=== PATIENT | female | born 1970 | race Two or more races ===

== ENCOUNTER 2021-08-17 15:43 | Emergency (ER) | payer MEDICAID, OTHER ==
[~2021-08-17] VITALS: Ht 170.2 cm; Wt 138.3 kg
[2021-08-17 16:57] LABS: Basophils # (auto) 0.1 10 ^3/uL (0-0.2); Basophils % (auto) 0.9 % (0.0-2.0); Eosinophils # (auto) 0.2 10 ^3/uL (0-0.8); Hemoglobin 10.5 g/dL (13.5-17.5); Lymphocytes # (auto) 2.7 10 ^3/uL (0.4-5.4); Lymphocytes % (auto) 31.5 % (10.0-50.0); Mean Corpuscular Hemoglobin 23.1 pg (28.0-32.0); Mean Corpuscular Hgb Conc. 30.9 g/dL (32.0-36.0); Mean Corpuscular Volume 74.9 fL (80.0-100.0); Monocytes # (auto) 0.4 10 ^3/uL (0-1.3); Monocytes % (auto) 4.8 % (0.0-12.0); Neutrophils # (auto) 5.2 10 ^3/uL (1.6-8.6); Neutrophils % (auto) 60.8 % (37.0-80.0); Nucleated Red Blood Cells % 0.1 %; Red Blood Cells 4.54 10^6/uL (4.5-5.90); Red Cell Distribution Width 16.7 % (11.8-14.3); White Blood Cell 8.6 10^3/uL (4.4-10.8)
[2021-08-17 17:12] LABS: Albumin 3.1 g/dL (3.4-5.0); Calcium 8.2 mg/dL (8.5-10.1); Potassium 3.7 mmol/L (3.5-5.1)
[2021-08-17 17:18] LABS: BUN/Creatinine Ratio 14.9; Bilirubin, Total 0.2 mg/dL (0.2-1.0); Total Protein 7.4 g/dL (6.4-8.2)
[2021-08-17 20:57] VITALS: BP 124/63
== END 2021-08-17 21:36 | disposition home or self-care (01) ==
LOC: ER 15:43 → EDSEX 15:43 → ER 21:36
DX: R33.9 Retention of urine, unspecified (principal); R22.9 Localized swelling, mass and lump, unspecified; I10 Essential (primary) hypertension; E11.9 Type 2 diabetes mellitus without complications; J44.9 Chronic obstructive pulmonary disease, unspecified; F17.210 Nicotine dependence, cigarettes, uncomplicated; Z90.89 Acquired absence of other organs; Z88.5 Allergy status to narcotic agent; Z88.8 Allergy status to other drugs, medicaments and biological substances; Z91.013 Allergy to seafood
CPT/HCPCS: 36415; 51702; 71046; 80053; 84484; 85025; 93005

== ENCOUNTER 2021-10-04 11:59 | Inpatient (IN) | payer MEDICAID ==
[~2021-10-04] VITALS: Ht 170.2 cm; Wt 162.0 kg
[2021-10-04] MEDS ORDERED: IPRATROPIUM BROM 0.5 MG/2.5ML INH SOL HHN ONE ×2 (12:30→17:00)
[2021-10-04] MEDS ORDERED: ALBUTEROL SULF 2.5 MG/0.5ML(0.5%) NEB SOLN HHN ONE ×2 (12:30→17:00)
[2021-10-04] MEDS ORDERED: methylPREDNISolone SOD SUCC 125 MG/2 ML VL IV ONE (12:30)
[2021-10-04 14:28] LABS: Potassium 3.4 mmol/L (3.5-5.1)
[2021-10-04 14:32] LABS: Albumin 3.4 g/dL (3.4-5.0); BUN/Creatinine Ratio 9.5; Calcium 8.7 mg/dL (8.5-10.1)
[2021-10-04 14:39] LABS: Basophils # (auto) 0.1 10 ^3/uL (0-0.2); Basophils % (auto) 1.3 % (0.0-2.0); Eosinophils # (auto) 0.2 10 ^3/uL (0-0.8); Eosinophils % (auto) 2.4 % (0.0-7.0); Hematocrit 31.3 % (36.0-46.0); Hemoglobin 9.5 g/dL (12.2-16.2); Lymphocytes # (auto) 3.4 10 ^3/uL (0.4-5.4); Lymphocytes % (auto) 40.3 % (10.0-50.0); Mean Corpuscular Hgb Conc. 30.4 g/dL (32.0-36.0); Mean Corpuscular Volume 69.1 fL (80.0-100.0); Monocytes # (auto) 0.4 10 ^3/uL (0-1.3); Monocytes % (auto) 4.2 % (0.0-12.0); Neutrophils # (auto) 4.4 10 ^3/uL (1.6-8.6); Neutrophils % (auto) 51.8 % (37.0-80.0); Nucleated Red Blood Cells % 0.1 %; Red Blood Cells 4.52 10^6/uL (4.0-5.20); Red Cell Distribution Width 17.8 % (11.8-14.3); White Blood Cell 8.5 10^3/uL (4.4-10.8)
[2021-10-04 14:44] LABS: Bilirubin, Total 0.3 mg/dL (0.2-1.0); Total Protein 7.6 g/dL (6.4-8.2)
[2021-10-04] MEDS ORDERED: MORPHINE SULFATE INJECTION 2 MG/ML SYRG IV PRN (18:45)
[2021-10-04] MEDS ORDERED: ONDANSETRON HCL 4 MG/2 ML VIAL IV PRN (18:45)
[2021-10-04] MEDS ORDERED: HYDROcodone-ACET 5/325MG TAB PO PRN (18:45)
[2021-10-04] MEDS ORDERED: POTASSIUM EFFERVESENT TAB 25 MEQ GT ONE (19:00)
[2021-10-04] MEDS: SODIUM CHLORIDE 0.9% 1,000 ML IV SCH (20:09)
[2021-10-04] MEDS: methylPREDNISolone SOD SUCC 40 MG/ML VL IV SCH (22:22)
[2021-10-04] MEDS: NITROGLYCERIN 0.4 MG SL TAB SL PRN ×2 (22:32→22:37)
[2021-10-04] MEDS ORDERED: diphenhdrAMINE HCL 50 MG/1 ML VL IV ONE (22:45)
[2021-10-04] MEDS ORDERED: DOCU100C10 PO (22:59)
[2021-10-04] MEDS ORDERED: LEVE100020 PO (22:59)
[2021-10-04] MEDS ORDERED: ATOR20TA50 PO (22:59)
[2021-10-04] MEDS ORDERED: AMLO-489 PO (22:59)
[2021-10-04] MEDS ORDERED: APIX5TAB PO (22:59)
[2021-10-04] MEDS ORDERED: ALBU108A5 PO (22:59)
[2021-10-04] MEDS ORDERED: METF-372 PO (22:59)
[2021-10-04 23:50] LABS: Nucleated Red Blood Cells % 0.1 %; White Blood Cell 7.1 10^3/uL (4.4-10.8)
[2021-10-04 23:52] LABS: Basophils # (auto) 0 10 ^3/uL (0-0.2); Basophils % (auto) 0.2 % (0.0-2.0); Eosinophils # (auto) 0 10 ^3/uL (0-0.8); Eosinophils % (auto) 0.1 % (0.0-7.0); Hematocrit 29.3 % (36.0-46.0); Hemoglobin 8.8 g/dL (12.2-16.2); Lymphocytes # (auto) 0.6 10 ^3/uL (0.4-5.4); Lymphocytes % (auto) 8.5 % (10.0-50.0); Mean Corpuscular Hemoglobin 20.8 pg (28.0-32.0); Mean Corpuscular Volume 69.3 fL (80.0-100.0); Monocytes # (auto) 0.1 10 ^3/uL (0-1.3); Neutrophils # (auto) 6.4 10 ^3/uL (1.6-8.6); Neutrophils % (auto) 90.2 % (37.0-80.0); Red Blood Cells 4.23 10^6/uL (4.0-5.20)
[2021-10-04 23:56] LABS: INR 1.02 (0.9-1.15)
[2021-10-05 00:40] VITALS: BP 123/52
[2021-10-05] MEDS ORDERED: IOHEXOL 350 MG/ML 100ML IJ ONE (01:09)
[2021-10-05 05:00] VITALS: BP 95/49
[2021-10-05 05:23] LABS: Basophils # (auto) 0 10 ^3/uL (0-0.2); Basophils % (auto) 0.2 % (0.0-2.0); Eosinophils # (auto) 0 10 ^3/uL (0-0.8); Hemoglobin 8.9 g/dL (12.2-16.2); Monocytes # (auto) 0.1 10 ^3/uL (0-1.3); Nucleated Red Blood Cells % 0.2 %
[2021-10-05 05:24] LABS: Hematocrit 29.4 % (36.0-46.0); Lymphocytes # (auto) 0.9 10 ^3/uL (0.4-5.4); Lymphocytes % (auto) 11.1 % (10.0-50.0); Mean Corpuscular Hgb Conc. 30.2 g/dL (32.0-36.0); Mean Corpuscular Volume 69.7 fL (80.0-100.0); Monocytes % (auto) 1.5 % (0.0-12.0); Neutrophils # (auto) 6.9 10 ^3/uL (1.6-8.6); Neutrophils % (auto) 87.2 % (37.0-80.0); Red Blood Cells 4.22 10^6/uL (4.0-5.20); Red Cell Distribution Width 17.4 % (11.8-14.3); White Blood Cell 7.9 10^3/uL (4.4-10.8)
[2021-10-05 05:46] LABS: Calcium 8.6 mg/dL (8.5-10.1); Potassium 4.3 mmol/L (3.5-5.1)
[2021-10-05] MEDS: methylPREDNISolone SOD SUCC 40 MG/ML VL IV SCH ×3 (05:47→21:58)
[2021-10-05] MEDS: SODIUM CHLORIDE 0.9% 1,000 ML IV SCH ×3 (05:47→21:59)
[2021-10-05 05:52] LABS: BUN/Creatinine Ratio 14.7; Bilirubin, Total 0.4 mg/dL (0.2-1.0); Total Protein 7.3 g/dL (6.4-8.2)
[2021-10-05 08:00] VITALS: BP 119/72
[2021-10-05] MEDS ORDERED: LORazepam 2MG/ML-1ML VIAL IV PRN (09:30)
[2021-10-05 10:00] LABS: Cholesterol 189 mg/dL (< 200); HDL Cholesterol 48 mg/dL (40-59); LDL Cholesterol 123 mg/dL (< 100); Triglycerides 77 mg/dL (< 150)
[2021-10-05] MEDS ORDERED: FAMOTIDINE 20 MG TAB PO SCH (10:00)
[2021-10-05] MEDS ORDERED: ENOXAPARIN SOD 40 MG/0.4 ML SYRINGE SC SCH (10:00)
[2021-10-05] MEDS: MORPHINE SULFATE INJECTION 2 MG/ML SYRG IV PRN ×2 (10:03→20:59)
[2021-10-05 12:00] VITALS: BP 138/82
[2021-10-05 16:00] VITALS: BP 111/75
[2021-10-05] MEDS: SUCRALFATE 1 GM/10 ML ORAL SUSP PO SCH ×2 (17:04→21:58)
[2021-10-05] MEDS: IPRATROPIUM BROM 0.5 MG/2.5ML INH SOL NEB PRN ×2 (18:10→22:37)
[2021-10-05] MEDS: ALBUTEROL SULF 2.5 MG/0.5ML(0.5%) NEB SOLN NEB PRN ×2 (18:10→22:37)
[2021-10-05] MEDS: ACETAMINOPHEN 325 MG TAB PO PRN (21:58)
[2021-10-05] MEDS: APIXABAN 5 MG TAB PO SCH (21:59)
[2021-10-05] MEDS: PANTOPRAZOLE 40 MG TAB PO SCH (21:59)
[2021-10-05 22:00] VITALS: BP 116/71
[2021-10-06] VITALS (9 sets, daily range): BP systolic 113–143; BP diastolic 60–88
[2021-10-06] MEDS: MORPHINE SULFATE INJECTION 2 MG/ML SYRG IV PRN ×3 (02:34→20:06)
[2021-10-06] MEDS: SODIUM CHLORIDE 0.9% 1,000 ML IV SCH ×3 (05:21→21:57)
[2021-10-06] MEDS: methylPREDNISolone SOD SUCC 40 MG/ML VL IV SCH ×3 (05:22→21:57)
[2021-10-06 06:09] LABS: Basophils # (auto) 0 10 ^3/uL (0-0.2); Eosinophils # (auto) 0 10 ^3/uL (0-0.8); Lymphocytes % (auto) 7.8 % (10.0-50.0); Monocytes # (auto) 0.4 10 ^3/uL (0-1.3)
[2021-10-06] MEDS: SUCRALFATE 1 GM/10 ML ORAL SUSP PO SCH ×4 (06:14→21:58)
[2021-10-06 06:15] LABS: Basophils % (auto) 0.2 % (0.0-2.0); Hematocrit 28.1 % (36.0-46.0); Hemoglobin 8.3 g/dL (12.2-16.2); Mean Corpuscular Hgb Conc. 29.5 g/dL (32.0-36.0); Mean Corpuscular Volume 70.9 fL (80.0-100.0); Monocytes % (auto) 3.4 % (0.0-12.0); Neutrophils # (auto) 10.9 10 ^3/uL (1.6-8.6); Neutrophils % (auto) 88.6 % (37.0-80.0); Red Blood Cells 3.96 10^6/uL (4.0-5.20); Red Cell Distribution Width 17.9 % (11.8-14.3); White Blood Cell 12.3 10^3/uL (4.4-10.8)
[2021-10-06 06:52] LABS: Potassium 4.6 mmol/L (3.5-5.1)
[2021-10-06 07:00] LABS: Calcium 8.3 mg/dL (8.5-10.1); Magnesium 2.5 mg/dL (1.6-2.6)
[2021-10-06] MEDS: APIXABAN 5 MG TAB PO SCH ×2 (10:26→21:58)
[2021-10-06] MEDS: PANTOPRAZOLE 40 MG TAB PO SCH ×2 (10:27→21:58)
[2021-10-06] MEDS ORDERED: guaiFENesin-DM 100/10mg/5ml SYR PO PRN (13:30)
[2021-10-06] MEDS: levETIRAcetam 500 MG TAB PO SCH (21:58)
[2021-10-06] MEDS: ATORVASTATIN 20 MG TAB PO SCH (21:58)
[2021-10-07] MEDS: MORPHINE SULFATE INJECTION 2 MG/ML SYRG IV PRN ×3 (03:58→20:39)
[2021-10-07 05:00] VITALS: BP 110/70
[2021-10-07] MEDS: SODIUM CHLORIDE 0.9% 1,000 ML IV SCH ×3 (05:02→21:25)
[2021-10-07] MEDS: methylPREDNISolone SOD SUCC 40 MG/ML VL IV SCH ×3 (06:14→21:25)
[2021-10-07] MEDS: SUCRALFATE 1 GM/10 ML ORAL SUSP PO SCH ×4 (06:14→21:25)
[2021-10-07 09:00] VITALS: BP 138/49
[2021-10-07] MEDS: APIXABAN 5 MG TAB PO SCH ×2 (10:00→21:25)
[2021-10-07] MEDS: LACTULOSE 20Gm/30ML SOLN PO PRN (10:00)
[2021-10-07] MEDS: levETIRAcetam 500 MG TAB PO SCH ×2 (10:00→21:26)
[2021-10-07] MEDS: PANTOPRAZOLE 40 MG TAB PO SCH ×2 (10:00→21:26)
[2021-10-07] MEDS: ACETAMINOPHEN 325 MG TAB PO PRN (10:11)
[2021-10-07 13:27] VITALS: BP 149/95
[2021-10-07 17:00] VITALS: BP 144/86
[2021-10-07 19:48] VITALS: BP 144/86
[2021-10-07] MEDS: ATORVASTATIN 20 MG TAB PO SCH (21:26)
[2021-10-07 22:00] VITALS: BP 145/86
[2021-10-08] MEDS: MORPHINE SULFATE INJECTION 2 MG/ML SYRG IV PRN ×2 (02:50→06:49)
[2021-10-08 05:00] VITALS: BP 136/87
[2021-10-08] MEDS: SODIUM CHLORIDE 0.9% 1,000 ML IV SCH (05:09)
[2021-10-08] MEDS: methylPREDNISolone SOD SUCC 40 MG/ML VL IV SCH (06:06)
[2021-10-08] MEDS: SUCRALFATE 1 GM/10 ML ORAL SUSP PO SCH (06:06)
[2021-10-08 09:00] VITALS: BP 142/92
[2021-10-08] MEDS: APIXABAN 5 MG TAB PO SCH (09:48)
[2021-10-08] MEDS: PANTOPRAZOLE 40 MG TAB PO SCH (09:48)
[2021-10-08] MEDS: levETIRAcetam 500 MG TAB PO SCH (09:48)
[2021-10-08] MEDS: LACTULOSE 20Gm/30ML SOLN PO PRN (10:14)
== END 2021-10-08 12:30 | disposition home or self-care (01) | DRG 140 ==
LOC: ER 11:59 → TELE 18:45 → TELE-WESTW 20:21 → WEST WING 10-06 14:54
PROVIDERS: ADMIT Internal Medicine; ATTEND Internal Medicine
PROC: 5A09357 Assistance with Respiratory Ventilation, Less than 24 Consecutive Hours, Continuous Positive Airway Pressure (ICD-10-PCS; principal; 2021-10-05)
PROC: 5A09357 Assistance with Respiratory Ventilation, Less than 24 Consecutive Hours, Continuous Positive Airway Pressure (ICD-10-PCS; 2021-10-06)
PROC: 5A09357 Assistance with Respiratory Ventilation, Less than 24 Consecutive Hours, Continuous Positive Airway Pressure (ICD-10-PCS; 2021-10-07)
DX: J44.1 Chronic obstructive pulmonary disease with (acute) exacerbation (principal); J96.21 Acute and chronic respiratory failure with hypoxia; E11.51 Type 2 diabetes mellitus with diabetic peripheral angiopathy without gangrene; I69.351 Hemiplegia and hemiparesis following cerebral infarction affecting right dominant side; Z68.43 Body mass index [BMI] 50.0-59.9, adult; D64.9 Anemia, unspecified; D72.829 Elevated white blood cell count, unspecified; I50.9 Heart failure, unspecified; E66.01 Morbid (severe) obesity due to excess calories; I11.0 Hypertensive heart disease with heart failure; G40.909 Epilepsy, unspecified, not intractable, without status epilepticus; J98.11 Atelectasis; E78.5 Hyperlipidemia, unspecified; R19.5 Other fecal abnormalities; Z20.822 Contact with and (suspected) exposure to COVID-19; G47.30 Sleep apnea, unspecified; K59.00 Constipation, unspecified; Z87.891 Personal history of nicotine dependence; Z79.01 Long term (current) use of anticoagulants; Z79.899 Other long term (current) drug therapy; Z80.0 Family history of malignant neoplasm of digestive organs; Z82.3 Family history of stroke; Z82.49 Family history of ischemic heart disease and other diseases of the circulatory system; Z83.3 Family history of diabetes mellitus; Z86.711 Personal history of pulmonary embolism; Z86.718 Personal history of other venous thrombosis and embolism; Z91.14 Patient's other noncompliance with medication regimen; Z88.8 Allergy status to other drugs, medicaments and biological substances; Z91.041 Radiographic dye allergy status; Z88.5 Allergy status to narcotic agent; Z91.013 Allergy to seafood; Z90.49 Acquired absence of other specified parts of digestive tract; Z71.3 Dietary counseling and surveillance
CPT/HCPCS: 36415; 70450; 71046; 71275; 80048; 80053; 80061; 82962; 83605; 83735; 83880; 84484; 85025; 85610; 85730; 87040; 93005; 94640; 94644; 94660; 96361; 96365; 96375; G0378; J7060

== ENCOUNTER 2022-01-30 09:48 | Emergency (ER) | payer MEDICAID ==
[~2022-01-30] VITALS: Ht 170.2 cm; Wt 132.5 kg
[~2022-01-30 09:48] MED LIST: ALBU108A5 PO; AMLO-489 PO; APIX5TAB PO; ATOR20TA50 PO; DOCU100C10 PO; LEVE100020 PO; METF-372 PO
[2022-01-30 10:42] LABS: Basophils # (auto) 0.1 10 ^3/uL (0-0.2); Eosinophils # (auto) 0.2 10 ^3/uL (0-0.8); Mean Corpuscular Hemoglobin 19.2 pg (28.0-32.0); Monocytes # (auto) 0.5 10 ^3/uL (0-1.3); Nucleated Red Blood Cells % 0.1 %
[2022-01-30 10:44] LABS: Basophils % (auto) 1.3 % (0.0-2.0); Eosinophils % (auto) 2.6 % (0.0-7.0); Hematocrit 35.8 % (41.0-53.0); Hemoglobin 10.3 g/dL (13.5-17.5); Lymphocytes # (auto) 2.2 10 ^3/uL (0.4-5.4); Lymphocytes % (auto) 28.9 % (10.0-50.0); Mean Corpuscular Hgb Conc. 28.8 g/dL (32.0-36.0); Mean Corpuscular Volume 66.7 fL (80.0-100.0); Neutrophils # (auto) 4.7 10 ^3/uL (1.6-8.6); Neutrophils % (auto) 61.2 % (37.0-80.0); Red Blood Cells 5.37 10^6/uL (4.5-5.90); White Blood Cell 7.7 10^3/uL (4.4-10.8)
[2022-01-30 11:00] LABS: Albumin 3.3 g/dL (3.4-5.0); Calcium 8.4 mg/dL (8.5-10.1); Potassium 4.5 mmol/L (3.5-5.1)
[2022-01-30 11:03] LABS: Bilirubin, Total 0.2 mg/dL (0.2-1.0); Total Protein 7.9 g/dL (6.4-8.2)
[2022-01-30] MEDS ORDERED: ONDANSETRON HCL 4 MG/2 ML VIAL IV ONE (13:00)
[2022-01-30] MEDS ORDERED: SODIUM CHLORIDE 0.9% 1,000 ML IVB ONE (13:00)
[2022-01-30] MEDS ORDERED: KETOROLAC TROMETH 30 MG/ML 1ML VIAL IV ONE (13:00)
[2022-01-30 13:15] LABS: Urine Bacteria NONE SEEN /hpf (None Seen); Urine Blood 1+ /uL (Negative); Urine Mucus FEW (None Seen); Urine Specific Gravity 1.024 (1.001-1.035); Urine WBC 4 /hpf (0 - 3)
[2022-01-30] MEDS ORDERED: NITR-87 PO (15:06)
[2022-01-30 15:20] VITALS: BP 126/75
== END 2022-01-30 16:52 | disposition home or self-care (01) ==
LOC: ER 09:48
DX: N39.0 Urinary tract infection, site not specified (principal); R11.2 Nausea with vomiting, unspecified; R19.7 Diarrhea, unspecified; I10 Essential (primary) hypertension; E11.9 Type 2 diabetes mellitus without complications; E78.5 Hyperlipidemia, unspecified; J44.9 Chronic obstructive pulmonary disease, unspecified; Z90.49 Acquired absence of other specified parts of digestive tract; Z90.89 Acquired absence of other organs; Z87.891 Personal history of nicotine dependence; Z79.899 Other long term (current) drug therapy; Z88.8 Allergy status to other drugs, medicaments and biological substances; Z88.5 Allergy status to narcotic agent; Z91.013 Allergy to seafood
CPT/HCPCS: 36415; 74176; 80053; 81001; 83690; 85025; 93005; 96361; 96374; 96375; 99285; J1885; J2405; J7030

== ENCOUNTER 2022-03-22 16:43 | Emergency (ER) | payer MEDICAID ==
[~2022-03-22] VITALS: Ht 170.2 cm; Wt 139.0 kg
[~2022-03-22 16:43] MED LIST changes: +NITR-87 PO
[2022-03-22 18:01] LABS: Basophils # (auto) 0.1 10 ^3/uL (0-0.2); Hematocrit 36.6 % (41.0-53.0); Hemoglobin 10.9 g/dL (13.5-17.5); Monocytes # (auto) 0.5 10 ^3/uL (0-1.3); Nucleated Red Blood Cells % 0.1 %
[2022-03-22 18:02] LABS: Basophils % (auto) 1.3 % (0.0-2.0); Eosinophils # (auto) 0.6 10 ^3/uL (0-0.8); Eosinophils % (auto) 6.7 % (0.0-7.0); Lymphocytes # (auto) 2.7 10 ^3/uL (0.4-5.4); Lymphocytes % (auto) 32.4 % (10.0-50.0); Mean Corpuscular Hemoglobin 20.6 pg (28.0-32.0); Mean Corpuscular Hgb Conc. 29.9 g/dL (32.0-36.0); Mean Corpuscular Volume 68.9 fL (80.0-100.0); Monocytes % (auto) 5.9 % (0.0-12.0); Neutrophils # (auto) 4.5 10 ^3/uL (1.6-8.6); Neutrophils % (auto) 53.7 % (37.0-80.0); Red Blood Cells 5.31 10^6/uL (4.5-5.90); Red Cell Distribution Width 19.6 % (11.8-14.3); White Blood Cell 8.4 10^3/uL (4.4-10.8)
[2022-03-22 18:15] LABS: Albumin 3.4 g/dL (3.4-5.0); BUN/Creatinine Ratio 14.9; Calcium 8.4 mg/dL (8.5-10.1); Potassium 4.2 mmol/L (3.5-5.1)
[2022-03-22 18:18] LABS: Bilirubin, Total 0.2 mg/dL (0.2-1.0); Total Protein 7.6 g/dL (6.4-8.2)
[2022-03-22] MEDS ORDERED: IPRATROPIUM BROM 0.5 MG/2.5ML INH SOL NEB ONE (22:45)
[2022-03-22] MEDS ORDERED: methylPREDNISolone SOD SUCC 125 MG/2 ML VL IM ONE (22:45)
[2022-03-22 23:16] LABS: Urine Bacteria NONE SEEN /hpf (None Seen); Urine Blood Negative /uL (Negative); Urine Mucus FEW (None Seen); Urine Specific Gravity 1.028 (1.001-1.035); Urine WBC 3 /hpf (0 - 3)
[2022-03-23] MEDS ORDERED: PRED20TA2 PO (07:25)
[2022-03-23] MEDS ORDERED: AZIT250T9 PO (07:25)
[2022-03-23] MEDS ORDERED: AZITHROMYCIN 250 MG TAB PO ONE (07:30)
[2022-03-23 07:59] VITALS: BP 103/71
== END 2022-03-23 07:25 | disposition home or self-care (01) ==
LOC: ER 16:43
DX: J44.1 Chronic obstructive pulmonary disease with (acute) exacerbation (principal); E11.9 Type 2 diabetes mellitus without complications; E78.5 Hyperlipidemia, unspecified; I10 Essential (primary) hypertension; Z86.73 Personal history of transient ischemic attack (TIA), and cerebral infarction without residual deficits; Z90.49 Acquired absence of other specified parts of digestive tract; Z87.891 Personal history of nicotine dependence
CPT/HCPCS: 36415; 70450; 71045; 80053; 81001; 83880; 84484; 85025; 93005; 94640; 96372; 99285; J2930; J7644

== ENCOUNTER 2022-03-30 09:25 | Emergency (ER) | payer MEDICAID ==
[~2022-03-30] VITALS: Ht 170.2 cm; Wt 130.2 kg
[~2022-03-30 09:25] MED LIST changes: +AZIT250T9 PO; +PRED20TA2 PO
[2022-03-30] MEDS ORDERED: SODIUM CHLORIDE 0.9% 1,000 ML IV ONE (10:15)
[2022-03-30 10:28] LABS: Basophils # (auto) 0.1 10 ^3/uL (0-0.2); Basophils % (auto) 0.7 % (0.0-2.0); Eosinophils # (auto) 0.4 10 ^3/uL (0-0.8); Red Cell Distribution Width 19.6 % (11.8-14.3)
[2022-03-30 10:30] LABS: Eosinophils % (auto) 3.1 % (0.0-7.0); Hemoglobin 10.7 g/dL (13.5-17.5); Lymphocytes # (auto) 2.6 10 ^3/uL (0.4-5.4); Lymphocytes % (auto) 21.8 % (10.0-50.0); Mean Corpuscular Hgb Conc. 28.8 g/dL (32.0-36.0); Mean Corpuscular Volume 69.7 fL (80.0-100.0); Monocytes # (auto) 0.5 10 ^3/uL (0-1.3); Monocytes % (auto) 4.1 % (0.0-12.0); Neutrophils # (auto) 8.4 10 ^3/uL (1.6-8.6); Neutrophils % (auto) 70.3 % (37.0-80.0); Red Blood Cells 5.31 10^6/uL (4.5-5.90)
[2022-03-30] MEDS ORDERED: methylPREDNISolone SOD SUCC 125 MG/2 ML VL IV ONE (11:00)
[2022-03-30] MEDS ORDERED: ALBUTEROL SULF 2.5 MG/0.5ML(0.5%) NEB SOLN NEB ONE (11:00)
[2022-03-30] MEDS ORDERED: levoFLOXacin 750MG 150 ML IV ONE (11:00)
[2022-03-30] MEDS ORDERED: IPRATROPIUM BROM 0.5 MG/2.5ML INH SOL NEB ONE (11:00)
[2022-03-30 11:46] LABS: Potassium 4.5 mmol/L (3.5-5.1)
[2022-03-30 11:48] LABS: Albumin 3.2 g/dL (3.4-5.0); BUN/Creatinine Ratio 14.7; Bilirubin, Total 0.5 mg/dL (0.2-1.0); Calcium 8.6 mg/dL (8.5-10.1); Total Protein 7.6 g/dL (6.4-8.2)
[2022-03-30 14:36] LABS: Urine Bacteria FEW /hpf (None Seen); Urine Blood Negative /uL (Negative); Urine Mucus FEW (None Seen); Urine Specific Gravity 1.026 (1.001-1.035); Urine WBC 6 /hpf (0 - 3)
[2022-03-30] MEDS ORDERED: DEXT1SYP9 PO (15:46)
[2022-03-30] MEDS ORDERED: DOXY100C PO (15:46)
[2022-03-30] MEDS ORDERED: ALBUAER3 IN (15:46)
[2022-03-30] MEDS ORDERED: PRED20TA2 PO (15:46)
[2022-03-30 15:52] VITALS: BP 110/62
== END 2022-03-30 15:58 | disposition home or self-care (01) ==
LOC: ER 09:25
DX: J44.1 Chronic obstructive pulmonary disease with (acute) exacerbation (principal); E11.65 Type 2 diabetes mellitus with hyperglycemia; E44.1 Mild protein-calorie malnutrition; R80.9 Proteinuria, unspecified; Z68.42 Body mass index [BMI] 45.0-49.9, adult; Z20.822 Contact with and (suspected) exposure to COVID-19
CPT/HCPCS: 36415; 71046; 80053; 81001; 83735; 84484; 85025; 87426; 93005; 94640; 96365; 96366; 96375; 99285; J1956; J2930; J7030; J7644

== ENCOUNTER 2022-07-17 10:47 | Inpatient (IN) | payer MEDICAID ==
[~2022-07-17] VITALS: Ht 170.2 cm; Wt 139.0 kg
[~2022-07-17 10:47] MED LIST changes: +ALBUAER3 IN; +DEXT1SYP9 PO; +DOXY100C PO
[2022-07-17 11:18] LABS: Hematocrit 40.4 % (41.0-53.0); Hemoglobin 12.1 g/dL (13.5-17.5); Mean Corpuscular Hemoglobin 20.6 pg (28.0-32.0); Mean Corpuscular Hgb Conc. 29.9 g/dL (32.0-36.0); Mean Corpuscular Volume 68.8 fL (80.0-100.0); Red Blood Cells 5.87 10^6/uL (4.5-5.90); Red Cell Distribution Width 17.9 % (11.8-14.3); White Blood Cell 11.1 10^3/uL (4.4-10.8)
[2022-07-17 11:21] LABS: Basophils % (manual) 0 (0.0-2.0); Blast Cells 0; Metamyelocytes % 0; Myelocytes % 0; Promyelocytes % 0
[2022-07-17] MEDS ORDERED: ASPirin 81 mg TAB PO ONE (11:30)
[2022-07-17 12:25] LABS: Albumin 3.6 g/dL (3.4-5.0); Calcium 8.5 mg/dL (8.5-10.1); Potassium 3.9 mmol/L (3.5-5.1)
[2022-07-17 12:29] LABS: BUN/Creatinine Ratio 12.8; Bilirubin, Total 0.4 mg/dL (0.2-1.0); Total Protein 7.6 g/dL (6.4-8.2)
[2022-07-17 12:36] LABS: Band Neutrophils % (manual) 3; Eosinophils % (manual) 1 (0-7); Lymphocytes % (manual) 36 (10.0-50.0); Monocytes % (manual) 8 (0-12); Reactive Lymphocytes 3
[2022-07-17 12:44] LABS: INR 0.92 (0.9-1.15)
[2022-07-17] MEDS ORDERED: MORPHINE SULFATE INJ 2 MG/ml SYRG IV ONE (13:00)
[2022-07-17] MEDS ORDERED: ONDANSETRON HCL 4 MG/2 ML VIAL IV ONE (13:00)
[2022-07-17] MEDS ORDERED: NITROGLYCERIN 0.4 MG SL TAB SL PRN (15:15)
[2022-07-17] MEDS ORDERED: HYDROcodone-ACET 5/325MG TAB PO PRN (15:15)
[2022-07-17] MEDS ORDERED: ACETAMINOPHEN 500 MG TAB PO PRN (15:15)
[2022-07-17] MEDS ORDERED: ALBUTEROL SULF 2.5 MG/0.5ML(0.5%) NEB SOLN NEB PRN (15:15)
[2022-07-17] MEDS ORDERED: ONDANSETRON HCL 4 MG/2 ML VIAL IV PRN (15:15)
[2022-07-17] MEDS ORDERED: IPRATROPIUM BROM 0.5 MG/2.5ML INH SOL NEB PRN (15:15)
[2022-07-17 16:11] VITALS: BP 146/85
[2022-07-17] MEDS: METOPROLOL TARTRATE 25 MG TAB PO SCH (23:18)
[2022-07-17] MEDS: ATORVASTATIN 20 MG TAB PO SCH (23:18)
[2022-07-18] MEDS: MORPHINE SULFATE INJ 2 MG/ml SYRG IV PRN ×3 (00:39→23:28)
[2022-07-18 05:44] LABS: Eosinophils # (auto) 0.2 10 ^3/uL (0-0.8); Hemoglobin 11.5 g/dL (13.5-17.5); Lymphocytes # (auto) 2.3 10 ^3/uL (0.4-5.4); Monocytes # (auto) 0.5 10 ^3/uL (0-1.3); Red Cell Distribution Width 18.1 % (11.8-14.3)
[2022-07-18 05:50] LABS: Basophils # (auto) 0 10 ^3/uL (0-0.2); Basophils % (auto) 0.7 % (0.0-2.0); Eosinophils % (auto) 2.2 % (0.0-7.0); Hematocrit 38.8 % (41.0-53.0); Lymphocytes % (auto) 32.2 % (10.0-50.0); Mean Corpuscular Hemoglobin 20.8 pg (28.0-32.0); Mean Corpuscular Hgb Conc. 29.7 g/dL (32.0-36.0); Mean Corpuscular Volume 69.8 fL (80.0-100.0); Monocytes % (auto) 7.3 % (0.0-12.0); Neutrophils # (auto) 4.1 10 ^3/uL (1.6-8.6); Neutrophils % (auto) 57.6 % (37.0-80.0); Red Blood Cells 5.55 10^6/uL (4.5-5.90); White Blood Cell 7.2 10^3/uL (4.4-10.8)
[2022-07-18 06:03] LABS: INR 0.93 (0.9-1.15); Partial Thromboplastin Time 27.6 sec (24.6-33.4)
[2022-07-18 06:05] LABS: BUN/Creatinine Ratio 18.4; Calcium 8.7 mg/dL (8.5-10.1)
[2022-07-18] MEDS: ASPirin-EC 81 mg tab PO SCH (10:07)
[2022-07-18] MEDS: METOPROLOL TARTRATE 25 MG TAB PO SCH ×2 (10:08→23:05)
[2022-07-18] MEDS ORDERED: diphenhdrAMINE HCL 50 MG/1 ML VL IV ONE (13:00)
[2022-07-18] MEDS ORDERED: methylPREDNISolone SOD SUCC 40 MG/ML VL IV ONE (13:00)
[2022-07-18] MEDS ORDERED: ENOXAPARIN SOD 100 MG/1 ML SYRINGE SC ONE (13:30)
[2022-07-18] MEDS ORDERED: FAMOTIDINE (10MG/ML) 2ML VL IV ONE (13:30)
[2022-07-18] MEDS ORDERED: ALBUTEROL MEDNEB 2.5 mg/3ml NEB NEB PRN (13:45)
[2022-07-18] MEDS ORDERED: DEXTROSE (50%) 50ML SYRG IV PRN (14:45)
[2022-07-18] MEDS ORDERED: predniSONE 20 MG TAB PO ONE ×2 (15:00→21:00)
[2022-07-18] MEDS: InsuLIN REG 1unit/0.01ml Soln (100units/ml) SC SCH ×2 (16:43→23:33)
[2022-07-18] MEDS: ACCU-CHEK COMFORT CURVE STRIP VI SCH ×2 (16:44→23:39)
[2022-07-18] MEDS ORDERED: ENOXAPARIN SOD 150 MG/1 ML SYRINGE SC SCH (22:00)
[2022-07-18] MEDS: ATORVASTATIN 20 MG TAB PO SCH (23:04)
[2022-07-19] MEDS ORDERED: predniSONE 20 MG TAB PO ONE (03:00)
[2022-07-19] MEDS ORDERED: diphenhdrAMINE HCL 25 MG CAP PO ONE (03:00)
[2022-07-19] MEDS ORDERED: IOHEXOL 350 MG/ML 100ML IJ ONE (04:31)
[2022-07-19] MEDS: ACCU-CHEK COMFORT CURVE STRIP VI SCH ×3 (06:07→17:52)
[2022-07-19] MEDS: InsuLIN REG 1unit/0.01ml Soln (100units/ml) SC SCH ×3 (06:12→17:51)
[2022-07-19 06:13] LABS: Basophils # (auto) 0 10 ^3/uL (0-0.2); Basophils % (auto) 0.2 % (0.0-2.0); Eosinophils # (auto) 0 10 ^3/uL (0-0.8); Eosinophils % (auto) 0.1 % (0.0-7.0); Hemoglobin 11.4 g/dL (13.5-17.5); Monocytes # (auto) 0.2 10 ^3/uL (0-1.3); Neutrophils # (auto) 6.8 10 ^3/uL (1.6-8.6); Nucleated Red Blood Cells % 0.3 %
[2022-07-19 06:16] LABS: Hematocrit 41.2 % (41.0-53.0); Lymphocytes # (auto) 1.1 10 ^3/uL (0.4-5.4); Lymphocytes % (auto) 13.8 % (10.0-50.0); Mean Corpuscular Hemoglobin 20.3 pg (28.0-32.0); Mean Corpuscular Hgb Conc. 27.6 g/dL (32.0-36.0); Mean Corpuscular Volume 73.7 fL (80.0-100.0); Monocytes % (auto) 2.2 % (0.0-12.0); Neutrophils % (auto) 83.7 % (37.0-80.0); Red Blood Cells 5.59 10^6/uL (4.5-5.90); Red Cell Distribution Width 17.7 % (11.8-14.3); White Blood Cell 8.1 10^3/uL (4.4-10.8)
[2022-07-19 06:38] LABS: Calcium 8.3 mg/dL (8.5-10.1); Magnesium 2.2 mg/dL (1.6-2.6); Potassium 4.6 mmol/L (3.5-5.1)
[2022-07-19 06:41] LABS: BUN/Creatinine Ratio 18.6
[2022-07-19] MEDS ORDERED: FUROSEMIDE 20 MG/2 ML VIAL IV ONE (10:30)
[2022-07-19] MEDS ORDERED: methylPREDNISolone SOD SUCC 40 MG/ML VL IV ONE (10:30)
[2022-07-19] MEDS ORDERED: POTASSIUM CHL 10 Meq TABLET PO ONE (10:30)
[2022-07-19] MEDS: ASPirin-EC 81 mg tab PO SCH (10:38)
[2022-07-19] MEDS: METOPROLOL TARTRATE 25 MG TAB PO SCH ×2 (10:39→21:50)
[2022-07-19] MEDS: ENOXAPARIN SOD 40 MG/0.4 ML SYRINGE SC SCH (10:39)
[2022-07-19] MEDS: MORPHINE SULFATE INJ 2 MG/ml SYRG IV PRN ×2 (11:15→21:51)
[2022-07-19] MEDS: DOXYCYCLINE 100MG/250ML 250 ML IV SCH ×2 (11:18→21:50)
[2022-07-19 12:01] VITALS: BP 145/78
[2022-07-19 13:02] LABS: Alcohol, Urine < 3.0 mg/dL (0-10); Amphetamine Screen, Urine NEGATIVE (NEGATIVE); Barbiturate Scree,Urine NEGATIVE (NEGATIVE); Benzodiazephine Screen, Urine NEGATIVE (NEGATIVE); Cannabinoid Screen, Urine NEGATIVE (NEGATIVE); Cocaine Screen, Urine NEGATIVE (NEGATIVE); Opiate Scree,Urine NEGATIVE (NEGATIVE); Phencyclidine Screen, Urine NEGATIVE (NEGATIVE)
[2022-07-19] MEDS: methylPREDNISolone SOD SUCC 40 MG/ML VL IV SCH (21:49)
[2022-07-19] MEDS: ATORVASTATIN 20 MG TAB PO SCH (21:49)
[2022-07-19 22:00] VITALS: BP 119/66
[2022-07-20] MEDS: ACCU-CHEK COMFORT CURVE STRIP VI SCH ×4 (00:11→18:44)
[2022-07-20] MEDS: InsuLIN REG 1unit/0.01ml Soln (100units/ml) SC SCH ×4 (00:12→18:00)
[2022-07-20 05:00] VITALS: BP 114/71
[2022-07-20 06:46] LABS: BUN/Creatinine Ratio 26.6; Calcium 8.9 mg/dL (8.5-10.1)
[2022-07-20] MEDS: FUROSEMIDE 20 MG/2 ML VIAL IV SCH (08:23)
[2022-07-20] MEDS: methylPREDNISolone SOD SUCC 40 MG/ML VL IV SCH (08:23)
[2022-07-20] MEDS: ASPirin-EC 81 mg tab PO SCH (08:24)
[2022-07-20] MEDS: METOPROLOL TARTRATE 25 MG TAB PO SCH ×2 (08:24→22:25)
[2022-07-20] MEDS: ENOXAPARIN SOD 40 MG/0.4 ML SYRINGE SC SCH (08:24)
[2022-07-20] MEDS: POTASSIUM CHL 10 Meq TABLET PO SCH (08:25)
[2022-07-20 08:55] VITALS: BP 121/56
[2022-07-20 09:00] VITALS: BP 121/56
[2022-07-20] MEDS: DOXYCYCLINE 100MG/250ML 250 ML IV SCH ×2 (10:28→22:23)
[2022-07-20] MEDS ORDERED: ARTIFICIAL TEARS 15ml EACHEYE PRN (10:45)
[2022-07-20] MEDS: diphenhdrAMINE HCL 25 MG CAP PO PRN ×2 (11:06→22:26)
[2022-07-20 11:56] LABS: Urine Bacteria FEW /hpf (None Seen); Urine Blood Negative /uL (Negative); Urine Hyaline Cast FEW /lpf (0 - 2); Urine WBC <1 /hpf (0 - 3)
[2022-07-20 13:00] VITALS: BP 95/51
[2022-07-20 17:00] VITALS: BP 118/70
[2022-07-20 21:27] VITALS: BP 117/76
[2022-07-20] MEDS: ATORVASTATIN 20 MG TAB PO SCH (22:24)
[2022-07-21] MEDS: ACCU-CHEK COMFORT CURVE STRIP VI SCH ×3 (00:36→12:00)
[2022-07-21] MEDS: MORPHINE SULFATE INJ 2 MG/ml SYRG IV PRN (00:37)
[2022-07-21 02:00] VITALS: BP 117/56
[2022-07-21 05:00] VITALS: BP 104/70
[2022-07-21] MEDS: InsuLIN REG 1unit/0.01ml Soln (100units/ml) SC SCH ×3 (06:00→12:00)
[2022-07-21 09:00] VITALS: BP 111/63
[2022-07-21] MEDS: ASPirin-EC 81 mg tab PO SCH (09:24)
[2022-07-21] MEDS: ENOXAPARIN SOD 40 MG/0.4 ML SYRINGE SC SCH (09:24)
[2022-07-21] MEDS: DOXYCYCLINE 100MG/250ML 250 ML IV SCH (09:26)
[2022-07-21] MEDS: FUROSEMIDE 20 MG/2 ML VIAL IV SCH (09:26)
[2022-07-21] MEDS: METOPROLOL TARTRATE 25 MG TAB PO SCH (09:28)
[2022-07-21] MEDS: POTASSIUM CHL 10 Meq TABLET PO SCH (10:00)
[2022-07-21] MEDS ORDERED: predniSONE 20 MG TAB PO SCH (10:00)
[2022-07-21] MEDS ORDERED: PRED20TA2 PO (10:30)
[2022-07-21] MEDS ORDERED: DOXY-338 PO (10:30)
[2022-07-21] MEDS ORDERED: POTA10TA32 PO (10:35)
[2022-07-21] MEDS ORDERED: FURO1TAB33 PO (10:35)
[2022-07-21 13:00] VITALS: BP 117/58
== END 2022-07-21 15:30 | disposition home or self-care (01) | DRG 194 ==
LOC: ER 10:47 → TELE 15:10 → TELE-E-ADS 07-19 10:58 → TELE-CENTR 07-19 20:35 → CENTRAL 07-20 11:52
PROVIDERS: ADMIT Nurse Practitioner Acute Care; ATTEND Internal Medicine
PROC: 5A09357 Assistance with Respiratory Ventilation, Less than 24 Consecutive Hours, Continuous Positive Airway Pressure (ICD-10-PCS; principal; 2022-07-18)
PROC: 5A09357 Assistance with Respiratory Ventilation, Less than 24 Consecutive Hours, Continuous Positive Airway Pressure (ICD-10-PCS; 2022-07-21)
DX: I11.0 Hypertensive heart disease with heart failure (principal); J18.9 Pneumonia, unspecified organism; J96.10 Chronic respiratory failure, unspecified whether with hypoxia or hypercapnia; I24.9 Acute ischemic heart disease, unspecified; I69.351 Hemiplegia and hemiparesis following cerebral infarction affecting right dominant side; J44.1 Chronic obstructive pulmonary disease with (acute) exacerbation; Z79.01 Long term (current) use of anticoagulants; I50.31 Acute diastolic (congestive) heart failure; Z20.822 Contact with and (suspected) exposure to COVID-19; D64.9 Anemia, unspecified; E11.9 Type 2 diabetes mellitus without complications; G47.33 Obstructive sleep apnea (adult) (pediatric); J44.9 Chronic obstructive pulmonary disease, unspecified; E78.5 Hyperlipidemia, unspecified; E66.01 Morbid (severe) obesity due to excess calories; Z86.711 Personal history of pulmonary embolism; Z68.42 Body mass index [BMI] 45.0-49.9, adult; Z79.899 Other long term (current) drug therapy; Z82.49 Family history of ischemic heart disease and other diseases of the circulatory system; Z83.3 Family history of diabetes mellitus; Z87.891 Personal history of nicotine dependence; Z88.8 Allergy status to other drugs, medicaments and biological substances; Z91.013 Allergy to seafood; Z88.5 Allergy status to narcotic agent
CPT/HCPCS: 36415; 70450; 71045; 71275; 80048; 80053; 80061; 80307; 81001; 82962; 83036; 83735; 83880; 84443; 84484; 85007; 85025; 85027; 85379; 85610; 85730; 86141; 87426; 93005; 93306; 94660; 96374; 96375; G0378; J1815; J2405; J3490

== ENCOUNTER 2022-09-09 09:01 | Emergency (ER) | payer MEDICAID ==
[~2022-09-09] VITALS: Ht 170.2 cm; Wt 139.9 kg
[~2022-09-09 09:01] MED LIST changes: +DOXY-338 PO; +FURO1TAB33 PO; +POTA10TA32 PO
[2022-09-09 09:50] VITALS: BP 147/84
[2022-09-09] MEDS ORDERED: LEVO500T31 PO (09:56)
[2022-09-09] MEDS ORDERED: BENZ100C19 PO (09:56)
[2022-09-09] MEDS ORDERED: ACET-1080 PO (09:56)
== END 2022-09-09 10:02 | disposition home or self-care (01) ==
LOC: ER 09:01
DX: J44.9 Chronic obstructive pulmonary disease, unspecified (principal); J20.9 Acute bronchitis, unspecified; R07.89 Other chest pain; I10 Essential (primary) hypertension; E11.9 Type 2 diabetes mellitus without complications; E78.5 Hyperlipidemia, unspecified; Z86.73 Personal history of transient ischemic attack (TIA), and cerebral infarction without residual deficits; Z90.49 Acquired absence of other specified parts of digestive tract; Z90.89 Acquired absence of other organs; Z87.891 Personal history of nicotine dependence
CPT/HCPCS: 71046

== ENCOUNTER 2022-09-27 09:32 | Inpatient (IN) | payer MEDICAID ==
[~2022-09-27] VITALS: Ht 170.2 cm; Wt 140.8 kg
[~2022-09-27 09:32] MED LIST changes: +ACET-1080 PO; +BENZ100C19 PO; +LEVO500T31 PO
[2022-09-27] MEDS ORDERED: ALBUTEROL SULF 2.5 MG/0.5ML(0.5%) NEB SOLN NEB ONE (10:30)
[2022-09-27] MEDS ORDERED: IPRATROPIUM BROM 0.5 MG/2.5ML INH SOL NEB ONE (10:30)
[2022-09-27] MEDS ORDERED: PIPERACILLIN-TAZOB 3.375GM 100 ML IV ONE (10:30)
[2022-09-27] MEDS ORDERED: guaiFENesin-DM 100/10mg/5ml SYR PO ONE (10:30)
[2022-09-27] MEDS ORDERED: ACETAMINOPHEN 500 MG TAB PO ONE (10:30)
[2022-09-27 10:59] LABS: Basophils # (auto) 0 10 ^3/uL (0-0.2); Hemoglobin 11.5 g/dL (13.5-17.5); Mean Corpuscular Volume 72.4 fL (80.0-100.0); Monocytes # (auto) 0.5 10 ^3/uL (0-1.3); Nucleated Red Blood Cells % 0.1 %
[2022-09-27 11:01] LABS: Basophils % (auto) 0.3 % (0.0-2.0); Eosinophils # (auto) 0.3 10 ^3/uL (0-0.8); Eosinophils % (auto) 3.7 % (0.0-7.0); Hematocrit 37.7 % (41.0-53.0); Lymphocytes # (auto) 2.3 10 ^3/uL (0.4-5.4); Lymphocytes % (auto) 32.6 % (10.0-50.0); Mean Corpuscular Hgb Conc. 30.4 g/dL (32.0-36.0); Monocytes % (auto) 7.8 % (0.0-12.0); Neutrophils # (auto) 3.9 10 ^3/uL (1.6-8.6); Neutrophils % (auto) 55.6 % (37.0-80.0); Red Blood Cells 5.21 10^6/uL (4.5-5.90); Red Cell Distribution Width 18.6 % (11.8-14.3)
[2022-09-27 11:19] LABS: INR 0.92 (0.9-1.15)
[2022-09-27 11:22] LABS: Albumin 3.1 g/dL (3.4-5.0); Calcium 8.8 mg/dL (8.5-10.1); Potassium 4.2 mmol/L (3.5-5.1)
[2022-09-27 11:27] LABS: BUN/Creatinine Ratio 10.9 (10.0-20.0); Bilirubin, Total 0.2 mg/dL (0.2-1.0); Phosphorus 2.5 mg/dL (2.5-4.90); Total Protein 7.1 g/dL (6.4-8.2)
[2022-09-27] MEDS ORDERED: methylPREDNISolone SOD SUCC 125 MG/2 ML VL IM ONE (12:00)
[2022-09-27] MEDS ORDERED: guaiFENesin-DM 100/10mg/5ml SYR PO PRN (14:15)
[2022-09-27] MEDS ORDERED: ALBUTEROL SULF 2.5 MG/0.5ML(0.5%) NEB SOLN NEB PRN (14:15)
[2022-09-27] MEDS ORDERED: ACETAMINOPHEN 325 MG TAB PO PRN (14:30)
[2022-09-27] MEDS ORDERED: NITROGLYCERIN 0.4 MG SL TAB SL PRN (14:30)
[2022-09-27] MEDS ORDERED: FUROSEMIDE 20 MG/2 ML VIAL IV ONE (14:30)
[2022-09-27] MEDS ORDERED: MORPHINE SULFATE INJ 2 MG/ml SYRG IV PRN (14:30)
[2022-09-27] MEDS ORDERED: DEXTROSE (50%) 50ML SYRG IV PRN (14:30)
[2022-09-27 14:45] LABS: Cholesterol 186 mg/dL (< 200)
[2022-09-27 14:48] LABS: HDL Cholesterol 37 mg/dL (40-59); LDL Cholesterol 133 mg/dL (< 100); Triglycerides 221 mg/dL (< 150)
[2022-09-27] MEDS: ACCU-CHEK COMFORT CURVE STRIP VI SCH ×2 (17:29→22:07)
[2022-09-27] MEDS: InsuLIN REG 1unit/0.01ml Soln (100units/ml) SC SCH ×2 (17:34→22:17)
[2022-09-27 17:51] VITALS: BP 131/68
[2022-09-27] MEDS: IPRATROPIUM BROM 0.5 MG/2.5ML INH SOL NEB SCH ×2 (18:18→22:20)
[2022-09-27] MEDS: ALBUTEROL SULF 2.5 MG/0.5ML(0.5%) NEB SOLN NEB SCH ×2 (18:18→22:20)
[2022-09-27] MEDS: APIXABAN 5 MG TAB PO SCH (21:57)
[2022-09-27] MEDS: metFORMIN HYDROCHLORIDE 500 MG TAB PO SCH (21:58)
[2022-09-27] MEDS: levETIRAcetam 500 MG TAB PO SCH (21:59)
[2022-09-27 23:00] VITALS: BP 139/83
[2022-09-27 23:04] VITALS: BP 139/83
[2022-09-27] MEDS: methylPREDNISolone SOD SUCC 125 MG/2 ML VL IV SCH (23:05)
[2022-09-28] VITALS (8 sets, daily range): BP systolic 103–139; BP diastolic 54–83
[2022-09-28] MEDS ORDERED: PNEUMOCOCCAL VACC POLYS 25 MCG/0.5 ML VIAL IM ONE (00:30)
[2022-09-28] MEDS ORDERED: TEMAZEPAM 15 MG CAP PO ONE (00:45)
[2022-09-28] MEDS: IPRATROPIUM BROM 0.5 MG/2.5ML INH SOL NEB SCH ×5 (02:32→22:32)
[2022-09-28] MEDS: ALBUTEROL SULF 2.5 MG/0.5ML(0.5%) NEB SOLN NEB SCH ×5 (02:32→22:32)
[2022-09-28 06:03] LABS: Basophils # (auto) 0 10 ^3/uL (0-0.2); Basophils % (auto) 0.1 % (0.0-2.0); Eosinophils # (auto) 0 10 ^3/uL (0-0.8); Hemoglobin 11.2 g/dL (13.5-17.5); Mean Corpuscular Volume 72.9 fL (80.0-100.0); Monocytes # (auto) 0.1 10 ^3/uL (0-1.3)
[2022-09-28 06:05] LABS: Hematocrit 36.3 % (41.0-53.0); Lymphocytes % (auto) 10.8 % (10.0-50.0); Mean Corpuscular Hemoglobin 22.5 pg (28.0-32.0); Mean Corpuscular Hgb Conc. 30.8 g/dL (32.0-36.0); Monocytes % (auto) 1.2 % (0.0-12.0); Neutrophils # (auto) 8.3 10 ^3/uL (1.6-8.6); Neutrophils % (auto) 87.9 % (37.0-80.0); Red Blood Cells 4.97 10^6/uL (4.5-5.90); Red Cell Distribution Width 18.2 % (11.8-14.3); White Blood Cell 9.5 10^3/uL (4.4-10.8)
[2022-09-28 06:14] LABS: Calcium 8.5 mg/dL (8.5-10.1); Potassium 4.3 mmol/L (3.5-5.1)
[2022-09-28 06:18] LABS: BUN/Creatinine Ratio 16.7 (10.0-20.0); Bilirubin, Total 0.2 mg/dL (0.2-1.0); Total Protein 7.6 g/dL (6.4-8.2)
[2022-09-28] MEDS: ACCU-CHEK COMFORT CURVE STRIP VI SCH ×4 (06:33→22:11)
[2022-09-28] MEDS: InsuLIN REG 1unit/0.01ml Soln (100units/ml) SC SCH ×4 (06:40→22:25)
[2022-09-28] MEDS: methylPREDNISolone SOD SUCC 125 MG/2 ML VL IV SCH (09:19)
[2022-09-28] MEDS: FUROSEMIDE 20 MG/2 ML VIAL IV SCH (09:20)
[2022-09-28] MEDS: APIXABAN 5 MG TAB PO SCH ×2 (09:20→22:20)
[2022-09-28] MEDS: POTASSIUM CHL 10 Meq TABLET PO SCH (09:20)
[2022-09-28] MEDS: metFORMIN HYDROCHLORIDE 500 MG TAB PO SCH (09:20)
[2022-09-28] MEDS: levETIRAcetam 500 MG TAB PO SCH ×3 (09:25→22:20)
[2022-09-28] MEDS ORDERED: ATORVASTATIN 20 MG TAB PO SCH (10:00)
[2022-09-28] MEDS ORDERED: amLODIPine BESYLATE 5 MG TAB PO SCH (10:00)
[2022-09-28] MEDS ORDERED: ENOXAPARIN SOD 40 MG/0.4 ML SYRINGE SC SCH (10:00)
[2022-09-28] MEDS ORDERED: HYDROcodone-ACET 5/325MG TAB PO PRN (11:15)
[2022-09-28] MEDS ORDERED: cefTRIAXone 1GM/50ML D5W 50 ML IV ONE (12:45)
[2022-09-28] MEDS ORDERED: IOHEXOL 350 MG/ML 100ML IJ ONE (13:40)
[2022-09-28] MEDS ORDERED: diphenhdrAMINE HCL 50 MG/1 ML VL IV ONE (13:45)
[2022-09-28] MEDS ORDERED: methylPREDNISolone SOD SUCC 125 MG/2 ML VL IV SCH (16:00)
[2022-09-28] MEDS: methylPREDNISolone SOD SUCC 40 MG/ML VL IV SCH ×2 (16:56→22:21)
[2022-09-28] MEDS: BUDESONIDE (INHALATION) 0.5 MG/2 ML NEB NEB SCH (18:12)
[2022-09-28] MEDS: INSULIN LANTUS (GLARGINE) 1 /0.01ml (100units/ml) SC SCH (22:24)
[2022-09-29] VITALS (7 sets, daily range): BP systolic 107–136; BP diastolic 52–89
[2022-09-29] MEDS: ALBUTEROL SULF 2.5 MG/0.5ML(0.5%) NEB SOLN NEB SCH ×6 (03:29→22:07)
[2022-09-29] MEDS: IPRATROPIUM BROM 0.5 MG/2.5ML INH SOL NEB SCH ×6 (03:29→22:07)
[2022-09-29] MEDS: methylPREDNISolone SOD SUCC 40 MG/ML VL IV SCH ×4 (04:58→22:02)
[2022-09-29] MEDS: ACCU-CHEK COMFORT CURVE STRIP VI SCH ×4 (06:13→22:00)
[2022-09-29] MEDS: InsuLIN REG 1unit/0.01ml Soln (100units/ml) SC SCH ×4 (06:14→22:00)
[2022-09-29] MEDS: APIXABAN 5 MG TAB PO SCH ×2 (09:09→21:55)
[2022-09-29] MEDS: POTASSIUM CHL 10 Meq TABLET PO SCH (09:09)
[2022-09-29] MEDS: cefTRIAXone 1GM/50ML D5W 50 ML IV SCH (09:09)
[2022-09-29] MEDS: amLODIPine BESYLATE 5 MG TAB PO SCH (09:10)
[2022-09-29] MEDS: ATORVASTATIN 20 MG TAB PO SCH (09:10)
[2022-09-29] MEDS: FUROSEMIDE 20 MG/2 ML VIAL IV SCH (09:11)
[2022-09-29] MEDS: PROMETHAZINE-DM 5 ML ORAL SYRUP PO PRN ×2 (09:14→22:07)
[2022-09-29] MEDS: levETIRAcetam 500 MG TAB PO SCH ×2 (10:00→22:00)
[2022-09-29] MEDS: BUDESONIDE (INHALATION) 0.5 MG/2 ML NEB NEB SCH ×2 (10:08→22:07)
[2022-09-29] MEDS ORDERED: AZITHROMYCIN 250 MG TAB PO ONE (11:00)
[2022-09-29 14:24] LABS: Hepatitis C Antibody Negative (Negative)
[2022-09-29] MEDS ORDERED: ALBUTEROL SULF 2.5 MG/0.5ML(0.5%) NEB SOLN ONE (21:55)
[2022-09-29] MEDS ORDERED: IPRATROPIUM BROM 0.5 MG/2.5ML INH SOL ONE (21:55)
[2022-09-29] MEDS: INSULIN LANTUS (GLARGINE) 1 /0.01ml (100units/ml) SC SCH (22:00)
[2022-09-30] MEDS: ALBUTEROL SULF 2.5 MG/0.5ML(0.5%) NEB SOLN NEB SCH ×4 (02:44→14:23)
[2022-09-30] MEDS: IPRATROPIUM BROM 0.5 MG/2.5ML INH SOL NEB SCH ×4 (02:44→14:23)
[2022-09-30 05:00] VITALS: BP 106/60
[2022-09-30] MEDS: methylPREDNISolone SOD SUCC 40 MG/ML VL IV SCH ×3 (05:28→17:00)
[2022-09-30] MEDS: InsuLIN REG 1unit/0.01ml Soln (100units/ml) SC SCH ×3 (06:22→17:00)
[2022-09-30] MEDS: ACCU-CHEK COMFORT CURVE STRIP VI SCH ×3 (06:22→17:00)
[2022-09-30] MEDS: BUDESONIDE (INHALATION) 0.5 MG/2 ML NEB NEB SCH (06:59)
[2022-09-30 09:00] VITALS: BP 112/65
[2022-09-30] MEDS: levETIRAcetam 500 MG TAB PO SCH (09:20)
[2022-09-30] MEDS: ATORVASTATIN 20 MG TAB PO SCH (09:21)
[2022-09-30] MEDS: APIXABAN 5 MG TAB PO SCH (09:21)
[2022-09-30] MEDS: amLODIPine BESYLATE 5 MG TAB PO SCH (09:22)
[2022-09-30] MEDS: POTASSIUM CHL 10 Meq TABLET PO SCH (09:22)
[2022-09-30] MEDS: FUROSEMIDE 20 MG/2 ML VIAL IV SCH (09:23)
[2022-09-30] MEDS: cefTRIAXone 1GM/50ML D5W 50 ML IV SCH (09:23)
[2022-09-30] MEDS ORDERED: AZITHROMYCIN 250 MG TAB PO SCH (10:00)
[2022-09-30] MEDS ORDERED: FURO1TAB33 PO (10:22)
[2022-09-30] MEDS ORDERED: BENZ100C19 PO (10:22)
[2022-09-30] MEDS ORDERED: PRED20TA2 PO (10:22)
[2022-09-30] MEDS ORDERED: IPRA0.00 IN (10:22)
[2022-09-30 13:00] VITALS: BP 109/53
[2022-09-30] MEDS: PROMETHAZINE-DM 5 ML ORAL SYRUP PO PRN (14:35)
[2022-09-30 16:22] VITALS: BP 109/53
[2022-09-30 16:46] VITALS: BP 117/58
== END 2022-09-30 17:30 | disposition home or self-care (01) | DRG 140 ==
LOC: ER 09:32 → TELE 14:19 → TELE-EAST 22:30
PROVIDERS: ADMIT Nurse Practitioner Family; ATTEND Hospitalist
PROC: 5A09357 Assistance with Respiratory Ventilation, Less than 24 Consecutive Hours, Continuous Positive Airway Pressure (ICD-10-PCS; principal; 2022-09-28)
PROC: 5A09357 Assistance with Respiratory Ventilation, Less than 24 Consecutive Hours, Continuous Positive Airway Pressure (ICD-10-PCS; 2022-09-30)
DX: J44.1 Chronic obstructive pulmonary disease with (acute) exacerbation (principal); J96.21 Acute and chronic respiratory failure with hypoxia; E46 Unspecified protein-calorie malnutrition; I50.9 Heart failure, unspecified; I11.0 Hypertensive heart disease with heart failure; G47.30 Sleep apnea, unspecified; E78.5 Hyperlipidemia, unspecified; Z20.822 Contact with and (suspected) exposure to COVID-19; E11.9 Type 2 diabetes mellitus without complications; E66.01 Morbid (severe) obesity due to excess calories; Z68.42 Body mass index [BMI] 45.0-49.9, adult; Z88.8 Allergy status to other drugs, medicaments and biological substances; Z91.041 Radiographic dye allergy status; Z88.5 Allergy status to narcotic agent; Z91.013 Allergy to seafood; Z80.0 Family history of malignant neoplasm of digestive organs; Z82.3 Family history of stroke; Z82.49 Family history of ischemic heart disease and other diseases of the circulatory system; Z82.5 Family history of asthma and other chronic lower respiratory diseases; Z83.3 Family history of diabetes mellitus; Z86.711 Personal history of pulmonary embolism; Z86.73 Personal history of transient ischemic attack (TIA), and cerebral infarction without residual deficits; Z87.891 Personal history of nicotine dependence; Z90.49 Acquired absence of other specified parts of digestive tract
CPT/HCPCS: 36415; 71045; 71275; 80053; 80061; 82962; 83036; 83605; 83735; 84100; 84443; 84484; 85025; 85379; 85610; 86803; 87040; 87340; 87426; 87804; 93005; 94640; 94660; 96365; 96372; 96375; G0378; J0696; J1815; J2543

== ENCOUNTER 2022-11-21 09:52 | Emergency (ER) | payer MEDICAID ==
[~2022-11-21] VITALS: Ht 170.2 cm; Wt 140.0 kg
[~2022-11-21 09:52] MED LIST changes: -AMLO-489 PO; +AMLO1TAB22 PO; -AZIT250T9 PO; +DOCU-265 PO; -DOCU100C10 PO; -DOXY-338 PO; -DOXY100C PO; +IPRA0.00 IN; -LEVO500T31 PO; -NITR-87 PO; +POTA-228 PO; -POTA10TA32 PO
[2022-11-21] MEDS ORDERED: traMADol HCL 50 MG TAB PO ONE (11:00)
[2022-11-21 11:01] LABS: Urine Bacteria FEW /hpf (None Seen); Urine Blood Negative /uL (Negative); Urine Specific Gravity 1.021 (1.001-1.035); Urine WBC 1 /hpf (0 - 3)
[2022-11-21 11:04] LABS: Basophils # (auto) 0.1 10 ^3/uL (0-0.2); Eosinophils # (auto) 0.3 10 ^3/uL (0-0.8); Lymphocytes # (auto) 2.4 10 ^3/uL (0.4-5.4); Nucleated Red Blood Cells % 0.1 %
[2022-11-21 11:06] LABS: Basophils % (auto) 1.1 % (0.0-2.0); Eosinophils % (auto) 3.5 % (0.0-7.0); Hematocrit 39.2 % (41.0-53.0); Lymphocytes % (auto) 33.3 % (10.0-50.0); Mean Corpuscular Hemoglobin 22.4 pg (28.0-32.0); Mean Corpuscular Hgb Conc. 30.5 g/dL (32.0-36.0); Mean Corpuscular Volume 73.3 fL (80.0-100.0); Monocytes # (auto) 0.5 10 ^3/uL (0-1.3); Monocytes % (auto) 7.1 % (0.0-12.0); Neutrophils # (auto) 3.9 10 ^3/uL (1.6-8.6); Red Blood Cells 5.34 10^6/uL (4.5-5.90); White Blood Cell 7.2 10^3/uL (4.4-10.8)
[2022-11-21 11:34] LABS: Potassium 4.3 mmol/L (3.5-5.1)
[2022-11-21 11:41] LABS: Albumin 3.5 g/dL (3.4-5.0); Bilirubin, Total 0.3 mg/dL (0.2-1.0); Calcium 8.1 mg/dL (8.5-10.1); Total Protein 7.2 g/dL (6.4-8.2)
[2022-11-21] MEDS ORDERED: TRAM50TA2 PO (13:08)
[2022-11-21 13:16] VITALS: BP 162/95
== END 2022-11-21 13:19 | disposition home or self-care (01) ==
LOC: ER 09:52
DX: M79.604 Pain in right leg (principal); R06.02 Shortness of breath; R51.9 Headache, unspecified; I10 Essential (primary) hypertension; E11.9 Type 2 diabetes mellitus without complications; J44.9 Chronic obstructive pulmonary disease, unspecified; Z91.013 Allergy to seafood; Z88.5 Allergy status to narcotic agent; Z88.8 Allergy status to other drugs, medicaments and biological substances; Z90.49 Acquired absence of other specified parts of digestive tract; Z90.89 Acquired absence of other organs; Z86.73 Personal history of transient ischemic attack (TIA), and cerebral infarction without residual deficits; Z88.4 Allergy status to anesthetic agent; Z79.899 Other long term (current) drug therapy; Z87.891 Personal history of nicotine dependence
CPT/HCPCS: 36415; 80053; 81001; 82962; 83880; 84484; 85025; 93005; 93971

== ENCOUNTER 2023-02-01 10:30 | Inpatient (IN) | payer MEDICAID ==
[~2023-02-01] VITALS: Ht 170.2 cm; Wt 134.4 kg
[~2023-02-01 10:30] MED LIST changes: +TRAM50TA2 PO
[2023-02-01 11:00] VITALS: PULSE 64; RESP 10; O2SAT 92
[2023-02-01] MEDS ORDERED: SODIUM CHLORIDE 0.9% 1,000 ML IV ONE (11:00)
[2023-02-01 11:01] LABS: Basophils # (auto) 0 10 ^3/uL (0-0.2); Basophils % (auto) 0.4 % (0.0-2.0); Eosinophils # (auto) 0.2 10 ^3/uL (0-0.8); Hemoglobin 12.7 g/dL (13.5-17.5); Lymphocytes # (auto) 2.6 10 ^3/uL (0.4-5.4); Monocytes # (auto) 0.4 10 ^3/uL (0-1.3); Monocytes % (auto) 6.4 % (0.0-12.0); Neutrophils # (auto) 3.7 10 ^3/uL (1.6-8.6); Nucleated Red Blood Cells % 0.1 %
[2023-02-01 11:04] LABS: Eosinophils % (auto) 2.7 % (0.0-7.0); Hematocrit 41.6 % (41.0-53.0); Lymphocytes % (auto) 37.4 % (10.0-50.0); Mean Corpuscular Hemoglobin 22.8 pg (28.0-32.0); Mean Corpuscular Hgb Conc. 30.6 g/dL (32.0-36.0); Mean Corpuscular Volume 74.6 fL (80.0-100.0); Neutrophils % (auto) 53.1 % (37.0-80.0); Red Blood Cells 5.57 10^6/uL (4.5-5.90); Red Cell Distribution Width 17.6 % (11.8-14.3)
[2023-02-01 11:21] LABS: Albumin 3.4 g/dL (3.4-5.0); Calcium 8.5 mg/dL (8.5-10.1); Potassium 3.6 mmol/L (3.5-5.1)
[2023-02-01 11:25] LABS: BUN/Creatinine Ratio 10.4 (10.0-20.0); Bilirubin, Total 0.4 mg/dL (0.2-1.0); Total Protein 8.1 g/dL (6.4-8.2)
[2023-02-01 11:38] LABS: INR 0.95 (0.9-1.15); Partial Thromboplastin Time 25.7 SEC (24.5-34.5)
[2023-02-01 11:42] LABS: COVID19 ANTIGEN SOFIA FIA NEGATIVE (NEGATIVE)
[2023-02-01] MEDS ORDERED: ALBUTEROL SULF 2.5 MG/0.5ML(0.5%) NEB SOLN NEB ONE (12:15)
[2023-02-01] MEDS ORDERED: methylPREDNISolone SOD SUCC 40 MG/ML VL IV ONE (12:15)
[2023-02-01] MEDS ORDERED: IPRATROPIUM BROM 0.5 MG/2.5ML INH SOL NEB ONE (12:15)
[2023-02-01] MEDS ORDERED: ALBUTEROL SULF 2.5 MG/0.5ML(0.5%) NEB SOLN NEB PRN (16:45)
[2023-02-01] MEDS ORDERED: MORPHINE SULFATE INJ 2 MG/ml SYRG IV PRN (16:45)
[2023-02-01] MEDS ORDERED: NITROGLYCERIN 0.4 MG SL TAB SL PRN (16:45)
[2023-02-01] MEDS ORDERED: DEXTROSE (50%) 50ML SYRG IV PRN (16:45)
[2023-02-01] MEDS ORDERED: IPRATROPIUM BROM 0.5 MG/2.5ML INH SOL NEB PRN (16:45)
[2023-02-01] MEDS ORDERED: amLODIPine BESYLATE 5 MG TAB PO SCH (17:00)
[2023-02-01 17:13] LABS: Urine Bacteria MOD /hpf (None Seen); Urine Blood 1+ /uL (Negative); Urine Clarity HAZY (Clear); Urine Color Yellow (Yellow); Urine Hyaline Cast FEW /lpf (0 - 2); Urine Mucus FEW (None Seen); Urine Protein, UAD 3+ (Negative); Urine Specific Gravity 1.028 (1.001-1.035); Urine Urobilinogen Normal (Negative); Urine WBC 1 /hpf (0 - 3)
[2023-02-01] MEDS: cefTRIAXone 1GM/50ML D5W 50 ML IV SCH (17:26)
[2023-02-01] MEDS: PANTOPRAZOLE 40 MG TAB PO SCH (18:35)
[2023-02-01] MEDS: AZITHROMYCIN 500MG/ 250ML 250 ML IV SCH (18:35)
[2023-02-01 18:45] VITALS: O2SAT 96
[2023-02-01] MEDS: ACCU-CHEK COMFORT CURVE STRIP VI SCH (18:50)
[2023-02-01] MEDS: InsuLIN REG 1unit/0.01ml Soln (100units/ml) SC SCH (18:50)
[2023-02-01 19:25] VITALS: PULSE 76; RESP 17; O2SAT 94
[2023-02-01 21:48] VITALS: BP 145/92; PULSE 77; RESP 22; TEMP 98.8; O2SAT 96
[2023-02-01] MEDS ORDERED: ATORVASTATIN 20 MG TAB PO SCH ×2 (22:00)
[2023-02-01] MEDS: APIXABAN 5 MG TAB PO SCH (22:35)
[2023-02-01] MEDS: methylPREDNISolone SOD SUCC 125 MG/2 ML VL IV SCH (22:36)
[2023-02-02] VITALS (11 sets, daily range): BP systolic 118–145; BP diastolic 69–95; PULSE 74–88; RESP 18–20; TEMP 36.7; O2SAT 94–98
[2023-02-02] MEDS: ACCU-CHEK COMFORT CURVE STRIP VI SCH ×4 (00:05→17:16)
[2023-02-02] MEDS: InsuLIN REG 1unit/0.01ml Soln (100units/ml) SC SCH ×4 (00:15→17:22)
[2023-02-02 01:12] LABS: Rapid Influenza A Negative (Negative); Rapid Influenza B Negative (Negative)
[2023-02-02] MEDS: methylPREDNISolone SOD SUCC 125 MG/2 ML VL IV SCH ×3 (05:40→22:01)
[2023-02-02 06:44] LABS: Basophils # (auto) 0 10 ^3/uL (0-0.2); Basophils % (auto) 0.1 % (0.0-2.0); Eosinophils # (auto) 0 10 ^3/uL (0-0.8); Hemoglobin 12.3 g/dL (13.5-17.5); Lymphocytes # (auto) 1.1 10 ^3/uL (0.4-5.4); Mean Corpuscular Hemoglobin 22.8 pg (28.0-32.0); Monocytes # (auto) 0.1 10 ^3/uL (0-1.3); Neutrophils # (auto) 6.9 10 ^3/uL (1.6-8.6); Red Blood Cells 5.39 10^6/uL (4.5-5.90); White Blood Cell 8.1 10^3/uL (4.4-10.8)
[2023-02-02 06:46] LABS: Hematocrit 40.2 % (41.0-53.0); Lymphocytes % (auto) 13.9 % (10.0-50.0); Mean Corpuscular Hgb Conc. 30.6 g/dL (32.0-36.0); Mean Corpuscular Volume 74.6 fL (80.0-100.0); Monocytes % (auto) 1.1 % (0.0-12.0); Neutrophils % (auto) 84.9 % (37.0-80.0); Nucleated Red Blood Cells % 0.1 %; Red Cell Distribution Width 17.8 % (11.8-14.3)
[2023-02-02 06:56] LABS: Calcium 8.2 mg/dL (8.5-10.1); Potassium 4.1 mmol/L (3.5-5.1)
[2023-02-02] MEDS: IPRATROPIUM BROM 0.5 MG/2.5ML INH SOL NEB PRN (07:47)
[2023-02-02] MEDS: ALBUTEROL SULF 2.5 MG/0.5ML(0.5%) NEB SOLN NEB PRN (07:47)
[2023-02-02 08:59] LABS: % Iron Saturation 6.3 % (20-55)
[2023-02-02] MEDS: cefTRIAXone 1GM/50ML D5W 50 ML IV SCH (09:19)
[2023-02-02] MEDS: PANTOPRAZOLE 40 MG TAB PO SCH (10:14)
[2023-02-02] MEDS: APIXABAN 5 MG TAB PO SCH ×2 (10:15→22:00)
[2023-02-02] MEDS: LISINOPRIL 5 MG TAB PO SCH (10:15)
[2023-02-02] MEDS: AZITHROMYCIN 500MG/ 250ML 250 ML IV SCH (10:15)
[2023-02-02] MEDS: ACETAMINOPHEN 325 MG TAB PO PRN ×2 (17:06→21:59)
[2023-02-02] MEDS: ATORVASTATIN 20 MG TAB PO SCH (22:00)
[2023-02-03] VITALS (11 sets, daily range): BP systolic 102–132; BP diastolic 55–76; PULSE 60–86; RESP 16–22; TEMP 97.6–98.5; O2SAT 95–100
[2023-02-03] MEDS: InsuLIN REG 1unit/0.01ml Soln (100units/ml) SC SCH ×5 (00:30→23:23)
[2023-02-03] MEDS: ACCU-CHEK COMFORT CURVE STRIP VI SCH ×5 (00:33→23:23)
[2023-02-03] MEDS: methylPREDNISolone SOD SUCC 125 MG/2 ML VL IV SCH ×3 (06:10→21:43)
[2023-02-03 07:07] LABS: Potassium 4.1 mmol/L (3.5-5.1)
[2023-02-03 07:15] LABS: BUN/Creatinine Ratio 18.2 (10.0-20.0)
[2023-02-03] MEDS: cefTRIAXone 1GM/50ML D5W 50 ML IV SCH ×2 (10:00→12:52)
[2023-02-03] MEDS ORDERED: DOCUSATE SOD 100 MG CAP PO PRN (10:00)
[2023-02-03] MEDS ORDERED: ARTIFICIAL TEARS 15ml EACHEYE PRN (10:00)
[2023-02-03] MEDS: AZITHROMYCIN 250 MG TAB PO SCH (10:01)
[2023-02-03] MEDS: PANTOPRAZOLE 40 MG TAB PO SCH (10:01)
[2023-02-03] MEDS: APIXABAN 5 MG TAB PO SCH ×2 (10:01→21:44)
[2023-02-03] MEDS: LISINOPRIL 5 MG TAB PO SCH (10:01)
[2023-02-03] MEDS: INSULIN LANTUS (GLARGINE) 1 /0.01ml (100units/ml) SC SCH (12:37)
[2023-02-03] MEDS: KETOROLAC TROMETH 30 MG/ML 1ML VIAL IV PRN ×2 (14:29→21:43)
[2023-02-03] MEDS: ACETAMINOPHEN 325 MG TAB PO PRN (18:21)
[2023-02-03] MEDS: ALBUTEROL SULF 2.5 MG/0.5ML(0.5%) NEB SOLN NEB PRN (19:14)
[2023-02-03] MEDS: IPRATROPIUM BROM 0.5 MG/2.5ML INH SOL NEB PRN (19:14)
[2023-02-03] MEDS: CIPROFLOXACIN 0.3%OPTH(EYE) SOL 5ML EACHEYE SCH (21:45)
[2023-02-03] MEDS: ATORVASTATIN 20 MG TAB PO SCH (21:45)
[2023-02-04] VITALS (13 sets, daily range): BP systolic 97–134; BP diastolic 48–79; PULSE 50–86; RESP 18–22; TEMP 97.5–98.4; O2SAT 93–98
[2023-02-04] MEDS: methylPREDNISolone SOD SUCC 125 MG/2 ML VL IV SCH ×3 (06:27→21:18)
[2023-02-04] MEDS: ACCU-CHEK COMFORT CURVE STRIP VI SCH ×3 (06:29→17:30)
[2023-02-04] MEDS: INSULIN LANTUS (GLARGINE) 1 /0.01ml (100units/ml) SC SCH ×2 (06:32→11:40)
[2023-02-04] MEDS: InsuLIN REG 1unit/0.01ml Soln (100units/ml) SC SCH ×4 (06:32→23:56)
[2023-02-04] MEDS: CIPROFLOXACIN 0.3%OPTH(EYE) SOL 5ML EACHEYE SCH ×2 (09:21→21:18)
[2023-02-04] MEDS: cefTRIAXone 1GM/50ML D5W 50 ML IV SCH (09:21)
[2023-02-04] MEDS: PANTOPRAZOLE 40 MG TAB PO SCH (09:21)
[2023-02-04] MEDS: AZITHROMYCIN 250 MG TAB PO SCH (09:21)
[2023-02-04] MEDS: LISINOPRIL 5 MG TAB PO SCH (09:21)
[2023-02-04] MEDS: APIXABAN 5 MG TAB PO SCH ×2 (09:21→21:17)
[2023-02-04 10:19] LABS: Basophils # (auto) 0 10 ^3/uL (0-0.2); Basophils % (auto) 0.1 % (0.0-2.0); Eosinophils # (auto) 0 10 ^3/uL (0-0.8); Lymphocytes # (auto) 0.8 10 ^3/uL (0.4-5.4); Monocytes # (auto) 0.3 10 ^3/uL (0-1.3)
[2023-02-04 10:22] LABS: Hematocrit 39.4 % (41.0-53.0); Hemoglobin 11.6 g/dL (13.5-17.5); Lymphocytes % (auto) 6.5 % (10.0-50.0); Mean Corpuscular Hemoglobin 22.4 pg (28.0-32.0); Mean Corpuscular Hgb Conc. 29.6 g/dL (32.0-36.0); Mean Corpuscular Volume 75.7 fL (80.0-100.0); Monocytes % (auto) 2.6 % (0.0-12.0); Neutrophils # (auto) 11.3 10 ^3/uL (1.6-8.6); Neutrophils % (auto) 90.8 % (37.0-80.0); Red Cell Distribution Width 18.2 % (11.8-14.3); White Blood Cell 12.5 10^3/uL (4.4-10.8)
[2023-02-04 10:54] LABS: Bilirubin, Total 0.3 mg/dL (0.2-1.0); Calcium 8.2 mg/dL (8.5-10.1); Total Protein 7.2 g/dL (6.4-8.2)
[2023-02-04] MEDS: ALBUTEROL SULF 2.5 MG/0.5ML(0.5%) NEB SOLN NEB PRN (15:05)
[2023-02-04] MEDS: IPRATROPIUM BROM 0.5 MG/2.5ML INH SOL NEB PRN (15:05)
[2023-02-04] MEDS ORDERED: ALBUTEROL SULF 2.5 MG/0.5ML(0.5%) NEB SOLN NEB PRN (16:15)
[2023-02-04] MEDS: ALBUTEROL SULF 2.5 MG/0.5ML(0.5%) NEB SOLN NEB SCH (18:42)
[2023-02-04] MEDS: IPRATROPIUM BROM 0.5 MG/2.5ML INH SOL NEB SCH (18:43)
[2023-02-04] MEDS: ATORVASTATIN 20 MG TAB PO SCH (21:17)
[2023-02-05] VITALS (15 sets, daily range): BP systolic 97–143; BP diastolic 48–84; PULSE 60–82; RESP 18–22; TEMP 97.9–98.4; O2SAT 94–100
[2023-02-05] MEDS: ACCU-CHEK COMFORT CURVE STRIP VI SCH ×4 (00:06→17:45)
[2023-02-05] MEDS: guaiFENesin-DM 100/10mg/5ml SYR PO PRN ×3 (02:22→23:01)
[2023-02-05 05:29] LABS: Basophils # (auto) 0 10 ^3/uL (0-0.2); Basophils % (auto) 0.1 % (0.0-2.0); Eosinophils # (auto) 0 10 ^3/uL (0-0.8); Mean Corpuscular Hgb Conc. 30.8 g/dL (32.0-36.0); Monocytes # (auto) 0.4 10 ^3/uL (0-1.3); Nucleated Red Blood Cells % 0.1 %; White Blood Cell 9.4 10^3/uL (4.4-10.8)
[2023-02-05 05:31] LABS: Hemoglobin 11.4 g/dL (13.5-17.5); Lymphocytes # (auto) 0.9 10 ^3/uL (0.4-5.4); Lymphocytes % (auto) 9.3 % (10.0-50.0); Mean Corpuscular Hemoglobin 22.7 pg (28.0-32.0); Mean Corpuscular Volume 73.8 fL (80.0-100.0); Monocytes % (auto) 4.5 % (0.0-12.0); Neutrophils # (auto) 8.1 10 ^3/uL (1.6-8.6); Neutrophils % (auto) 86.1 % (37.0-80.0); Red Blood Cells 5.02 10^6/uL (4.5-5.90); Red Cell Distribution Width 17.8 % (11.8-14.3)
[2023-02-05] MEDS: INSULIN LANTUS (GLARGINE) 1 /0.01ml (100units/ml) SC SCH (05:50)
[2023-02-05] MEDS: InsuLIN REG 1unit/0.01ml Soln (100units/ml) SC SCH ×3 (05:51→17:45)
[2023-02-05 05:52] LABS: Potassium 4.2 mmol/L (3.5-5.1)
[2023-02-05 05:54] LABS: Albumin 2.9 g/dL (3.4-5.0); BUN/Creatinine Ratio 21.9 (10.0-20.0); Calcium 8.2 mg/dL (8.5-10.1)
[2023-02-05 05:57] LABS: Bilirubin, Total 0.2 mg/dL (0.2-1.0); Total Protein 6.7 g/dL (6.4-8.2)
[2023-02-05] MEDS: IPRATROPIUM BROM 0.5 MG/2.5ML INH SOL NEB SCH ×3 (07:10→19:08)
[2023-02-05] MEDS: ALBUTEROL SULF 2.5 MG/0.5ML(0.5%) NEB SOLN NEB SCH ×3 (07:11→19:08)
[2023-02-05] MEDS ORDERED: FERROUS SULFATE 325mg EC TAB PO ONE ×2 (09:15→09:30)
[2023-02-05] MEDS: methylPREDNISolone SOD SUCC 125 MG/2 ML VL IV SCH ×2 (10:30→23:01)
[2023-02-05] MEDS: CIPROFLOXACIN 0.3%OPTH(EYE) SOL 5ML EACHEYE SCH ×2 (10:30→23:00)
[2023-02-05] MEDS: cefTRIAXone 1GM/50ML D5W 50 ML IV SCH (10:30)
[2023-02-05] MEDS: PANTOPRAZOLE 40 MG TAB PO SCH (10:31)
[2023-02-05] MEDS: AZITHROMYCIN 250 MG TAB PO SCH (10:32)
[2023-02-05] MEDS: APIXABAN 5 MG TAB PO SCH ×2 (10:34→22:00)
[2023-02-05] MEDS: LISINOPRIL 5 MG TAB PO SCH (10:35)
[2023-02-05] MEDS: FERROUS SULFATE 325mg EC TAB PO SCH (17:44)
[2023-02-05] MEDS ORDERED: FERROUS SULFATE 325mg EC TAB PO SCH (18:00)
[2023-02-05] MEDS: ATORVASTATIN 20 MG TAB PO SCH (22:57)
[2023-02-05] MEDS: KETOROLAC TROMETH 30 MG/ML 1ML VIAL IV PRN (23:00)
[2023-02-06] VITALS (8 sets, daily range): BP systolic 135–148; BP diastolic 68–84; PULSE 54–89; RESP 16–19; TEMP 36.9; O2SAT 92–100
[2023-02-06] MEDS: InsuLIN REG 1unit/0.01ml Soln (100units/ml) SC SCH ×3 (00:36→12:03)
[2023-02-06] MEDS: ACCU-CHEK COMFORT CURVE STRIP VI SCH ×3 (01:46→12:02)
[2023-02-06] MEDS: ALBUTEROL SULF 2.5 MG/0.5ML(0.5%) NEB SOLN NEB SCH ×2 (06:48→12:54)
[2023-02-06] MEDS: IPRATROPIUM BROM 0.5 MG/2.5ML INH SOL NEB SCH ×2 (06:48→12:54)
[2023-02-06] MEDS ORDERED: INSULIN LANTUS (GLARGINE) 1 /0.01ml (100units/ml) SC SCH ×2 (07:00)
[2023-02-06] MEDS: FERROUS SULFATE 325mg EC TAB PO SCH (08:30)
[2023-02-06] MEDS: CIPROFLOXACIN 0.3%OPTH(EYE) SOL 5ML EACHEYE SCH (08:31)
[2023-02-06] MEDS: PANTOPRAZOLE 40 MG TAB PO SCH (08:31)
[2023-02-06] MEDS: AZITHROMYCIN 250 MG TAB PO SCH (08:31)
[2023-02-06] MEDS: LISINOPRIL 5 MG TAB PO SCH (08:31)
[2023-02-06] MEDS: cefTRIAXone 1GM/50ML D5W 50 ML IV SCH (08:31)
[2023-02-06] MEDS: methylPREDNISolone SOD SUCC 125 MG/2 ML VL IV SCH (08:31)
[2023-02-06] MEDS: APIXABAN 5 MG TAB PO SCH (08:32)
[2023-02-06] MEDS: KETOROLAC TROMETH 30 MG/ML 1ML VIAL IV PRN (09:05)
[2023-02-06] MEDS: guaiFENesin-DM 100/10mg/5ml SYR PO PRN (09:05)
[2023-02-06] MEDS ORDERED: AZIT-81 PO (11:09)
[2023-02-06] MEDS ORDERED: METH4PAK PO (11:10)
[2023-02-06] MEDS ORDERED: FLAXCAP PO (11:11)
[2023-02-06] MEDS ORDERED: ATO40T PO (11:12)
[2023-02-06] MEDS ORDERED: LISI-275 PO (11:13)
== END 2023-02-06 17:00 | disposition home or self-care (01) | DRG 137 ==
LOC: ER 10:30 → TELE 16:58 → TELE-WESTW 22:11 → WEST WING 02-03 21:21
PROVIDERS: ADMIT Internal Medicine; ATTEND Student in an Organized Health Care Education/Training Program
PROC: 5A09357 Assistance with Respiratory Ventilation, Less than 24 Consecutive Hours, Continuous Positive Airway Pressure (ICD-10-PCS; principal; 2023-02-03)
PROC: 5A09357 Assistance with Respiratory Ventilation, Less than 24 Consecutive Hours, Continuous Positive Airway Pressure (ICD-10-PCS; 2023-02-04)
DX: J15.6 Pneumonia due to other Gram-negative bacteria (principal); J44.0 Chronic obstructive pulmonary disease with (acute) lower respiratory infection; E11.9 Type 2 diabetes mellitus without complications; E66.01 Morbid (severe) obesity due to excess calories; D50.9 Iron deficiency anemia, unspecified; E78.5 Hyperlipidemia, unspecified; G47.33 Obstructive sleep apnea (adult) (pediatric); Z20.822 Contact with and (suspected) exposure to COVID-19; J44.1 Chronic obstructive pulmonary disease with (acute) exacerbation; I10 Essential (primary) hypertension; G40.909 Epilepsy, unspecified, not intractable, without status epilepticus; Z68.42 Body mass index [BMI] 45.0-49.9, adult; R33.9 Retention of urine, unspecified; H10.9 Unspecified conjunctivitis; Z86.711 Personal history of pulmonary embolism; Z86.73 Personal history of transient ischemic attack (TIA), and cerebral infarction without residual deficits; Z90.49 Acquired absence of other specified parts of digestive tract; Z83.3 Family history of diabetes mellitus; Z82.49 Family history of ischemic heart disease and other diseases of the circulatory system; Z87.891 Personal history of nicotine dependence; Z91.041 Radiographic dye allergy status; Z88.5 Allergy status to narcotic agent; Z91.013 Allergy to seafood
CPT/HCPCS: 36415; 71046; 80048; 80053; 80061; 81001; 82728; 82962; 83036; 83540; 83550; 83735; 83880; 84443; 84484; 85025; 85379; 85610; 85730; 87081; 87426; 87804; 93005; 93306; 94640; 94660; 96365; 96372; 96375; G0378; J0696; J1815; J1885

== ENCOUNTER 2023-02-19 09:35 | Emergency (ER) | payer MEDICAID ==
[~2023-02-19] VITALS: Ht 170.2 cm; Wt 132.5 kg
[~2023-02-19 09:35] MED LIST changes: -AMLO1TAB22 PO; +ATO40T PO; -ATOR20TA50 PO; +AZIT-81 PO; +FLAXCAP PO; +LISI-275 PO; +METH4PAK PO; -PRED20TA2 PO
[2023-02-19] MEDS ORDERED: SODIUM CHLORIDE 0.9% 1,000 ML IVB ONE (10:00)
[2023-02-19] MEDS ORDERED: ONDANSETRON HCL 4 MG/2 ML VIAL IV ONE (10:00)
[2023-02-19] MEDS ORDERED: MORPHINE SULFATE 4 MG/ML SYR/VIAL IV ONE (10:00)
[2023-02-19 10:22] LABS: Eosinophils # (auto) 0.3 10 ^3/uL (0-0.8); Eosinophils % (auto) 3.2 % (0.0-7.0); Hemoglobin 12.7 g/dL (13.5-17.5); Mean Corpuscular Volume 76.1 fL (80.0-100.0); Monocytes # (auto) 0.4 10 ^3/uL (0-1.3); White Blood Cell 8.5 10^3/uL (4.4-10.8)
[2023-02-19 10:23] LABS: Basophils # (auto) 0.2 10 ^3/uL (0-0.2); Basophils % (auto) 2.5 % (0.0-2.0); Hematocrit 41.8 % (41.0-53.0); Lymphocytes # (auto) 2.2 10 ^3/uL (0.4-5.4); Lymphocytes % (auto) 25.8 % (10.0-50.0); Mean Corpuscular Hemoglobin 23.1 pg (28.0-32.0); Mean Corpuscular Hgb Conc. 30.3 g/dL (32.0-36.0); Monocytes % (auto) 5.2 % (0.0-12.0); Neutrophils # (auto) 5.4 10 ^3/uL (1.6-8.6); Neutrophils % (auto) 63.3 % (37.0-80.0); Nucleated Red Blood Cells % 0.1 %; Red Cell Distribution Width 18.7 % (11.8-14.3)
[2023-02-19 10:56] LABS: Alanine Aminotransferase 20 U/L (7-40); Albumin 4.2 g/dL (3.2-4.8); Alkaline Phosphatase 85 U/L (46-116); Anion Gap 9.5 (5-15); Aspartate Aminotransferase 15 U/L (13-40); BUN/Creatinine Ratio 10.8 (10.0-20.0); Bilirubin, Total 0.7 mg/dL (0.2-1.0); Blood Urea Nitrogen 8 mg/dL (9-23); Carbon Dioxide 22.5 mmol/L (20-30); Chloride 106 mmol/L (98-107); Glucose 155 mg/dL (74-106); Potassium 3.8 mmol/L (3.5-5.1); Sodium 138 mmol/L (136-145); Total Protein 7.3 g/dL (5.7-8.2)
[2023-02-19 15:30] LABS: Urine Bacteria NONE SEEN /hpf (None Seen); Urine Blood Negative /uL (Negative); Urine Clarity HAZY (Clear); Urine Color Yellow (Yellow); Urine Mucus FEW (None Seen); Urine Protein, UAD 2+ (Negative); Urine Specific Gravity 1.028 (1.001-1.035); Urine Urobilinogen Normal (Negative); Urine WBC <1 /hpf (0 - 3); Urine pH 5.5 (5.0-8.0)
[2023-02-19 16:12] VITALS: BP 134/80; PULSE 75; RESP 18; TEMP 98.2; O2SAT 94
== END 2023-02-19 16:14 | disposition home or self-care (01) ==
LOC: ER 09:35
DX: R10.32 Left lower quadrant pain (principal); R11.0 Nausea; R19.7 Diarrhea, unspecified; J44.9 Chronic obstructive pulmonary disease, unspecified; E11.9 Type 2 diabetes mellitus without complications; E78.5 Hyperlipidemia, unspecified; I10 Essential (primary) hypertension; Z86.73 Personal history of transient ischemic attack (TIA), and cerebral infarction without residual deficits; Z90.49 Acquired absence of other specified parts of digestive tract; Z90.89 Acquired absence of other organs; Z87.891 Personal history of nicotine dependence; Z79.84 Long term (current) use of oral hypoglycemic drugs; Z79.899 Other long term (current) drug therapy; Z91.013 Allergy to seafood; Z88.5 Allergy status to narcotic agent; Z88.8 Allergy status to other drugs, medicaments and biological substances
CPT/HCPCS: 36415; 74176; 80053; 81001; 83605; 85025; 87040; 96361; 96374; 96375; 99285; J2270; J2405; J7030

== ENCOUNTER 2023-04-16 02:50 | Inpatient (IN) | payer MEDICAID ==
[~2023-04-16] VITALS: Ht 170.2 cm; Wt 136.8 kg
[2023-04-16] VITALS (13 sets, daily range): BP systolic 91–120; BP diastolic 49–78; PULSE 20–98; RESP 16–28; TEMP 97.9–98.9; O2SAT 94–100
[2023-04-16 03:18] LABS: Basophils # (auto) 0 10 ^3/uL (0-0.2); Basophils % (auto) 0.5 % (0.0-2.0); Eosinophils # (auto) 0.3 10 ^3/uL (0-0.8); Hemoglobin 12.7 g/dL (13.5-17.5); Lymphocytes # (auto) 2.4 10 ^3/uL (0.4-5.4); Mean Corpuscular Volume 78.9 fL (80.0-100.0); Monocytes # (auto) 0.6 10 ^3/uL (0-1.3)
[2023-04-16 03:19] LABS: Eosinophils % (auto) 2.9 % (0.0-7.0); Hematocrit 40.5 % (41.0-53.0); Lymphocytes % (auto) 27.8 % (10.0-50.0); Mean Corpuscular Hemoglobin 24.6 pg (28.0-32.0); Mean Corpuscular Hgb Conc. 31.2 g/dL (32.0-36.0); Monocytes % (auto) 6.9 % (0.0-12.0); Neutrophils # (auto) 5.4 10 ^3/uL (1.6-8.6); Neutrophils % (auto) 61.9 % (37.0-80.0); Red Blood Cells 5.14 10^6/uL (4.5-5.90); Red Cell Distribution Width 18.4 % (11.8-14.3); White Blood Cell 8.7 10^3/uL (4.4-10.8)
[2023-04-16 03:30] LABS: Alanine Aminotransferase 19 U/L (7-40); Albumin 4.2 g/dL (3.2-4.8); Alkaline Phosphatase 112 U/L (46-116); Anion Gap 6 (5-15); Aspartate Aminotransferase 17 U/L (13-40); Bilirubin, Total 0.2 mg/dL (0.2-1.0); Blood Urea Nitrogen 10 mg/dL (9-23); Calcium 8.9 mg/dL (8.7-10.4); Carbon Dioxide 26 mmol/L (20-30); Chloride 106 mmol/L (98-107); Glucose 180 mg/dL (74-106); Sodium 138 mmol/L (136-145); Total Protein 7.1 g/dL (5.7-8.2)
[2023-04-16 03:31] LABS: INR 0.94 (0.9-1.15); Partial Thromboplastin Time 27.5 SEC (24.5-34.5); Prothrombin Time 9.9 sec (9.3-11.8)
[2023-04-16] MEDS ORDERED: ENOXAPARIN SOD 120 MG/0.8 ML SYRINGE SC ONE (07:00)
[2023-04-16 08:17] LABS: Urine Bacteria NONE SEEN /hpf (None Seen); Urine Blood Negative /uL (Negative); Urine Clarity Clear (Clear); Urine Color Yellow (Yellow); Urine Mucus FEW (None Seen); Urine Protein, UAD 2+ (Negative); Urine Specific Gravity 1.024 (1.001-1.035); Urine Urobilinogen Normal (Negative); Urine WBC <1 /hpf (0 - 3)
[2023-04-16] MEDS ORDERED: DEXTROSE (50%) 50ML SYRG IV PRN (09:00)
[2023-04-16] MEDS ORDERED: NITROGLYCERIN 0.4 MG SL TAB SL PRN (09:00)
[2023-04-16] MEDS ORDERED: HYDROcodone-ACET 5/325MG TAB PO PRN (09:00)
[2023-04-16] MEDS ORDERED: KETOROLAC TROMETH 30 MG/ML 1ML VIAL IV ONE (09:15)
[2023-04-16] MEDS ORDERED: ALBUTEROL SULF 2.5 MG/0.5ML(0.5%) NEB SOLN NEB PRN (09:15)
[2023-04-16] MEDS ORDERED: ASPirin 325 MG TAB PO ONE (09:15)
[2023-04-16] MEDS: ENOXAPARIN SOD 100 MG/1 ML SYRINGE SC SCH ×2 (09:25→22:28)
[2023-04-16] MEDS: [UNRECOGNIZED DRUG - OTHER] PO SCH ×2 (09:30→22:00)
[2023-04-16] MEDS: LISINOPRIL 5 MG TAB PO SCH (09:36)
[2023-04-16] MEDS: SODIUM CHLORIDE 0.9% 1,000 ML IV SCH (09:37)
[2023-04-16] MEDS: ASPirin 81 mg TAB PO SCH (09:56)
[2023-04-16] MEDS ORDERED: ALBUTEROL MEDNEB 2.5 mg/3ml NEB ONE ×4 (10:21→21:55)
[2023-04-16] MEDS: IPRATROPIUM BROM 0.5 MG/2.5ML INH SOL NEB SCH ×4 (10:41→21:57)
[2023-04-16] MEDS: ALBUTEROL SULF 2.5 MG/0.5ML(0.5%) NEB SOLN NEB SCH ×4 (10:42→21:57)
[2023-04-16] MEDS: ACCU-CHEK COMFORT CURVE STRIP VI SCH ×3 (11:32→22:29)
[2023-04-16] MEDS: InsuLIN REG 1unit/0.01ml Soln (100units/ml) SC SCH ×3 (11:32→22:32)
[2023-04-16] MEDS: MORPHINE SULFATE INJ 2 MG/ml SYRG IV PRN ×2 (17:36→23:08)
[2023-04-16] MEDS ORDERED: PATIENTS OWN MEDICATION (Atorvastatin Calcium (Lipitor) 1 TAB) PO SCH (18:00)
[2023-04-16] MEDS ORDERED: ATOR40TA52 PO (18:39)
[2023-04-16] MEDS: ATORVASTATIN 20 MG TAB PO SCH (22:26)
[2023-04-17] VITALS (12 sets, daily range): BP systolic 92–131; BP diastolic 55–74; PULSE 66–77; RESP 14–22; TEMP 97.8–98.8; O2SAT 92–100
[2023-04-17] MEDS: SODIUM CHLORIDE 0.9% 1,000 ML IV SCH (01:40)
[2023-04-17] MEDS: IPRATROPIUM BROM 0.5 MG/2.5ML INH SOL NEB SCH ×4 (02:00→18:40)
[2023-04-17] MEDS: ALBUTEROL SULF 2.5 MG/0.5ML(0.5%) NEB SOLN NEB SCH ×3 (02:00→09:50)
[2023-04-17] MEDS ORDERED: ALBUTEROL MEDNEB 2.5 mg/3ml NEB ONE ×3 (02:17→09:37)
[2023-04-17] MEDS: ACCU-CHEK COMFORT CURVE STRIP VI SCH ×4 (06:06→21:07)
[2023-04-17] MEDS: InsuLIN REG 1unit/0.01ml Soln (100units/ml) SC SCH ×4 (06:07→21:06)
[2023-04-17] MEDS: MORPHINE SULFATE INJ 2 MG/ml SYRG IV PRN ×3 (06:08→17:02)
[2023-04-17 06:24] LABS: Eosinophils # (auto) 0.2 10 ^3/uL (0-0.8); Eosinophils % (auto) 3.8 % (0.0-7.0); Hemoglobin 12.4 g/dL (13.5-17.5); Lymphocytes # (auto) 2.3 10 ^3/uL (0.4-5.4); Mean Corpuscular Hemoglobin 24.8 pg (28.0-32.0); Monocytes # (auto) 0.4 10 ^3/uL (0-1.3); Neutrophils # (auto) 3.4 10 ^3/uL (1.6-8.6); White Blood Cell 6.4 10^3/uL (4.4-10.8)
[2023-04-17 06:27] LABS: Basophils # (auto) 0.1 10 ^3/uL (0-0.2); Basophils % (auto) 1.1 % (0.0-2.0); Hematocrit 39.5 % (41.0-53.0); Lymphocytes % (auto) 35.2 % (10.0-50.0); Mean Corpuscular Hgb Conc. 31.4 g/dL (32.0-36.0); Mean Corpuscular Volume 78.9 fL (80.0-100.0); Monocytes % (auto) 6.5 % (0.0-12.0); Neutrophils % (auto) 53.4 % (37.0-80.0); Nucleated Red Blood Cells % 0.1 %; Red Blood Cells 5.01 10^6/uL (4.5-5.90); Red Cell Distribution Width 18.5 % (11.8-14.3)
[2023-04-17 06:32] LABS: Alanine Aminotransferase 19 U/L (7-40); Alkaline Phosphatase 81 U/L (46-116); Anion Gap 6 (5-15); BUN/Creatinine Ratio 17.9 (10.0-20.0); Blood Urea Nitrogen 14 mg/dL (9-23); Calcium 8.9 mg/dL (8.7-10.4); Carbon Dioxide 26 mmol/L (20-30); Chloride 107 mmol/L (98-107); Glucose 100 mg/dL (74-106); Potassium 4.3 mmol/L (3.5-5.1); Sodium 139 mmol/L (136-145)
[2023-04-17 06:33] LABS: Aspartate Aminotransferase 18 U/L (13-40); Bilirubin, Total 0.5 mg/dL (0.2-1.0); Total Protein 6.9 g/dL (5.7-8.2)
[2023-04-17] MEDS: ASPirin 81 mg TAB PO SCH (09:20)
[2023-04-17] MEDS: LISINOPRIL 5 MG TAB PO SCH (09:20)
[2023-04-17] MEDS: [UNRECOGNIZED DRUG - OTHER] PO SCH ×2 (09:21→21:03)
[2023-04-17] MEDS ORDERED: ASPirin 325 MG TAB PO ONE (10:45)
[2023-04-17 11:16] LABS: Alanine Aminotransferase 21 U/L (7-40); Albumin 4.2 g/dL (3.2-4.8); Alkaline Phosphatase 83 U/L (46-116); Anion Gap 5 (5-15); Aspartate Aminotransferase 21 U/L (13-40); BUN/Creatinine Ratio 16.4 (10.0-20.0); Bilirubin, Total 0.6 mg/dL (0.2-1.0); Blood Urea Nitrogen 12 mg/dL (9-23); Calcium 8.9 mg/dL (8.7-10.4); Carbon Dioxide 28 mmol/L (20-30); Chloride 106 mmol/L (98-107); Glucose 113 mg/dL (74-106); Magnesium 1.8 mg/dL (1.6-2.6); Potassium 4.2 mmol/L (3.5-5.1); Sodium 139 mmol/L (136-145)
[2023-04-17 11:17] LABS: Total Protein 7.2 g/dL (5.7-8.2)
[2023-04-17] MEDS ORDERED: PANTOPRAZOLE 40 MG/10 ML VIAL INJ IV ONE (11:45)
[2023-04-17] MEDS: MAGNESIUM SULFATE 1GM/100ML 100 ML IV SCH ×2 (17:03→19:33)
[2023-04-17] MEDS: ALBUTEROL MEDNEB 2.5 mg/3ml NEB NEB SCH (18:39)
[2023-04-17] MEDS ORDERED: MAGNESIUM SULFATE 1GM/100ML 100 ML IV ONE (19:30)
[2023-04-17] MEDS: ATORVASTATIN 20 MG TAB PO SCH (21:03)
[2023-04-17] MEDS ORDERED: levETIRAcetam 500 MG TAB PO SCH (22:00)
[2023-04-18] VITALS (17 sets, daily range): BP systolic 112–130; BP diastolic 66–83; PULSE 66–86; RESP 17–22; TEMP 98.1–98.7; O2SAT 92–100
[2023-04-18] MEDS: MORPHINE SULFATE INJ 2 MG/ml SYRG IV PRN ×3 (05:30→17:19)
[2023-04-18] MEDS: ACCU-CHEK COMFORT CURVE STRIP VI SCH ×4 (05:45→21:33)
[2023-04-18] MEDS: InsuLIN REG 1unit/0.01ml Soln (100units/ml) SC SCH ×4 (05:45→21:38)
[2023-04-18] MEDS: ALBUTEROL MEDNEB 2.5 mg/3ml NEB NEB SCH ×3 (06:50→19:30)
[2023-04-18] MEDS: IPRATROPIUM BROM 0.5 MG/2.5ML INH SOL NEB SCH ×3 (06:50→19:29)
[2023-04-18] MEDS ORDERED: ADENOSINE 115 MG in GIVE UN-DILUTED 0 ML IV STA (07:53)
[2023-04-18] MEDS: LISINOPRIL 5 MG TAB PO SCH (09:16)
[2023-04-18] MEDS: ASPirin 81 mg TAB PO SCH (09:17)
[2023-04-18] MEDS: PANTOPRAZOLE 40 MG/10 ML VIAL INJ IV SCH (09:17)
[2023-04-18] MEDS: POTASSIUM CHL 10 Meq TABLET PO SCH (09:17)
[2023-04-18] MEDS: FUROSEMIDE 20 MG TAB PO SCH (09:17)
[2023-04-18] MEDS: [UNRECOGNIZED DRUG - OTHER] PO SCH ×2 (10:00→21:33)
[2023-04-18] MEDS ORDERED: ALBUTEROL MEDNEB 2.5 mg/3ml NEB NEB PRN (15:00)
[2023-04-18] MEDS: ATORVASTATIN 20 MG TAB PO SCH (21:31)
[2023-04-18] MEDS: ACETAMINOPHEN 325 MG TAB PO PRN (23:41)
[2023-04-19] VITALS (8 sets, daily range): BP systolic 104–126; BP diastolic 52–80; PULSE 75–91; RESP 18–20; TEMP 37; O2SAT 96–100
[2023-04-19] MEDS: MORPHINE SULFATE INJ 2 MG/ml SYRG IV PRN ×2 (03:40→10:20)
[2023-04-19] MEDS: InsuLIN REG 1unit/0.01ml Soln (100units/ml) SC SCH ×2 (06:50→11:30)
[2023-04-19] MEDS: ACCU-CHEK COMFORT CURVE STRIP VI SCH ×2 (06:50→12:00)
[2023-04-19] MEDS: ALBUTEROL MEDNEB 2.5 mg/3ml NEB NEB SCH ×2 (07:32→12:50)
[2023-04-19] MEDS: IPRATROPIUM BROM 0.5 MG/2.5ML INH SOL NEB SCH ×2 (07:32→12:50)
[2023-04-19] MEDS: [UNRECOGNIZED DRUG - OTHER] PO SCH (10:00)
[2023-04-19] MEDS: FUROSEMIDE 20 MG TAB PO SCH (10:15)
[2023-04-19] MEDS: POTASSIUM CHL 10 Meq TABLET PO SCH (10:15)
[2023-04-19] MEDS: ASPirin 81 mg TAB PO SCH (10:15)
[2023-04-19] MEDS: PANTOPRAZOLE 40 MG/10 ML VIAL INJ IV SCH (10:15)
[2023-04-19] MEDS: LISINOPRIL 5 MG TAB PO SCH (10:15)
[2023-04-19] MEDS ORDERED: TRAM50TA2 PO (11:00)
[2023-04-19] MEDS: ACETAMINOPHEN 325 MG TAB PO PRN (14:38)
== END 2023-04-19 15:35 | disposition home or self-care (01) | DRG 203 ==
LOC: EDBD 02:50 → EDSEX 02:50 → ER 02:50 → TELE 08:52 → TELE-EAST 16:38
PROVIDERS: ADMIT Nurse Practitioner Family; ATTEND Internal Medicine
PROC: 5A09357 Assistance with Respiratory Ventilation, Less than 24 Consecutive Hours, Continuous Positive Airway Pressure (ICD-10-PCS; principal; 2023-04-18)
DX: R07.89 Other chest pain (principal); J96.10 Chronic respiratory failure, unspecified whether with hypoxia or hypercapnia; I69.351 Hemiplegia and hemiparesis following cerebral infarction affecting right dominant side; Z99.81 Dependence on supplemental oxygen; J44.9 Chronic obstructive pulmonary disease, unspecified; E66.01 Morbid (severe) obesity due to excess calories; I10 Essential (primary) hypertension; E78.5 Hyperlipidemia, unspecified; G47.30 Sleep apnea, unspecified; E11.9 Type 2 diabetes mellitus without complications; G40.909 Epilepsy, unspecified, not intractable, without status epilepticus; Z87.891 Personal history of nicotine dependence; Z82.5 Family history of asthma and other chronic lower respiratory diseases; Z86.711 Personal history of pulmonary embolism; Z91.013 Allergy to seafood; Z68.42 Body mass index [BMI] 45.0-49.9, adult; Z83.3 Family history of diabetes mellitus; Z82.49 Family history of ischemic heart disease and other diseases of the circulatory system; Z82.3 Family history of stroke; Z80.0 Family history of malignant neoplasm of digestive organs; Z88.5 Allergy status to narcotic agent; Z88.8 Allergy status to other drugs, medicaments and biological substances
CPT/HCPCS: 36415; 71045; 78452; 80053; 81001; 82962; 83735; 83880; 84484; 84702; 85025; 85379; 85610; 85730; 93005; 93017; 93306; 93971; 94640; 94660; C9113; G0378; J0153; J1815; J1885

== ENCOUNTER 2023-05-19 21:57 | Inpatient (IN) | payer MEDICAID ==
[~2023-05-19] VITALS: Ht 170.2 cm; Wt 135.2 kg
[~2023-05-19 21:57] MED LIST changes: +ATOR40TA52 PO; -AZIT-81 PO
[2023-05-19] MEDS ORDERED: ALBUTEROL MEDNEB 2.5 mg/3ml NEB NEB ONE (22:15)
[2023-05-19] MEDS ORDERED: LISINOPRIL 10 MG TAB PO ONE (22:15)
[2023-05-19] MEDS ORDERED: IPRATROPIUM BROM 0.5 MG/2.5ML INH SOL NEB ONE (22:15)
[2023-05-19 22:54] LABS: Alanine Aminotransferase 29 U/L (7-40); Albumin 4.3 g/dL (3.2-4.8); Alkaline Phosphatase 108 U/L (46-116); Anion Gap 7 (5-15); Aspartate Aminotransferase 19 U/L (13-40); Blood Urea Nitrogen 12 mg/dL (9-23); Calcium 9.2 mg/dL (8.5-10.1); Carbon Dioxide 26 mmol/L (20-30); Chloride 107 mmol/L (98-107); Glucose 132 mg/dL (74-106); Potassium 4.2 mmol/L (3.5-5.1); Sodium 140 mmol/L (136-145)
[2023-05-19 22:55] LABS: Bilirubin, Total 0.3 mg/dL (0.2-1.0); Total Protein 7.2 g/dL (5.7-8.2)
[2023-05-19 23:00] LABS: Basophils # (auto) 0.1 10 ^3/uL (0-0.2); Basophils % (auto) 0.8 % (0.0-2.0); Eosinophils # (auto) 0.3 10 ^3/uL (0-0.8); Eosinophils % (auto) 3.4 % (0.0-7.0); Hematocrit 41.1 % (41.0-53.0); Lymphocytes # (auto) 2.7 10 ^3/uL (0.4-5.4); Lymphocytes % (auto) 33.1 % (10.0-50.0); Mean Corpuscular Hemoglobin 25.7 pg (28.0-32.0); Mean Corpuscular Hgb Conc. 31.5 g/dL (32.0-36.0); Mean Corpuscular Volume 81.6 fL (80.0-100.0); Monocytes # (auto) 0.6 10 ^3/uL (0-1.3); Monocytes % (auto) 6.7 % (0.0-12.0); Neutrophils # (auto) 4.6 10 ^3/uL (1.6-8.6); Nucleated Red Blood Cells % 0.2 %; Red Blood Cells 5.04 10^6/uL (4.5-5.90); White Blood Cell 8.2 10^3/uL (4.4-10.8)
[2023-05-19 23:07] LABS: INR 0.94 (0.9-1.15); Partial Thromboplastin Time 27.1 SEC (24.5-34.5); Prothrombin Time 9.9 sec (9.3-11.8)
[2023-05-19 23:20] VITALS: PULSE 97; RESP 14; O2SAT 90
[2023-05-20] VITALS (12 sets, daily range): BP systolic 97–131; BP diastolic 55–68; PULSE 72–120; RESP 18–22; TEMP 97.5–98.4; O2SAT 93–97
[2023-05-20] MEDS ORDERED: AZITHROMYCIN 500MG/ 250ML 250 ML IV ONE
[2023-05-20] MEDS ORDERED: MORPHINE SULFATE 4 MG/ML SYR/VIAL IV ONE
[2023-05-20] MEDS ORDERED: ASPirin 81 mg TAB PO ONE
[2023-05-20] MEDS ORDERED: methylPREDNISolone SOD SUCC 125 MG/2 ML VL IV ONE
[2023-05-20] MEDS ORDERED: NITROGLYCERIN 0.2MG/HR TOPICAL PATCH TD ONE
[2023-05-20] MEDS ORDERED: SODIUM CHLORIDE 0.9% 1,000 ML IV ONE
[2023-05-20] MEDS ORDERED: IPRATROPIUM BROM 0.5 MG/2.5ML INH SOL HHN ONE
[2023-05-20] MEDS ORDERED: cefTRIAXone 1GM/50ML D5W 50 ML IV ONE
[2023-05-20] MEDS ORDERED: ONDANSETRON HCL 4 MG/2 ML VIAL IV ONE
[2023-05-20 00:36] LABS: Base Excess -2.6 mmol/L (-2.0-2.0)
[2023-05-20 01:01] LABS: INR 0.96 (0.9-1.15); Partial Thromboplastin Time 26.6 SEC (24.5-34.5); Prothrombin Time 10.1 sec (9.3-11.8)
[2023-05-20 08:17] LABS: Urine Bacteria NONE SEEN /hpf (None Seen); Urine Blood Negative /uL (Negative); Urine Clarity Clear (Clear); Urine Color Yellow (Yellow); Urine Hyaline Cast FEW /lpf (0 - 2); Urine Mucus FEW (None Seen); Urine Protein, UAD 1+ (Negative); Urine Urobilinogen Normal (Negative); Urine WBC 1 /hpf (0 - 3); Urine pH 5.5 (5.0-8.0)
[2023-05-20] MEDS ORDERED: ALBUTEROL MEDNEB 2.5 mg/3ml NEB NEB PRN (09:00)
[2023-05-20] MEDS ORDERED: DEXTROSE (50%) 50ML SYRG IV PRN (09:00)
[2023-05-20] MEDS ORDERED: PROMETHAZINE W/CODEINE 5 ML ORAL SYRUP PO ONE (09:00)
[2023-05-20] MEDS ORDERED: ACETAMINOPHEN 325 MG TAB PO PRN (09:00)
[2023-05-20] MEDS ORDERED: PROMETHAZINE W/CODEINE 5 ML ORAL SYRUP PO PRN (09:00)
[2023-05-20] MEDS: SODIUM CHLORIDE 0.9% 1,000 ML IV SCH (09:00)
[2023-05-20] MEDS ORDERED: PROMETHAZINE HCL 6.25 MG/5 ML ORAL SYRUP PO ONE (09:15)
[2023-05-20 09:40] LABS: Triglycerides 125 mg/dL (< 150)
[2023-05-20 09:41] LABS: LDL Cholesterol 118 mg/dL (< 100)
[2023-05-20 09:42] LABS: Cholesterol 165 mg/dL (< 200); HDL Cholesterol 42 mg/dL (40-59)
[2023-05-20] MEDS: levETIRAcetam 500 MG TAB PO SCH ×2 (10:00→22:00)
[2023-05-20] MEDS ORDERED: ENOXAPARIN SOD 40 MG/0.4 ML SYRINGE SC SCH (10:00)
[2023-05-20] MEDS: [UNRECOGNIZED DRUG - OTHER] PO SCH ×2 (10:00→22:00)
[2023-05-20] MEDS ORDERED: PATIENTS OWN MEDICATION (Levetiracetam 1 TAB) PO SCH (10:00)
[2023-05-20] MEDS: InsuLIN REG 1unit/0.01ml Soln (100units/ml) SC SCH ×3 (11:30→21:41)
[2023-05-20] MEDS: ACCU-CHEK COMFORT CURVE STRIP VI SCH ×3 (11:58→22:00)
[2023-05-20] MEDS: DOCUSATE SOD 100 MG CAP PO SCH ×2 (12:18→21:49)
[2023-05-20] MEDS: APIXABAN 5 MG TAB PO SCH ×2 (12:18→21:49)
[2023-05-20] MEDS: methylPREDNISolone SOD SUCC 40 MG/ML VL IV SCH ×2 (12:19→22:00)
[2023-05-20] MEDS: LISINOPRIL 5 MG TAB PO SCH (12:19)
[2023-05-20] MEDS ORDERED: PATIENTS OWN MEDICATION (Atorvastatin Calcium (Lipitor) 1 TAB) PO SCH (18:00)
[2023-05-20] MEDS: ALBUTEROL MEDNEB 2.5 mg/3ml NEB NEB SCH ×2 (18:37→22:05)
[2023-05-20] MEDS: IPRATROPIUM BROM 0.5 MG/2.5ML INH SOL NEB SCH ×2 (18:37→22:05)
[2023-05-20] MEDS: ATORVASTATIN 20 MG TAB PO SCH (21:49)
[2023-05-21] VITALS (17 sets, daily range): BP systolic 99–129; BP diastolic 56–71; PULSE 52–85; RESP 16–21; TEMP 97.3–98.9; O2SAT 92–100
[2023-05-21] MEDS: SODIUM CHLORIDE 0.9% 1,000 ML IV SCH (01:40)
[2023-05-21] MEDS: ALBUTEROL MEDNEB 2.5 mg/3ml NEB NEB SCH ×6 (02:21→22:00)
[2023-05-21] MEDS: IPRATROPIUM BROM 0.5 MG/2.5ML INH SOL NEB SCH ×6 (02:22→22:00)
[2023-05-21] MEDS: FUROSEMIDE 20 MG TAB PO SCH (06:22)
[2023-05-21] MEDS: ACCU-CHEK COMFORT CURVE STRIP VI SCH ×4 (06:37→21:50)
[2023-05-21] MEDS: InsuLIN REG 1unit/0.01ml Soln (100units/ml) SC SCH ×4 (06:37→21:56)
[2023-05-21 07:05] LABS: Eosinophils # (auto) 0 10 ^3/uL (0-0.8); Eosinophils % (auto) 0.1 % (0.0-7.0); Mean Corpuscular Hemoglobin 25.9 pg (28.0-32.0); Mean Corpuscular Hgb Conc. 31.4 g/dL (32.0-36.0)
[2023-05-21 07:07] LABS: Basophils # (auto) 0.1 10 ^3/uL (0-0.2); Basophils % (auto) 0.4 % (0.0-2.0); Hematocrit 38.2 % (41.0-53.0); Lymphocytes # (auto) 2.5 10 ^3/uL (0.4-5.4); Lymphocytes % (auto) 19.2 % (10.0-50.0); Mean Corpuscular Volume 82.7 fL (80.0-100.0); Monocytes # (auto) 0.9 10 ^3/uL (0-1.3); Monocytes % (auto) 7.3 % (0.0-12.0); Neutrophils # (auto) 9.4 10 ^3/uL (1.6-8.6); Red Blood Cells 4.63 10^6/uL (4.5-5.90); Red Cell Distribution Width 17.7 % (11.8-14.3); White Blood Cell 12.8 10^3/uL (4.4-10.8)
[2023-05-21 07:59] LABS: Alanine Aminotransferase 20 U/L (7-40); Alkaline Phosphatase 77 U/L (46-116); Anion Gap 9 (5-15); BUN/Creatinine Ratio 18.9 (10.0-20.0); Blood Urea Nitrogen 14 mg/dL (9-23); Calcium 9.3 mg/dL (8.5-10.1); Carbon Dioxide 25 mmol/L (20-30); Chloride 106 mmol/L (98-107); Glucose 101 mg/dL (74-106); Potassium 4.2 mmol/L (3.5-5.1); Sodium 140 mmol/L (136-145)
[2023-05-21 08:00] LABS: Albumin 4.2 g/dL (3.2-4.8)
[2023-05-21 08:01] LABS: Aspartate Aminotransferase 14 U/L (13-40); Bilirubin, Total 0.3 mg/dL (0.2-1.0)
[2023-05-21] MEDS ORDERED: cefTRIAXone 1GM/50ML D5W 50 ML IV SCH (09:00)
[2023-05-21] MEDS ORDERED: AZITHROMYCIN 500MG/ 250ML 250 ML IV SCH (10:00)
[2023-05-21] MEDS: levETIRAcetam 500 MG TAB PO SCH ×2 (10:00→21:57)
[2023-05-21] MEDS: [UNRECOGNIZED DRUG - OTHER] PO SCH ×2 (10:00→21:57)
[2023-05-21] MEDS: APIXABAN 5 MG TAB PO SCH ×2 (10:06→21:50)
[2023-05-21] MEDS: DOCUSATE SOD 100 MG CAP PO SCH ×2 (10:06→21:50)
[2023-05-21] MEDS: methylPREDNISolone SOD SUCC 40 MG/ML VL IV SCH ×2 (10:06→21:49)
[2023-05-21] MEDS: LISINOPRIL 5 MG TAB PO SCH (10:15)
[2023-05-21] MEDS ORDERED: guaiFENesin-DM 100/10mg/5ml SYR PO PRN (10:15)
[2023-05-21] MEDS ORDERED: diphenhdrAMINE HCL 25 MG CAP PO PRN ×2 (14:00)
[2023-05-21] MEDS: ATORVASTATIN 20 MG TAB PO SCH (21:50)
[2023-05-22] VITALS (10 sets, daily range): BP systolic 115–125; BP diastolic 63–73; PULSE 63–78; RESP 14–21; TEMP 97.9–98.1; O2SAT 95–100
[2023-05-22] MEDS: ALBUTEROL MEDNEB 2.5 mg/3ml NEB NEB SCH ×3 (02:00→10:23)
[2023-05-22] MEDS: IPRATROPIUM BROM 0.5 MG/2.5ML INH SOL NEB SCH ×3 (02:00→10:23)
[2023-05-22] MEDS: FUROSEMIDE 20 MG TAB PO SCH (06:03)
[2023-05-22] MEDS: ACCU-CHEK COMFORT CURVE STRIP VI SCH (06:03)
[2023-05-22] MEDS: InsuLIN REG 1unit/0.01ml Soln (100units/ml) SC SCH (06:13)
[2023-05-22] MEDS ORDERED: METH4PAK PO (09:56)
[2023-05-22] MEDS ORDERED: LEVO500T91 PO (09:56)
[2023-05-22] MEDS: methylPREDNISolone SOD SUCC 40 MG/ML VL IV SCH (09:58)
[2023-05-22] MEDS: APIXABAN 5 MG TAB PO SCH (09:58)
[2023-05-22] MEDS: DOCUSATE SOD 100 MG CAP PO SCH (09:58)
[2023-05-22] MEDS: [UNRECOGNIZED DRUG - OTHER] PO SCH (10:00)
[2023-05-22] MEDS: levETIRAcetam 500 MG TAB PO SCH (10:00)
[2023-05-22] MEDS: LISINOPRIL 5 MG TAB PO SCH (10:01)
== END 2023-05-22 11:00 | disposition home or self-care (01) | DRG 140 ==
LOC: WEST WING 21:57 → ER 21:57 → WEST WING 05-20 08:51
PROVIDERS: ADMIT Nurse Practitioner Family; ATTEND Internal Medicine Geriatric Medicine
DX: J44.1 Chronic obstructive pulmonary disease with (acute) exacerbation (principal); J96.21 Acute and chronic respiratory failure with hypoxia; I50.9 Heart failure, unspecified; I11.0 Hypertensive heart disease with heart failure; E11.9 Type 2 diabetes mellitus without complications; E66.01 Morbid (severe) obesity due to excess calories; M19.90 Unspecified osteoarthritis, unspecified site; E78.5 Hyperlipidemia, unspecified; Z86.711 Personal history of pulmonary embolism; Z87.891 Personal history of nicotine dependence; Z68.42 Body mass index [BMI] 45.0-49.9, adult; Z79.01 Long term (current) use of anticoagulants; Z79.84 Long term (current) use of oral hypoglycemic drugs; Z79.899 Other long term (current) drug therapy; Z80.0 Family history of malignant neoplasm of digestive organs; Z82.3 Family history of stroke; Z82.49 Family history of ischemic heart disease and other diseases of the circulatory system; Z82.5 Family history of asthma and other chronic lower respiratory diseases; Z83.3 Family history of diabetes mellitus; Z86.73 Personal history of transient ischemic attack (TIA), and cerebral infarction without residual deficits; Z91.013 Allergy to seafood; Z99.81 Dependence on supplemental oxygen; Z88.5 Allergy status to narcotic agent; Z88.8 Allergy status to other drugs, medicaments and biological substances
CPT/HCPCS: 36415; 80053; 80061; 81001; 82962; 83036; 83605; 83880; 84443; 84484; 85025; 85379; 85610; 85730; 87040; 93005; 94640; 99291; G0378; J0696; J1815; J2405

== ENCOUNTER 2023-06-13 13:28 | Emergency (ER) | payer MEDICAID ==
[~2023-06-13] VITALS: Ht 170.2 cm; Wt 129.5 kg
[~2023-06-13 13:28] MED LIST changes: +LEVO500T91 PO
[2023-06-13 15:20] LABS: Basophils # (auto) 0.1 10 ^3/uL (0-0.2); Eosinophils # (auto) 0.4 10 ^3/uL (0-0.8); Lymphocytes # (auto) 3.4 10 ^3/uL (0.4-5.4); Monocytes # (auto) 0.6 10 ^3/uL (0-1.3); Neutrophils # (auto) 5.9 10 ^3/uL (1.6-8.6); Nucleated Red Blood Cells % 0.1 %
[2023-06-13 15:22] LABS: Basophils % (auto) 0.6 % (0.0-2.0); Eosinophils % (auto) 3.7 % (0.0-7.0); Hematocrit 43.4 % (41.0-53.0); Hemoglobin 13.8 g/dL (13.5-17.5); Lymphocytes % (auto) 32.4 % (10.0-50.0); Mean Corpuscular Hemoglobin 26.5 pg (28.0-32.0); Mean Corpuscular Hgb Conc. 31.9 g/dL (32.0-36.0); Monocytes % (auto) 6.1 % (0.0-12.0); Neutrophils % (auto) 57.2 % (37.0-80.0); Red Blood Cells 5.23 10^6/uL (4.5-5.90); Red Cell Distribution Width 16.5 % (11.8-14.3); White Blood Cell 10.4 10^3/uL (4.4-10.8)
[2023-06-13 15:35] LABS: INR 0.93 (0.9-1.15); Partial Thromboplastin Time 28.8 SEC (24.5-34.5); Prothrombin Time 9.8 sec (9.3-11.8)
[2023-06-13 15:36] LABS: Alanine Aminotransferase 27 U/L (7-40); Albumin 4.5 g/dL (3.2-4.8); Alkaline Phosphatase 101 U/L (46-116); Anion Gap 8 (5-15); Aspartate Aminotransferase 23 U/L (13-40); BUN/Creatinine Ratio 20.3 (10.0-20.0); Blood Urea Nitrogen 13 mg/dL (9-23); Calcium 9.2 mg/dL (8.7-10.4); Carbon Dioxide 23 mmol/L (20-30); Chloride 106 mmol/L (98-107); Glucose 100 mg/dL (74-106); Magnesium 1.8 mg/dL (1.6-2.6); Potassium 4.4 mmol/L (3.5-5.1); Sodium 137 mmol/L (136-145)
[2023-06-13 15:37] LABS: Bilirubin, Total 0.3 mg/dL (0.2-1.0); Total Protein 7.4 g/dL (5.7-8.2)
[2023-06-13] MEDS ORDERED: HYDROcodone-ACET 10/325MG TAB PO ONE (16:30)
[2023-06-13] MEDS ORDERED: ACET500T58 PO (16:34)
[2023-06-13 16:37] VITALS: BP 126/82; PULSE 86; RESP 16; TEMP 98.4; O2SAT 98
== END 2023-06-13 17:27 | disposition home or self-care (01) ==
LOC: ER 13:28
DX: B34.9 Viral infection, unspecified (principal); R51.9 Headache, unspecified; I10 Essential (primary) hypertension; E11.9 Type 2 diabetes mellitus without complications; E78.5 Hyperlipidemia, unspecified; J44.9 Chronic obstructive pulmonary disease, unspecified; E66.01 Morbid (severe) obesity due to excess calories; Z68.41 Body mass index [BMI] 40.0-44.9, adult; Z86.73 Personal history of transient ischemic attack (TIA), and cerebral infarction without residual deficits; Z98.890 Other specified postprocedural states; Z87.891 Personal history of nicotine dependence; Z86.2 Personal history of diseases of the blood and blood-forming organs and certain disorders involving the immune mechanism
CPT/HCPCS: 36415; 70450; 71045; 80053; 82962; 83735; 83880; 84484; 85025; 85610; 85730; 93005

== ENCOUNTER 2023-06-19 12:03 | Emergency (ER) | payer MEDICAID ==
[~2023-06-19] VITALS: Ht 170.2 cm; Wt 131.4 kg
[~2023-06-19 12:03] MED LIST changes: +ACET500T58 PO
[2023-06-19 13:57] VITALS: BP 123/86; PULSE 94; RESP 18; TEMP 98.2; O2SAT 95
[2023-06-19] MEDS ORDERED: CEPH500C PO (14:10)
[2023-06-19] MEDS ORDERED: NAPR-957 PO (14:10)
[2023-06-19] MEDS ORDERED: KETOROLAC TROMETH 60MG/2ML VIAL IM ONE (14:15)
[2023-06-23] MEDS ORDERED: TRAM50TA2 PO (07:53)
[2023-06-23] MEDS ORDERED: BACDST PO (07:53)
== END 2023-06-19 14:35 | disposition home or self-care (01) ==
LOC: ER 12:03
DX: R22.31 Localized swelling, mass and lump, right upper limb (principal); J44.9 Chronic obstructive pulmonary disease, unspecified; E11.9 Type 2 diabetes mellitus without complications; E78.5 Hyperlipidemia, unspecified; Z88.1 Allergy status to other antibiotic agents; Z88.5 Allergy status to narcotic agent; Z91.013 Allergy to seafood; Z87.891 Personal history of nicotine dependence; Z86.73 Personal history of transient ischemic attack (TIA), and cerebral infarction without residual deficits
CPT/HCPCS: 96372; 99283; J1885; J7030

== ENCOUNTER 2023-07-03 12:23 | Emergency (ER) | payer MEDICAID ==
[~2023-07-03] VITALS: Ht 170.2 cm; Wt 131.6 kg
[~2023-07-03 12:23] MED LIST changes: +BACDST PO; +CEPH500C PO; +NAPR-957 PO
[2023-07-03] MEDS ORDERED: MORPHINE SULFATE 4 MG/ML SYR/VIAL IM ONE (16:00)
[2023-07-03 17:35] VITALS: BP 124/88; PULSE 78; RESP 18; TEMP 98.4; O2SAT 97
[2023-07-03] MEDS ORDERED: CIPR-173 PO (17:42)
== END 2023-07-03 17:43 | disposition still patient (30) ==
LOC: ER 12:23
DX: L02.411 Cutaneous abscess of right axilla (principal); I10 Essential (primary) hypertension; E11.9 Type 2 diabetes mellitus without complications; E78.5 Hyperlipidemia, unspecified; J44.9 Chronic obstructive pulmonary disease, unspecified; Z86.73 Personal history of transient ischemic attack (TIA), and cerebral infarction without residual deficits; Z98.890 Other specified postprocedural states; Z87.891 Personal history of nicotine dependence; Z88.8 Allergy status to other drugs, medicaments and biological substances; Z91.041 Radiographic dye allergy status; Z79.899 Other long term (current) drug therapy
CPT/HCPCS: 10060; 82962; 96372; 99283; J2270

== ENCOUNTER 2023-07-05 11:02 | Emergency (ER) | payer MEDICAID ==
[~2023-07-05] VITALS: Ht 170.2 cm; Wt 137.0 kg
[~2023-07-05 11:02] MED LIST changes: +CIPR-173 PO
[2023-07-05 13:06] VITALS: BP 149/69; PULSE 90; RESP 16; TEMP 98.1; O2SAT 94
[2023-07-05] MEDS ORDERED: DOXY-286 PO (14:02)
== END 2023-07-05 14:12 | disposition home or self-care (01) ==
LOC: ER 11:02
DX: L02.411 Cutaneous abscess of right axilla (principal); J44.9 Chronic obstructive pulmonary disease, unspecified; E11.9 Type 2 diabetes mellitus without complications; E78.5 Hyperlipidemia, unspecified; I10 Essential (primary) hypertension; Z86.73 Personal history of transient ischemic attack (TIA), and cerebral infarction without residual deficits; Z90.49 Acquired absence of other specified parts of digestive tract; Z90.89 Acquired absence of other organs; Z87.891 Personal history of nicotine dependence; Z79.899 Other long term (current) drug therapy; Z79.2 Long term (current) use of antibiotics; Z88.1 Allergy status to other antibiotic agents; Z88.5 Allergy status to narcotic agent; Z88.8 Allergy status to other drugs, medicaments and biological substances
CPT/HCPCS: 87077; 87186; 87205

== ENCOUNTER 2023-07-29 11:09 | Inpatient (IN) | payer MEDICAID ==
[~2023-07-29] VITALS: Ht 170.2 cm; Wt 137.2 kg
[2023-07-29] VITALS (8 sets, daily range): BP systolic 133–172; BP diastolic 91–92; PULSE 78–89; RESP 17–20; TEMP 98.2–98.3; O2SAT 92–99
[~2023-07-29 11:09] MED LIST changes: +DOXY-286 PO
[2023-07-29 12:42] LABS: Basophils # (auto) 0.1 10 ^3/uL (0-0.2); Basophils % (auto) 0.7 % (0.0-2.0); Eosinophils # (auto) 0.2 10 ^3/uL (0-0.8); Lymphocytes # (auto) 2.5 10 ^3/uL (0.4-5.4); Monocytes # (auto) 0.6 10 ^3/uL (0-1.3); Nucleated Red Blood Cells % 0.1 %
[2023-07-29 12:43] LABS: Eosinophils % (auto) 2.6 % (0.0-7.0); Hematocrit 41.8 % (41.0-53.0); Hemoglobin 13.2 g/dL (13.5-17.5); Lymphocytes % (auto) 28.8 % (10.0-50.0); Mean Corpuscular Hemoglobin 26.2 pg (28.0-32.0); Mean Corpuscular Hgb Conc. 31.6 g/dL (32.0-36.0); Mean Corpuscular Volume 82.8 fL (80.0-100.0); Monocytes % (auto) 6.5 % (0.0-12.0); Neutrophils # (auto) 5.3 10 ^3/uL (1.6-8.6); Neutrophils % (auto) 61.4 % (37.0-80.0); Red Blood Cells 5.05 10^6/uL (4.5-5.90); Red Cell Distribution Width 15.2 % (11.8-14.3); White Blood Cell 8.6 10^3/uL (4.4-10.8)
[2023-07-29] MEDS: SODIUM CHLORIDE 0.9% 1,000 ML IV ONE (12:49)
[2023-07-29 12:51] LABS: Alanine Aminotransferase 25 U/L (7-40); Albumin 3.9 g/dL (3.2-4.8); Alkaline Phosphatase 133 U/L (46-116); Anion Gap 7 (5-15); Aspartate Aminotransferase 19 U/L (13-40); BUN/Creatinine Ratio 14.9 (10.0-20.0); Bilirubin, Total 0.2 mg/dL (0.2-1.0); Blood Urea Nitrogen 13 mg/dL (9-23); Calcium 8.5 mg/dL (8.7-10.4); Carbon Dioxide 27 mmol/L (20-30); Chloride 107 mmol/L (98-107); Glucose 159 mg/dL (74-106); Magnesium 1.6 mg/dL (1.6-2.6); Potassium 4.4 mmol/L (3.5-5.1); Sodium 141 mmol/L (136-145); Total Protein 6.7 g/dL (5.7-8.2)
[2023-07-29 12:56] LABS: INR 0.91 (0.9-1.15); Partial Thromboplastin Time 27.7 SEC (24.5-34.5); Prothrombin Time 9.6 sec (9.3-11.8)
[2023-07-29] MEDS: ONDANSETRON HCL 4 MG/2 ML VIAL IV ONE (15:25)
[2023-07-29] MEDS: MORPHINE SULFATE 4 MG/ML SYR/VIAL IV ONE (15:26)
[2023-07-29] MEDS ORDERED: ALBUTEROL SULF 2.5 MG/0.5ML(0.5%) NEB SOLN NEB PRN (16:15)
[2023-07-29] MEDS: SODIUM CHLORIDE 0.9% 1,000 ML IV SCH (16:34)
[2023-07-29] MEDS: metFORMIN HYDROCHLORIDE 500 MG TAB PO SCH (18:25)
[2023-07-29] MEDS: IPRATROPIUM BROM 0.5 MG/2.5ML INH SOL NEB SCH (18:39)
[2023-07-29] MEDS: ALBUTEROL SULF 2.5 MG/0.5ML(0.5%) NEB SOLN NEB SCH (18:39)
[2023-07-29 20:30] LABS: COVID19 ANTIGEN SOFIA FIA NEGATIVE (NEGATIVE); Rapid Influenza A Negative (Negative); Rapid Influenza B Negative (Negative)
[2023-07-29] MEDS: traMADol HCL 50 MG TAB PO PRN (21:07)
[2023-07-29] MEDS: DOCUSATE SOD 100 MG CAP PO SCH (21:08)
[2023-07-29] MEDS: levETIRAcetam 500 MG TAB PO SCH (21:09)
[2023-07-29] MEDS: ATORVASTATIN 20 MG TAB PO SCH (21:09)
[2023-07-29] MEDS: APIXABAN 5 MG TAB PO SCH (21:10)
[2023-07-29] MEDS: [UNRECOGNIZED DRUG - OTHER] PO SCH (21:12)
[2023-07-29] MEDS: HYDROcodone-ACET 5/325MG TAB PO PRN (22:59)
[2023-07-30] VITALS (22 sets, daily range): BP systolic 88–133; BP diastolic 43–79; PULSE 66–102; RESP 16–32; TEMP 97.6–98.3; O2SAT 92–98
[2023-07-30] MEDS: FUROSEMIDE 20 MG TAB PO SCH (05:45)
[2023-07-30 06:42] LABS: Urine Bacteria FEW /hpf (None Seen); Urine Blood Negative /uL (Negative); Urine Clarity Clear (Clear); Urine Color Yellow (Yellow); Urine Hyaline Cast FEW /lpf (0 - 2); Urine Mucus FEW (None Seen); Urine Protein, UAD 1+ (Negative); Urine Specific Gravity 1.016 (1.001-1.035); Urine Urobilinogen Normal (Negative); Urine WBC 2 /hpf (0 - 3); Urine pH 5.5 (5.0-8.0)
[2023-07-30 07:05] LABS: Neutrophils # (auto) 4.1 10 ^3/uL (1.6-8.6)
[2023-07-30 07:08] LABS: Basophils # (auto) 0.1 10 ^3/uL (0-0.2); Basophils % (auto) 1.2 % (0.0-2.0); Eosinophils # (auto) 0.3 10 ^3/uL (0-0.8); Eosinophils % (auto) 3.9 % (0.0-7.0); Hematocrit 38.4 % (41.0-53.0); Hemoglobin 12.1 g/dL (13.5-17.5); Mean Corpuscular Hemoglobin 26.2 pg (28.0-32.0); Mean Corpuscular Hgb Conc. 31.6 g/dL (32.0-36.0); Monocytes # (auto) 0.6 10 ^3/uL (0-1.3); Neutrophils % (auto) 57.9 % (37.0-80.0); Nucleated Red Blood Cells % 0.1 %; Red Blood Cells 4.63 10^6/uL (4.5-5.90); Red Cell Distribution Width 15.7 % (11.8-14.3)
[2023-07-30 07:26] LABS: Alanine Aminotransferase 19 U/L (7-40); Albumin 3.8 g/dL (3.2-4.8); Alkaline Phosphatase 83 U/L (46-116); Anion Gap 6 (5-15); Aspartate Aminotransferase 16 U/L (13-40); BUN/Creatinine Ratio 11.6 (10.0-20.0); Bilirubin, Total 0.5 mg/dL (0.2-1.0); Blood Urea Nitrogen 8 mg/dL (9-23); Calcium 8.8 mg/dL (8.5-10.1); Carbon Dioxide 25 mmol/L (20-30); Chloride 107 mmol/L (98-107); Glucose 111 mg/dL (74-106); Potassium 4.2 mmol/L (3.5-5.1); Sodium 138 mmol/L (136-145); Total Protein 6.4 g/dL (5.7-8.2)
[2023-07-30] MEDS: LISINOPRIL 5 MG TAB PO SCH (09:49)
[2023-07-30] MEDS: ACETAMINOPHEN 325 MG TAB PO PRN (09:55)
[2023-07-30] MEDS ORDERED: ENOXAPARIN SOD 40 MG/0.4 ML SYRINGE SC SCH (10:00)
[2023-07-30] MEDS ORDERED: AZITHROMYCIN 500MG/ 250ML 250 ML IV ONE (10:30)
[2023-07-30] MEDS: DOXYCYCLINE 100MG/250ML 250 ML IV SCH (11:18)
[2023-07-30] MEDS: methylPREDNISolone SOD SUCC 40 MG/ML VL IV ONE (11:19)
[2023-07-30] MEDS ORDERED: IBUPROFEN 400 MG TAB PO PRN (13:15)
[2023-07-30] MEDS ORDERED: ACETAMINOPHEN 325 MG TAB PO PRN (14:00)
[2023-07-30] MEDS: methylPREDNISolone SOD SUCC 40 MG/ML VL IV SCH (22:36)
[2023-07-30] MEDS: guaiFENesin-DM 100/10mg/5ml SYR PO PRN (22:41)
[2023-07-31] VITALS (14 sets, daily range): BP systolic 104–138; BP diastolic 59–79; PULSE 69–96; RESP 16–20; TEMP 98–98.6; O2SAT 92–100
[2023-07-31 07:41] LABS: Basophils # (auto) 0 10 ^3/uL (0-0.2); Basophils % (auto) 0.2 % (0.0-2.0); Eosinophils # (auto) 0 10 ^3/uL (0-0.8); Hemoglobin 12.4 g/dL (13.5-17.5); Monocytes # (auto) 0.2 10 ^3/uL (0-1.3)
[2023-07-31 07:43] LABS: Hematocrit 39.3 % (41.0-53.0); Lymphocytes % (auto) 10.7 % (10.0-50.0); Mean Corpuscular Hemoglobin 26.1 pg (28.0-32.0); Mean Corpuscular Hgb Conc. 31.5 g/dL (32.0-36.0); Mean Corpuscular Volume 82.9 fL (80.0-100.0); Monocytes % (auto) 2.4 % (0.0-12.0); Neutrophils # (auto) 8.2 10 ^3/uL (1.6-8.6); Neutrophils % (auto) 86.7 % (37.0-80.0); Red Blood Cells 4.74 10^6/uL (4.5-5.90); Red Cell Distribution Width 15.2 % (11.8-14.3); White Blood Cell 9.5 10^3/uL (4.4-10.8)
[2023-07-31 08:09] LABS: Alanine Aminotransferase 22 U/L (7-40); Alkaline Phosphatase 82 U/L (46-116); Anion Gap 8 (5-15); BUN/Creatinine Ratio 16.4 (10.0-20.0); Blood Urea Nitrogen 11 mg/dL (9-23); Calcium 9.4 mg/dL (8.5-10.1); Carbon Dioxide 23 mmol/L (20-30); Chloride 106 mmol/L (98-107); Glucose 176 mg/dL (74-106); Potassium 4.6 mmol/L (3.5-5.1); Sodium 137 mmol/L (136-145)
[2023-07-31 08:11] LABS: Albumin 4.2 g/dL (3.2-4.8); Aspartate Aminotransferase 16 U/L (13-40); Bilirubin, Total 0.4 mg/dL (0.2-1.0); Total Protein 6.9 g/dL (5.7-8.2)
[2023-07-31 09:02] LABS: Magnesium 1.7 mg/dL (1.6-2.6)
[2023-07-31] MEDS ORDERED: AZITHROMYCIN 500MG/ 250ML 250 ML IV SCH (10:00)
[2023-07-31] MEDS ORDERED: PRED20TA2 PO (11:40)
[2023-07-31] MEDS ORDERED: DOXY1CAP57 PO (11:40)
[2023-07-31] MEDS ORDERED: DEXT1SYP9 PO (11:40)
== END 2023-07-31 17:16 | disposition home or self-care (01) | DRG 133 ==
LOC: ER 11:09 → OVERFLOW 16:16 → CENTRAL 17:47
PROVIDERS: ADMIT Internal Medicine Geriatric Medicine; ATTEND Internal Medicine Geriatric Medicine
DX: J96.21 Acute and chronic respiratory failure with hypoxia (principal); Z99.81 Dependence on supplemental oxygen; G45.9 Transient cerebral ischemic attack, unspecified; J44.1 Chronic obstructive pulmonary disease with (acute) exacerbation; J45.901 Unspecified asthma with (acute) exacerbation; E11.65 Type 2 diabetes mellitus with hyperglycemia; I10 Essential (primary) hypertension; E78.00 Pure hypercholesterolemia, unspecified; F64.0 Transsexualism; G40.909 Epilepsy, unspecified, not intractable, without status epilepticus; Z20.822 Contact with and (suspected) exposure to COVID-19; E66.01 Morbid (severe) obesity due to excess calories; Z68.42 Body mass index [BMI] 45.0-49.9, adult; Z71.3 Dietary counseling and surveillance; Z88.8 Allergy status to other drugs, medicaments and biological substances; Z91.041 Radiographic dye allergy status; Z88.5 Allergy status to narcotic agent; Z91.013 Allergy to seafood; Z91.148 Patient's other noncompliance with medication regimen for other reason; Z88.1 Allergy status to other antibiotic agents; Z86.711 Personal history of pulmonary embolism; Z87.891 Personal history of nicotine dependence; Z86.73 Personal history of transient ischemic attack (TIA), and cerebral infarction without residual deficits; Z82.49 Family history of ischemic heart disease and other diseases of the circulatory system
CPT/HCPCS: 36415; 70450; 71045; 80053; 81001; 83735; 83880; 84443; 84484; 85025; 85379; 85610; 85730; 87426; 87804; 93005; 94640; 96361; 96374; 96375; G0378; J2405; J3490

== ENCOUNTER 2023-09-04 11:45 | Emergency (ER) | payer MEDICAID ==
[~2023-09-04] VITALS: Ht 170.2 cm; Wt 130.0 kg
[~2023-09-04 11:45] MED LIST changes: -ACET-1080 PO; -ACET500T58 PO; -ALBU108A5 PO; -ALBUAER3 IN; -ATOR40TA52 PO; -BACDST PO; -BENZ100C19 PO; -CEPH500C PO; -CIPR-173 PO; -DOCU-265 PO; -DOXY-286 PO; +DOXY1CAP57 PO; -FLAXCAP PO; -LEVO500T91 PO; -METH4PAK PO; -NAPR-957 PO; +PRED20TA2 PO; -TRAM50TA2 PO
[2023-09-04 11:57] VITALS: TEMP 98.2
[2023-09-04 12:04] VITALS: BP 140/111
[2023-09-04 12:11] VITALS: PULSE 89
[2023-09-04] MEDS: IPRATROPIUM BROM 0.5 MG/2.5ML INH SOL NEB ONE (14:57)
[2023-09-04] MEDS: ALBUTEROL SULF 2.5 MG/0.5ML(0.5%) NEB SOLN NEB ONE (14:57)
[2023-09-04 14:59] VITALS: RESP 18; O2SAT 97
[2023-09-04 15:17] LABS: Basophils # (auto) 0.1 10 ^3/uL (0-0.2); Monocytes # (auto) 0.7 10 ^3/uL (0-1.3)
[2023-09-04 15:22] LABS: Basophils % (auto) 0.9 % (0.0-2.0); Eosinophils # (auto) 0.2 10 ^3/uL (0-0.8); Eosinophils % (auto) 1.9 % (0.0-7.0); Hematocrit 42.9 % (41.0-53.0); Lymphocytes % (auto) 29.2 % (10.0-50.0); Mean Corpuscular Hemoglobin 26.9 pg (28.0-32.0); Mean Corpuscular Hgb Conc. 32.5 g/dL (32.0-36.0); Mean Corpuscular Volume 82.9 fL (80.0-100.0); Monocytes % (auto) 6.7 % (0.0-12.0); Neutrophils # (auto) 6.4 10 ^3/uL (1.6-8.6); Neutrophils % (auto) 61.3 % (37.0-80.0); Nucleated Red Blood Cells % 0.2 %; Red Blood Cells 5.18 10^6/uL (4.5-5.90); Red Cell Distribution Width 15.3 % (11.8-14.3); White Blood Cell 10.4 10^3/uL (4.4-10.8)
[2023-09-04 15:28] LABS: Chloride 105 mmol/L (98-107); Sodium 138 mmol/L (136-145)
[2023-09-04 15:29] LABS: Anion Gap 7 (5-15); Calcium 9.3 mg/dL (8.5-10.1); Carbon Dioxide 26 mmol/L (20-30)
[2023-09-04 15:34] LABS: BUN/Creatinine Ratio 7.6 (10.0-20.0); Blood Urea Nitrogen 5 mg/dL (9-23); Glucose 104 mg/dL (74-106)
[2023-09-04] MEDS ORDERED: BENZ100C97 PO (16:11)
== END 2023-09-04 16:11 | disposition home or self-care (01) ==
LOC: ER 11:45
DX: J20.9 Acute bronchitis, unspecified (principal); J44.0 Chronic obstructive pulmonary disease with (acute) lower respiratory infection; I10 Essential (primary) hypertension; E11.9 Type 2 diabetes mellitus without complications; E78.5 Hyperlipidemia, unspecified; Z86.73 Personal history of transient ischemic attack (TIA), and cerebral infarction without residual deficits; Z98.890 Other specified postprocedural states; Z87.891 Personal history of nicotine dependence
CPT/HCPCS: 36415; 71046; 80048; 83880; 85025; 93005; 94640; 99285; J7644

== ENCOUNTER 2023-11-01 15:53 | Inpatient (IN) | payer MEDICAID ==
[~2023-11-01] VITALS: Ht 170.2 cm; Wt 98.5 kg
[~2023-11-01 15:53] MED LIST changes: -ATO40T PO; +ATOR-507 PO; +BENZ100C97 PO
[2023-11-01 16:16] VITALS: RESP 24; O2SAT 92
[2023-11-01] MEDS: IPRATROPIUM BROM 0.5 MG/2.5ML INH SOL NEB ONE ×2 (16:43→17:13)
[2023-11-01] MEDS: ALBUTEROL SULF 2.5 MG/0.5ML(0.5%) NEB SOLN NEB ONE ×2 (16:43→17:13)
[2023-11-01 17:04] LABS: Basophils # (auto) 0.1 10 ^3/uL (0-0.2); Basophils % (auto) 0.7 % (0.0-2.0); Eosinophils % (auto) 2.6 % (0.0-7.0); Hemoglobin 14.1 g/dL (13.5-17.5); Monocytes # (auto) 0.5 10 ^3/uL (0-1.3); Nucleated Red Blood Cells % 0.1 %; Red Cell Distribution Width 16.3 % (11.8-14.3)
[2023-11-01 17:05] LABS: Eosinophils # (auto) 0.3 10 ^3/uL (0-0.8); Hematocrit 44.7 % (41.0-53.0); Lymphocytes # (auto) 3.3 10 ^3/uL (0.4-5.4); Lymphocytes % (auto) 33.7 % (10.0-50.0); Mean Corpuscular Hemoglobin 26.7 pg (28.0-32.0); Mean Corpuscular Hgb Conc. 31.5 g/dL (32.0-36.0); Mean Corpuscular Volume 84.9 fL (80.0-100.0); Neutrophils # (auto) 5.7 10 ^3/uL (1.6-8.6); Red Blood Cells 5.27 10^6/uL (4.5-5.90); White Blood Cell 9.8 10^3/uL (4.4-10.8)
[2023-11-01 17:24] LABS: Alanine Aminotransferase 31 U/L (7-40); Albumin 4.3 g/dL (3.2-4.8); Alkaline Phosphatase 107 U/L (46-116); Anion Gap 7 (5-15); Aspartate Aminotransferase 26 U/L (13-40); BUN/Creatinine Ratio 16.4 (10.0-20.0); Bilirubin, Total 0.4 mg/dL (0.2-1.0); Blood Urea Nitrogen 12 mg/dL (9-23); Calcium 9.7 mg/dL (8.5-10.1); Carbon Dioxide 26 mmol/L (20-30); Chloride 107 mmol/L (98-107); Glucose 140 mg/dL (74-106); Potassium 4.1 mmol/L (3.5-5.1); Sodium 140 mmol/L (136-145); Total Protein 7.2 g/dL (5.7-8.2)
[2023-11-01 19:09] LABS: INR 0.96 (0.9-1.15); Partial Thromboplastin Time 26.5 SEC (24.5-34.5); Prothrombin Time 10.2 sec (9.3-11.8)
[2023-11-01] MEDS: DexAMETHasone SOD PHOS 10MG/1ML VIAL INJ IM ONE (20:39)
[2023-11-01 21:00] VITALS: BP 129/101; PULSE 89; RESP 24; TEMP 97.9; O2SAT 95
[2023-11-01] MEDS ORDERED: TEMAZEPAM 15 MG CAP PO PRN (21:15)
[2023-11-01] MEDS ORDERED: NITROGLYCERIN 0.4 MG SL TAB SL PRN (21:15)
[2023-11-01] MEDS: APIXABAN 5 MG TAB PO SCH (22:52)
[2023-11-01] MEDS: ATORVASTATIN 20 MG TAB PO SCH (22:53)
[2023-11-01] MEDS: TOPIRAMATE 25 MG TAB PO SCH (22:53)
[2023-11-01] MEDS: methylPREDNISolone SOD SUCC 40 MG/ML VL IV SCH (23:07)
[2023-11-01] MEDS: ALBUTEROL SULF 2.5 MG/0.5ML(0.5%) NEB SOLN NEB PRN (23:22)
[2023-11-01 23:23] VITALS: PULSE 81; RESP 22; O2SAT 95
[2023-11-01] MEDS: IPRATROPIUM BROM 0.5 MG/2.5ML INH SOL NEB PRN (23:23)
[2023-11-01 23:31] VITALS: PULSE 83; RESP 22; O2SAT 99
[2023-11-01] MEDS: MORPHINE SULFATE 4 MG/ML SYR/VIAL IV PRN (23:38)
[2023-11-02] VITALS (10 sets, daily range): BP systolic 100–113; BP diastolic 61–78; PULSE 79–96; RESP 16–20; TEMP 98–98.4; O2SAT 90–95
[2023-11-02] MEDS: guaiFENesin-DM 100/10mg/5ml SYR PO PRN (04:37)
[2023-11-02] MEDS: ONDANSETRON HCL 4 MG/2 ML VIAL IV PRN (04:37)
[2023-11-02 05:20] LABS: Chloride 105 mmol/L (98-107); Potassium 4.1 mmol/L (3.5-5.1); Sodium 138 mmol/L (136-145)
[2023-11-02 05:21] LABS: Anion Gap 8 (5-15); Calcium 9.3 mg/dL (8.7-10.4); Carbon Dioxide 25 mmol/L (20-30)
[2023-11-02 05:22] LABS: Basophils # (auto) 0 10 ^3/uL (0-0.2); Basophils % (auto) 0.2 % (0.0-2.0); Eosinophils # (auto) 0 10 ^3/uL (0-0.8); Hemoglobin 13.4 g/dL (13.5-17.5); Monocytes % (auto) 0.7 % (0.0-12.0); Red Cell Distribution Width 16.3 % (11.8-14.3)
[2023-11-02 05:25] LABS: Eosinophils % (auto) 0.1 % (0.0-7.0); Hematocrit 41.7 % (41.0-53.0); Lymphocytes # (auto) 0.8 10 ^3/uL (0.4-5.4); Lymphocytes % (auto) 10.6 % (10.0-50.0); Mean Corpuscular Hemoglobin 27.1 pg (28.0-32.0); Mean Corpuscular Hgb Conc. 32.1 g/dL (32.0-36.0); Mean Corpuscular Volume 84.3 fL (80.0-100.0); Monocytes # (auto) 0 10 ^3/uL (0-1.3); Neutrophils # (auto) 6.4 10 ^3/uL (1.6-8.6); Neutrophils % (auto) 88.4 % (37.0-80.0); Red Blood Cells 4.95 10^6/uL (4.5-5.90); White Blood Cell 7.2 10^3/uL (4.4-10.8)
[2023-11-02 05:26] LABS: BUN/Creatinine Ratio 18.6 (10.0-20.0); Blood Urea Nitrogen 13 mg/dL (9-23); Glucose 200 mg/dL (74-106)
[2023-11-02] MEDS: FUROSEMIDE 20 MG TAB PO SCH (10:42)
[2023-11-02] MEDS: LISINOPRIL 5 MG TAB PO SCH (10:43)
[2023-11-02] MEDS: IBUPROFEN 600 MG TAB PO PRN (22:57)
[2023-11-03] VITALS (16 sets, daily range): BP systolic 96–115; BP diastolic 47–63; PULSE 66–88; RESP 20–21; TEMP 97.1–98.8; O2SAT 92–100
[2023-11-03] MEDS: MORPHINE SULFATE 4 MG/ML SYR/VIAL IV ONE (06:27)
[2023-11-03] MEDS ORDERED: HYDROcodone-ACET 10/325MG TAB PO PRN (13:30)
[2023-11-03] MEDS: diphenhdrAMINE HCL 50 MG/1 ML VL IV PRN (13:43)
[2023-11-03] MEDS: ACETAMINOPHEN 325 MG TAB PO PRN (17:25)
[2023-11-03] MEDS: levETIRAcetam 500 MG TAB PO SCH (22:00)
[2023-11-04 01:00] VITALS: BP 109/68; PULSE 81; RESP 20; TEMP 98.4; O2SAT 96
[2023-11-04 05:00] VITALS: BP 101/67; PULSE 71; RESP 20; TEMP 98.7; O2SAT 96
[2023-11-04 07:53] VITALS: O2SAT 99
[2023-11-04 08:00] VITALS: PULSE 76
[2023-11-04 08:30] VITALS: BP 115/55; PULSE 76; RESP 20; TEMP 97.9; O2SAT 96
[2023-11-04 10:00] VITALS: O2SAT 96
== END 2023-11-04 11:30 | disposition home or self-care (01) | DRG 140 ==
LOC: ER 15:53 → TELE 21:15 → TELE-WESTW 11-02 18:30
PROVIDERS: ADMIT Nurse Practitioner; ATTEND Internal Medicine
PROC: 5A09357 Assistance with Respiratory Ventilation, Less than 24 Consecutive Hours, Continuous Positive Airway Pressure (ICD-10-PCS; principal; 2023-11-03)
DX: J44.1 Chronic obstructive pulmonary disease with (acute) exacerbation (principal); J96.21 Acute and chronic respiratory failure with hypoxia; E66.01 Morbid (severe) obesity due to excess calories; E11.9 Type 2 diabetes mellitus without complications; E78.5 Hyperlipidemia, unspecified; I10 Essential (primary) hypertension; G47.33 Obstructive sleep apnea (adult) (pediatric); J98.11 Atelectasis; Z82.49 Family history of ischemic heart disease and other diseases of the circulatory system; Z83.3 Family history of diabetes mellitus; Z86.73 Personal history of transient ischemic attack (TIA), and cerebral infarction without residual deficits; Z87.891 Personal history of nicotine dependence; Z88.1 Allergy status to other antibiotic agents; Z91.013 Allergy to seafood; Z86.711 Personal history of pulmonary embolism; Z79.84 Long term (current) use of oral hypoglycemic drugs; Z79.01 Long term (current) use of anticoagulants; Z90.49 Acquired absence of other specified parts of digestive tract; Z88.5 Allergy status to narcotic agent; Z91.041 Radiographic dye allergy status; Z79.899 Other long term (current) drug therapy; Z82.3 Family history of stroke; Z82.5 Family history of asthma and other chronic lower respiratory diseases; Z80.0 Family history of malignant neoplasm of digestive organs; Z68.34 Body mass index [BMI] 34.0-34.9, adult; Z79.85 Long-term (current) use of injectable non-insulin antidiabetic drugs
CPT/HCPCS: 36415; 71046; 80048; 80053; 82962; 83735; 83880; 84484; 85025; 85379; 85610; 85730; 93005; 94640; 94660; G0378; J1100; J2405

== ENCOUNTER 2023-11-29 17:28 | Inpatient (IN) | payer MEDICAID ==
[~2023-11-29] VITALS: Ht 170.2 cm; Wt 136.8 kg
[2023-11-29 18:32] LABS: Chloride 108 mmol/L (98-107); Potassium 4.4 mmol/L (3.5-5.1); Sodium 140 mmol/L (136-145)
[2023-11-29 18:33] LABS: Anion Gap 5 (5-15); Calcium 9.8 mg/dL (8.5-10.1); Carbon Dioxide 27 mmol/L (20-30)
[2023-11-29 18:38] LABS: BUN/Creatinine Ratio 15.1 (10.0-20.0); Blood Urea Nitrogen 14 mg/dL (9-23); Glucose 157 mg/dL (74-106)
[2023-11-29 18:41] LABS: Basophils # (auto) 0.1 10 ^3/uL (0-0.2); Basophils % (auto) 0.6 % (0.0-2.0); Eosinophils # (auto) 0.3 10 ^3/uL (0-0.8); Eosinophils % (auto) 3.3 % (0.0-7.0); Hematocrit 43.8 % (41.0-53.0); Hemoglobin 14.2 g/dL (13.5-17.5); Lymphocytes % (auto) 33.2 % (10.0-50.0); Mean Corpuscular Hemoglobin 27.5 pg (28.0-32.0); Mean Corpuscular Hgb Conc. 32.5 g/dL (32.0-36.0); Mean Corpuscular Volume 84.4 fL (80.0-100.0); Monocytes # (auto) 0.6 10 ^3/uL (0-1.3); Monocytes % (auto) 6.9 % (0.0-12.0); Nucleated Red Blood Cells % 0.1 %; Red Blood Cells 5.18 10^6/uL (4.5-5.90); Red Cell Distribution Width 15.9 % (11.8-14.3); White Blood Cell 8.9 10^3/uL (4.4-10.8)
[2023-11-29 23:00] VITALS: PULSE 90; RESP 20; O2SAT 92
[2023-11-30] VITALS (10 sets, daily range): BP systolic 105–136; BP diastolic 42–92; PULSE 77–85; RESP 18–20; TEMP 97.3–98.4; O2SAT 91–97
[2023-11-30] MEDS ORDERED: ONDANSETRON HCL 4 MG/2 ML VIAL IV PRN
[2023-11-30] MEDS: traMADol HCL 50 MG TAB PO PRN (00:34)
[2023-11-30] MEDS ORDERED: ALBU0.084 NEB (02:54)
[2023-11-30] MEDS ORDERED: ALBUAER3 IN (02:54)
[2023-11-30] MEDS ORDERED: ATOR40TA52 PO (02:54)
[2023-11-30] MEDS ORDERED: SEMA2INJ3 SC (02:56)
[2023-11-30 06:22] LABS: Basophils # (auto) 0 10 ^3/uL (0-0.2); Basophils % (auto) 0.3 % (0.0-2.0); Eosinophils # (auto) 0.3 10 ^3/uL (0-0.8); Eosinophils % (auto) 3.4 % (0.0-7.0); Hematocrit 42.5 % (41.0-53.0); Hemoglobin 13.8 g/dL (13.5-17.5); Lymphocytes # (auto) 2.5 10 ^3/uL (0.4-5.4); Lymphocytes % (auto) 29.2 % (10.0-50.0); Mean Corpuscular Hemoglobin 27.8 pg (28.0-32.0); Mean Corpuscular Hgb Conc. 32.4 g/dL (32.0-36.0); Mean Corpuscular Volume 85.7 fL (80.0-100.0); Monocytes # (auto) 0.7 10 ^3/uL (0-1.3); Monocytes % (auto) 8.1 % (0.0-12.0); Neutrophils # (auto) 5.1 10 ^3/uL (1.6-8.6); Red Blood Cells 4.95 10^6/uL (4.5-5.90); Red Cell Distribution Width 15.9 % (11.8-14.3); White Blood Cell 8.6 10^3/uL (4.4-10.8)
[2023-11-30 06:43] LABS: Alanine Aminotransferase 25 U/L (7-40); Alkaline Phosphatase 96 U/L (46-116); Anion Gap 11 (5-15); Aspartate Aminotransferase 19 U/L (13-40); BUN/Creatinine Ratio 19.1 (10.0-20.0); Bilirubin, Total 0.4 mg/dL (0.2-1.0); Blood Urea Nitrogen 13 mg/dL (9-23); Calcium 9.5 mg/dL (8.7-10.4); Carbon Dioxide 24 mmol/L (20-30); Chloride 106 mmol/L (98-107); Glucose 106 mg/dL (74-106); Lipase 52 U/L (12-53); Potassium 3.7 mmol/L (3.5-5.1); Sodium 141 mmol/L (136-145)
[2023-11-30] MEDS: GABAPENTIN 300 MG CAP PO SCH (09:59)
[2023-11-30] MEDS: FUROSEMIDE 20 MG TAB PO SCH (10:00)
[2023-11-30] MEDS: levETIRAcetam 500 MG TAB PO SCH (10:00)
[2023-11-30] MEDS: LISINOPRIL 5 MG TAB PO SCH (10:01)
[2023-11-30] MEDS: TOPIRAMATE 25 MG TAB PO SCH (10:01)
[2023-11-30] MEDS: APIXABAN 5 MG TAB PO SCH (10:01)
[2023-11-30] MEDS ORDERED: IPRATROPIUM BROM 0.5 MG/2.5ML INH SOL NEB PRN (11:45)
[2023-11-30] MEDS ORDERED: ALBUTEROL SULF 2.5 MG/0.5ML(0.5%) NEB SOLN NEB PRN (11:45)
[2023-11-30] MEDS: SODIUM CHLORIDE 0.9% 1,000 ML IV SCH (14:11)
[2023-11-30] MEDS: HYDROcodone-ACET 5/325MG TAB PO PRN (14:11)
[2023-11-30] MEDS ORDERED: DEXTROSE (50%) 50ML SYRG IV PRN (18:45)
[2023-11-30] MEDS: ACETAMINOPHEN 325 MG TAB PO PRN (20:50)
[2023-11-30] MEDS: InsuLIN REG 1unit/0.01ml Soln (100units/ml) SC SCH (22:00)
[2023-11-30] MEDS: ACCU-CHEK COMFORT CURVE STRIP VI SCH (22:00)
[2023-11-30] MEDS: ATORVASTATIN 20 MG TAB PO SCH (22:06)
[2023-12-01] VITALS (10 sets, daily range): BP systolic 101–132; BP diastolic 60–80; PULSE 66–85; RESP 14–20; TEMP 97.5–98.9; O2SAT 94–97
[2023-12-01 06:35] LABS: Anion Gap 4 (5-15); Carbon Dioxide 28 mmol/L (20-30); Chloride 105 mmol/L (98-107); Potassium 3.8 mmol/L (3.5-5.1); Sodium 137 mmol/L (136-145)
[2023-12-01 06:37] LABS: Calcium 9.1 mg/dL (8.5-10.1)
[2023-12-01 06:41] LABS: Glucose 98 mg/dL (74-106)
[2023-12-01 06:42] LABS: BUN/Creatinine Ratio 13.9 (10.0-20.0); Blood Urea Nitrogen 10 mg/dL (9-23); Magnesium 1.7 mg/dL (1.6-2.6)
[2023-12-01] MEDS: InsuLIN REG 1unit/0.01ml Soln (100units/ml) SC SCH (07:00)
[2023-12-01] MEDS ORDERED: GABA-1250 PO (12:27)
[2023-12-01] MEDS: ENOXAPARIN SOD 40 MG/0.4 ML SYRINGE SC SCH (21:10)
[2023-12-02] VITALS (8 sets, daily range): BP systolic 108–127; BP diastolic 58–78; PULSE 75–106; RESP 18–19; TEMP 97–98.3; O2SAT 93–98
[2023-12-02 09:57] LABS: Basophils # (auto) 0 10 ^3/uL (0-0.2); Basophils % (auto) 0.6 % (0.0-2.0); Eosinophils # (auto) 0.2 10 ^3/uL (0-0.8); Eosinophils % (auto) 3.7 % (0.0-7.0); Hematocrit 39.8 % (41.0-53.0); Hemoglobin 13.2 g/dL (13.5-17.5); Lymphocytes # (auto) 1.3 10 ^3/uL (0.4-5.4); Lymphocytes % (auto) 24.2 % (10.0-50.0); Mean Corpuscular Hgb Conc. 33.1 g/dL (32.0-36.0); Mean Corpuscular Volume 84.6 fL (80.0-100.0); Monocytes # (auto) 0.4 10 ^3/uL (0-1.3); Monocytes % (auto) 7.9 % (0.0-12.0); Neutrophils # (auto) 3.4 10 ^3/uL (1.6-8.6); Neutrophils % (auto) 63.6 % (37.0-80.0); Nucleated Red Blood Cells % 0.1 %; Red Blood Cells 4.71 10^6/uL (4.5-5.90); Red Cell Distribution Width 15.7 % (11.8-14.3); White Blood Cell 5.3 10^3/uL (4.4-10.8)
[2023-12-02 10:28] LABS: Alanine Aminotransferase 25 U/L (7-40); Albumin 3.9 g/dL (3.2-4.8); Alkaline Phosphatase 81 U/L (46-116); Anion Gap 5 (5-15); Aspartate Aminotransferase 19 U/L (13-40); BUN/Creatinine Ratio 13.2 (10.0-20.0); Blood Urea Nitrogen 9 mg/dL (9-23); Calcium 9.2 mg/dL (8.7-10.4); Carbon Dioxide 28 mmol/L (20-30); Chloride 106 mmol/L (98-107); Glucose 151 mg/dL (74-106); Magnesium 1.9 mg/dL (1.6-2.6); Sodium 139 mmol/L (136-145)
[2023-12-02 10:29] LABS: Bilirubin, Total 0.5 mg/dL (0.2-1.0); Total Protein 6.8 g/dL (5.7-8.2)
== END 2023-12-02 16:00 | disposition home or self-care (01) | DRG 244 ==
LOC: ER 17:28 → OVERFLOW 23:54 → EAST 11-30 02:27
PROVIDERS: ADMIT Internal Medicine; ATTEND Internal Medicine
PROC: 5A09357 Assistance with Respiratory Ventilation, Less than 24 Consecutive Hours, Continuous Positive Airway Pressure (ICD-10-PCS; principal; 2023-12-01)
PROC: 5A09357 Assistance with Respiratory Ventilation, Less than 24 Consecutive Hours, Continuous Positive Airway Pressure (ICD-10-PCS; 2023-12-02)
DX: K57.30 Diverticulosis of large intestine without perforation or abscess without bleeding (principal); I11.0 Hypertensive heart disease with heart failure; I50.9 Heart failure, unspecified; E11.9 Type 2 diabetes mellitus without complications; E66.01 Morbid (severe) obesity due to excess calories; G89.4 Chronic pain syndrome; G47.33 Obstructive sleep apnea (adult) (pediatric); G40.909 Epilepsy, unspecified, not intractable, without status epilepticus; J44.89 Other specified chronic obstructive pulmonary disease; Z88.1 Allergy status to other antibiotic agents; Z91.013 Allergy to seafood; Z86.73 Personal history of transient ischemic attack (TIA), and cerebral infarction without residual deficits; Z87.891 Personal history of nicotine dependence; Z82.49 Family history of ischemic heart disease and other diseases of the circulatory system; Z83.3 Family history of diabetes mellitus; Z68.42 Body mass index [BMI] 45.0-49.9, adult; Z86.711 Personal history of pulmonary embolism; Z79.4 Long term (current) use of insulin
CPT/HCPCS: 36415; 71045; 74176; 76775; 80048; 80053; 82962; 83036; 83690; 83735; 83880; 84484; 84702; 85025; 87081; 87493; 93005; 94660; G0378; J1815

== ENCOUNTER 2024-01-24 13:08 | Emergency (ER) | payer MEDICAID ==
[~2024-01-24] VITALS: Ht 30.5 cm; Wt 0.5 kg
[~2024-01-24 13:08] MED LIST changes: +ALBU0.084 NEB; +ALBUAER3 IN; -APIX5TAB PO; -ATOR-507 PO; +ATOR40TA52 PO; -BENZ100C97 PO; -DEXT1SYP9 PO; -DOXY1CAP57 PO; -FURO1TAB33 PO; +GABA-1250 PO; -IPRA0.00 IN; -LEVE100020 PO; -METF-372 PO; -POTA-228 PO; -PRED20TA2 PO; +SEMA2INJ3 SC
[2024-01-24 13:26] LABS: Basophils # (auto) 0.1 10 ^3/uL (0-0.2); Basophils % (auto) 0.8 % (0.0-2.0); Eosinophils # (auto) 0.3 10 ^3/uL (0-0.8); Eosinophils % (auto) 3.5 % (0.0-7.0); Hematocrit 42.8 % (41.0-53.0); Hemoglobin 13.7 g/dL (13.5-17.5); Lymphocytes # (auto) 2.5 10 ^3/uL (0.4-5.4); Mean Corpuscular Hemoglobin 27.8 pg (28.0-32.0); Mean Corpuscular Hgb Conc. 32.1 g/dL (32.0-36.0); Mean Corpuscular Volume 86.6 fL (80.0-100.0); Monocytes # (auto) 0.6 10 ^3/uL (0-1.3); Monocytes % (auto) 8.2 % (0.0-12.0); Neutrophils # (auto) 4.1 10 ^3/uL (1.6-8.6); Neutrophils % (auto) 54.5 % (37.0-80.0); Nucleated Red Blood Cells % 0.1 %; Red Blood Cells 4.94 10^6/uL (4.5-5.90); Red Cell Distribution Width 16.2 % (11.8-14.3); White Blood Cell 7.5 10^3/uL (4.4-10.8)
[2024-01-24] MEDS ORDERED: MAGNESIUM SULFATE 1GM/100ML 100 ML IV SCH (13:30)
[2024-01-24 13:45] LABS: INR 0.92 (0.9-1.15); Prothrombin Time 9.8 sec (9.3-11.8)
[2024-01-24 13:46] LABS: Alanine Aminotransferase 31 U/L (7-40); Albumin 4.2 g/dL (3.2-4.8); Alkaline Phosphatase 111 U/L (46-116); Anion Gap 8 (5-15); Aspartate Aminotransferase 22 U/L (13-40); BUN/Creatinine Ratio 10.1 (10.0-20.0); Blood Urea Nitrogen 8 mg/dL (9-23); Calcium 9.4 mg/dL (8.7-10.4); Carbon Dioxide 24 mmol/L (20-30); Chloride 108 mmol/L (98-107); Glucose 196 mg/dL (74-106); Potassium 4.2 mmol/L (3.5-5.1); Sodium 140 mmol/L (136-145)
[2024-01-24 13:47] LABS: Bilirubin, Total 0.4 mg/dL (0.2-1.0); Total Protein 6.8 g/dL (5.7-8.2)
[2024-01-24 15:23] VITALS: TEMP 98.4
[2024-01-24] MEDS: TERBUTALINE SULFATE 1 MG/ML 1ML VIAL SC ONE (16:36)
[2024-01-24] MEDS: predniSONE 20 MG TAB PO ONE (16:37)
[2024-01-24] MEDS: ASPirin 325 MG TAB PO ONE (16:38)
[2024-01-24 16:44] VITALS: O2SAT 98
[2024-01-24] MEDS: HYDROCORTISONE SOD SUCC 100 MG/2ML INJ VIAL IV ONE (16:49)
[2024-01-24] MEDS: diphenhdrAMINE HCL 50 MG/1 ML VL IV ONE (16:50)
[2024-01-24] MEDS: MORPHINE SULFATE 4 MG/ML SYR/VIAL IV ONE (16:50)
[2024-01-24] MEDS: MAGNESIUM SULFATE 1GM/100ML 100 ML IV SCH (17:46)
[2024-01-24] MEDS: IOHEXOL 350 MG/ML 100ML IJ ONE (18:11)
[2024-01-24 18:12] VITALS: BP 104/70; PULSE 90; RESP 17
== END 2024-01-24 18:27 | disposition home or self-care (01) ==
LOC: ER 13:08
DX: J44.1 Chronic obstructive pulmonary disease with (acute) exacerbation (principal); R07.89 Other chest pain; I11.0 Hypertensive heart disease with heart failure; I50.9 Heart failure, unspecified; J44.9 Chronic obstructive pulmonary disease, unspecified; E11.9 Type 2 diabetes mellitus without complications; E78.5 Hyperlipidemia, unspecified; Z87.891 Personal history of nicotine dependence; Z86.73 Personal history of transient ischemic attack (TIA), and cerebral infarction without residual deficits; Z88.1 Allergy status to other antibiotic agents; Z91.013 Allergy to seafood; Z88.6 Allergy status to analgesic agent; Z91.041 Radiographic dye allergy status
CPT/HCPCS: 36415; 71045; 71275; 80053; 84484; 85025; 85610; 85730; 93005; 96365; 96372; 96375; 99285; J1200; J1720; J2270; J3105; J3475; J7512; Q9967

== ENCOUNTER 2024-02-11 05:53 | Inpatient (IN) | payer MEDICAID ==
[~2024-02-11] VITALS: Ht 170.2 cm; Wt 133.6 kg
[2024-02-11] VITALS (9 sets, daily range): BP systolic 109–147; BP diastolic 63–77; PULSE 67–85; RESP 16–20; TEMP 97.7–98; O2SAT 95–98
[2024-02-11 07:28] LABS: Basophils # (auto) 0.1 10 ^3/uL (0-0.2); Eosinophils # (auto) 0.2 10 ^3/uL (0-0.8); Eosinophils % (auto) 3.6 % (0.0-7.0); Hematocrit 44.8 % (41.0-53.0); Hemoglobin 14.7 g/dL (13.5-17.5); Lymphocytes # (auto) 2.2 10 ^3/uL (0.4-5.4); Lymphocytes % (auto) 31.6 % (10.0-50.0); Mean Corpuscular Hemoglobin 28.4 pg (28.0-32.0); Mean Corpuscular Hgb Conc. 32.7 g/dL (32.0-36.0); Mean Corpuscular Volume 86.9 fL (80.0-100.0); Monocytes # (auto) 0.4 10 ^3/uL (0-1.3); Monocytes % (auto) 5.5 % (0.0-12.0); Neutrophils % (auto) 58.3 % (37.0-80.0); Nucleated Red Blood Cells % 0.1 %; Platelet Count (auto) 203 10^3/uL (140-450); Red Blood Cells 5.16 10^6/uL (4.5-5.90); Red Cell Distribution Width 15.8 % (11.8-14.3); White Blood Cell 6.8 10^3/uL (4.4-10.8)
[2024-02-11 07:43] LABS: INR 0.96 (0.9-1.15); Partial Thromboplastin Time 26.8 SEC (24.5-34.5); Prothrombin Time 10.2 sec (9.3-11.8)
[2024-02-11] MEDS: ASPirin 325 MG TAB PO ONE (07:45)
[2024-02-11 07:46] LABS: Alanine Aminotransferase 32 U/L (7-40); Albumin 4.3 g/dL (3.2-4.8); Alkaline Phosphatase 98 U/L (46-116); Anion Gap 6 (5-15); Aspartate Aminotransferase 21 U/L (13-40); BUN/Creatinine Ratio 14.3 (10.0-20.0); Blood Urea Nitrogen 10 mg/dL (9-23); Calcium 9.6 mg/dL (8.7-10.4); Carbon Dioxide 27 mmol/L (20-30); Chloride 106 mmol/L (98-107); Glucose 120 mg/dL (74-106); Magnesium 1.8 mg/dL (1.6-2.6); Potassium 4.4 mmol/L (3.5-5.1); Sodium 139 mmol/L (136-145)
[2024-02-11] MEDS: ONDANSETRON HCL 4 MG/2 ML VIAL IV ONE (07:46)
[2024-02-11 07:47] LABS: Bilirubin, Total 0.7 mg/dL (0.2-1.0); Total Protein 7.2 g/dL (5.7-8.2)
[2024-02-11] MEDS: MORPHINE SULFATE 4 MG/ML SYR/VIAL IV ONE (07:47)
[2024-02-11] MEDS: NITROGLYCERIN 0.4 MG SL TAB SL ONE (07:47)
[2024-02-11] MEDS ORDERED: DOCUSATE SOD 100 MG CAP PO PRN (12:30)
[2024-02-11] MEDS ORDERED: NITROGLYCERIN 0.4 MG SL TAB SL PRN (12:30)
[2024-02-11] MEDS: SODIUM CHLOR 0.9% PF (SALINE LOCK) 10ML VIAL/SYR IV SCH (14:11)
[2024-02-11] MEDS: ONDANSETRON HCL 4 MG/2 ML VIAL IV PRN (15:04)
[2024-02-11] MEDS: HYDROmorphone HCL 2 MG/ML VL/or syr IV PRN (15:05)
[2024-02-11] MEDS: GABAPENTIN 300 MG CAP PO SCH (20:57)
[2024-02-11] MEDS: ATORVASTATIN 20 MG TAB PO SCH (20:57)
[2024-02-11] MEDS: HYDROcodone-ACET 5/325MG TAB PO PRN (20:58)
[2024-02-12] VITALS (13 sets, daily range): BP systolic 102–130; BP diastolic 54–74; PULSE 59–88; RESP 16–20; TEMP 97.8–98.1; O2SAT 94–98
[2024-02-12 06:21] LABS: Basophils # (auto) 0.1 10 ^3/uL (0-0.2); Basophils % (auto) 1.1 % (0.0-2.0); Eosinophils # (auto) 0.3 10 ^3/uL (0-0.8); Eosinophils % (auto) 4.1 % (0.0-7.0); Hematocrit 43.4 % (41.0-53.0); Hemoglobin 14.2 g/dL (13.5-17.5); Lymphocytes # (auto) 2.5 10 ^3/uL (0.4-5.4); Mean Corpuscular Hemoglobin 28.8 pg (28.0-32.0); Mean Corpuscular Hgb Conc. 32.8 g/dL (32.0-36.0); Mean Corpuscular Volume 87.6 fL (80.0-100.0); Monocytes # (auto) 0.5 10 ^3/uL (0-1.3); Monocytes % (auto) 7.3 % (0.0-12.0); Neutrophils # (auto) 3.3 10 ^3/uL (1.6-8.6); Neutrophils % (auto) 49.5 % (37.0-80.0); Nucleated Red Blood Cells % 0.1 %; Platelet Count (auto) 180 10^3/uL (140-450); Red Blood Cells 4.95 10^6/uL (4.5-5.90); Red Cell Distribution Width 15.6 % (11.8-14.3); White Blood Cell 6.6 10^3/uL (4.4-10.8)
[2024-02-12] MEDS: ALBUTEROL SULF 2.5 MG/0.5ML(0.5%) NEB SOLN NEB PRN (06:31)
[2024-02-12 06:40] LABS: Alanine Aminotransferase 27 U/L (7-40); Alkaline Phosphatase 85 U/L (46-116); Anion Gap 5 (5-15); BUN/Creatinine Ratio 11.5 (10.0-20.0); Blood Urea Nitrogen 9 mg/dL (9-23); Calcium 9.3 mg/dL (8.7-10.4); Carbon Dioxide 28 mmol/L (20-30); Chloride 105 mmol/L (98-107); Potassium 4.5 mmol/L (3.5-5.1); Sodium 138 mmol/L (136-145)
[2024-02-12 06:42] LABS: Aspartate Aminotransferase 23 U/L (13-40); Bilirubin, Total 0.7 mg/dL (0.2-1.0); Glucose 103 mg/dL (74-106)
[2024-02-12 06:43] LABS: Total Protein 7.1 g/dL (5.7-8.2)
[2024-02-12] MEDS: ENOXAPARIN SOD 40 MG/0.4 ML SYRINGE SC SCH ×2 (09:41→16:00)
[2024-02-12] MEDS: LISINOPRIL 5 MG TAB PO SCH (09:41)
[2024-02-12] MEDS: MORPHINE SULFATE INJ 2 MG/ml SYRG IV PRN (13:53)
[2024-02-12] MEDS ORDERED: ENOXAPARIN SOD 150 MG/1 ML SYRINGE SC ONE (14:30)
[2024-02-12] MEDS: KETOROLAC TROMETH 30 MG/ML 1ML VIAL IV ONE (15:05)
[2024-02-12] MEDS: PANTOPRAZOLE 40 MG/10 ML VIAL INJ IV ONE (15:05)
[2024-02-13] VITALS (18 sets, daily range): BP systolic 100–130; BP diastolic 45–81; PULSE 58–84; RESP 16–20; TEMP 97.7–98.8; O2SAT 95–100
[2024-02-13 00:49] LABS: Urine Bacteria FEW /hpf (None Seen); Urine Blood Negative /uL (Negative); Urine Clarity Turbid (Clear); Urine Color Yellow (Yellow); Urine Hyaline Cast MANY /lpf (0 - 2); Urine Mucus FEW (None Seen); Urine Protein, UAD 2+ (Negative); Urine Specific Gravity 1.027 (1.001-1.035); Urine Urobilinogen Normal (Negative); Urine WBC 8 /hpf (0 - 3); Urine pH 5.5 (5.0-9.0)
[2024-02-13 05:22] LABS: Amphetamine Screen, Urine Neg (NEGATIVE); Barbiturate Scree,Urine Neg (NEGATIVE); Benzodiazephine Screen, Urine Neg (NEGATIVE); Cocaine Screen, Urine Neg (NEGATIVE)
[2024-02-13 05:23] LABS: Cannabinoid Screen, Urine Neg (NEGATIVE); Opiate Scree,Urine Pos (NEGATIVE); Phencyclidine Screen, Urine Neg (NEGATIVE)
[2024-02-13 05:36] LABS: COVID19 ANTIGEN SOFIA FIA NEGATIVE (NEGATIVE)
[2024-02-13] MEDS: ACETAMINOPHEN 325 MG TAB PO PRN (05:54)
[2024-02-13 06:24] LABS: Basophils # (auto) 0.1 10 ^3/uL (0-0.2); Basophils % (auto) 0.8 % (0.0-2.0); Eosinophils # (auto) 0.2 10 ^3/uL (0-0.8); Eosinophils % (auto) 2.7 % (0.0-7.0); Hematocrit 39.9 % (41.0-53.0); Lymphocytes # (auto) 1.8 10 ^3/uL (0.4-5.4); Mean Corpuscular Hemoglobin 28.7 pg (28.0-32.0); Mean Corpuscular Hgb Conc. 32.6 g/dL (32.0-36.0); Mean Corpuscular Volume 87.9 fL (80.0-100.0); Monocytes # (auto) 0.5 10 ^3/uL (0-1.3); Monocytes % (auto) 7.1 % (0.0-12.0); Neutrophils # (auto) 4.3 10 ^3/uL (1.6-8.6); Neutrophils % (auto) 63.4 % (37.0-80.0); Platelet Count (auto) 173 10^3/uL (140-450); Red Blood Cells 4.53 10^6/uL (4.5-5.90); Red Cell Distribution Width 15.6 % (11.8-14.3); White Blood Cell 6.8 10^3/uL (4.4-10.8)
[2024-02-13 06:40] LABS: Alanine Aminotransferase 30 U/L (7-40); Albumin 3.7 g/dL (3.2-4.8); Alkaline Phosphatase 76 U/L (46-116); Anion Gap 4 (5-15); Aspartate Aminotransferase 34 U/L (13-40); BUN/Creatinine Ratio 15.6 (10.0-20.0); Blood Urea Nitrogen 17 mg/dL (9-23); Carbon Dioxide 29 mmol/L (20-30); Chloride 105 mmol/L (98-107); Glucose 119 mg/dL (74-106); Potassium 5.1 mmol/L (3.5-5.1); Sodium 138 mmol/L (136-145)
[2024-02-13 06:41] LABS: Bilirubin, Total 0.7 mg/dL (0.2-1.0); Total Protein 6.3 g/dL (5.7-8.2)
[2024-02-13] MEDS: PANTOPRAZOLE 40 MG/10 ML VIAL INJ IV SCH (11:10)
[2024-02-13] MEDS ORDERED: PANT40TA2 PO (16:36)
[2024-02-13] MEDS ORDERED: KETO10TA PO (16:36)
== END 2024-02-13 21:20 | disposition home or self-care (01) | DRG 203 ==
LOC: ER 05:53 → TELE 12:22 → TELE-E-ADS 15:52
PROVIDERS: ADMIT Internal Medicine; ATTEND Internal Medicine
DX: R07.89 Other chest pain (principal); J96.10 Chronic respiratory failure, unspecified whether with hypoxia or hypercapnia; I50.32 Chronic diastolic (congestive) heart failure; I11.0 Hypertensive heart disease with heart failure; E11.9 Type 2 diabetes mellitus without complications; E78.5 Hyperlipidemia, unspecified; J44.9 Chronic obstructive pulmonary disease, unspecified; E66.01 Morbid (severe) obesity due to excess calories; G47.33 Obstructive sleep apnea (adult) (pediatric); Z68.43 Body mass index [BMI] 50.0-59.9, adult; Z20.822 Contact with and (suspected) exposure to COVID-19; Z86.73 Personal history of transient ischemic attack (TIA), and cerebral infarction without residual deficits; Z86.711 Personal history of pulmonary embolism; Z83.3 Family history of diabetes mellitus; Z88.1 Allergy status to other antibiotic agents; Z91.041 Radiographic dye allergy status; Z88.5 Allergy status to narcotic agent; Z91.013 Allergy to seafood; Z90.49 Acquired absence of other specified parts of digestive tract; Z82.49 Family history of ischemic heart disease and other diseases of the circulatory system; Z87.891 Personal history of nicotine dependence; Z82.5 Family history of asthma and other chronic lower respiratory diseases; Z82.3 Family history of stroke; Z80.0 Family history of malignant neoplasm of digestive organs; Z84.1 Family history of disorders of kidney and ureter; Z86.718 Personal history of other venous thrombosis and embolism
CPT/HCPCS: 36415; 71045; 78582; 80053; 80307; 81001; 83735; 83880; 84484; 85025; 85379; 85610; 85730; 87426; 93005; 93306; 93970; 94640; 96374; 99291; G0378; J1885; J2405; J2470

== ENCOUNTER 2024-02-28 11:26 | Inpatient (IN) | payer MEDICAID ==
[~2024-02-28] VITALS: Ht 170.2 cm; Wt 134.4 kg
[~2024-02-28 11:26] MED LIST changes: +KETO10TA PO; +PANT40TA2 PO
[2024-02-28] MEDS: ALBUTEROL SULF 2.5 MG/0.5ML(0.5%) NEB SOLN ONE (12:09)
[2024-02-28] MEDS: IPRATROPIUM BROM 0.5 MG/2.5ML INH SOL ONE (12:09)
[2024-02-28] MEDS ORDERED: AZITHROMYCIN 500MG/ 250ML 250 ML IV ONE (12:30)
[2024-02-28 12:31] VITALS: PULSE 97; RESP 18; O2SAT 96
[2024-02-28] MEDS: methylPREDNISolone SOD SUCC 125 MG/2 ML VL IV ONE ×2 (12:39→18:00)
[2024-02-28] MEDS: cefTRIAXone 1GM/50ML D5W 50 ML IV ONE (12:50)
[2024-02-28 12:59] LABS: Basophils # (auto) 0.1 10 ^3/uL (0-0.2); Basophils % (auto) 0.6 % (0.0-2.0); Eosinophils # (auto) 0.2 10 ^3/uL (0-0.8); Eosinophils % (auto) 2.4 % (0.0-7.0); Hematocrit 44.1 % (41.0-53.0); Hemoglobin 14.5 g/dL (13.5-17.5); Lymphocytes # (auto) 4.2 10 ^3/uL (0.4-5.4); Mean Corpuscular Hemoglobin 28.5 pg (28.0-32.0); Mean Corpuscular Hgb Conc. 32.8 g/dL (32.0-36.0); Mean Corpuscular Volume 86.7 fL (80.0-100.0); Monocytes # (auto) 0.7 10 ^3/uL (0-1.3); Monocytes % (auto) 6.8 % (0.0-12.0); Neutrophils # (auto) 5.1 10 ^3/uL (1.6-8.6); Neutrophils % (auto) 49.2 % (37.0-80.0); Nucleated Red Blood Cells % 0.1 %; Platelet Count (auto) 241 10^3/uL (140-450); Red Blood Cells 5.08 10^6/uL (4.5-5.90); Red Cell Distribution Width 15.8 % (11.8-14.3); White Blood Cell 10.3 10^3/uL (4.4-10.8)
[2024-02-28 13:14] LABS: Alanine Aminotransferase 32 U/L (7-40); Alkaline Phosphatase 127 U/L (46-116); Anion Gap 8 (5-15); Aspartate Aminotransferase 19 U/L (13-40); BUN/Creatinine Ratio 11.8 (10.0-20.0); Blood Urea Nitrogen 9 mg/dL (9-23); Calcium 9.6 mg/dL (8.7-10.4); Carbon Dioxide 24 mmol/L (20-30); Chloride 106 mmol/L (98-107); Glucose 152 mg/dL (74-106); Magnesium 1.7 mg/dL (1.6-2.6); Potassium 3.5 mmol/L (3.5-5.1); Sodium 138 mmol/L (136-145)
[2024-02-28 13:15] LABS: Albumin 4.5 g/dL (3.2-4.8); Bilirubin, Total 0.4 mg/dL (0.2-1.0); Total Protein 7.7 g/dL (5.7-8.2)
[2024-02-28] MEDS: SODIUM CHLORIDE 0.9% 1,000 ML IV ONE (13:35)
[2024-02-28] MEDS: IPRATROPIUM BROM 0.5 MG/2.5ML INH SOL NEB ONE ×4 (13:47→18:42)
[2024-02-28] MEDS: ALBUTEROL SULF 2.5 MG/0.5ML(0.5%) NEB SOLN NEB ONE ×4 (13:48→18:42)
[2024-02-28] MEDS: MAGNESIUM SULFATE 1GM/100ML 100 ML IV SCH (17:35)
[2024-02-28] MEDS ORDERED: NITROGLYCERIN 0.4 MG SL TAB SL PRN (18:45)
[2024-02-28 19:15] VITALS: BP 139/82; PULSE 108; RESP 17; TEMP 98; O2SAT 97
[2024-02-28 19:47] VITALS: PULSE 104; RESP 16; O2SAT 95
[2024-02-28] MEDS: ENOXAPARIN SOD 40 MG/0.4 ML SYRINGE SC SCH (20:49)
[2024-02-28] MEDS: diphenhdrAMINE HCL 50 MG/1 ML VL IV ONE (20:50)
[2024-02-28 21:09] LABS: Urine Bacteria None Seen /hpf (None Seen)
[2024-02-28 21:32] LABS: Urine Blood Negative /uL (Negative); Urine Clarity Clear (Clear); Urine Color Light-Yellow (Yellow); Urine Mucus FEW (None Seen); Urine Protein, UAD 1+ (Negative); Urine Specific Gravity 1.029 (1.001-1.035); Urine Urobilinogen Normal (Negative); Urine WBC 1 /hpf (0 - 3); Urine pH 5.5 (5.0-9.0)
[2024-02-28] MEDS: IOHEXOL 350 MG/ML 100ML IJ ONE (21:36)
[2024-02-28 21:45] VITALS: PULSE 103; RESP 22; O2SAT 96
[2024-02-28] MEDS: ALBUTEROL SULF 2.5 MG/0.5ML(0.5%) NEB SOLN NEB SCH (21:45)
[2024-02-28] MEDS: IPRATROPIUM BROM 0.5 MG/2.5ML INH SOL NEB SCH (21:45)
[2024-02-28] MEDS: BUDESONIDE (INHALATION) 0.5 MG/2 ML NEB NEB SCH (21:45)
[2024-02-28 21:55] VITALS: PULSE 109; RESP 23; O2SAT 98
[2024-02-28] MEDS ORDERED: ENOXAPARIN SOD 100 MG/1 ML SYRINGE SC SCH (22:00)
[2024-02-28] MEDS: GABAPENTIN 300 MG CAP PO SCH (22:39)
[2024-02-28] MEDS: ATORVASTATIN 20 MG TAB PO SCH (22:39)
[2024-02-28 22:52] VITALS: BP 123/70; PULSE 96; RESP 23; TEMP 98; O2SAT 95
[2024-02-28] MEDS: methylPREDNISolone SOD SUCC 40 MG/ML VL IV SCH (23:42)
[2024-02-28] MEDS: MORPHINE SULFATE INJ 2 MG/ml SYRG IV PRN (23:43)
[2024-02-29] VITALS (21 sets, daily range): BP systolic 92–120; BP diastolic 45–80; PULSE 76–105; RESP 16–26; TEMP 97.7–98.9; O2SAT 93–99
[2024-02-29] MEDS ORDERED: cefTRIAXone 1GM/50ML D5W 50 ML IV SCH (09:00)
[2024-02-29] MEDS: DOXYCYCLINE 100MG/250ML 250 ML IV SCH (09:25)
[2024-02-29] MEDS: methylPREDNISolone SOD SUCC 40 MG/ML VL IV SCH ×2 (09:38→12:09)
[2024-02-29] MEDS: LISINOPRIL 5 MG TAB PO SCH (09:40)
[2024-02-29] MEDS: PANTOPRAZOLE 40 MG TAB PO SCH (09:40)
[2024-02-29] MEDS ORDERED: AZITHROMYCIN 500MG/ 250ML 250 ML IV SCH (10:00)
[2024-02-29] MEDS ORDERED: DEXTROSE (50%) 50ML SYRG IV PRN (10:30)
[2024-02-29] MEDS: ACCU-CHEK COMFORT CURVE STRIP VI SCH (11:30)
[2024-02-29] MEDS: methylPREDNISolone SOD SUCC 40 MG/ML VL IM ONE (11:30)
[2024-02-29] MEDS: InsuLIN REG 1unit/0.01ml Soln (100units/ml) SC SCH (12:03)
[2024-02-29] MEDS: FUROSEMIDE 20 MG/2 ML VIAL IV ONE (12:11)
[2024-02-29 12:33] LABS: Basophils # (auto) 0 10 ^3/uL (0-0.2); Basophils % (auto) 0.2 % (0.0-2.0); Eosinophils # (auto) 0 10 ^3/uL (0-0.8); Hematocrit 41.4 % (41.0-53.0); Hemoglobin 13.6 g/dL (13.5-17.5); Lymphocytes # (auto) 0.9 10 ^3/uL (0.4-5.4); Lymphocytes % (auto) 5.6 % (10.0-50.0); Mean Corpuscular Hemoglobin 28.4 pg (28.0-32.0); Mean Corpuscular Hgb Conc. 32.8 g/dL (32.0-36.0); Mean Corpuscular Volume 86.6 fL (80.0-100.0); Monocytes # (auto) 0.4 10 ^3/uL (0-1.3); Monocytes % (auto) 2.8 % (0.0-12.0); Neutrophils # (auto) 14.1 10 ^3/uL (1.6-8.6); Neutrophils % (auto) 91.4 % (37.0-80.0); Platelet Count (auto) 224 10^3/uL (140-450); Red Blood Cells 4.78 10^6/uL (4.5-5.90); Red Cell Distribution Width 15.7 % (11.8-14.3); White Blood Cell 15.4 10^3/uL (4.4-10.8)
[2024-02-29 12:39] LABS: Chloride 104 mmol/L (98-107); Potassium 4.1 mmol/L (3.5-5.1); Sodium 136 mmol/L (136-145)
[2024-02-29 12:40] LABS: Anion Gap 11 (5-15); Carbon Dioxide 21 mmol/L (20-30)
[2024-02-29 12:45] LABS: BUN/Creatinine Ratio 13.6 (10.0-20.0); Blood Urea Nitrogen 12 mg/dL (9-23)
[2024-02-29 13:02] LABS: Glucose 259 mg/dL (74-106)
[2024-02-29] MEDS: LORazepam 2MG/ML-1ML VIAL IV ONE (13:32)
[2024-02-29] MEDS: ACETAMINOPHEN 325 MG TAB PO PRN (16:32)
[2024-02-29] MEDS: KETOROLAC TROMETH 30 MG/ML 1ML VIAL IV ONE (18:43)
[2024-02-29] MEDS: IPRATROPIUM BROM 0.5 MG/2.5ML INH SOL NEB SCH (22:00)
[2024-02-29] MEDS: guaiFENesin-DM 100/10mg/5ml SYR PO SCH (22:01)
[2024-02-29 22:36] LABS: Base Excess -2.1 mmol/L (-2.0-3.0)
[2024-03-01] VITALS (10 sets, daily range): BP systolic 112–130; BP diastolic 61–76; PULSE 65–100; RESP 16–20; TEMP 97.5–98.5; O2SAT 93–98
[2024-03-01 06:06] LABS: Basophils # (auto) 0 10 ^3/uL (0-0.2); Basophils % (auto) 0.1 % (0.0-2.0); Eosinophils # (auto) 0 10 ^3/uL (0-0.8); Hematocrit 39.7 % (41.0-53.0); Lymphocytes # (auto) 0.9 10 ^3/uL (0.4-5.4); Mean Corpuscular Hemoglobin 28.7 pg (28.0-32.0); Mean Corpuscular Hgb Conc. 32.7 g/dL (32.0-36.0); Mean Corpuscular Volume 87.8 fL (80.0-100.0); Monocytes # (auto) 0.5 10 ^3/uL (0-1.3); Monocytes % (auto) 3.3 % (0.0-12.0); Neutrophils # (auto) 13.9 10 ^3/uL (1.6-8.6); Neutrophils % (auto) 90.6 % (37.0-80.0); Platelet Count (auto) 220 10^3/uL (140-450); Red Blood Cells 4.52 10^6/uL (4.5-5.90); Red Cell Distribution Width 16.2 % (11.8-14.3); White Blood Cell 15.4 10^3/uL (4.4-10.8)
[2024-03-01 06:08] LABS: Alanine Aminotransferase 19 U/L (7-40); Albumin 4.1 g/dL (3.2-4.8); Alkaline Phosphatase 94 U/L (46-116); Anion Gap 6 (5-15); Aspartate Aminotransferase 9 U/L (13-40); BUN/Creatinine Ratio 20.6 (10.0-20.0); Blood Urea Nitrogen 20 mg/dL (9-23); Calcium 9.6 mg/dL (8.7-10.4); Carbon Dioxide 24 mmol/L (20-30); Chloride 108 mmol/L (98-107); Glucose 240 mg/dL (74-106); Potassium 4.9 mmol/L (3.5-5.1); Sodium 138 mmol/L (136-145)
[2024-03-01 06:09] LABS: Bilirubin, Total 0.3 mg/dL (0.2-1.0); Total Protein 6.9 g/dL (5.7-8.2)
[2024-03-01 07:05] LABS: Base Excess -3.4 mmol/L (-2.0-3.0)
[2024-03-01] MEDS: FUROSEMIDE 20 MG/2 ML VIAL IV SCH (09:07)
[2024-03-01] MEDS ORDERED: BUDE0.253 IN (11:27)
[2024-03-01] MEDS ORDERED: PRED20TA2 PO (11:27)
[2024-03-01] MEDS ORDERED: ACET-1882 PO (11:27)
[2024-03-01] MEDS ORDERED: FURO40TA4 PO (11:27)
[2024-03-01] MEDS ORDERED: DEXT1SYP9 PO (11:27)
== END 2024-03-01 13:24 | disposition home or self-care (01) | DRG 133 ==
LOC: ER 11:26 → TELE 18:57 → TELE-WESTW 22:52
PROVIDERS: ADMIT Registered Nurse General Practice; ATTEND Internal Medicine Pulmonary Disease
DX: J96.21 Acute and chronic respiratory failure with hypoxia (principal); I50.9 Heart failure, unspecified; J45.901 Unspecified asthma with (acute) exacerbation; R56.9 Unspecified convulsions; I11.0 Hypertensive heart disease with heart failure; F41.9 Anxiety disorder, unspecified; E66.01 Morbid (severe) obesity due to excess calories; E11.65 Type 2 diabetes mellitus with hyperglycemia; F17.200 Nicotine dependence, unspecified, uncomplicated; E78.5 Hyperlipidemia, unspecified; Z68.42 Body mass index [BMI] 45.0-49.9, adult; Z86.73 Personal history of transient ischemic attack (TIA), and cerebral infarction without residual deficits; Z82.49 Family history of ischemic heart disease and other diseases of the circulatory system; Z83.3 Family history of diabetes mellitus; Z86.711 Personal history of pulmonary embolism; Z99.81 Dependence on supplemental oxygen; Z88.8 Allergy status to other drugs, medicaments and biological substances; Z88.1 Allergy status to other antibiotic agents; Z91.013 Allergy to seafood; Z79.899 Other long term (current) drug therapy; Z91.041 Radiographic dye allergy status; Z88.5 Allergy status to narcotic agent
CPT/HCPCS: 36415; 36600; 71045; 71046; 71275; 80048; 80053; 81001; 82805; 82962; 83735; 85025; 85379; 93970; 94640; 96361; 96365; 96375; 96376; G0378; J1815; J1885; J3490

== ENCOUNTER → 2024-03-20 | Outpatient (CLI) | payer MEDICAID ==
[~2024-03-20] MED LIST changes: +ACET-1882 PO; +BUDE0.253 IN; +DEXT1SYP9 PO; +FURO40TA4 PO; -KETO10TA PO; +PRED20TA2 PO
== END | disposition home or self-care (01) ==
LOC: Rad HDHVI 08:50
PROVIDERS: ATTEND Internal Medicine Cardiovascular Disease
DX: I10 Essential (primary) hypertension (principal)
CPT/HCPCS: 93880

== ENCOUNTER → 2024-03-27 | Outpatient (CLI) | payer MEDICAID | END | disposition home or self-care (01) | LOC: Rad HDHVI 10:52 | PROVIDERS: ATTEND Internal Medicine Cardiovascular Disease | DX: I07.1 Rheumatic tricuspid insufficiency (principal); I31.39 Other pericardial effusion (noninflammatory); I11.0 Hypertensive heart disease with heart failure; I50.33 Acute on chronic diastolic (congestive) heart failure; E66.9 Obesity, unspecified | CPT/HCPCS: 93306 ==

== ENCOUNTER → 2024-04-03 | Outpatient (CLI) | payer MEDICAID ==
[~2024-04-03] VITALS: Ht 170.2 cm; Wt 132.9 kg
[~2024-04-03] MED LIST changes: +ADENOSINE 112 MG in GIVE UN-DILUTED 0 ML IV ONE; +ADENOSINE 90 MG/30 ML INJ IV ONE
== END | disposition home or self-care (01) ==
LOC: Rad HDHVI 08:57
PROVIDERS: ATTEND Internal Medicine Cardiovascular Disease
DX: E78.00 Pure hypercholesterolemia, unspecified (principal); E11.21 Type 2 diabetes mellitus with diabetic nephropathy; I11.0 Hypertensive heart disease with heart failure; I50.33 Acute on chronic diastolic (congestive) heart failure; J44.9 Chronic obstructive pulmonary disease, unspecified; G47.33 Obstructive sleep apnea (adult) (pediatric); F41.9 Anxiety disorder, unspecified; Z87.891 Personal history of nicotine dependence
CPT/HCPCS: 78452; 93005; 96374; A9500; J0153; 96375

== ENCOUNTER 2024-04-20 22:21 | Inpatient (IN) | payer MEDICAID ==
[~2024-04-20] VITALS: Ht 170.2 cm; Wt 138.5 kg
[~2024-04-20 22:21] MED LIST changes: -ADENOSINE 112 MG in GIVE UN-DILUTED 0 ML IV ONE; -ADENOSINE 90 MG/30 ML INJ IV ONE
--- NOTE | 2024-04-20 22:44 | ED.PDOC ---
HPI Comments 54M with morbid obesity and chf presents with 90 minutes of sharp 8/10 left sided chest pain that began at rest. The pain radiates to his left sided and is associated with nausea. He reports the pain has not subsided and has never had pain like this before.He denies fevers, chills, vomiting, diarrhea, abdominal pain, dysuria, polyuria. Chief Complaint: Chest Pain Time Seen by MD: 22:29 Primary Care Provider: Matteo Allergies: Coded Allergies: Azithromycin (Verified Allergy, Severe, 05/22/23) RASHES AND SWELLING Iodine (Verified Allergy, Severe, 08/17/21) Shellfish Allergy (Verified Allergy, Severe, 08/17/21) Theophylline (Verified Allergy, Severe, 08/17/21) Codeine (Verified Allergy, Mild, 10/04/21) patient had [place] no reaction Pineapple (Verified Allergy, Mild, 02/29/24) Home Meds Active Scripts Budesonide (Inhalation) (Budesonide) 0.25 Mg/2 Ml Nicole, 0.25 MG IN BID for 30 Days, #10 ML Prov:JUAREZ POWER 03/01/24 Prednisone (Prednisone) 20 Mg Tab, 20 MG PO DAILY for 3 Days, #3 MG Prov:JUAREZ POWER [facility] 03/01/24 Furosemide (Furosemide) 40 Mg Tab, 1 TAB PO DAILY for 30 Days, #30 TAB 5 Refills Prov:JUAREZ POWER 03/01/24 Dextromethorphan-Guaifenesin (Robitussin-Dm) 10 Ml Sr, 10 ML PO BID for 30 Days, #10 SYP Prov:JUAREZ POWER 03/01/24 Acetaminophen (Acetaminophen) 325 Mg Tab, 650 MG PO Q6HP PRN for 10 Days, #80 TAB Prov:JUAREZ POWER [facility] 03/01/24 Pantoprazole Sodium Sesquihydr (Protonix) 40 Mg Tab, 40 MG PO DAILY for 30 Days, #30 TAB Prov:MIGUEL PADILLA MD 02/13/24 Lisinopril (Lisinopril) 5 Mg Tab, 5 MG PO DAILY, #30 TAB 5 Refills Prov:IFTIKHAR GUIDO MD 02/06/23 Reported Medications Gabapentin (Gabapentin) 300 Mg Cap, 1 TAB PO BID 12/01/23 Semaglutide (Ozempic) 2 Mg/3 Ml Inj, 2 MG SC QWEEKLY, INJ 11/30/23 Albuterol Sulfate (VENTOLIN MDI) 90 Mcg Ih, 90 MCG IN PRN for SHORTNESS OF BREATH, INH 11/30/23 Albuterol Sulfate (Albuterol Sulfate) 0.083 % Neb, 1 VIAL NEB Q4HPRN PRN for SHORTNESS OF BREATH, #50 VIAL 11/30/23 Atorvastatin Calcium (ATORVASTATIN CALCIUM) 40 Mg Tab, 80 MG PO DAILY 11/30/23 Information Source: Patient Mode of Arrival: Ambulatory Past Medical History PAST MEDICAL HISTORY: Angina, Asthma, CHF, COPD, CVA, DM, High Lipids, HTN, PE, Seizures, TIA Surgical History: Appendectomy, , Tonsillectomy Family History Family History: Family hx of DM, Family hx of heart myron, Family hx of HTN, Family hx of Kidney myron Family History (Other): Thyroid Social History Smoker: Quit Greater Than 1 Year Alcohol: Occasionally Drugs: Denies Drug Use Lives In: Home Physical Exam General Appearance: No Apparent Distress, Normal HEENT: Normal ENT Inspection, Pharynx Normal, TMs Normal Neck: Full Range of Motion, Non-Tender, Normal, Normal Inspection Respiratory: Chest Non-Tender, Lungs Clear, No Accessory Muscle Use, No Respiratory Distress, Normal Breath Sounds Cardiovascular: No Edema, No JVD, No Murmur, No Gallop, Normal Peripheral Pulses, Regular Rate/Rhythm Breast Exam: Deferred Gastrointestinal: No Organomegaly, Non Tender, No Pulsatile Mass, Normal Bowel Sounds, Soft Genitalia: Deferred Pelvic: Deferred Rectal: Deferred Extremities: No calf tenderness, Normal capillary refill, Normal inspection, Normal range of motion, Non-tender, No pedal edema Musculoskeletal : Apperance: Normal Neurologic: Alert, director operations II-XII nml as Tested, No Motor Deficits, Normal Affect, Normal Mood, No Sensory Deficits Cerebellar Function: Normal Reflexes: Normal Skin: Dry, Normal Color, Warm Lymphatic: No Adenopathy Was a procedure done? Was a procedure done?: No CP Differential Dx Differential Diagnosis: MD, PAC's, PVC's Differential Diagnosis: CHF, HTN Essential Differential Diagnosis: Myocardial Infarction X-Ray, Labs, Meds, VS Vital Signs Date Time Temp Pulse Resp B/P (MAP) Pulse Ox O2 Delivery O2 Flow Rate FiO2 04/21/24 01:25 80 16 128/85 (99) 99 04/21/24 01:23 128/85 04/20/24 23:50 96 04/20/24 23:45 145/102 04/20/24 23:40 80 18 96 Room Air* 0 21 04/20/24 23:40 98.0 80 18 143/102 (116) 96 98.0 04/20/24 22:32 98.2 84 17 157/103 (121) 96 04/20/24 22:27 83 Lab Test 04/20/24 23:30 04/20/24 22:30 Range/Units Troponin I High Sensitivity < 3 L < 3 L </=54 ng/L White Blood Count 10.4 4.4-10.8 10^3/uL Red Blood Count 5.25 4.5-5.90 10^6/uL Hemoglobin 14.7 13.5-17.5 g/dL Hematocrit 45.2 41.0-53.0 % Mean Corpuscular Volume 86.0 80.0-100.0 fL Mean Corpuscular Hemoglobin 27.9 L 28.0-32.0 pg Mean Corpuscular Hemoglobin Concent 32.5 32.0-36.0 g/dL Red Cell Distribution Width 15.5 H 11.8-14.3 % Platelet Count 218 140-450 10^3/uL Mean Platelet Volume 9.8 6.9-10.8 fL Neutrophils (%) (Auto) 58.3 37.0-80.0 % Lymphocytes (%) (Auto) 31.7 10.0-50.0 % Monocytes (%) (Auto) 6.8 0.0-12.0 % Eosinophils (%) (Auto) 2.4 0.0-7.0 % Basophils (%) (Auto) 0.8 0.0-2.0 % Neutrophils # (Auto) 6.0 1.6-8.6 10 ^3/uL Lymphocytes # (Auto) 3.3 0.4-5.4 10 ^3/uL Monocytes # (Auto) 0.7 0-1.3 10 ^3/uL Eosinophils # (Auto) 0.3 0-0.8 10 ^3/uL Basophils # (Auto) 0.1 0-0.2 10 ^3/uL Nucleated Red Blood Cells 0.0 % Sodium Level 139 136-145 mmol/L Potassium Level 3.7 3.5-5.1 mmol/L Chloride Level 106 98-107 mmol/L Carbon Dioxide Level 25 20-31 mmol/L Anion Gap 8 5-15 Blood Urea Nitrogen 10 9-23 mg/dL Creatinine 1.17 0.700-1.30 mg/dL Glomerular Filtration Rate Calc 75 >90 mL/min BUN/Creatinine Ratio 8.5 L 10.0-20.0 Serum Glucose 161 H 74-106 mg/dL Calcium Level 9.4 8.7-10.4 mg/dL Current Medications Medications (Trade) Dose Ordered Sig/[place] Route Start Time Stop Time Status Last Admin Famotidine (Pepcid Tablet) 20 mg ONCE ONCE PO 04/20/24 22:45 04/20/24 22:46 DC 04/20/24 23:45 Nitroglycerin (Ntrostat Sublingual) 0.4 mg ONCE ONCE SL 04/20/24 22:45 04/20/24 22:46 DC 04/20/24 23:45 Time of 1ST Reevaluation: 22:43 Reevaluation 1ST: Unchanged Patient Education/Counseling: Diagnosis, Treatment Family Education/Counseling: No Family Present Departure 1 Departure Time of Disposition: 01:57 (Patient presented with chest pain that was concerning for possible STEMI, ACS, PE, Pneumonia, Muscle Strain, COPD, Di ssection. Data: 1. I ordered and reviewed the result of at least 3 labs including a CBC, BMP, and Troponin. 2. I independently interpreted the following tests: EKG which shows normal sinus and Chest X-ray which shows benign chest _.Risk:This patient has a high risk of morbidity due to further diagnostic testing or treatment and may suffer from an acute cardiac or respiratory disord er. Workup reveals concern for CHF exacerbation versus ACS and patient should be admitted for further workup and possible expert consultation. ) Impression: Primary Impression: Chest pain, rule out acute myocardial infarction Disposition: ADMITTED INPATIENT Admit to: Med Surg Condition: Serious Critical Care Note Critical Care Time?: Yes Critical care comment: Active chest pain Authorized and Performed by: Johny Carmona MD Total critical care time: Approximately 36 minutes Due to a high probability of clinically significant, life threatening deterioration, the patient required my highest level of preparedness to intervene emergently and I personally spent this critical care time directly and personally managing the patient. This critical care time included obtaining a history; examining the patient; pulse oximetry; ordering and review of studies; arranging urgent treatment with development of a management plan; evaluation of patient's response to treatment; frequent reassessment; and, discussions with other providers. This critical care time was performed to assess and manage the high probability of imminent, life-threatening deterioration that could result in multi-organ failure. It was exclusive of separately billable procedures and treating other patients and teaching time. Please see my other sections and the rest of the note for further information on patient assessment and treatment. Stability Stability form required: No Heart Score Heart Score: Heart Score Response (Comments) Value History Moderate Suspicious 1 EKG Repolarization Disturb 1 Age 45-64 1 Risk Factors 1 or 2 risk factors 1 Troponin 1-2 x's Normal limit 1 Total 5 I personally scribed for JOHNY CARMONA MD ([email or web address]) on 04/20/24 at 23:07. Electronically submitted by Chioma Valle ([email or web address]). JOHNY CARMONA MD Apr 20, 2024 22:44
[2024-04-20 22:57] LABS: Basophils # (auto) 0.1 10 ^3/uL (0-0.2); Basophils % (auto) 0.8 % (0.0-2.0); Eosinophils # (auto) 0.3 10 ^3/uL (0-0.8); Eosinophils % (auto) 2.4 % (0.0-7.0); Hematocrit 45.2 % (41.0-53.0); Hemoglobin 14.7 g/dL (13.5-17.5); Lymphocytes # (auto) 3.3 10 ^3/uL (0.4-5.4); Lymphocytes % (auto) 31.7 % (10.0-50.0); Mean Corpuscular Hemoglobin 27.9 pg (28.0-32.0); Mean Corpuscular Hgb Conc. 32.5 g/dL (32.0-36.0); Monocytes # (auto) 0.7 10 ^3/uL (0-1.3); Monocytes % (auto) 6.8 % (0.0-12.0); Neutrophils % (auto) 58.3 % (37.0-80.0); Platelet Count (auto) 218 10^3/uL (140-450); Red Blood Cells 5.25 10^6/uL (4.5-5.90); Red Cell Distribution Width 15.5 % (11.8-14.3); White Blood Cell 10.4 10^3/uL (4.4-10.8)
[2024-04-20 23:02] LABS: Chloride 106 mmol/L (98-107); Potassium 3.7 mmol/L (3.5-5.1); Sodium 139 mmol/L (136-145)
[2024-04-20 23:03] LABS: Anion Gap 8 (5-15); Carbon Dioxide 25 mmol/L (20-31)
[2024-04-20 23:04] LABS: Calcium 9.4 mg/dL (8.7-10.4)
[2024-04-20 23:09] LABS: BUN/Creatinine Ratio 8.5 (10.0-20.0); Blood Urea Nitrogen 10 mg/dL (9-23); Glucose 161 mg/dL (74-106)
[2024-04-20 23:40] VITALS: PULSE 80; RESP 18; O2SAT 96
[2024-04-20] MEDS: FAMOTIDINE 20 MG TAB PO ONE (23:45)
[2024-04-20] MEDS: NITROGLYCERIN 0.4 MG SL TAB SL ONE (23:45)
[2024-04-21] VITALS (7 sets, daily range): BP systolic 102–116; BP diastolic 62–67; PULSE 70–78; RESP 12–20; TEMP 97.9–98.1; O2SAT 95–97
[2024-04-21] MEDS: MORPHINE SULFATE 4 MG/ML SYR/VIAL IV ONE (04:36)
--- NOTE | 2024-04-21 04:36 | DVH ---
Examination: CXRP Clinical Indication: chest pain Comparison: None. Technique: Frontal view of chest obtained. Findings: Subtle infiltrates are seen in the basal segments of the left lower lobe and is suggestive of pneumon ia in appropriate clinical setting. Both the costophrenic and cardiophrenic angles are normal. Trachea and mediastinum are in the midline. Mild cardiomegaly is noted. There is no evidence of pleural effusion or pneumothorax. Bony thoracic cage appears normal. Impression: 1. Mild cardiomegaly is noted. 2. Subtle infiltrates are seen in the basal segments of the left lower lobe and is suggestive of pne umonia in appropriate clinical setting. Electronically Signed 04/21/2024 04:28 Irvin Nava
[2024-04-21] MEDS ORDERED: ONDANSETRON HCL 4 MG/2 ML VIAL IV PRN (05:15)
[2024-04-21] MEDS ORDERED: NITROGLYCERIN 0.4 MG SL TAB SL PRN (05:15)
[2024-04-21] MEDS ORDERED: DOCUSATE SOD 100 MG CAP PO PRN (05:15)
[2024-04-21] MEDS ORDERED: ALBUTEROL SULF 2.5 MG/0.5ML(0.5%) NEB SOLN NEB PRN (05:15)
[2024-04-21] MEDS ORDERED: DEXTROSE (50%) 50ML SYRG IV PRN (05:15)
[2024-04-21] MEDS ORDERED: ACETAMINOPHEN 325 MG TAB PO PRN (05:15)
[2024-04-21] MEDS: SODIUM CHLOR 0.9% PF (SALINE LOCK) 10ML VIAL/SYR IV SCH (05:34)
[2024-04-21 05:46] LABS: Basophils # (auto) 0.1 10 ^3/uL (0-0.2); Basophils % (auto) 0.7 % (0.0-2.0); Eosinophils # (auto) 0.2 10 ^3/uL (0-0.8); Eosinophils % (auto) 2.8 % (0.0-7.0); Hematocrit 42.6 % (41.0-53.0); Hemoglobin 13.9 g/dL (13.5-17.5); Lymphocytes # (auto) 2.5 10 ^3/uL (0.4-5.4); Lymphocytes % (auto) 29.9 % (10.0-50.0); Mean Corpuscular Hgb Conc. 32.7 g/dL (32.0-36.0); Mean Corpuscular Volume 85.6 fL (80.0-100.0); Monocytes # (auto) 0.6 10 ^3/uL (0-1.3); Monocytes % (auto) 7.5 % (0.0-12.0); Neutrophils % (auto) 59.1 % (37.0-80.0); Platelet Count (auto) 214 10^3/uL (140-450); Red Blood Cells 4.98 10^6/uL (4.5-5.90); Red Cell Distribution Width 15.6 % (11.8-14.3); White Blood Cell 8.4 10^3/uL (4.4-10.8)
--- NOTE | 2024-04-21 05:47 | DVHHP2 ---
History of Present Illness Reason for Visit: Chest pain History of Present Illness The patient is a 54 year male with multiple past medical history including COPD, CVA, DM, PE, and hypertension who presented to [facility] ED with complaint chest pain. Patient reports symptoms progressively get worse with left-sided chest pain, rating 8/10 numeric scale, associated nausea, getting worse that prompted this visit. The patient was seen and evaluated in the ED, laboratory data shows WBC 10.4, platelets 218, sodium 139, potassium 3.7, BUN 10, creatinine 1.17, glucose 161, troponin 3, blood pressure 102/65, heart rate 78, temperature 98.0 F, O2 saturation 96% on oxygen. Chest x-ray revealing mild cardiomegaly, subtle infiltrates seen in the basal segments of the left lower lobe and is suggestive of pneumonia. Patient was started on IV antibiotic regimen levofloxacin, please see medication orders section in the computer. On my assessment, patient denied chest pain at this moment, no headache, no dizziness, no diaphoresis, currently on oxygen, no nausea, no vomiting, no fever, no chills. Patient was admitted for further evaluation and medical management. Past Medical History Angina, Asthma, CHF, COPD, CVA, DM, High Lipids, HTN, PE, Seizures, TIA Past Surgical History Appendectomy, , Tonsillectomy Family History Reviewed, noncontributory to the management of this case. Past Social History The patient lives at home, denies smoking, alcohol or illicit drugs abuse. Review of Systems Constitutional: No: Fever, Chills, Sweats, Weakness, Malaise, Other Eyes: No: Pain, Vision change, Conjunctivae inflammation, Eyelid inflammation, Other, Redness ENT: No: Ear pain, Ear discharge, Nose pain, Nose discharge, Nose congestion, Mouth pain, Mouth swelling, Throat pain, Throat swelling, Other Respiratory: Shortness of breath; No: Cough, Dry, SOB with excertion, Wheezing, Hemoptysis, Pleuritic Pain, Sputum, Wheezing, Other Cardiovascular: Chest Pain; No: Palpitations, Orthopnea, Paroxysmal Noc. Dyspnea, Edema, Lt Headedness, Other Gastrointestinal: Nausea; No: Vomiting, Abdominal Pain, Diarrhea, Constipation, Melena, Hematochezia, Other Genitourinary: No Dysuria, No Frequency, No Incontinence, No Hematuria, No Retention, No Other Musculoskeletal: No: other, neck pain, shoulder pain, arm pain, back pain, hand pain, leg pain, foot pain Skin: No: Rash, Lesions, Jaundice, Bruising, Other Neurological: No: Weakness, Numbness, Incoordination, Change in speech, Confusion, Seizures, Other Allergies: Coded Allergies: Azithromycin (Verified Allergy, Severe, 05/22/23) RASHES AND SWELLING Iodine (Verified Allergy, Severe, 08/17/21) Shellfish Allergy (Verified Allergy, Severe, 08/17/21) Theophylline (Verified Allergy, Severe, 08/17/21) Codeine (Verified Allergy, Mild, 10/04/21) patient had [place] no reaction Pineapple (Verified Allergy, Mild, 02/29/24) Exam Vital Signs Vital Signs Date Time Temp Pulse Resp B/P (MAP) Pulse Ox O2 Delivery O2 Flow Rate FiO2 04/21/24 05:04 78 17 102/65 04/21/24 04:26 96 04/21/24 01:03 Nasal Cannula* 2 28 04/20/24 23:40 98.0 98.0 General Appearance: Alert, Oriented X3, Cooperative, No acute distress HEENT: Atraumatic, PERRLA, EOMI, Mucous membr. moist/pink Respiratory: Normal air movement, Other (Diminished breath sounds) Cardiovascular: Regular rate, Normal S1, Normal S2, No murmurs Abdominal: Normal bowel sounds, Soft, No tenderness, No hepatospenomegaly, No masses Extremities: No clubbing, No cyanosis, No edema, Normal pulses, No tenderness/swelling Skin: No rashes, No breakdown, No significant lesion Neuro: Normal speech, Normal tone, Sensation intact, Cranial nerves 3-12 NL, Reflexes 2+, Other (Generalized weakness) Psych/Mental Status: Mental status NL, Mood NL Labs/Xrays Labs Test 04/20/24 23:30 04/20/24 22:30 Range/Units Troponin I High Sensitivity < 3 L </=54 ng/L White Blood Count 10.4 4.4-10.8 10^3/uL Red Blood Count 5.25 4.5-5.90 10^6/uL Hemoglobin 14.7 13.5-17.5 g/dL Hematocrit 45.2 41.0-53.0 % Mean Corpuscular Volume 86.0 80.0-100.0 fL Mean Corpuscular Hemoglobin 27.9 L 28.0-32.0 pg Mean Corpuscular Hemoglobin Concent 32.5 32.0-36.0 g/dL Red Cell Distribution Width 15.5 H 11.8-14.3 % Platelet Count 218 140-450 10^3/uL Mean Platelet Volume 9.8 6.9-10.8 fL Neutrophils (%) (Auto) 58.3 37.0-80.0 % Lymphocytes (%) (Auto) 31.7 10.0-50.0 % Monocytes (%) (Auto) 6.8 0.0-12.0 % Eosinophils (%) (Auto) 2.4 0.0-7.0 % Basophils (%) (Auto) 0.8 0.0-2.0 % Neutrophils # (Auto) 6.0 1.6-8.6 10 ^3/uL Lymphocytes # (Auto) 3.3 0.4-5.4 10 ^3/uL Monocytes # (Auto) 0.7 0-1.3 10 ^3/uL Eosinophils # (Auto) 0.3 0-0.8 10 ^3/uL Basophils # (Auto) 0.1 0-0.2 10 ^3/uL Nucleated Red Blood Cells 0.0 % Sodium Level 139 136-145 mmol/L Potassium Level 3.7 3.5-5.1 mmol/L Chloride Level 106 98-107 mmol/L Carbon Dioxide Level 25 20-31 mmol/L Anion Gap 8 5-15 Blood Urea Nitrogen 10 9-23 mg/dL Creatinine 1.17 0.700-1.30 mg/dL Glomerular Filtration Rate Calc 75 >90 mL/min BUN/Creatinine Ratio 8.5 L 10.0-20.0 Serum Glucose 161 H 74-106 mg/dL Calcium Level 9.4 8.7-10.4 mg/dL PATIENT: CHRISTIAN COWAN ACCT: [id number] UNIT: [id number] : 1970 LOC: ER ROOM / BED: / AGE / SEX: 54 / M ADM STATUS: REG ER SERVICE [id number] ORDERING PHYSICIAN: JOHNY SANTIAGO MD PROCEDURE(s): CXRP - CHEST PORTABLE REASON: chest pain ORDER NUMBER(s): [id number], ACCESSION NUMBER(s): [id number] Examination: CXRP Clinical Indication: chest pain Comparison: None. Technique: Frontal view of chest obtained. Findings: Subtle infiltrates are seen in the basal segments of the left lower lobe and is suggestive of pneumonia in appropriate clinical setting. Both the costophrenic and cardiophrenic angles are normal. Trachea and mediastinum are in the midline. Mild cardiomegaly is noted. There is no evidence of pleural effusion or pneumothorax. Bony thoracic cage appears normal. Impression: 1. Mild cardiomegaly is noted. 2. Subtle infiltrates are seen in the basal segments of the left lower lobe and is suggestive of pneumonia in appropriate clinical setting. Assessment/Plan Assessment/Plan Acute chest pain Generalized weakness Diabetes mellitus with hyperglycemia Pneumonia, unspecified organism Plan 1. Admit to telemetry unit 2. Breathing treatment 3. Pain control management 4. IV antibiotic management 5. Management of fluids and electrolytes 6. Consultation for hospitalist 7. Diagnostic test chest x-ray 8. DVT prophylaxis-on aspirin 9. Repeat labs CBC, CMP in a.m. 10. Home medication reviewed and reconciled 11. Continue with current medical management 12. Treatment plan discussed with patient and RN. Patient verbalized understanding. Plan discussed with: Patient, Other (RN) My Orders Orders - TRISTAN ALLAN DNP Procedure Category Date Status Time Complete Blood Count LAB 04/21/24 Verified 05:11 Comprehensive LAB 04/21/24 Verified Metabolic Panel 05:11 Aspirin Tablet PHA 04/21/24 Verified 10:00 Atorvastatin (Lipitor) PHA 04/21/24 Verified 22:00 Consistent DIET 04/21/24 Verified Carb(Ccho)Diabetes Breakfast Famotidine Injection PHA 04/21/24 Verified (Pepcid Injection) 10:00 Albuterol Medneb PHA 04/21/24 Verified (Ventolin Medneb) 05:15 Glucose Blood PHA 04/21/24 Verified (Accu-Chek Comfort 07:00 Mild Sliding Scale PHA 04/21/24 Verified 07:00 Dextrose 50% Syringe PHA 04/21/24 Verified 05:15 Admit ADMIT 04/21/24 Verified 05:11 Allergies RASHAAD 04/21/24 Verified 05:11 Code Status CODE 04/21/24 Verified 05:11 Sodium Chloride Lock PHA 04/21/24 Verified (Saline Lock Ns) 06:00 Oxygen Per Hour RT 04/21/24 Verified 05:11 Ondansetron Hcl PHA 04/21/24 Verified (Zofran) 05:15 Docusate Sodium PHA 04/21/24 Verified Capsule (Colace 05:15 Complete Blood Count LAB 04/22/24 Verified 04:00 Comprehensive LAB 04/22/24 Verified Metabolic Panel 04:00 Condition: Serious [facility] 04/21/24 Verified 05:11 Acetaminophen Tablet PHA 04/21/24 Verified (Tylenol Tablet) 05:15 Bedrest With Bathroom [facility] 04/21/24 Verified Privileg 05:11 Sequential [facility] 04/21/24 Verified Compression Device Nitroglycerin [facility] 04/21/24 Verified Sublingual (Ntrostat 05:15 Morphine Sulfate PHA 04/21/24 Verified Injection 05:15 Stat Ekg For Chest [facility] 04/21/24 Verified Pain 05:11 Notify Md Of Changes [facility] 04/21/24 Verified From Base 05:11 Staff Engineer For [facility] 04/21/24 Verified 24 Hours 05:11 Emergency Dysrhythmia [facility] 04/21/24 Verified Protocol 05:11 Rhythm Strips Once [facility] 04/21/24 Verified Every Shift 05:11 Oxygen By Nasal 04/21/24 Verified Cannula 05:11 Problem List: (1) Acute chest pain (2) Pneumonia, unspecified organism (3) Generalized weakness (4) Hyperglycemia due to diabetes mellitus Date of Service: Apr 21, 2024 Billing Provider: TRISTAN ALLAN DNP Common Visit Codes: [id number] INP/OBS CARE (HIGH) TRISTAN ALLAN DNP Apr 21, 2024 05:47
[2024-04-21 06:09] LABS: Alanine Aminotransferase 30 U/L (7-40); Alkaline Phosphatase 90 U/L (46-116); Anion Gap 7 (5-15); Aspartate Aminotransferase 22 U/L (13-40); BUN/Creatinine Ratio 14.1 (10.0-20.0); Bilirubin, Total 0.6 mg/dL (0.2-1.0); Blood Urea Nitrogen 11 mg/dL (9-23); Calcium 9.2 mg/dL (8.7-10.4); Carbon Dioxide 26 mmol/L (20-31); Chloride 106 mmol/L (98-107); Glucose 114 mg/dL (74-106); Sodium 139 mmol/L (136-145); Total Protein 7.1 g/dL (5.7-8.2)
--- NOTE | 2024-04-21 06:15 | ECG ---
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
[2024-04-21] MEDS: InsuLIN REG 1unit/0.01ml Soln (100units/ml) SC SCH (06:38)
[2024-04-21] MEDS: ACCU-CHEK COMFORT CURVE STRIP VI SCH (06:38)
[2024-04-21] MEDS: levoFLOXacin 500MG 100 ML IV ONE (07:00)
[2024-04-21] MEDS: ASPirin 81 mg TAB PO SCH (09:55)
[2024-04-21] MEDS: ACETAMINOPHEN 325 MG TAB PO ONE (09:56)
[2024-04-21] MEDS: KETOROLAC TROMETH 30 MG/ML 1ML VIAL IV ONE (09:56)
[2024-04-21] MEDS: FAMOTIDINE (10MG/ML) 2ML VL IV SCH (09:56)
[2024-04-21 10:28] LABS: INR 0.98 (0.9-1.15); Partial Thromboplastin Time 26.6 SEC (24.5-34.5); Prothrombin Time 10.4 sec (9.3-11.8)
--- NOTE | 2024-04-21 11:19 | DVH ---
Bilateral lower extremity venous duplex Clinical History: DVTY Comparison: US BILAT LOWER DVT on DOS: 02/28/24, US BILAT LOWER DVT on DOS: 02/12/24 Technique: Duplex Doppler evaluation of the deep venous systems of both lower extremities from the common femora l veins to the popliteal veins including color Doppler and spectral/pulsed waveform analysis was perf ormed. Findings: RIGHT SIDE: The common femoral vein demonstrates appropriate compressibility and waveform variability. There is compressibility/patency of the great saphenous vein at the proximal thigh. The femoral vein demonstrates appropriate compressibility and waveform variability. The deep femoral vein demonstrates appropriate compressibility and waveform variability. The popliteal vein demonstrates appropriate compressibility and waveform variability. There is color flow at the tibioperoneal trunk and in the posterior tibial vein. LEFT SIDE: The common femoral vein demonstrates appropriate compressibility and waveform variability. There is compressibility/patency of the great saphenous vein at the proximal thigh. The femoral vein demonstrates appropriate compressibility and waveform variability. The deep femoral vein demonstrates appropriate compressibility and waveform variability. The popliteal vein demonstrates appropriate compressibility and waveform variability. There is color flow at the tibioperoneal trunk and in the posterior tibial vein. Impression: 1. No right or left femoropopliteal venous thrombosis.
[2024-04-21] MEDS: diphenhdrAMINE HCL 50 MG/1 ML VL IV ONE (13:16)
[2024-04-21 13:38] LABS: COVID19 ANTIGEN SOFIA FIA NEGATIVE (NEGATIVE); Rapid Influenza A Negative (Negative); Rapid Influenza B Negative (Negative)
--- NOTE | 2024-04-21 14:29 | DVH ---
PROCEDURE: CT CT ANGIO CHEST CONTRAST 04/21/2024 01:25 PM INDICATION:R/O PE, chetspain, sob, ekg changes, Hx of 3 PE. COMPARISON: CT CT ANGIO CHEST CONTRAST on DOS: 02/28/24, CT CT ANGIO CHEST CONTRAST on DOS: 01/24/24, CT CT ANGIO CHEST CONTRAST on DOS: 09/28/22 TECHNIQUE: Coverage: Thorax IV contrast: Administered Phases: Arterial Multiplanar 3-D Maximum Intensity Projection images (MIP) reconstructions were created by the technol alfredo in the coronal and sagittal planes as part of the CT angiography protocol. Adverse events: None Medication laboratory values were reviewed to verify the patient meets criteria for contrast administ ration. All CT scans at this medical facility are performed using dose modulation techniques as appropriate t o a performed exam including the following: Automated exposure control was utilized; adjustment of th e MA and/or KV according to patient size; and use of iterative reconstruction technique. Radiation dose: CTDIvol 29 mGy, DLP 1102 mGy*cm. FINDINGS: Cardiovascular: No pulmonary emboli are seen in the 1st, 2nd and 3rd order branches of the pulmonary arteries. The segmental subsegmental branches are not well opacified and can not be evaluated. Aort a is normal in caliber with no evidence for aneurysm or dissection. The heart is normal in size. Lungs: No focal consolidation. No pleural effusion. No pneumothorax. The airways are patent. Thyroid: Unremarkable Esophagus: Unremarkable. Lymphatics: No hilar or mediastinal lymphadenopathy. Bones/soft tissues: No acute abnormality. Multilevel degenerative changes of the thoracic spine are n oted. Upper abdomen: No acute abnormality. Hepatic steatosis. Liver is mildly enlarged measuring 21 cm in c raniocaudal. Other: None. IMPRESSION: 1. No pulmonary emboli are identified in the 1st, 2nd and 3rd order branches of the pulmonary arterie s. The segmental and subsegmental branches are not well opacified and can not be evaluated. 2. No aortic aneurysm or dissection. No significant atherosclerotic disease. 3. Hepatomegaly, hepatic steatosis and suggestion of developing cirrhosis. Correlate clinically.
[2024-04-21] MEDS: IOHEXOL 350 MG/ML 100ML IJ ONE (14:36)
--- NOTE | 2024-04-21 16:13 | DVHPNRES ---
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 Chest pain started on 04/19 on rest, is on and off in nature, sharp and crampy, not related to exertion and exacerbates with deep breaths and lying flat. Associated factors include shortness of breath, orthopnea and PND, patient uses 3 pillows at night. Denies fever/chills/vomiting but reports nausea, night sweats and dizziness and palpitations. Patient has intra uterine device for menopausal bleeding Past medical history See HPI Past surgical history Ankle surgery, appendectomy, tonsillectomy, 2 sections Social history Lives with son and daughter Quit smoking 8 years back, 0.25 pack-year history Occasional drinker, denies illicit drug use PCP Dr. Bullard at [facility] Has a bar steward outpatient but does not remember the name. Saw him 4 months back. Patient seen and examined in ER. Reports feeling fine, no acute distress. Patient reported chest pain at 6:00 p.m.. EKG completed, shows normal sinus rhythm. No ST changes. Troponin level repeated. Cardiology consulted. Morphine 1 mg administered. Objective vital signs Vital Sign Date Time Temp Pulse Resp B/P (MAP) Pulse Ox O2 Delivery O2 Flow Rate FiO2 04/21/24 14:16 76 14 122/78 (93) 96 04/21/24 08:02 2.0 28 04/21/24 08:00 Nasal Cannula* 04/21/24 07:43 98.4 98.4 medications Current Medications Medications Dose Ordered Sig/[place] Route Start Time Stop Time Status Last Admin Dose Admin Aspirin 81 mg DAILY PO 04/21/24 10:00 04/21/24 09:55 81 MG Atorvastatin Calcium 40 mg HS PO 04/21/24 22:00 Famotidine 20 mg DAILY IV 04/21/24 10:00 04/21/24 09:56 20 MG Albuterol 2.5 mg Q4HPRN PRN NEB 04/21/24 05:15 Diagnostic Test (Pha) 1 strip ACHS 04/21/24 07:00 04/21/24 11:52 1 STRIP Insulin Human Regular ACHS SC 04/21/24 07:00 04/21/24 11:56 2 UNITS Dextrose 50 ml UD PRN IV 04/21/24 05:15 Sodium Chloride 10 ml Q8HR IV 04/21/24 06:00 04/21/24 14:11 10 ML Ondansetron HCl 4 mg Q4HP PRN IV 04/21/24 05:15 Docusate Sodium 100 mg BIDPRN PRN PO 04/21/24 05:15 Acetaminophen 650 mg Q6HP PRN PO 04/21/24 05:15 Nitroglycerin 0.4 mg Q5MINP PRN SL 04/21/24 05:15 Morphine Sulfate 2 mg Q30M PRN IV 04/21/24 05:15 Examination Young male patient lying in bed, in no acute distress General: Morbidly obese, afebrile, palor, mucosae are moist Cardiovascular: Regular S1 and S2. No murmurs, gallops or rubs. No JVD elevation. No pedal edema. No tenderness Respiratory: Normal B/L air entry on room air. Clear lung sounds on auscultation Abdomen: Soft, nontender, nondistended, normoactive bowel sounds, no rebound tenderness, no organomegaly, no masses Genitourinary: Deferred MSK/skin: Mobilizes 4 limbs. Skin is dry and warm Neurological: No motor, no sensitive deficits, normal speech. Pupils are isocoric and reactive. Psych/Mental Status: A/Ox4 laboratory and microbiology Laboratory Tests 04/21/24 05:33 Test 04/21/24 05:33 Range/Units Serum Glucose 114 H 74-106 mg/dL Labs and/or images reviewed: Labs reviewed by me, Image(s) reviewed by me Problem List/Assessment/Plan Problem List/Assessment/Plan Acute chest pain, rule out ACS - secondary to ? pneumonitis Congestive heart failure-diagnosed 5 months back CAD status post PTCA with no LUISITO at [facility]-duration unknown Troponin WNL BNP 3 EKG 6 PM 04/21 completed, shows normal sinus rhythm, no ST changes. Continue aspirin 81 mg daily Echocardiogram completed 03/27/2024 shows LVEF 55%. RVSP elevated at 40-50 mmHg, TRV 3.16 Continue home dose of furosemide 40 mg daily Cardiology consulted Probable asthma exacerbation Low likelihood of pneumonia Continue albuterol nebulized treatment Reviewed LFTs from December2023, shows FEV1/FVC ratio 84, no bronchodilator response Paroxysmal atrial fibrillation EKG completed, shows irregular rhythm consistent with paroxysmal atrial fibrillation. Rate is controlled. Rule out PE/DVT History of pulmonary embolism thrice CT pulmonary angio completed, shows No pulmonary emboli are identified in the 1st, 2nd and 3rd order branches of the pulmonary arteries. The segmental and subsegmental branches are not well opacified and can not be evaluated. Hepatomegaly and steatosis secondary to probable GARCIA Outpatient workup advised Diabetes mellitus type 2 for the past 2 years-hemoglobin A1c 6.1 Initiated mild ISS History of CVA 1 year back at [facility] with residual right-sided weakness Continue aspirin 81 mg daily and atorvastatin 40 mg daily Dyslipidemia Continue atorvastatin 40 mg daily Questionable obstructive sleep apnea Patient is outpatient sleep study Seizure disorder-last seizure 6 years ago Patient does not take any seizure medications at home Transgender male Patient identifies as he/his History of postmenopausal bleeding Currently on IUD Monitor Diverticulosis Monitor GERD Pantoprazole 40 mg daily DVT prophylaxis Lovenox 40 mg sc daily Plan discussed with patient in which all questions have been answered Goals of care discussed with patient for more than 22 minute, full code status Plan discussed with Dr. Vásquez. Cardiology consultation pending. Plan discussed with: Patient My Orders My Orders Orders - KUN WOOD Procedure Category Date Status Time Drug Screen LAB 04/21/24 Logged 08:56 Urinalysis LAB 04/21/24 Logged 08:56 Vitamin B12 LAB 04/21/24 In Process 08:56 Vitamin D, 25-Hydroxy LAB 04/21/24 In Process 08:56 Bilat Lower Dvt US 04/21/24 Resulted 09:[address] 04/21/24 Resulted Contrast 12:53 KUN WOOD Apr 21, 2024 16:13
[2024-04-21] MEDS ORDERED: BUDESONIDE (INHALATION) 0.5 MG/2 ML NEB NEB SCH ×2 (16:15→22:00)
[2024-04-21] MEDS: ENOXAPARIN SOD 40 MG/0.4 ML SYRINGE SC ONE (16:28)
[2024-04-21] MEDS: MAGNESIUM OXIDE 400 MG TAB PO ONE (16:29)
[2024-04-21] MEDS: FUROSEMIDE 40 MG TAB PO ONE (16:29)
[2024-04-21 16:57] LABS: Erythrocyte Sedimentation Rate 13 mm/hr (0-20)
[2024-04-21 18:00] LABS: Urine Bacteria FEW /hpf (None Seen); Urine Blood Negative /uL (Negative); Urine Clarity Turbid (Clear); Urine Color Yellow (Yellow); Urine Mucus FEW (None Seen); Urine Protein, UAD 1+ (Negative); Urine Urobilinogen Normal (Negative); Urine WBC 18 /hpf (0 - 3)
[2024-04-21 18:02] LABS: Urine Specific Gravity > 1.035 (1.001-1.035)
[2024-04-21 18:07] LABS: Amphetamine Screen, Urine Neg (NEGATIVE); Barbiturate Scree,Urine Neg (NEGATIVE); Benzodiazephine Screen, Urine Neg (NEGATIVE); Cocaine Screen, Urine Neg (NEGATIVE)
[2024-04-21 18:08] LABS: Cannabinoid Screen, Urine Neg (NEGATIVE); Opiate Scree,Urine Neg (NEGATIVE); Phencyclidine Screen, Urine Neg (NEGATIVE)
[2024-04-21] MEDS: BUDESONIDE (INHALATION) 0.5 MG/2 ML NEB NEB SCH (18:15)
[2024-04-21] MEDS: ALBUTEROL SULF 2.5 MG/0.5ML(0.5%) NEB SOLN NEB SCH (18:15)
[2024-04-21] MEDS: MORPHINE SULFATE INJ 2 MG/ml SYRG IV ONE (20:35)
[2024-04-21] MEDS: TEMAZEPAM 15 MG CAP PO ONE (22:18)
[2024-04-21] MEDS: ATORVASTATIN 20 MG TAB PO SCH (22:19)
[2024-04-22] VITALS (12 sets, daily range): BP systolic 91–130; BP diastolic 43–84; PULSE 54–98; RESP 16–20; TEMP 97.5–98.3; O2SAT 90–100
--- NOTE | 2024-04-22 02:51 | ECG ---
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
--- NOTE | 2024-04-22 02:51 | ECG ---
[facility] Test Date: 2024-04-20 Test Time: 23:50:25 Pat Name: CHRISTIAN COWAN Department: ED Room: 0294T Gender: M Senior Policy Advisor: TREVON : 1970 Requested By: JOHNY SANTIAGO Order Number: [id number] Reading MD: Measurements Intervals [place] Rate: 96 P: 61 GA: 146 QRS: 43 QRSD: 83 T: 40 QT: 350 QTc: 443 Interpretive Statements Sinus rhythm Ventricular premature complex Borderline T abnormalities, inferior leads Baseline wander in lead(s) II,III,aVR,aVL,aVF Please click the below link to view image of tracing.
[2024-04-22] MEDS: PANTOPRAZOLE 40 MG TAB PO SCH (06:06)
[2024-04-22] MEDS: BUDESONIDE (INHALATION) 0.5 MG/2 ML NEB NEB SCH (06:15)
[2024-04-22] MEDS: ALBUTEROL SULF 2.5 MG/0.5ML(0.5%) NEB SOLN NEB PRN (06:16)
--- NOTE | 2024-04-22 08:16 | DVHINCON2 ---
Date of service: Apr 22, 2024 History of Present Illness 54 yo M transgender, hx of ? cad , htn , obesity admitted for chest pain. pt had a cath done maybe years ago [place]. hes not a great historian. trops are -. pt having on and off chest pain Past Medical History reviewed Family History: Asthma G8 MOTHER G8 FATHER G8 BROTHER G8 SISTER Cardiovascular disease G8 MOTHER Cerebrovascular accident (CVA) G8 MOTHER G8 FATHER Diabetes mellitus G8 BROTHER FH: chronic renal disease G8 MOTHER FH: heart attack G8 MOTHER G8 FATHER FH: liver cancer G8 BROTHER Thyroid disease G8 SISTER Allergies: Coded Allergies: Azithromycin (Verified Allergy, Severe, 05/22/23) RASHES AND SWELLING Iodine (Verified Allergy, Severe, 08/17/21) Shellfish Allergy (Verified Allergy, Severe, 08/17/21) Theophylline (Verified Allergy, Severe, 08/17/21) Codeine (Verified Allergy, Mild, 10/04/21) patient had [place] no reaction Pineapple (Verified Allergy, Mild, 02/29/24) Home Meds Active Scripts Budesonide (Inhalation) (Budesonide) 0.25 Mg/2 Ml Nicole, 0.25 MG IN BID for 30 Days, #10 ML Prov:JUAREZ POWER RESIDENT 03/01/24 Furosemide (Furosemide) 40 Mg Tab, 1 TAB PO DAILY for 30 Days, #30 TAB 5 Refills Prov:JUAREZ POWER RESIDENT 03/01/24 Lisinopril (Lisinopril) 5 Mg Tab, 5 MG PO DAILY, #30 TAB 5 Refills Prov:IFTIKHAR GUIDO MD 02/06/23 Reported Medications Gabapentin (Gabapentin) 300 Mg Cap, 1 TAB PO BID 12/01/23 Semaglutide (Ozempic) 2 Mg/3 Ml Inj, 2 MG SC QWEEKLY, INJ 11/30/23 Albuterol Sulfate (VENTOLIN MDI) 90 Mcg Ih, 90 MCG IN PRN for SHORTNESS OF BREATH, INH 11/30/23 Albuterol Sulfate (Albuterol Sulfate) 0.083 % Neb, 1 VIAL NEB Q4HPRN PRN for SHORTNESS OF BREATH, #50 VIAL 11/30/23 Atorvastatin Calcium (ATORVASTATIN CALCIUM) 40 Mg Tab, 40 MG PO DAILY 11/30/23 Current Medications Current Medications Medications (Trade) Dose Ordered Sig/[place] Route PRN Reason Start Time Stop Time Status Last Admin Aspirin 81 mg DAILY PO 04/21/24 10:00 04/21/24 09:55 Atorvastatin Calcium (Lipitor) 40 mg HS PO 04/21/24 22:00 04/21/24 22:19 Famotidine (Pepcid Injection) 20 mg DAILY IV 04/21/24 10:00 04/21/24 16:09 DC 04/21/24 09:56 Levofloxacin/ Dextrose 100 ml @ 100 mls/hr DAILY IV 04/22/24 10:00 04/21/24 09:40 DC Enoxaparin Sodium (Lovenox) 40 mg DAILY SC 04/22/24 10:00 Pantoprazole Sodium (Protonix Tablet) 40 mg DAILY@0600 PO 04/22/24 06:00 04/22/24 06:06 Furosemide (Lasix Tablet) 40 mg DAILY PO 04/22/24 10:00 Budesonide (Pulmicort) 0.25 mg BID NEB 04/21/24 16:15 04/21/24 16:49 DC Budesonide (Pulmicort) 0.25 mg BID NEB 04/21/24 22:00 04/21/24 18:16 DC Albuterol (Ventolin Medneb) 2.5 mg Q4H NEB 04/21/24 18:15 04/21/24 22:20 DC 04/21/24 21:56 Budesonide (Pulmicort) 0.25 mg Q4H NEB 04/21/24 18:15 04/21/24 22:20 DC 04/21/24 21:56 Albuterol (Ventolin Medneb) 2.5 mg Q4H PRN NEB SHORTNESS OF BREATH 04/21/24 22:30 04/22/24 06:16 Budesonide (Pulmicort) 0.25 mg BID NEB 04/22/24 10:00 04/22/24 06:15 Review of Systems 10 pt ros otherwise negative Vital Signs Vital Signs Date Time Temp Pulse Resp B/P (MAP) Pulse Ox O2 Delivery O2 Flow Rate FiO2 04/22/24 06:22 71 16 98 04/22/24 06:16 Nasal Cannula 4.0 04/22/24 06:16 36 04/22/24 05:00 97.9 119/72 (88) 97.9 Physical Exam nad s1 s2 rrr ctab soft nt/nd no edema Labs/Diagnostic Data Labs Test 04/22/24 06:15 04/21/24 18:50 04/21/24 17:40 04/21/24 12:00 Range/Units POC Glucose 122 H 70-106 mg/dl Troponin I High Sensitivity 3 L </=54 ng/L Urine Color Yellow Yellow Urine Clarity Turbid H Clear Urine pH 6.0 5.0-9.0 Urine Specific [place] > 1.035 H 1.001-1.035 Urine Protein 1+ H Negative Urine Ketones Negative Negative Urine Blood Negative Negative /uL Urine Nitrite Negative Negative Urine Bilirubin Negative Negative Urine Urobilinogen Normal Negative mg/dL Urine Leukocyte Esterase Negative Negative /uL Urine RBC 13 0 - 3 /hpf Urine WBC 18 0 - 3 /hpf Urine Squamous Epithelial Cells Many <5 /hpf Urine Bacteria Few H None Seen /hpf Urine Mucus Few None Seen Urine Glucose Normal Normal mg/dL Urine Opiates Screen Neg NEGATIVE Urine Fentanyl Screen Neg NEGATIVE Urine Barbiturates Screen Neg NEGATIVE Urine Phencyclidine Screen Neg NEGATIVE Urine Amphetamines Screen Neg NEGATIVE Urine Benzodiazepines Screen Neg NEGATIVE Urine Cocaine Screen Neg NEGATIVE Urine Cannabinoids Screen Neg NEGATIVE Influenza Type A Antigen Negative Negative Influenza Type B Antigen Negative Negative SARS-CoV-2 Antigen (Rapid) Negative NEGATIVE Test 04/21/24 09:41 04/21/24 05:33 Range/Units Erythrocyte Sedimentation Rate 13 0-20 mm/hr Prothrombin Time 10.4 9.3-11.8 sec Prothrombin Time INR 0.98 0.9-1.15 Activated Partial Thromboplast Time 26.6 24.5-34.5 SEC Hemoglobin A1c 6.1 H <5.7 % A1C Magnesium Level 1.8 1.6-2.6 mg/dL C-Reactive Protein High Sensitivity 0.27 <1.0 mg/dL B-Type Natriuretic Peptide 3.63 0-100 pg/mL Thyroid Stimulating Hormone (TSH) 1.09 0.55-4.78 uIU/mL White Blood Count 8.4 4.4-10.8 10^3/uL Red Blood Count 4.98 4.5-5.90 10^6/uL Hemoglobin 13.9 13.5-17.5 g/dL Hematocrit 42.6 41.0-53.0 % Mean Corpuscular Volume 85.6 80.0-100.0 fL Mean Corpuscular Hemoglobin 28.0 28.0-32.0 pg Mean Corpuscular Hemoglobin Concent 32.7 32.0-36.0 g/dL Red Cell Distribution Width 15.6 H 11.8-14.3 % Platelet Count 214 140-450 10^3/uL Mean Platelet Volume 9.5 6.9-10.8 fL Neutrophils (%) (Auto) 59.1 37.0-80.0 % Lymphocytes (%) (Auto) 29.9 10.0-50.0 % Monocytes (%) (Auto) 7.5 0.0-12.0 % Eosinophils (%) (Auto) 2.8 0.0-7.0 % Basophils (%) (Auto) 0.7 0.0-2.0 % Neutrophils # (Auto) 5.0 1.6-8.6 10 ^3/uL Lymphocytes # (Auto) 2.5 0.4-5.4 10 ^3/uL Monocytes # (Auto) 0.6 0-1.3 10 ^3/uL Eosinophils # (Auto) 0.2 0-0.8 10 ^3/uL Basophils # (Auto) 0.1 0-0.2 10 ^3/uL Nucleated Red Blood Cells 0.0 % Sodium Level 139 136-145 mmol/L Potassium Level 4.0 3.5-5.1 mmol/L Chloride Level 106 98-107 mmol/L Carbon Dioxide Level 26 20-31 mmol/L Anion Gap 7 5-15 Blood Urea Nitrogen 11 9-23 mg/dL Creatinine 0.78 0.700-1.30 mg/dL Glomerular Filtration Rate Calc 107 >90 mL/min BUN/Creatinine Ratio 14.1 10.0-20.0 Serum Glucose 114 H 74-106 mg/dL Calcium Level 9.2 8.7-10.4 mg/dL Total Bilirubin 0.6 0.2-1.0 mg/dL Aspartate Amino Transferase (AST) 22 13-40 U/L Alanine Aminotransferase (ALT) 30 7-40 U/L Alkaline Phosphatase 90 46-116 U/L Total Protein 7.1 5.7-8.2 g/dL Albumin 4.0 3.2-4.8 g/dL Assessment r/o acs obesity HTN hL Plan/Recommendation check stress mpi for cad eval check echo if not done recently cont bp control asa/ statin Plan discussed with: Patient AMY PAT MD Apr 22, 2024 08:16
--- NOTE | 2024-04-22 08:42 | DVHPNRES ---
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 Chest pain started on 04/19 on rest, is on and off in nature, sharp and crampy, not related to exertion and exacerbates with deep breaths and lying flat. Associated factors include shortness of breath, orthopnea and PND, patient uses 3 pillows at night. Denies fever/chills/vomiting but reports nausea, night sweats and dizziness and palpitations. Patient has intra uterine device for menopausal bleeding Past medical history See HPI Past surgical history Ankle surgery, appendectomy, tonsillectomy, 2 sections Social history Lives with son and daughter Quit smoking 8 years back, 0.25 pack-year history Occasional drinker, denies illicit drug use PCP Dr. Bullard at [facility] Has a appellate court clerk outpatient but does not remember the name. Saw him 4 months back. 04/21 - Patient seen and examined in ER. Reports feeling fine, no acute distress. Patient reported chest pain at 6:00 p.m.. EKG completed, shows normal sinus rhythm. No ST changes. Troponin level repeated. Cardiology consulted. Morphine 1 mg administered. 04/22 - patient reports feeling fine. No active chest pain. We will scheduled for stress test which could not be completed today. Rescheduled to 04/23. Patient was saturating 97 on 2 L oxygen. Physical exam remarkable for bilateral pitting edema, bibasilar crackles heard on auscultation. IV 20 mg Lasix administered 1 time. Continue furosemide 40 mg p.o. daily Objective vital signs Vital Sign Date Time Temp Pulse Resp B/P (MAP) Pulse Ox O2 Delivery O2 Flow Rate FiO2 04/22/24 06:22 71 16 98 04/22/24 06:16 Nasal Cannula 4.0 04/22/24 06:16 36 04/22/24 05:00 97.9 119/72 (88) 97.9 Total Intake and Output 04/21/24 04/21/24 04/22/24 15:00 23:00 07:00 Intake Total 500 ml Balance 500 ml medications Current Medications Medications Dose Ordered Sig/[place] Route Start Time Stop Time Status Last Admin Dose Admin Aspirin 81 mg DAILY PO 04/21/24 10:00 04/21/24 09:55 81 MG Atorvastatin Calcium 40 mg HS PO 04/21/24 22:00 04/21/24 22:19 40 MG Diagnostic Test (Pha) 1 strip ACHS 04/21/24 07:00 04/22/24 06:13 1 STRIP Insulin Human Regular ACHS SC 04/21/24 07:00 04/21/24 11:56 2 UNITS Dextrose 50 ml UD PRN IV 04/21/24 05:15 Sodium Chloride 10 ml Q8HR IV 04/21/24 06:00 04/22/24 06:06 10 ML Ondansetron HCl 4 mg Q4HP PRN IV 04/21/24 05:15 Docusate Sodium 100 mg BIDPRN PRN PO 04/21/24 05:15 Acetaminophen 650 mg Q6HP PRN PO 04/21/24 05:15 Nitroglycerin 0.4 mg Q5MINP PRN SL 04/21/24 05:15 Morphine Sulfate 2 mg Q30M PRN IV 04/21/24 05:15 Enoxaparin Sodium 40 mg DAILY SC 04/22/24 10:00 Pantoprazole Sodium 40 mg DAILY@0600 PO 04/22/24 06:00 04/22/24 06:06 40 MG Furosemide 40 mg DAILY PO 04/22/24 10:00 Albuterol 2.5 mg Q4H PRN NEB 04/21/24 22:30 04/22/24 06:16 2.5 MG Budesonide 0.25 mg BID NEB 04/22/24 10:00 04/22/24 06:15 0.25 MG Examination Young male patient lying in bed, in no acute distress General: Morbidly obese, afebrile, palor, mucosae are moist Cardiovascular: Regular S1 and S2. No murmurs, gallops or rubs. No JVD elevation. Mild pitting edema noticed in the lower extremities.. No tenderness Respiratory: Normal B/L air entry on 2 L oxygen via NC.. Mild Bibasilar crackles on auscultation. Abdomen: Soft, nontender, nondistended, normoactive bowel sounds, no rebound tenderness, no organomegaly, no masses Genitourinary: Deferred MSK/skin: Mobilizes 4 limbs. Skin is dry and warm Neurological: No motor, no sensitive deficits, normal speech. Pupils are isocoric and reactive. Psych/Mental Status: A/Ox4 laboratory and microbiology Laboratory Tests 04/21/24 05:33 Test 04/21/24 05:33 Range/Units Serum Glucose 114 H 74-106 mg/dL Labs and/or images reviewed: Labs reviewed by me, Image(s) reviewed by me Problem List/Assessment/Plan Problem List/Assessment/Plan Acute chest pain, rule out ACS - secondary to ? pneumonitis Congestive heart failure-diagnosed 5 months back CAD status post PTCA with no LUISITO at [facility]-duration unknown Troponin WNL BNP 3 EKG 6 PM 04/21 completed, shows normal sinus rhythm, no ST changes. Continue aspirin 81 mg daily Morphine 0.5mg prn Echocardiogram completed 03/27/2024 shows LVEF 55%. RVSP elevated at 40-50 mmHg, TRV 3.16 Continue home dose of furosemide 40 mg daily Cardiology consulted - stress test 04/23. NPO starting midnight Continue furosemide 40mg daily Probable asthma exacerbation Low likelihood of pneumonia Continue albuterol nebulized treatment Reviewed LFTs from December2023, shows FEV1/FVC ratio 84, no bronchodilator response Paroxysmal atrial fibrillation EKG completed, shows irregular rhythm consistent with paroxysmal atrial fibrillation. Rate is controlled. Rule out PE/DVT History of pulmonary embolism thrice CT pulmonary angio completed, shows No pulmonary emboli are identified in the 1st, 2nd and 3rd order branches of the pulmonary arteries. The segmental and subsegmental branches are not well opacified and can not be evaluated. Hepatomegaly and steatosis secondary to probable GARCIA Probabale cirhotic liver morphology on CT Liver US and hepatitis panel pending Diabetes mellitus type 2 for the past 2 years-hemoglobin A1c 6.1 Initiated mild ISS History of CVA 1 year back at [facility] with residual right-sided weakness Continue aspirin 81 mg daily and atorvastatin 40 mg daily Dyslipidemia Continue atorvastatin 40 mg daily Questionable obstructive sleep apnea Patient is outpatient sleep study Seizure disorder-last seizure 6 years ago Patient does not take any seizure medications at home Transgender male - biological female Patient identifies as he/his History of postmenopausal bleeding Currently on IUD Monitor Diverticulosis Monitor GERD Pantoprazole 40 mg daily Vitamin-D deficiency Supplemented DVT prophylaxis Lovenox 40 mg sc daily Plan discussed with patient in which all questions have been answered Goals of care discussed with patient for 20 minutes, full code status Plan discussed with Dr. Morales. Cardiology consulted - stress test 04/23. NPO starting midnight Plan discussed with: Patient, Other (RN) My Orders My Orders Orders - KUN WOOD RESIDENT Procedure Category Date Status Time Vitamin B12 LAB 04/21/24 In Process 08:56 Vitamin D, 25-Hydroxy LAB 04/21/24 In Process 08:56 Bilat Lower Dvt US 04/21/24 Resulted 09:[address] 04/21/24 Resulted Contrast 12:53 Communication Order ORDERS 04/21/24 Transmitted 15:57 Enoxaparin Sodium PHA 04/22/24 In Process (Lovenox) 10:00 Pantoprazole Tablet PHA 04/22/24 In Process (Protonix Tablet) 06:00 Furosemide Tablet PHA 04/22/24 In Process (Lasix Tablet) 10:00 Communication Order ORDERS 04/21/24 Transmitted 17:41 * Cardiology Consult CONS 04/21/24 Transmitted 18:11 Addendum Addendum Addendum I was physically present for the diaz portions of the service provided to patient by THE RESIDENT. I have reviewed the documentation, discussed the case with resident and agree with the resident's documentation except as noted. Also the patient's clinical case was discussed with the patient's nurse. This medical document was created using an electronic medical record system with computerized dictation system. Although this document has been carefully reviewed, there might still be some phonetic and typographical errors. These areas are purely typographical due to imperfections of the software programs, and do not reflect any compromise in the patient's medical care. Late signature. Date of Service: Apr 22, 2024 Billing Provider: MANOJ MORALES MD Common Visit Codes: [id number] INP/OBS CARE(HIGH) Secondary Visit Codes: [id number] CARE PLAN 30 MINUTES (20 minutes) KUN WOOD Apr 22, 2024 08:42 MANOJ MORALES MD Apr 23, 2024 11:13
[2024-04-22] MEDS: REGADENOSON 0.4 MG/5 ML SYRG IV ONE ×2 (09:15→13:35)
[2024-04-22] MEDS: MAGNESIUM OXIDE 400 MG TAB PO ONE (09:22)
[2024-04-22] MEDS: FUROSEMIDE 40 MG TAB PO SCH (09:22)
[2024-04-22] MEDS: ENOXAPARIN SOD 40 MG/0.4 ML SYRINGE SC SCH (09:23)
[2024-04-22] MEDS ORDERED: levoFLOXacin 500MG 100 ML IV SCH (10:00)
[2024-04-22] MEDS: MORPHINE SULFATE INJ 2 MG/ml SYRG IV PRN ×3 (11:04→22:05)
--- NOTE | 2024-04-22 15:19 | ECG ---
[facility] Test Date: 2024-04-21 Test Time: 09:54:05 Pat Name: CHRISTIAN COWAN Department: ED Room: 0294T A Gender: M Rayon Winder: : 1970 Requested By: KUN WOOD Order Number: [id number] Reading MD: Measurements Intervals [place] Rate: 73 P: 62 GA: 144 QRS: 45 QRSD: 101 T: 85 QT: 379 QTc: 418 Interpretive Statements Sinus rhythm Atrial premature complexes Please click the below link to view image of tracing.
[2024-04-22] MEDS: FUROSEMIDE 20 MG/2 ML VIAL IV ONE (15:30)
--- NOTE | 2024-04-22 16:21 | DVH ---
INDICATION: cirrhosis TECHNIQUE: Multiple real-time sonographic images were obtained of the right upper quadrant. COMPARISON: None FINDINGS: The liver demonstrates increased echotexture without focal mass lesions. The liver measure s 16.1 cm. There is no intrahepatic or extrahepatic ductal dilatation. The common duct measures 0.6 cm. The gallbladder is without evidence of stone or sludge. The gallbladder wall measures 0.3 cm and is within normal limits. The right kidney measures 11.9 cm. The right kidney is normal in contour, size, and shape. The echo genicity is normal. There is no hydronephrosis. The pancreas is not well visualized due to overlying bowel gas. IMPRESSION: Hepatic steatosis.
[2024-04-22] MEDS ORDERED: ACETAMINOPHEN 500 MG TAB PO PRN (16:45)
[2024-04-22] MEDS ORDERED: HYDROcodone-ACET 5/325MG TAB PO PRN (16:45)
[2024-04-23] VITALS (8 sets, daily range): BP systolic 115–140; BP diastolic 71–88; PULSE 66–78; RESP 14–20; TEMP 98.1–98.4; O2SAT 93–99
[2024-04-23] MEDS ORDERED: LORazepam 2MG/ML-1ML VIAL IV PRN ×2 (05:30)
[2024-04-23] MEDS ORDERED: REGADENOSON 0.4 MG/5 ML SYRG IV ONE (10:00)
[2024-04-23] MEDS: REGADENOSON 0.4 MG/5 ML SYRG IV ONE (10:27)
[2024-04-23] MEDS: EMPAGLIFLOZIN 10 MG TAB PO SCH (12:25)
[2024-04-23] MEDS: ERGOCALCIFEROL 50,000 UNIT(1.25MG) CAP PO SCH (12:25)
--- NOTE | 2024-04-23 12:25 | DVHSR ---
APPROVED REPORT Exam: Nuclear Stress Test Indication: CAD Stress Tech: Tess Ferrell Ht: 5 ft 7 in Wt: 310 lbs BSA: 2.44 m2 HR: 71 bpm BP: 124/73 mmHg BMI: 48.54 Rhythm: NSR Medical History Medical History: COPD, CVA, DM, PE, HTN, HLD, Seizures, Asthma, Angina Allergies: Azithromycin, Iodine, Shellfish, Codine, Pineapple Stress Test Details Stress Test: Pharmacologic stress testing performed using 0.4 mg of regadenoson per 5 mL given IV ov er 10 seconds. Reason for pharmacologic stress test: Chest Pain. HR Resting HR: 71 bpmMax Heart Rate (APMHR): 168.596054 bpm Max HR Achieved: 101 bpmTarget HR (85% APMHR): 142.995897 bpm % of APMHR: 60.12 Recovery HR: 82 bpm BP Resting BP: 124/73 mmHg Recovery BP: 102/60 mmHg ECG Resting ECG: NSR Clinical Reason for Termination: Completed protocol Stress ECG Conclusion lvef 65% no sevee stress induced ischemia artifact noted in anterior wall region NM EXAM: Myocardial Perfusion REST/STRESS Nuclear Conclusion ECG Findings: negative for ischemia Nuclear Findings: negative for ischemia Left Ventricular Function: normal lvef 65% no sevee stress induced ischemia artifact noted in anterior wall region
--- NOTE | 2024-04-23 12:39 | DVHPN2 ---
Progress Note Date Seen: Apr 23, 2024 Medical Necessity Reason Pt with a Central, PICC or Fol: No Subjective Patient reports: Feels better Objective vital signs Vital Sign Date Time Temp Pulse Resp B/P (MAP) Pulse Ox O2 Delivery O2 Flow Rate FiO2 04/23/24 12:26 136/86 04/23/24 11:57 98.2 76 15 95 98.2 04/23/24 07:32 Nasal Cannula* 2 28 Total Intake and Output 04/22/24 04/22/24 04/23/24 15:00 23:00 07:00 Intake Total 600 ml 600 ml Balance 600 ml 600 ml medications Current Medications Medications Dose Ordered Sig/[place] Route Start Time Stop Time Status Last Admin Dose Admin Aspirin 81 mg DAILY PO 04/21/24 10:00 04/23/24 12:25 81 MG Atorvastatin Calcium 40 mg HS PO 04/21/24 22:00 04/22/24 21:11 40 MG Diagnostic Test (Pha) 1 strip ACHS 04/21/24 07:00 04/23/24 11:30 1 STRIP Insulin Human Regular ACHS SC 04/21/24 07:00 04/21/24 11:56 2 UNITS Dextrose 50 ml UD PRN IV 04/21/24 05:15 Sodium Chloride 10 ml Q8HR IV 04/21/24 06:00 04/23/24 12:26 10 ML Ondansetron HCl 4 mg Q4HP PRN IV 04/21/24 05:15 Docusate Sodium 100 mg BIDPRN PRN PO 04/21/24 05:15 Nitroglycerin 0.4 mg Q5MINP PRN SL 04/21/24 05:15 Morphine Sulfate 2 mg Q30M PRN IV 04/21/24 05:15 04/22/24 11:04 2 MG Enoxaparin Sodium 40 mg DAILY SC 04/22/24 10:00 04/23/24 12:26 40 MG Pantoprazole Sodium 40 mg DAILY@0600 PO 04/22/24 06:00 04/22/24 06:06 40 MG Furosemide 40 mg DAILY PO 04/22/24 10:00 04/23/24 12:26 40 MG Albuterol 2.5 mg Q4H PRN NEB 04/21/24 22:30 04/22/24 19:02 2.5 MG Budesonide 0.25 mg BID NEB 04/22/24 10:00 04/23/24 07:32 0.25 MG Morphine Sulfate 0.5 mg Q4HP PRN IV 04/22/24 15:00 04/22/24 18:17 0.5 MG Acetaminophen 500 mg Q4HPRN PRN PO 04/22/24 16:45 Morphine Sulfate 1 mg Q4HPRN PRN IV 04/22/24 16:45 04/23/24 03:32 1 MG Empaglifozin 10 mg DAILY PO 04/23/24 10:00 04/23/24 12:25 10 MG Lorazepam 1 mg Q5MINP PRN IV 04/23/24 05:30 Lorazepam 0.5 mg Q6HP PRN IV 04/23/24 05:30 Ergocalciferol 50,000 unit Q7D PO 04/23/24 06:45 04/23/24 12:25 50,000 UNIT Examination: GENERAL:Abnormal, HEENT:Abnormal, LUNGS:Abnormal, CVS:Abnormal, ABDOMEN:Abnormal laboratory and microbiology Laboratory Tests 04/21/24 05:33 Test 04/21/24 05:33 Range/Units Serum Glucose 114 H 74-106 mg/dL Problem List/Assessment/Plan Problem List/Assessment/Plan chest pain r/o ACS HTN HL strss mpi shows no major ischemia cont bp control asa/ statin cv cleared for dc home will sign off Plan discussed with: Patient Date of Service: Apr 23, 2024 Billing Provider: AMY PAT MD Common Visit Codes: NOT BILLABLE AMY PAT MD Apr 23, 2024 12:39
--- NOTE | 2024-04-23 13:03 | DVHDSRES ---
Discharge Summary Date of Admission Resident Creating Document: KUN WOOD RESIDENT Apr 21, 2024 at 05:11 Date of Discharge: Apr 23, 2024 Admitting Diagnosis Chest pain Labs/Diagnostic Data: Laboratory Results Test 04/23/24 06:08 04/22/24 15:33 04/21/24 18:50 04/21/24 17:40 POC Glucose 113 mg/dl (70-106) Troponin I High Sensitivity 3 ng/L (</=54) Urine Color Yellow (Yellow) Urine Clarity Turbid (Clear) Urine pH 6.0 (5.0-9.0) Urine Specific [place] > 1.035 (1.001-1.035) Urine Protein 1+ (Negative) Urine Ketones Negative (Negative) Urine Blood Negative /uL (Negative) Urine Nitrite Negative (Negative) Urine Bilirubin Negative (Negative) Urine Urobilinogen Normal mg/dL (Negative) Urine Leukocyte Esterase Negative /uL (Negative) Urine RBC 13 /hpf (0 - 3) Urine WBC 18 /hpf (0 - 3) Urine Squamous Epithelial Cells Many /hpf (<5) Urine Bacteria Few /hpf (None Seen) Urine Mucus Few (None Seen) Urine Glucose Normal mg/dL (Normal) Urine Opiates Screen Neg (NEGATIVE) Urine Fentanyl Screen Neg (NEGATIVE) Urine Barbiturates Screen Neg (NEGATIVE) Urine Phencyclidine Screen Neg (NEGATIVE) Urine Amphetamines Screen Neg (NEGATIVE) Urine Benzodiazepines Screen Neg (NEGATIVE) Urine Cocaine Screen Neg (NEGATIVE) Urine Cannabinoids Screen Neg (NEGATIVE) Test 04/21/24 12:00 04/21/24 09:41 04/21/24 05:33 Influenza Type A Antigen Negative (Negative) Influenza Type B Antigen Negative (Negative) SARS-CoV-2 Antigen (Rapid) Negative (NEGATIVE) Erythrocyte Sedimentation Rate 13 mm/hr (0-20) Prothrombin Time 10.4 sec (9.3-11.8) Prothrombin Time INR 0.98 (0.9-1.15) Activated Partial Thromboplast Time 26.6 SEC (24.5-34.5) Hemoglobin A1c 6.1 % A1C (<5.7) Magnesium Level 1.8 mg/dL (1.6-2.6) C-Reactive Protein High Sensitivity 0.27 mg/dL (<1.0) B-Type Natriuretic Peptide 3.63 pg/mL (0-100) Vitamin B12 Level 481 pg/mL (211-911) Vitamin D 25-Hydroxy 11.2 ng/mL (30.0-100) Thyroid Stimulating Hormone (TSH) 1.09 uIU/mL (0.55-4.78) White Blood Count 8.4 10^3/uL (4.4-10.8) Red Blood Count 4.98 10^6/uL (4.5-5.90) Hemoglobin 13.9 g/dL (13.5-17.5) Hematocrit 42.6 % (41.0-53.0) Mean Corpuscular Volume 85.6 fL (80.0-100.0) Mean Corpuscular Hemoglobin 28.0 pg (28.0-32.0) Mean Corpuscular Hemoglobin Concent 32.7 g/dL (32.0-36.0) Red Cell Distribution Width 15.6 % (11.8-14.3) Platelet Count 214 10^3/uL (140-450) Mean Platelet Volume 9.5 fL (6.9-10.8) Neutrophils (%) (Auto) 59.1 % (37.0-80.0) Lymphocytes (%) (Auto) 29.9 % (10.0-50.0) Monocytes (%) (Auto) 7.5 % (0.0-12.0) Eosinophils (%) (Auto) 2.8 % (0.0-7.0) Basophils (%) (Auto) 0.7 % (0.0-2.0) Neutrophils # (Auto) 5.0 10 ^3/uL (1.6-8.6) Lymphocytes # (Auto) 2.5 10 ^3/uL (0.4-5.4) Monocytes # (Auto) 0.6 10 ^3/uL (0-1.3) Eosinophils # (Auto) 0.2 10 ^3/uL (0-0.8) Basophils # (Auto) 0.1 10 ^3/uL (0-0.2) Nucleated Red Blood Cells 0.0 % Sodium Level 139 mmol/L (136-145) Potassium Level 4.0 mmol/L (3.5-5.1) Chloride Level 106 mmol/L (98-107) Carbon Dioxide Level 26 mmol/L (20-31) Anion Gap 7 (5-15) Blood Urea Nitrogen 11 mg/dL (9-23) Creatinine 0.78 mg/dL (0.700-1.30) Glomerular Filtration Rate Calc 107 mL/min (>90) BUN/Creatinine Ratio 14.1 (10.0-20.0) Serum Glucose 114 mg/dL (74-106) Calcium Level 9.2 mg/dL (8.7-10.4) Total Bilirubin 0.6 mg/dL (0.2-1.0) Aspartate Amino Transferase (AST) 22 U/L (13-40) Alanine Aminotransferase (ALT) 30 U/L (7-40) Alkaline Phosphatase 90 U/L (46-116) Total Protein 7.1 g/dL (5.7-8.2) Albumin 4.0 g/dL (3.2-4.8) Other Laboratory Tests 04/21/24 05:33 Brief Hx & Hospital Course: Huy Queen is a 54-year-old male trans patient with PMHx of CAD status post PTCA with no LUISITO at [facility] (duration unknown), 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 Chest pain started on 04/19 on rest, is on and off in nature, sharp and crampy, not related to exertion and exacerbates with deep breaths and lying flat. Associated factors include shortness of breath, orthopnea and PND, patient uses 3 pillows at night. Denies fever/chills/vomiting but reports nausea, night sweats and dizziness and palpitations. Patient has intra uterine device for menopausal bleeding. PCP Dr. Bullard at [facility] Has a book author outpatient but does not remember the name. Saw him 4 months back. Past surgical history Ankle surgery, appendectomy, tonsillectomy, 2 sections During hospital stay, patient was complaining of active chest pain for which he received aspirin and atorvastatin. Multiple EKG was completed which showed normal sinus rhythm, no ST changes. Troponin were unremarkable, BNP 3. Cardiology was consulted given his history of congestive heart failure and history of PTCA of unknown duration, Dr. Pat recommended a stress test. Echocardiogram was completed 03/27/2024 shows LVEF 55%. RVSP elevated at 40-50 mmHg, TRV 3.16. We continued his home dose of furosemide 40 mg p.o. daily. Patient underwent stress test on 04/23/2024, which was negative for ischemia, LVEF was 65%. No severe stress-induced ischemia. [employer] Dr. Pat recommended aspirin and statin daily along with antihypertensive medication. Patient was cleared for discharge per Cardiology. Telemetry was reviewed, showed paroxysmal atrial fibrillation CHADS-VASc 5 which was rate controlled. He denied taking therapeutic anticoagulation at home given the history of abnormal uterine bleeding. Patient received Lovenox 40 mg sc daily during the entire hospital stay. CT angio of the chest was also performed which shows No pulmonary emboli are identified in the 1st, 2nd and 3rd order branches of the pulmonary arteries. The segmental and subsegmental branches are not well opacified and can not be evaluated at this time in the lower extremity Doppler was performed which ruled out DVT. CT scan also showed probable cirrhotic liver morphology. Liver ultrasound was completed which showed hepatic steatosis. 04/23/2024-patient feels fine. Cardiology Dr. Pat cleared the patient for discharge. Patient is hemodynamically/clinically stable and is therefore being discharged home with home health services. The patient to follow up with his primary care physician, book author within 7-14 days. Follow up with the discharge clinic appointment within 7-14 days. Patient is advised to take his antihypertensive medications/aspirin and statin daily. Examination on the day of discharge Young male patient lying in bed, in no acute distress General: Morbidly obese, afebrile, mucosae are moist Cardiovascular: Regular S1 and S2. No murmurs, gallops or rubs. No JVD elevation. Mild pitting edema noticed in the lower extremities.. No tenderness Respiratory: Normal B/L air entry on 2 L oxygen via NC.. Mild Bibasilar crackles on auscultation. Abdomen: Soft, nontender, nondistended, normoactive bowel sounds, no rebound tenderness, no organomegaly, no masses Genitourinary: Deferred MSK/skin: Mobilizes 4 limbs. Skin is dry and warm Neurological: Residual right-sided motor weakness which is chronic per patient, no sensitive deficits, normal speech. Pupils are isocoric and reactive. Psych/Mental Status: A/Ox4 Discussed [address] Dr[address] Morales Consults/Reason for consult Cardiology consulted for chest pain Operations or Procedures ORDERING PHYSICIAN: AMY PAT MD PROCEDURE(s): CWMM - CARDIOLITE MULTIPLE REASON: cad. ORDER NUMBER(s): [id number], ACCESSION NUMBER(s): [id number] APPROVED REPORT Exam: Nuclear Stress Test Indication: CAD Stress Tech: Tess Ferrell Ht: 5 ft 7 in Wt: 310 lbs BSA: 2.44 m2 HR: 71 bpm BP: 124/73 mmHg BMI: 48.54 Rhythm: NSR Medical History Medical History: COPD, CVA, DM, PE, HTN, HLD, Seizures, Asthma, Angina Allergies: Azithromycin, Iodine, Shellfish, Codine, Pineapple Stress Test Details Stress Test: Pharmacologic stress testing performed using 0.4 mg of regadenoson per 5 mL given IV over 10 seconds. Reason for pharmacologic stress test: Chest Pain. HR Resting HR: 71 bpm Max Heart Rate (APMHR): 168.235531 bpm Max HR Achieved: 101 bpm Target HR (85% APMHR): 142.368172 bpm % of APMHR: 60.12 Recovery HR: 82 bpm BP Resting BP: 124/73 mmHg Recovery BP: 102/60 mmHg ECG Resting ECG: NSR Clinical Reason for Termination: Completed protocol Stress ECG Conclusion lvef 65% no sevee stress induced ischemia artifact noted in anterior wall region NM EXAM: Myocardial Perfusion REST/STRESS Nuclear Conclusion ECG Findings: negative for ischemia Nuclear Findings: negative for ischemia Left Ventricular Function: normal lvef 65% no sevee stress induced ischemia artifact noted in anterior wall region SIGNED BY: AMY PAT MD SIGNED DATE/TIME: 04/23/24 7924 CC: ORDERING PHYSICIAN: BRANDY FISHER PROCEDURE(s): LIVUS - LIVER REASON: cirrhosis ORDER NUMBER(s): [id number], ACCESSION NUMBER(s): [id number] INDICATION: cirrhosis TECHNIQUE: Multiple real-time sonographic images were obtained of the right upper quadrant. COMPARISON: None FINDINGS: The liver demonstrates increased echotexture without focal mass lesions. The liver measures 16.1 cm. There is no intrahepatic or extrahepatic ductal dilatation. The common duct measures 0.6 cm. The gallbladder is without evidence of stone or sludge. The gallbladder wall measures 0.3 cm and is within normal limits. The right kidney measures 11.9 cm. The right kidney is normal in contour, size, and shape. The echogenicity is normal. There is no hydronephrosis. The pancreas is not well visualized due to overlying bowel gas. IMPRESSION: Hepatic steatosis. ATED BY: EDUARDO REDMOND MD DICTATED DATE/TIME: 04/22/241616 SIGNED BY: EDUARDO REDMOND MD SIGNED DATE/TIME: 04/22/241616 CC: ORDERING PHYSICIAN: KUN WOOD RESIDENT PROCEDURE(s): CTACH - CT ANGIO CHEST CONTRAST REASON: R/O PE, chetspain, sob, ekg changes, Hx of 3 PE ORDER NUMBER(s): [id number], ACCESSION NUMBER(s): [id number] PROCEDURE: CT CT ANGIO CHEST CONTRAST 04/21/2024 01:25 PM INDICATION:R/O PE, chetspain, sob, ekg changes, Hx of 3 PE. COMPARISON: CT CT ANGIO CHEST CONTRAST on DOS: 02/28/24, CT CT ANGIO CHEST CONTRAST on DOS: 01/24/24, CT CT ANGIO CHEST CONTRAST on DOS: 09/28/22 TECHNIQUE: Coverage: Thorax IV contrast: Administered Phases: Arterial Multiplanar 3-D Maximum Intensity Projection images (MIP) reconstructions were created by the technologist in the coronal and sagittal planes as part of the CT angiography protocol. Adverse events: None Medication laboratory values were reviewed to verify the patient meets criteria for contrast administration. All CT scans at this medical facility are performed using dose modulation techniques as appropriate to a performed exam including the following: Automated exposure control was utilized; adjustment of the MA and/or KV according to patient size; and use of iterative reconstruction technique. Radiation dose: CTDIvol 29 mGy, DLP 1102 mGy*cm. FINDINGS: Cardiovascular: No pulmonary emboli are seen in the 1st, 2nd and 3rd order branches of the pulmonary arteries. The segmental subsegmental branches are not well opacified and can not be evaluated. Aorta is normal in caliber with no evidence for aneurysm or dissection. The heart is normal in size. Lungs: No focal consolidation. No pleural effusion. No pneumothorax. The airways are patent. Thyroid: Unremarkable Esophagus: Unremarkable. Lymphatics: No hilar or mediastinal lymphadenopathy. Bones/soft tissues: No acute abnormality. Multilevel degenerative changes of the thoracic spine are noted. Upper abdomen: No acute abnormality. Hepatic steatosis. Liver is mildly enlarged measuring 21 cm in craniocaudal. Other: None. IMPRESSION: 1. No pulmonary emboli are identified in the 1st, 2nd and 3rd order branches of the pulmonary arteries. The segmental and subsegmental branches are not well opacified and can not be evaluated. 2. No aortic aneurysm or dissection. No significant atherosclerotic disease. 3. Hepatomegaly, hepatic steatosis and suggestion of developing cirrhosis. Correlate clinically. ATED BY: KAT DUARTE MD DICTATED DATE/TIME: 04/21/241425 SIGNED BY: KAT DUARTE MD SIGNED DATE/TIME: 04/21/241425 CC: ORDERING PHYSICIAN: KUN WOOD RESIDENT PROCEDURE(s): BLDVT - BiLat Lower DVT REASON: DVTY? ORDER NUMBER(s): [id number], ACCESSION NUMBER(s): [id number] Bilateral lower extremity venous duplex Clinical History: DVTY Comparison: US BILAT LOWER DVT on DOS: 02/28/24, US BILAT LOWER DVT on DOS: 02/12/24 Technique: Duplex Doppler evaluation of the deep venous systems of both lower extremities from the common femoral veins to the popliteal veins including color Doppler and spectral/pulsed waveform analysis was performed. Findings: RIGHT SIDE: The common femoral vein demonstrates appropriate compressibility and waveform variability. There is compressibility/patency of the great saphenous vein at the proximal thigh. The femoral vein demonstrates appropriate compressibility and waveform variability. The deep femoral vein demonstrates appropriate compressibility and waveform variability. The popliteal vein demonstrates appropriate compressibility and waveform variability. There is color flow at the tibioperoneal trunk and in the posterior tibial vein. LEFT SIDE: The common femoral vein demonstrates appropriate compressibility and waveform variability. There is compressibility/patency of the great saphenous vein at the proximal thigh. The femoral vein demonstrates appropriate compressibility and waveform variability. The deep femoral vein demonstrates appropriate compressibility and waveform variability. The popliteal vein demonstrates appropriate compressibility and waveform variability. There is color flow at the tibioperoneal trunk and in the posterior tibial vein. Impression: 1. No right or left femoropopliteal venous thrombosis. ATED BY: KAT DUARTE MD DICTATED DATE/TIME: 04/21/24 111 SIGNED BY: KAT DUARTE MD SIGNED DATE/TIME: 04/21/24 111 CC: Condition at Discharge: Stable Final Diagnosis/Problems List Acute chest pain, ruled out ACS - secondary to viral pneumonitis Congestive heart failure- no exacerbation - diagnosed 5 months back CAD status post PTCA with no LUISITO at [facility]-duration unknown Probable asthma exacerbation Low likelihood of pneumonia Paroxysmal AFib - CHADS-VASc 5 - not on anticoagulation given the history of abnormal uterine bleeding Ruled out PE Ruled out DVT History of pulmonary embolism thrice Hepatic steatosis probably secondary to GARCIA Diabetes mellitus type 2 for the past 2 years hemoglobin A1c 6.1 Dyslipidemia History of CVA 1 year back at [facility] with residual right-sided weakness Questionable obstructive sleep apnea History of seizure disorder-last seizure 6 years ago-not on any seizure medication 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 History of abnormal uterine bleeding Diverticulosis GERD Vitamin-D deficiency Discharge Disposition: Home with Health Services Discharge Instruct/Medications Diet: Consistent carbohydrate, Cardiac 2g Na,low cholest Activity: Light activity Follow Up/Referral: Follow up with primary care physician in 7-14 days Follow up with clinic appointment Follow up with book author as outpatient in 7-14 days Medications: Per EMR Discharge Statement: "Patient was advised to return to the ER or call 911 if any headaches, dizziness, shortness of breath, chest pain, abdominal pain, bleeding, fevers, or worsening of medical condition. Patient was counseled about treatment plan, medications, possible side effects, patientverbalized understanding. All questions were answered to the best of my ability. This discharge took greater then 30 minutes in planning, reviewing documentation, counseling the patient, and discussing with other team members." ASSESSMENT ASSESSMENT Assessment Acute chest pain, ruled out ACS - secondary to viral pneumonitis Congestive heart failure- no exacerbation - diagnosed 5 months back CAD status post PTCA with no LUISITO at [facility]-duration unknown Probable asthma exacerbation Low likelihood of pneumonia Addendum Addendum Addendum I was physically present for the diaz portions of the service provided to patient by THE RESIDENT. I have reviewed the documentation, discussed the case with resident and agree with the resident's documentation except as noted. Also the patient's clinical case was discussed with the patient's nurse. This medical document was created using an electronic medical record system with computerized dictation system. Although this document has been carefully reviewed, there might still be some phonetic and typographical errors. These areas are purely typographical due to imperfections of the software programs, and do not reflect any compromise in the patient's medical care. Late signature. Date of Service: Apr 23, 2024 Billing Provider: MANOJ MORALES MD Common Visit Codes: 14549-AEK/OBS DISCH DAY >30min KUN WOOD RESIDENT Apr 23, 2024 13:03 MANOJ MORALES MD Apr 23, 2024 14:49
[2024-04-23 13:36] LABS: Basophils # (auto) 0.1 10 ^3/uL (0-0.2); Basophils % (auto) 0.8 % (0.0-2.0); Eosinophils # (auto) 0.2 10 ^3/uL (0-0.8); Eosinophils % (auto) 2.9 % (0.0-7.0); Hematocrit 43.7 % (41.0-53.0); Hemoglobin 14.2 g/dL (13.5-17.5); Lymphocytes # (auto) 2.1 10 ^3/uL (0.4-5.4); Lymphocytes % (auto) 27.8 % (10.0-50.0); Mean Corpuscular Hemoglobin 27.7 pg (28.0-32.0); Mean Corpuscular Hgb Conc. 32.4 g/dL (32.0-36.0); Mean Corpuscular Volume 85.5 fL (80.0-100.0); Monocytes # (auto) 0.5 10 ^3/uL (0-1.3); Monocytes % (auto) 6.4 % (0.0-12.0); Neutrophils # (auto) 4.6 10 ^3/uL (1.6-8.6); Neutrophils % (auto) 62.1 % (37.0-80.0); Platelet Count (auto) 216 10^3/uL (140-450); Red Blood Cells 5.11 10^6/uL (4.5-5.90); Red Cell Distribution Width 15.4 % (11.8-14.3); White Blood Cell 7.5 10^3/uL (4.4-10.8)
[2024-04-23 14:00] LABS: Alanine Aminotransferase 32 U/L (7-40); Albumin 4.4 g/dL (3.2-4.8); Alkaline Phosphatase 88 U/L (46-116); Anion Gap 2 (5-15); Aspartate Aminotransferase 29 U/L (13-40); BUN/Creatinine Ratio 14.3 (10.0-20.0); Bilirubin, Total 0.9 mg/dL (0.2-1.0); Blood Urea Nitrogen 10 mg/dL (9-23); Calcium 9.8 mg/dL (8.7-10.4); Carbon Dioxide 32 mmol/L (20-31); Chloride 104 mmol/L (98-107); Glucose 103 mg/dL (74-106); Sodium 138 mmol/L (136-145)
[2024-04-23 14:01] LABS: Total Protein 7.7 g/dL (5.7-8.2)
[2024-04-23] MEDS ORDERED: ACET650T12 PO (14:07)
== END 2024-04-23 14:25 | disposition home health service (06) | DRG 139 ==
LOC: ER 22:21 → TELE 04-21 05:11 → TELE-WESTW 04-21 17:59
PROVIDERS: ADMIT Internal Medicine; ATTEND Internal Medicine
DX: J12.9 Viral pneumonia, unspecified (principal); I69.351 Hemiplegia and hemiparesis following cerebral infarction affecting right dominant side; J44.0 Chronic obstructive pulmonary disease with (acute) lower respiratory infection; J45.901 Unspecified asthma with (acute) exacerbation; I50.9 Heart failure, unspecified; K75.81 Nonalcoholic steatohepatitis (NASH); I11.0 Hypertensive heart disease with heart failure; I48.0 Paroxysmal atrial fibrillation; G40.909 Epilepsy, unspecified, not intractable, without status epilepticus; K21.9 Gastro-esophageal reflux disease without esophagitis; Z20.822 Contact with and (suspected) exposure to COVID-19; E11.65 Type 2 diabetes mellitus with hyperglycemia; E66.01 Morbid (severe) obesity due to excess calories; E78.5 Hyperlipidemia, unspecified; I25.10 Atherosclerotic heart disease of native coronary artery without angina pectoris; E55.9 Vitamin D deficiency, unspecified; G47.33 Obstructive sleep apnea (adult) (pediatric); Z91.013 Allergy to seafood; Z88.1 Allergy status to other antibiotic agents; Z88.5 Allergy status to narcotic agent; Z68.42 Body mass index [BMI] 45.0-49.9, adult; Z82.5 Family history of asthma and other chronic lower respiratory diseases; Z82.49 Family history of ischemic heart disease and other diseases of the circulatory system; Z82.3 Family history of stroke; Z83.3 Family history of diabetes mellitus; Z80.0 Family history of malignant neoplasm of digestive organs; Z87.891 Personal history of nicotine dependence
CPT/HCPCS: 36415; 71045; 71275; 76705; 78452; 80048; 80053; 80307; 81001; 82306; 82607; 82962; 83036; 83735; 83880; 84443; 84484; 85025; 85610; 85652; 85730; 86141; 86704; 86706; 86708; 86803; 87340; 87426; 87804; 93005; 93017; 93970; 94640; 96372; 96374; 96375; 99291; G0378; J1815; J1885; J3490

== ENCOUNTER 2024-06-13 10:12 | Inpatient (IN) | payer MEDICAID ==
[~2024-06-13] VITALS: Ht 170.2 cm; Wt 138.0 kg
[2024-06-13] VITALS (9 sets, daily range): BP systolic 109–129; BP diastolic 61–84; PULSE 89–116; RESP 16–20; TEMP 98; O2SAT 94–100
[~2024-06-13 10:12] MED LIST changes: -ACET-1882 PO; +ACET650T12 PO; -DEXT1SYP9 PO; -PANT40TA2 PO; -PRED20TA2 PO
[2024-06-13] MEDS: methylPREDNISolone SOD SUCC 125 MG/2 ML VL IV ONE (11:45)
--- NOTE | 2024-06-13 11:56 | ED.PDOC ---
SOB-HPI HPI Comments 54-year-old male who comes in with chief complaint of shortness a breath with a productive cough. The patient states that the cough has yellow sputum as well as blood. There has been a low-grade fever. The patient has an elevated blood pressure that has been elevated for approximately one week. The patient also states that he has been having decreased urine output. He denies any diarrhea or any other complaints at this time. He denies being exposed to anyone that has been sick recently. Chief Complaint: Shortness of Breath Time Seen by MD: 10:31 Primary Care Provider: Matteo Ordoñez notes: Nurses Notes, Medications, Allergies (Allergies listed above) Information Source: Patient Mode of Arrival: Ambulatory Past Medical History PAST MEDICAL HISTORY: Angina, Asthma, CHF, COPD, CVA, DM, High Lipids, HTN, PE, Seizures, TIA Surgical History: Appendectomy, , Tonsillectomy Family History Family History: Family hx of DM, Family hx of heart myron, Family hx of HTN, Family hx of Kidney myron Family History (Other): Thyroid Social History Smoker: Quit Greater Than 1 Year Alcohol: Occasionally Drugs: Denies Drug Use Lives In: Home Constitutional: denies: chills, diaphoresis, fatigue, fever, malaise, sweats, weakness, others EENTM: denies: blurred vision, double vision, ear bleeding, ear discharge, ear drainage, ear pain, ear ringing, eye pain, eye redness, hearing loss, mouth pain, mouth swelling, nasal discharge, nose bleeding, nose congestion, nose p ain, photophobia, tearing, throat pain, throat swelling, voice changes, others Respiratory: reports: cough, SOB at rest, shortness of breath; denies: hemoptysis, orthopnea, SOB with excertion, stridor, wheezing, others Cardiovascular: denies: chest pain, dizzy spells, diaphoresis, Dyspnea on exertion, edema, irregular heart beat, left arm pain, lightheadedness, palpitations, PND, syncope, others Gastrointestinal: denies: abdomen distended, abdominal pain, blood streaked bowels, constipated, diarrhea, dysphagia, difficulty swallowing, hematemesis, melena, nausea, poor appetite, poor fluid intake, rectal bleeding, rectal pain, vomiting, others Genitourinary: denies: burning, dysuria, flank pain, frequency, hematuria, incontinence, penile discharge, penile sore, pain, testicle pain, testicle swelling, urgency, others Neurological: denies: dizziness, fainting, headache, left sided numbness, left sided weakness, numbness, paresthesia, pre-existing deficit, right sided n umbness, right sided weakness, seizure, speech problems, tingling, tremors, weakness, others Musculoskeletal: denies: back pain, gout, joint pain, joint swelling, muscle pain, muscle stiffness, neck pain, others Integumetry: denies: bruises, change in color, change in hair/nails, dryness, laceration, lesions, lumps, rash, wounds, others Allergic/Immunocompromised: denies: Difficulty Healing, Frequent Infections, Hives, Itching, others Hematologic/Lymphatic: denies: anemia, blood clots, easy bleeding, easy bruising, swollen glands, others Endocrine: denies: excessive hunger, excessive sweating, excessive thirst, excessive urination, flushing, intolerance to cold, intolerance to heat, unexplained weight gain, unexplained weight loss, others Psychiatric: denies: anxiety, bipolar disorder, depression, hopeless, panic disorder, schizophrenia, sleepless, suicidal, others Physical Exam General Appearance: Moderate Distress, Obese HEENT: Normal ENT Inspection, Pharynx Normal, TMs Normal Neck: Full Range of Motion, Non-Tender, Normal, Normal Inspection Respiratory: Chest Non-Tender, Decreased Breath Sounds, No Accessory Muscle Use, Respiratory Distress, Rhonchi Cardiovascular: No Edema, No JVD, No Murmur, No Gallop, Normal Peripheral Pulses, Regular Rate/Rhythm Breast Exam: Deferred Gastrointestinal: No Organomegaly, Non Tender, No Pulsatile Mass, Normal Bowel Sounds, Soft Genitalia: Deferred Pelvic: Deferred Rectal: Deferred Extremities: No calf tenderness, Normal capillary refill, Normal inspection, Normal range of motion, Non-tender, No pedal edema Musculoskeletal : Apperance: Normal Neurologic: Alert, 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 Was a procedure done?: No Differential Dx Differential Diagnosis: Asthma, Bronchitis, CHF, COPD, Pneumonia X-Ray, Labs, Meds, VS Vital Signs Date Time Temp Pulse Resp B/P (MAP) Pulse Ox O2 Delivery O2 Flow Rate FiO2 06/13/24 12:11 18 96 Room Air* 0 21 06/13/24 10:21 99.9 91 24 160/87 (111) 95 Lab Test 06/13/24 12:29 06/13/24 12:06 06/13/24 10:25 Range/Units Influenza Type A Antigen Negative Negative Influenza Type B Antigen Negative Negative SARS-CoV-2 Antigen (Rapid) Negative NEGATIVE White Blood Count 8.4 4.4-10.8 10^3/uL Red Blood Count 5.21 4.5-5.90 10^6/uL Hemoglobin 14.4 13.5-17.5 g/dL Hematocrit 44.4 41.0-53.0 % Mean Corpuscular Volume 85.2 80.0-100.0 fL Mean Corpuscular Hemoglobin 27.6 L 28.0-32.0 pg Mean Corpuscular Hemoglobin Concent 32.4 32.0-36.0 g/dL Red Cell Distribution Width 15.4 H 11.8-14.3 % Platelet Count 201 140-450 10^3/uL Mean Platelet Volume 9.9 6.9-10.8 fL Neutrophils (%) (Auto) 61.8 37.0-80.0 % Lymphocytes (%) (Auto) 27.2 10.0-50.0 % Monocytes (%) (Auto) 7.2 0.0-12.0 % Eosinophils (%) (Auto) 3.3 0.0-7.0 % Basophils (%) (Auto) 0.5 0.0-2.0 % Neutrophils # (Auto) 5.2 1.6-8.6 10 ^3/uL Lymphocytes # (Auto) 2.3 0.4-5.4 10 ^3/uL Monocytes # (Auto) 0.6 0-1.3 10 ^3/uL Eosinophils # (Auto) 0.3 0-0.8 10 ^3/uL Basophils # (Auto) 0 0-0.2 10 ^3/uL Nucleated Red Blood Cells 0.1 % Sodium Level 140 136-145 mmol/L Potassium Level 4.0 3.5-5.1 mmol/L Chloride Level 108 H 98-107 mmol/L Carbon Dioxide Level 26 20-31 mmol/L Anion Gap 6 5-15 Blood Urea Nitrogen 12 9-23 mg/dL Creatinine 1.00 0.700-1.30 mg/dL Glomerular Filtration Rate Calc 91 >90 mL/min BUN/Creatinine Ratio 12.0 10.0-20.0 Serum Glucose 121 H 74-106 mg/dL Lactic Acid Level 1.6 0.4-2.0 mmol/L Calcium Level 9.7 8.7-10.4 mg/dL B-Type Natriuretic Peptide 41.61 0-100 pg/mL POC Glucose 142 H 70-106 mg/dl Current Medications Medications (Trade) Dose Ordered Sig/[place] Route Start Time Stop Time Status Last Admin Methylprednisolone Sodium Succinate (Solu Medrol) 125 mg ONCE ONCE IV 06/13/24 11:45 06/13/24 11:46 DC 06/13/24 11:45 Ipratropium [place] (Atrovent Medneb) 1 mg ONCE ONCE N 06/13/24 11:45 06/13/24 11:46 DC 06/13/24 12:11 Albuterol (Ventolin Medneb) 20 mg ONCE ONCE [facility] 06/13/24 11:45 06/13/24 11:46 DC 06/13/24 12:11 The Accu-Chek is 142 The chest x-ray is negative The patient was given a continuous breathing treatment of albuterol and Atrovent The patient had some relief with the treatment but the patient was still wheezing so we are going to continue another breathing treatment of albuterol and Atrovent The patient was given Solu-Medrol 125 mg IV push The patient's CBC and chemistry panel is within normal limits The COVID test is negative The influenza a and influenza B are negative At this time, the patient will be admitted to the hospitalist with a diagnosis of acute respiratory failure COPD exacerbation The patient was admitted We have discussed the findings with the patient and he is in agreement with the management. Images Reviewed?: Images reviewed and evaluated by me Time of 1ST Reevaluation: 11:55 Reevaluation 1ST: Unchanged Patient Education/Counseling: Diagnosis, Treatment, Prognosis Family Education/Counseling: No Family Present Departure 1 Departure Time of Disposition: 14:32 Impression: Primary Impression: COPD exacerbation Additional Impression: Acute hypoxic respiratory failure Disposition: ADMITTED INPATIENT Admit to: [facility] Condition: Fair Critical Care Note Critical Care Time?: Yes (35 min-critical care time only) Stability Stability form required: Yes Unstable for transfer: Telemetry monitoring (Telemetry monitoring required), ED Physician Assesment (Clinical assesment) Heart Score Heart Score: Heart Score Response (Comments) Value History N/A 0 EKG N/A 0 Age N/A 0 Risk Factors N/A 0 Troponin N/A 0 Total 0 YENNY VENEGAS MD Jun 13, 2024 11:56
[2024-06-13] MEDS: IPRATROPIUM BROM 0.5 MG/2.5ML INH SOL HHN ONE (12:11)
[2024-06-13] MEDS: ALBUTEROL SULF 2.5 MG/0.5ML(0.5%) NEB SOLN HHN ONE (12:11)
[2024-06-13 12:42] LABS: Basophils # (auto) 0 10 ^3/uL (0-0.2); Basophils % (auto) 0.5 % (0.0-2.0); Eosinophils # (auto) 0.3 10 ^3/uL (0-0.8); Eosinophils % (auto) 3.3 % (0.0-7.0); Hematocrit 44.4 % (41.0-53.0); Hemoglobin 14.4 g/dL (13.5-17.5); Lymphocytes # (auto) 2.3 10 ^3/uL (0.4-5.4); Lymphocytes % (auto) 27.2 % (10.0-50.0); Mean Corpuscular Hemoglobin 27.6 pg (28.0-32.0); Mean Corpuscular Hgb Conc. 32.4 g/dL (32.0-36.0); Mean Corpuscular Volume 85.2 fL (80.0-100.0); Monocytes # (auto) 0.6 10 ^3/uL (0-1.3); Monocytes % (auto) 7.2 % (0.0-12.0); Neutrophils # (auto) 5.2 10 ^3/uL (1.6-8.6); Neutrophils % (auto) 61.8 % (37.0-80.0); Nucleated Red Blood Cells % 0.1 %; Platelet Count (auto) 201 10^3/uL (140-450); Red Blood Cells 5.21 10^6/uL (4.5-5.90); Red Cell Distribution Width 15.4 % (11.8-14.3); White Blood Cell 8.4 10^3/uL (4.4-10.8)
[2024-06-13 12:59] LABS: Sodium 140 mmol/L (136-145)
[2024-06-13 13:00] LABS: Anion Gap 6 (5-15); Carbon Dioxide 26 mmol/L (20-31)
[2024-06-13 13:01] LABS: Calcium 9.7 mg/dL (8.7-10.4)
[2024-06-13 13:06] LABS: Blood Urea Nitrogen 12 mg/dL (9-23)
[2024-06-13 13:11] LABS: Chloride 108 mmol/L (98-107); Glucose 121 mg/dL (74-106)
--- NOTE | 2024-06-13 13:44 | DVH ---
XY CHEST TWO VIEWS ROUTINE, HISTORY: sob COMPARISON: XY CHEST TWO VIEWS ROUTINE on DOS: 02/28/24, XY CHEST TWO VIEWS ROUTINE on DOS: 11/01/23, X Y CHEST TWO VIEWS ROUTINE on DOS: 09/04/23 XY CHEST TWO VIEWS ROUTINE on DOS: 02/28/24, XY CHEST TWO VIEWS ROUTINE on DOS: 11/01/23, XY CHEST TWO VIEWS ROUTINE on DOS: 09/04/23 TECHNICAL DATA: 2 view of the chest was obtained. FINDINGS: Lines and tubes: None Cardiomediastinal silhouette: normal Pulmonary vasculature: normal Lung expansion: low Lung airspace: normal Lung interstitium: normal Pleura: normal Pneumothorax: no Bones: Unremarkable Other: no IMPRESSION: No acute intrathoracic abnormality.
[2024-06-13 14:02] LABS: COVID19 ANTIGEN SOFIA FIA NEGATIVE (NEGATIVE); Rapid Influenza A Negative (Negative); Rapid Influenza B Negative (Negative)
--- NOTE | 2024-06-13 14:35 | DVHHP2 ---
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 He has a history asthma. Patient states has been intubated in the past x2 last time was seven years ago. Patient is currently states he some chills. Does complain of chest pain when taking deep breath in patient denies history of blood clot in the lungs. Is taking meds as prescribed. When evaluating patient's labs and imaging albuterol was provided with a prolonged treatment Solu-Medrol was given CBC was unremarkable BNP unremarkable glucose 147 BNP was negative COVID was negative influenza was negative patient had an echo that was completed March 27, 2024 EF was 55%. Chest x-ray was unremarkable with these findings we will admit for acute asthma exacerbation Past Medical History See HPI above Past Surgical History See HPI above Family History Reviewed, non-contributory to the management of this case. Past Social History The patient lives at home, denies smoking, alcohol or illicit drugs abuse. Review of Systems Constitutional: No: Fever, Chills, Sweats, Weakness, Malaise, Other Eyes: No: Pain, Vision change, Conjunctivae inflammation, Eyelid inflammation, Other, Redness ENT: No: Ear pain, Ear discharge, Nose pain, Nose discharge, Nose congestion, Mouth pain, Mouth swelling, Throat pain, Throat swelling, Other Respiratory: Cough, Shortness of breath, SOB with excertion; No: Dry, Wheezing, Hemoptysis, Pleuritic Pain, Sputum, Wheezing, Other Cardiovascular: Chest Pain; No: Palpitations, Orthopnea, Paroxysmal Noc. Dyspnea, Edema, Lt Headedness, Other Gastrointestinal: No: Nausea, Vomiting, Abdominal Pain, Diarrhea, Constipation, Melena, Hematochezia, Other Genitourinary: No Dysuria, No Frequency, No Incontinence, No Hematuria, No Retention, No Other Musculoskeletal: No: other, neck pain, shoulder pain, arm pain, back pain, hand pain, leg pain, foot pain Skin: No: Rash, Lesions, Jaundice, Bruising, Other Neurological: No: Weakness, Numbness, Incoordination, Change in speech, Confusion, Seizures, Other Allergies: Coded Allergies: Azithromycin (Verified Allergy, Severe, 05/22/23) RASHES AND SWELLING Iodine (Verified Allergy, Severe, 08/17/21) Shellfish Allergy (Verified Allergy, Severe, 08/17/21) Theophylline (Verified Allergy, Severe, 08/17/21) Codeine (Verified Allergy, Mild, 10/04/21) patient had [place] no reaction Pineapple (Verified Allergy, Mild, 02/29/24) Exam Vital Signs Vital Signs Date Time Temp Pulse Resp B/P (MAP) Pulse Ox O2 Delivery O2 Flow Rate FiO2 06/13/24 12:11 18 96 Room Air* 0 21 06/13/24 10:21 99.9 91 160/87 (111) General Appearance: Alert, Oriented X3, Cooperative, moderate distress HEENT: Atraumatic, PERRLA, EOMI, Mucous membr. moist/pink Respiratory: Other (Diminished lung sounds throughout with a fine wheezes heard) Cardiovascular: Regular rate, Normal S1, Normal S2, No murmurs Abdominal: Normal bowel sounds, Soft, No tenderness, No hepatospenomegaly, No masses Extremities: No clubbing, No cyanosis, No edema, Normal pulses, No tenderness/swelling Skin: No rashes, No breakdown, No significant lesion Neuro: Normal speech, Strength at 5/5 X4 ext, Normal tone, Sensation intact Psych/Mental Status: Mental status NL, Mood NL Labs/Xrays Chest x-ray unremarkable I reviewed labs, imaging CT scan abdomen pelvis, EKG and all diagnostic studies on this patient from ED records and the medical chart Labs Test 06/13/24 12:29 06/13/24 12:06 06/13/24 10:25 Range/Units Influenza Type A Antigen Negative Negative Influenza Type B Antigen Negative Negative SARS-CoV-2 Antigen (Rapid) Negative NEGATIVE White Blood Count 8.4 4.4-10.8 10^3/uL Red Blood Count 5.21 4.5-5.90 10^6/uL Hemoglobin 14.4 13.5-17.5 g/dL Hematocrit 44.4 41.0-53.0 % Mean Corpuscular Volume 85.2 80.0-100.0 fL Mean Corpuscular Hemoglobin 27.6 L 28.0-32.0 pg Mean Corpuscular Hemoglobin Concent 32.4 32.0-36.0 g/dL Red Cell Distribution Width 15.4 H 11.8-14.3 % Platelet Count 201 140-450 10^3/uL Mean Platelet Volume 9.9 6.9-10.8 fL Neutrophils (%) (Auto) 61.8 37.0-80.0 % Lymphocytes (%) (Auto) 27.2 10.0-50.0 % Monocytes (%) (Auto) 7.2 0.0-12.0 % Eosinophils (%) (Auto) 3.3 0.0-7.0 % Basophils (%) (Auto) 0.5 0.0-2.0 % Neutrophils # (Auto) 5.2 1.6-8.6 10 ^3/uL Lymphocytes # (Auto) 2.3 0.4-5.4 10 ^3/uL Monocytes # (Auto) 0.6 0-1.3 10 ^3/uL Eosinophils # (Auto) 0.3 0-0.8 10 ^3/uL Basophils # (Auto) 0 0-0.2 10 ^3/uL Nucleated Red Blood Cells 0.1 % Sodium Level 140 136-145 mmol/L Potassium Level 4.0 3.5-5.1 mmol/L Chloride Level 108 H 98-107 mmol/L Carbon Dioxide Level 26 20-31 mmol/L Anion Gap 6 5-15 Blood Urea Nitrogen 12 9-23 mg/dL Creatinine 1.00 0.700-1.30 mg/dL Glomerular Filtration Rate Calc 91 >90 mL/min BUN/Creatinine Ratio 12.0 10.0-20.0 Serum Glucose 121 H 74-106 mg/dL Lactic Acid Level 1.6 0.4-2.0 mmol/L Calcium Level 9.7 8.7-10.4 mg/dL B-Type Natriuretic Peptide 41.61 0-100 pg/mL POC Glucose 142 H 70-106 mg/dl Assessment/Plan Assessment/Plan Acute respiratory failure likely from asthma/copd cxr ordered ordered albuterol/atrovent atc ordered solumedrol atc ordered home dose of treatment ordered mag 2 iv x1 covid and influenza negative ordered abg fu results 02 to keep sats >92% consider bipap if worsening in resp status if no improvement will need to consider pulmonary consult ordered cta since pt has hx of pe fu results Acute asthma exacerbation cont albuterol/atrovent atc for now ordered solumedrol ordered protonix while on steriods Acute COPD exacerbation ordered abg cxr normal ordered albuterol/atrovent ordered solumedrol Chronic problems with continuation of the meds Leg CHF no exacerbation Chronic CVA Chronic diabetes type 2 I SSS and Accu-Chek Chronic hyperlipidemia Chronic PE Intubation x2 in the past last one seven years ago Chronic 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
[2024-06-13] MEDS: IPRATROPIUM BROM 0.5 MG/2.5ML INH SOL NEB ONE (14:51)
[2024-06-13] MEDS: ALBUTEROL SULF 2.5 MG/0.5ML(0.5%) NEB SOLN NEB ONE (14:51)
[2024-06-13 15:40] LABS: Base Excess -0.3 mmol/L (-2.0-3.0)
[2024-06-13] MEDS ORDERED: ENOXAPARIN SOD 40 MG/0.4 ML SYRINGE SC SCH (15:45)
[2024-06-13] MEDS ORDERED: NITROGLYCERIN 0.4 MG SL TAB SL PRN (15:45)
[2024-06-13] MEDS ORDERED: DOCUSATE SOD 100 MG CAP PO PRN (15:45)
[2024-06-13] MEDS: IPRATROPIUM BROM 0.5 MG/2.5ML INH SOL NEB PRN (16:48)
[2024-06-13] MEDS: ALBUTEROL SULF 2.5 MG/0.5ML(0.5%) NEB SOLN NEB SCH ×2 (16:48→18:50)
[2024-06-13] MEDS: PANTOPRAZOLE 40 MG/10 ML VIAL INJ IV ONE (16:52)
[2024-06-13] MEDS: ONDANSETRON HCL 4 MG/2 ML VIAL IV PRN (16:52)
[2024-06-13] MEDS: MAGNESIUM SULFATE 1GM/100ML 100 ML IV SCH (16:52)
[2024-06-13] MEDS: MORPHINE SULFATE INJ 2 MG/ml SYRG IV PRN (16:55)
[2024-06-13] MEDS: FUROSEMIDE 40 MG/4 ML VIAL IV ONE (16:59)
[2024-06-13] MEDS ORDERED: ALBUTEROL SULF 2.5 MG/0.5ML(0.5%) NEB SOLN NEB PRN (17:00)
[2024-06-13 17:44] LABS: INR 0.97 (0.9-1.15); Prothrombin Time 10.3 sec (9.3-11.8)
[2024-06-13] MEDS: IPRATROPIUM BROM 0.5 MG/2.5ML INH SOL NEB SCH (18:49)
[2024-06-13] MEDS: BUDESONIDE (INHALATION) 0.5 MG/2 ML NEB NEB SCH (22:49)
[2024-06-13] MEDS: ATORVASTATIN 20 MG TAB PO SCH (23:06)
[2024-06-13] MEDS: methylPREDNISolone SOD SUCC 40 MG/ML VL IV SCH (23:06)
[2024-06-13] MEDS: GABAPENTIN 300 MG CAP PO SCH (23:07)
[2024-06-13] MEDS: ENOXAPARIN SOD 150 MG/1 ML SYRINGE SC SCH (23:10)
[2024-06-14] VITALS (16 sets, daily range): BP systolic 110–134; BP diastolic 57–81; PULSE 78–101; RESP 16–20; TEMP 97.5–98.7; O2SAT 82–97
[2024-06-14] MEDS: PANTOPRAZOLE 40 MG/10 ML VIAL INJ IV SCH (06:48)
[2024-06-14 09:32] LABS: Basophils # (auto) 0 10 ^3/uL (0-0.2); Basophils % (auto) 0.1 % (0.0-2.0); Eosinophils # (auto) 0 10 ^3/uL (0-0.8); Hemoglobin 13.1 g/dL (13.5-17.5); Lymphocytes # (auto) 0.9 10 ^3/uL (0.4-5.4); Lymphocytes % (auto) 5.9 % (10.0-50.0); Mean Corpuscular Hemoglobin 27.5 pg (28.0-32.0); Mean Corpuscular Hgb Conc. 31.3 g/dL (32.0-36.0); Mean Corpuscular Volume 87.7 fL (80.0-100.0); Monocytes # (auto) 0.5 10 ^3/uL (0-1.3); Monocytes % (auto) 3.3 % (0.0-12.0); Neutrophils # (auto) 13.6 10 ^3/uL (1.6-8.6); Neutrophils % (auto) 90.7 % (37.0-80.0); Platelet Count (auto) 192 10^3/uL (140-450); Red Blood Cells 4.78 10^6/uL (4.5-5.90); Red Cell Distribution Width 15.7 % (11.8-14.3)
[2024-06-14 09:45] LABS: Alanine Aminotransferase 26 U/L (7-40); Alkaline Phosphatase 92 U/L (46-116); Anion Gap 9 (5-15); Aspartate Aminotransferase 15 U/L (13-40); BUN/Creatinine Ratio 17.2 (10.0-20.0); Blood Urea Nitrogen 16 mg/dL (9-23); Calcium 9.7 mg/dL (8.7-10.4); Carbon Dioxide 22 mmol/L (20-31); Chloride 104 mmol/L (98-107); Potassium 4.6 mmol/L (3.5-5.1)
[2024-06-14 09:46] LABS: Albumin 4.1 g/dL (3.2-4.8); Bilirubin, Total 0.4 mg/dL (0.2-1.0); Total Protein 7.2 g/dL (5.7-8.2)
[2024-06-14 09:52] LABS: Glucose 288 mg/dL (74-106); Sodium 135 mmol/L (136-145)
[2024-06-14] MEDS: FUROSEMIDE 40 MG/4 ML VIAL IV SCH (09:53)
[2024-06-14] MEDS: LISINOPRIL 5 MG TAB PO SCH (09:53)
--- NOTE | 2024-06-14 18:57 | DVHPN2 ---
Subjective Patient states that he still becomes short of breath with ambulating. Reviewed: Care Plan, H&P, Labs, Medications Changes from previous H/P or p: No Changes General: Per HPI Eyes: No Pain, No Vision change, No Conjunctivae inflammation, No Eyelid inflammation, No Other, No Redness ENT: No Ear pain, No Ear discharge, No Nose pain, No Nose discharge, No Nose congestion, No Mouth pain, No Mouth swelling, No Throat pain, No Throat swelling, No Other Cardiovascular: Chest Pain; No Palpitations, No Orthopnea, No Paroxysmal Noc. Dyspnea, No Edema, No Lt Headedness, No Other Respiratory: Cough; No Dry; Shortness of breath, SOB with excertion; No Wheezing, No Hemoptysis, No Pleuritic Pain, No Sputum, No Other Gastrointestinal: No Nausea, No Vomiting, No Abdominal Pain, No Diarrhea, No Constipation, No Melena, No Hematochezia, No Other Genitourinary: No Dysuria, No Frequency, No Incontinence, No Hematuria, No Retention, No Other Musculoskeletal: No other, No neck pain, No shoulder pain, No arm pain, No back pain, No hand pain, No leg pain, No foot pain Skin: No Rash, No Lesions, No Jaundice, No Bruising, No Other Objective Vitals Vital Signs Date Time Temp Pulse Resp B/P (MAP) Pulse Ox O2 Delivery O2 Flow Rate FiO2 06/14/24 18:48 81 18 97 06/14/24 18:48 Nasal Cannula 4.0 06/14/24 18:48 36 06/14/24 18:30 121/61 06/14/24 16:42 98.3 98.3 Intake/Output Intake and Output 06/14/24 07:00 Intake Total 605 ml Output Total 1 ml Balance 604 ml Intake Oral 605 ml Output Urine Total 1 ml General Appearance: Alert, Oriented X3, Cooperative, No acute distress HEENT: Atraumatic, PERRLA Lungs: Normal air movement, Other (Wheezing improved. Continue has been nasal cannula at 2 liters/minutes) Cardiovascular: Normal S1, Normal S2 Abdomen: Normal bowel sounds, Soft, No tenderness Musculoskeletal: Normal sensory function, Normal motor function Neuro: Normal gait, Normal speech Psych/Mental Status: Mental status NL, Mood NL Medications Current Medications Medications Dose Ordered Sig/[place] Route Start Time Stop Time Status Last Admin Dose Admin Ipratropium [place] 0.5 mg Q2HPRN PRN NEB 06/13/24 15:45 06/13/24 16:48 0.5 MG Methylprednisolone Sodium Succinate 40 mg Q8HR IV 06/13/24 22:00 06/14/24 13:38 40 MG Gabapentin 300 mg BID PO 06/13/24 22:00 06/14/24 09:52 300 MG Lisinopril 5 mg DAILY PO 06/14/24 10:00 06/14/24 09:53 5 MG Atorvastatin Calcium 40 mg HS PO 06/13/24 22:00 06/13/24 23:06 40 MG Budesonide 0.25 mg BID NEB 06/13/24 22:00 06/14/24 06:07 0.25 MG Furosemide 40 mg DAILY IV 06/14/24 10:00 06/14/24 09:53 40 MG Pantoprazole Sodium 40 mg DAILY@0630 IV 06/14/24 06:30 06/14/24 06:48 40 MG Ondansetron HCl 4 mg Q4HP PRN IV 06/13/24 15:45 06/13/24 16:52 4 MG Docusate Sodium 100 mg BIDPRN PRN PO 06/13/24 15:45 Morphine Sulfate 2 mg Q4HPRN PRN IV 06/13/24 15:45 06/14/24 17:48 2 MG Nitroglycerin 0.4 mg Q5MINP PRN SL 06/13/24 15:45 Enoxaparin Sodium 130 mg BID SC 06/13/24 22:00 06/14/24 09:54 130 MG Albuterol 2.5 mg Q4HR NEB 06/13/24 18:00 06/14/24 18:48 2.5 MG Albuterol 2.5 mg Q2HPRN PRN NEB 06/13/24 17:00 Ipratropium [place] 0.5 mg Q4HR NEB 06/13/24 18:00 06/14/24 18:48 0.5 MG Laboratory Results Laboratory Tests 06/14/24 08:54 Chemistry Test 06/14/24 08:54 Albumin 4.1 g/dL (3.2-4.8) Calcium Level 9.7 mg/dL (8.7-10.4) Total Protein 7.2 g/dL (5.7-8.2) LFT Test 06/14/24 08:54 Alanine Aminotransferase (ALT) 26 U/L (7-40) Alkaline Phosphatase 92 U/L (46-116) Aspartate Amino Transferase (AST) 15 U/L (13-40) Total Bilirubin 0.4 mg/dL (0.2-1.0) Microbiology Microbiology Date/Time Source Procedure Growth Status 06/13/24 12:06 Blood Blood Culture - Preliminary NO GROWTH AFTER 24 HOURS OF INCUBATION. 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 This medical document was created using an electronic medical record system with [employer] dictation system. Although this document has been carefully reviewed, there may still be some phonetic and typographical errors. These areas are purely typographical due to imperfections of the software programs, and do not reflect any compromise in the patient's medical care. Plan discussed with: Patient, Other (RN) My Orders Orders - JENNIFER ALCANTARA NP Procedure Category Date Status Time Albuterol Medneb PHA 06/15/24 Verified (Ventolin Medneb) 06:00 Ipratropium Medneb PHA 06/15/24 Verified (Atrovent Medneb) 06:00 Budesonide PHA 06/14/24 Verified (Inhalation) 22:00 Enoxaparin Sodium PHA 06/15/24 Verified (Lovenox) 10:00 Chest Portable XY 06/15/24 Verified 04:00 Abg W/ Co-Ox RT 06/14/24 Verified 18:49 Transfer Orders XFER 06/14/24 Verified 18:49 Bipap/Cpap For Sleep RT 06/14/24 Verified Apnea 18:49 Date of Service: Jun 14, 2024 Billing Provider: JENNIFER ALCANTARA NP Common Visit Codes: [id number] INP/OBS CARE(HIGH) JENNIFER ALCANTARA [employer] Jun 14, 2024 18:57
[2024-06-15] VITALS (11 sets, daily range): BP systolic 102–128; BP diastolic 56–83; PULSE 64–85; RESP 15–19; TEMP 97.2–98.4; O2SAT 94–99
[2024-06-15] MEDS: LORazepam 2MG/ML-1ML VIAL IV ONE (02:07)
--- NOTE | 2024-06-15 06:13 | DVH ---
EXAM: XY CHEST PORTABLE Indication: hypoxia Technique: Single frontal view of the chest was obtained Comparison: XY CHEST PORTABLE on DOS: 04/21/24, XY CHEST XRAY 1 VIEW on DOS: 03/01/24, XY CHEST PORTABL E on DOS: 02/11/24, XY CHEST PORTABLE on DOS: 01/24/24, XY CHEST PORTABLE on DOS: 11/29/23 FINDINGS: Lines and Tubes: None Lungs: No focal consolidation. Mild pulmonary vascular congestion. Pleura: No effusion. No pneumothorax. Cardiomediastinal contours: Prominence of the cardiac silhouette likely related to portable technique of exam. Bones: No acute osseous abnormality. IMPRESSION: Mild pulmonary vascular congestion.
[2024-06-15] MEDS: IPRATROPIUM BROM 0.5 MG/2.5ML INH SOL NEB SCH (07:24)
[2024-06-15] MEDS: ALBUTEROL SULF 2.5 MG/0.5ML(0.5%) NEB SOLN NEB SCH (07:24)
[2024-06-15] MEDS: BUDESONIDE (INHALATION) 0.5 MG/2 ML NEB NEB SCH (07:25)
[2024-06-15] MEDS: ENOXAPARIN SOD 40 MG/0.4 ML SYRINGE SC SCH (10:28)
[2024-06-15] MEDS ORDERED: GABA-1250 PO (14:36)
--- NOTE | 2024-06-15 14:40 | DVHDS2 ---
Discharge Summary Date of Admission Jun 13, 2024 at 15:33 Date of Discharge: Jun 15, 2024 Admitting Diagnosis Respiratory distress secondary to asthma exacerbation Labs/Diagnostic Data: Laboratory Results Test 06/14/24 20:18 06/14/24 08:54 06/13/24 16:39 06/13/24 15:18 Blood Gas Specimen Type Arterial Blood Gas Sample Site Left radial Blood Gas Patient Temperature 37.0 Arterial Blood Date Drawn [id number] Arterial Blood pH 7.333 (7.350-7.450) Arterial Blood Partial Pressure CO2 41.9 mmHg (35.0-48.0) Arterial Blood Partial Pressure O2 54.0 mmHg (83.0-108.0) Arterial Blood HCO3 21.7 mmol/L (21.0-28.0) Arterial Blood Oxygen Saturation 86.4 % (94.0-98.0) Arterial Blood Base Excess -4.0 mmol/L (-2.0-3.0) Arterial Blood Oxyhemoglobin 85.5 % (94.0-98.0) Arterial Blood Carboxyhemoglobin 0.6 % (0.5-1.5) Arterial Blood Methemoglobin 0.4 % (0.0-1.5) Phil Test Yes Blood Gas Total Hemoglobin 14.10 g/dL (13.5-17.5) Blood Gas Modality Room air FiO2 % 21.0 Blood Gas Critical Value Read Back Yes Blood Gas Notified Ramez alcantara np Blood Gas Notified Time [id number] Blood Gas Notified By Spindraw Operator gary reid White Blood Count 15.0 10^3/uL (4.4-10.8) Red Blood Count 4.78 10^6/uL (4.5-5.90) Hemoglobin 13.1 g/dL (13.5-17.5) Hematocrit 42.0 % (41.0-53.0) Mean Corpuscular Volume 87.7 fL (80.0-100.0) Mean Corpuscular Hemoglobin 27.5 pg (28.0-32.0) Mean Corpuscular Hemoglobin Concent 31.3 g/dL (32.0-36.0) Red Cell Distribution Width 15.7 % (11.8-14.3) Platelet Count 192 10^3/uL (140-450) Mean Platelet Volume 9.9 fL (6.9-10.8) Neutrophils (%) (Auto) 90.7 % (37.0-80.0) Lymphocytes (%) (Auto) 5.9 % (10.0-50.0) Monocytes (%) (Auto) 3.3 % (0.0-12.0) Eosinophils (%) (Auto) 0.0 % (0.0-7.0) Basophils (%) (Auto) 0.1 % (0.0-2.0) Neutrophils # (Auto) 13.6 10 ^3/uL (1.6-8.6) Lymphocytes # (Auto) 0.9 10 ^3/uL (0.4-5.4) Monocytes # (Auto) 0.5 10 ^3/uL (0-1.3) Eosinophils # (Auto) 0 10 ^3/uL (0-0.8) Basophils # (Auto) 0 10 ^3/uL (0-0.2) Nucleated Red Blood Cells 0.0 % Sodium Level 135 mmol/L (136-145) Potassium Level 4.6 mmol/L (3.5-5.1) Chloride Level 104 mmol/L (98-107) Carbon Dioxide Level 22 mmol/L (20-31) Anion Gap 9 (5-15) Blood Urea Nitrogen 16 mg/dL (9-23) Creatinine 0.93 mg/dL (0.700-1.30) Glomerular Filtration Rate Calc 99 mL/min (>90) BUN/Creatinine Ratio 17.2 (10.0-20.0) Serum Glucose 288 mg/dL (74-106) Calcium Level 9.7 mg/dL (8.7-10.4) Total Bilirubin 0.4 mg/dL (0.2-1.0) Aspartate Amino Transferase (AST) 15 U/L (13-40) Alanine Aminotransferase (ALT) 26 U/L (7-40) Alkaline Phosphatase 92 U/L (46-116) Total Protein 7.2 g/dL (5.7-8.2) Albumin 4.1 g/dL (3.2-4.8) Prothrombin Time 10.3 sec (9.3-11.8) Prothrombin Time INR 0.97 (0.9-1.15) D-Dimer, Quantitative 0.62 mg/L FEU (0.0-0.49) Blood Gas Liter Flow 3.00 Test 06/13/24 12:29 06/13/24 12:06 06/13/24 10:25 Influenza Type A Antigen Negative (Negative) Influenza Type B Antigen Negative (Negative) SARS-CoV-2 Antigen (Rapid) Negative (NEGATIVE) Lactic Acid Level 1.6 mmol/L (0.4-2.0) B-Type Natriuretic Peptide 41.61 pg/mL (0-100) POC Glucose 142 mg/dl (70-106) Other Laboratory Tests 06/14/24 08:54 Brief Hx & Hospital Course: History of Present Illness 54 yr old male trans patient with PMHx of CAD status post PTCA with no LUISITO at [facility] (duration unknown), 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 He has a history asthma. Patient states has been intubated in the past x2 last time was seven years ago. Patient is currently states he some chills. Does complain of chest pain when taking deep breath in patient denies history of blood clot in the lungs. Is taking meds as prescribed. When evaluating patient's labs and imaging albuterol was provided with a prolonged treatment Solu-Medrol was given CBC was unremarkable BNP unremarkable glucose 147 BNP was negative COVID was negative influenza was negative patient had an echo that was completed March 27, 2024 EF was 55%. Chest x-ray was unremarkable with these findings we will admit for acute asthma exacerbation. Course of hospitalization: Patient was treated with bronchodilators, with the addition of Pulmicort, as well as IV Solu-Medrol. Patient states that chronically he was on 2 L of oxygen at home. The patient's wheezing has improved. While in the hospital the patient was started on home CPAP, given the patient reports that he has a history of obstructive sleep apnea. Patient was wheezing has improved. Room air ABG was performed with PaO2 noted to be 54%. Discussion was made with the patient regarding plan of care for sleep apnea, for which he states he was currently waiting for new sleep study trial given his current machine was sent back to the company due to recall. Patient will follow up with his PCP in 1-2 weeks, in addition to following up with his recreation center director at next earliest appointment. Patient will continue on a course of steroids, prednisone 40 mg x5 days with a tapering dose of 20 mg for additional five days. Patient reports that he was home oxygen, Ventolin MDI, as well as albuterol nebulizer treatments as needed. All questions answered. Physical examination General: Alert and Oriented x3. No acute distress. Well-nourished. Obese Eyes: EOMI. Anicteric. HENT: Moist mucous membranes. Lungs: Clear to auscultation bilaterally. No accessory muscle use. Cardiovascular: Regular rate and rhythm. No murmur. No JVD. Abdomen: Soft, non-tender and non-distended. No palpable masses. Extremities: No edema. Non-tender. Skin: No rashes or lesions. Warm. Neurologic: No focal neurological deficits. CN II-XII grossly intact, but not individually tested. Psychiatric: Cooperative. Appropriate mood and affect. Total time spent with patient and family regarding advance care plannin minutes. Total time spent with patient discussing and formulating plan of care: 35 minutes. This medical document was created using an electronic medical record system with e[employer] dictation system. Although this document has been carefully reviewed, there may still be some phonetic and typographical errors. These areas are purely typographical due to imperfections of the software programs, and do not reflect any compromise in the patient's medical care. 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 Follow Up/Referral: Follow up with PCP in 1-2 weeks Obtain referral for sleep study and new recreation center director Medications: Continue all previous home medications Prednisone 40 mg p.o. daily x5 days, then 20 mg p.o. daily x5 days 36 Discharge Statement: "Patient was advised to return to the ER or call 911 if any headaches, dizziness, shortness of breath, chest pain, abdominal pain, bleeding, fevers, or worsening of medical condition. Patient was counseled about treatment plan, medications, possible side effects, patientverbalized understanding. All questions were answered to the best of my ability. This discharge took greater then 30 minutes in planning, reviewing documentation, counseling the patient, and discussing with other team members." ASSESSMENT ASSESSMENT Assessment Acute on chronic hypoxic respiratory failure Date of Service: Jun 15, 2024 Billing Provider: JENNIFER ALCANTARA NP Common Visit Codes: 24040-ZYX/OBS DISCH DAY >30min JENNIFER ALCANTARA NP Jun 15, 2024 14:40
--- NOTE | 2024-06-17 13:05 | ECG ---
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
== END 2024-06-15 17:00 | disposition home or self-care (01) | DRG 133 ==
LOC: ER 10:12 → TELE 15:33 → TELE-WESTW 21:11 → WEST WING 06-15 02:34
PROVIDERS: ADMIT Nurse Practitioner Family; ATTEND Nurse Practitioner Acute Care
PROC: 5A09357 Assistance with Respiratory Ventilation, Less than 24 Consecutive Hours, Continuous Positive Airway Pressure (ICD-10-PCS; principal; 2024-06-15)
DX: J96.21 Acute and chronic respiratory failure with hypoxia (principal); I49.5 Sick sinus syndrome; J44.1 Chronic obstructive pulmonary disease with (acute) exacerbation; J45.901 Unspecified asthma with (acute) exacerbation; I69.351 Hemiplegia and hemiparesis following cerebral infarction affecting right dominant side; I50.9 Heart failure, unspecified; I11.0 Hypertensive heart disease with heart failure; Z20.822 Contact with and (suspected) exposure to COVID-19; E11.9 Type 2 diabetes mellitus without complications; E78.5 Hyperlipidemia, unspecified; G40.909 Epilepsy, unspecified, not intractable, without status epilepticus; D72.829 Elevated white blood cell count, unspecified; T38.0X5A Adverse effect of glucocorticoids and synthetic analogues, initial encounter; I25.10 Atherosclerotic heart disease of native coronary artery without angina pectoris; G47.33 Obstructive sleep apnea (adult) (pediatric); E66.9 Obesity, unspecified; Z82.49 Family history of ischemic heart disease and other diseases of the circulatory system; Z83.3 Family history of diabetes mellitus; Z87.891 Personal history of nicotine dependence; Z88.1 Allergy status to other antibiotic agents; Z91.013 Allergy to seafood; Z88.5 Allergy status to narcotic agent; Z91.041 Radiographic dye allergy status; Z79.899 Other long term (current) drug therapy; Y92.89 Other specified places as the place of occurrence of the external cause; Z98.61 Coronary angioplasty status; Z68.42 Body mass index [BMI] 45.0-49.9, adult
CPT/HCPCS: 36415; 36600; 71045; 71046; 80048; 80053; 82805; 82962; 83605; 83880; 85025; 85379; 85610; 87040; 87426; 87804; 93005; 94640; 94644; 94660; 96374; 99291; G0378; J2405; J2470

== ENCOUNTER 2024-06-24 14:04 | Inpatient (IN) | payer MEDICAID ==
[~2024-06-24] VITALS: Ht 170.2 cm; Wt 135.9 kg
[~2024-06-24 14:04] MED LIST changes: -FURO40TA4 PO
--- NOTE | 2024-06-24 14:33 | DVH ---
XY CHEST PORTABLE, HISTORY: sob COMPARISON: XY CHEST PORTABLE on DOS: 06/15/24, XY CHEST PORTABLE on DOS: 04/21/24, XY CHEST XRAY 1 EW on DOS: 03/01/24 XY CHEST PORTABLE on DOS: 06/15/24, XY CHEST PORTABLE on DOS: 04/21/24, XY CHEST XRAY 1 VIEW on DOS: TECHNICAL DATA: 1 view of the chest was obtained. FINDINGS: Lines and tubes: None Cardiomediastinal silhouette: normal Pulmonary vasculature: normal Lung expansion: low Lung airspace: normal Lung interstitium: normal Pleura: normal Pneumothorax: no Bones: Unremarkable Other: no IMPRESSION: No acute intrathoracic abnormality.
--- NOTE | 2024-06-24 14:42 | DVH ---
EXAM: CT HEAD WITHOUT CONTRAST INDICATION: cva TECHNIQUE: CT of the head without intravenous contrast. Radiation Dose Information: CT Dose: CTDI volume is 60.78 mGy. Dose-length product is 1095.76 mGy*cm The dose indicators for CT are the volume Computed Tomography (CT) Dose Index (CTDIvol) and the Dose Length Product (DLP), and are measured in units of mGy and mGy-cm, respectively. These indicators are not patient dose, but values generated from the CT scanner acquisition factors. The report includes radiation exposure data for exposures received during this examination. COMPARISON: CT HEAD WITHOUT CONTRAST on DOS: 07/29/23 FINDINGS: There is no evidence of acute intracranial hemorrhage, extra-axial collection, mass effect, midline s hift, herniation or hydrocephalus. The ventricles, sulci and cisterns are age appropriate. The griffith-white differentiation is intact. Patchy periventricular and subcortical white matter hypoattenuation is nonspecific but may be related to small vessel ischemic disease. The visualized paranasal sinuses and mastoid air cells are clear. The surrounding soft tissues and osseous structures are unremarkable. IMPRESSION: 1. No CT evidence of acute intracranial abnormality. If there is clinical concern for acute ischemia, MRI is recommended for further evaluation. HS:Y
[2024-06-24 14:48] LABS: Basophils # (auto) 0 10 ^3/uL (0-0.2); Basophils % (auto) 0.5 % (0.0-2.0); Eosinophils # (auto) 0.2 10 ^3/uL (0-0.8); Eosinophils % (auto) 2.5 % (0.0-7.0); Hematocrit 43.9 % (41.0-53.0); Hemoglobin 14.5 g/dL (13.5-17.5); Lymphocytes # (auto) 2.6 10 ^3/uL (0.4-5.4); Mean Corpuscular Hemoglobin 28.3 pg (28.0-32.0); Mean Corpuscular Hgb Conc. 33.2 g/dL (32.0-36.0); Mean Corpuscular Volume 85.4 fL (80.0-100.0); Monocytes # (auto) 0.6 10 ^3/uL (0-1.3); Monocytes % (auto) 6.4 % (0.0-12.0); Neutrophils # (auto) 6.2 10 ^3/uL (1.6-8.6); Neutrophils % (auto) 63.6 % (37.0-80.0); Nucleated Red Blood Cells % 0.1 %; Platelet Count (auto) 225 10^3/uL (140-450); Red Blood Cells 5.14 10^6/uL (4.5-5.90); Red Cell Distribution Width 15.4 % (11.8-14.3); White Blood Cell 9.7 10^3/uL (4.4-10.8)
--- NOTE | 2024-06-24 15:17 | ED.PDOC ---
HPI (NEURO) HPI Comments 54 Y M with PMHX of CVA, HTN, DM, COPD, HLD, and CHF presents to the ED with CC of right sided weakness. Patient states, that he has been experiencing right sided weakness/numbness since 2100 on 06/23/24. Patient relays, that he is ambulatory but since the onset of his symptoms he has been unable to. Patient denies headache, fatigue, lightheadedness, or difficulty speaking. Chief Complaint: Right Sided Weakness Time Seen by MD: 14:30 Primary Care Provider: none Reviewed Notes: Nurses Notes, Medications, Allergies Information Source: Patient Mode of Arrival: EMS Severity: Moderate Headache Severity: Moderate Timing: Hours Duration: Since onset Weakness Location: (R) Sided Numbness Location: (R) Sided Circumstances: Spontaneous Symptoms: Numbness Before: Normal History of: CVA Modifying factors: Nothing Associated Signs and Symptoms: None Past Medical History PAST MEDICAL HISTORY: Angina, Asthma, CHF, COPD, CVA, DM, High Lipids, HTN, PE, Seizures, TIA Surgical History: Appendectomy, , Tonsillectomy Family History Family History: Family hx of DM, Family hx of heart myron, Family hx of HTN, Family hx of Kidney myron Family History (Other): Thyroid Social History Smoker: Quit Greater Than 1 Year Alcohol: Occasionally Drugs: Denies Drug Use Lives In: Home Constitutional: reports: weakness; denies: chills, diaphoresis, fatigue, fever, malaise, sweats, others EENTM: denies: blurred vision, double vision, ear bleeding, ear discharge, ear drainage, ear pain, ear ringing, eye pain, eye redness, hearing loss, mouth pain, mouth swelling, nasal discharge, nose bleeding, nose congestion, nose pain, photophobia, tearing, throat pain, throat swelling, voice changes, others Respiratory: denies: cough, hemoptysis, orthopnea, SOB at rest, shortness of breath, SOB with excertion, stridor, wheezing, others Cardiovascular: denies: chest pain, dizzy spells, diaphoresis, Dyspnea on exertion, edema, irregular heart beat, left arm pain, lightheadedness, palpitations, PND, syncope, others Gastrointestinal: denies: abdomen distended, abdominal pain, blood streaked bowels, constipated, diarrhea, dysphagia, difficulty swallowing, hematemesis, melena, nausea, poor appetite, poor fluid intake, rectal bleeding, rectal pain, vomiting, others Genitourinary: denies: burning, dysuria, flank pain, frequency, hematuria, incontinence, penile discharge, penile sore, pain, testicle pain, testicle swelling, urgency, others Neurological: reports: right sided weakness; denies: dizziness, fainting, headache, left sided numbness, left sided weakness, numbness, paresthesia, pre- existing deficit, right sided numbness, seizure, speech problems, tingling, tremors, weakness, others Musculoskeletal: denies: back pain, gout, joint pain, joint swelling, muscle pain, muscle stiffness, neck pain, others Integumetry: denies: bruises, change in color, change in hair/nails, dryness, laceration, lesions, lumps, rash, wounds, others Allergic/Immunocompromised: denies: Difficulty Healing, Frequent Infections, Hives, Itching, others Hematologic/Lymphatic: denies: anemia, blood clots, easy bleeding, easy bruising, swollen glands, others Endocrine: denies: excessive hunger, excessive sweating, excessive thirst, excessive urination, flushing, intolerance to cold, intolerance to heat, unexplained weight gain, unexplained weight loss, others Psychiatric: denies: anxiety, bipolar disorder, depression, hopeless, panic disorder, schizophrenia, sleepless, suicidal, others All Other Systems: Reviewed and Negative Physical Exam General Appearance: Moderate Distress, Normal HEENT: Normal ENT Inspection, Pharynx Normal, TMs Normal Neck: Full Range of Motion, Non-Tender, Normal, Normal Inspection Respiratory: Chest Non-Tender, Lungs Clear, No Accessory Muscle Use, No Res piratory Distress, Normal Breath Sounds Cardiovascular: No Edema, No JVD, No Murmur, No Gallop, Normal Peripheral Pulses, Regular Rate/Rhythm Breast Exam: Deferred Gastrointestinal: No Organomegaly, Non Tender, No Pulsatile Mass, Normal Bowel Sounds, Soft Genitalia: Deferred Pelvic: Deferred Rectal: Deferred Extremities: Decreased range of motion (Right upper lower extremity), No calf tenderness, Normal capillary refill, Non-tender, No pedal edema Musculoskeletal : Apperance: Normal Neurologic: Alert, ferris wheel operator II-XII nml as Tested, Motor Weakness (Right upper lower extremity), Normal Mood, No Sensory Deficits Cerebellar Function: NOT DONE Reflexes: NOT DONE Skin: Dry, Normal Color, Warm Peripheral Pulses: 3+ Radial (R), 3+ Radial (L) Lymphatic: No Adenopathy Was a procedure done? Was a procedure done?: No Differential Diagnosis (SZ) Seizure: Psychogenic Seizure, Closed Head Injury, CVA/TIA CVA: Giang's Palsy, CVA General Weakness: CVA X-Ray, Labs, Meds, VS Vital Signs Date Time Temp Pulse Resp B/P (MAP) Pulse Ox O2 Delivery O2 Flow Rate FiO2 06/24/24 14:20 98.0 90 20 152/102 (119) 98 06/24/24 14:17 89 Lab Test 06/24/24 14:37 Range/Units White Blood Count 9.7 4.4-10.8 10^3/uL Red Blood Count 5.14 4.5-5.90 10^6/uL Hemoglobin 14.5 13.5-17.5 g/dL Hematocrit 43.9 41.0-53.0 % Mean Corpuscular Volume 85.4 80.0-100.0 fL Mean Corpuscular Hemoglobin 28.3 28.0-32.0 pg Mean Corpuscular Hemoglobin Concent 33.2 32.0-36.0 g/dL Red Cell Distribution Width 15.4 H 11.8-14.3 % Platelet Count 225 140-450 10^3/uL Mean Platelet Volume 9.3 6.9-10.8 fL Neutrophils (%) (Auto) 63.6 37.0-80.0 % Lymphocytes (%) (Auto) 27.0 10.0-50.0 % Monocytes (%) (Auto) 6.4 0.0-12.0 % Eosinophils (%) (Auto) 2.5 0.0-7.0 % Basophils (%) (Auto) 0.5 0.0-2.0 % Neutrophils # (Auto) 6.2 1.6-8.6 10 ^3/uL Lymphocytes # (Auto) 2.6 0.4-5.4 10 ^3/uL Monocytes # (Auto) 0.6 0-1.3 10 ^3/uL Eosinophils # (Auto) 0.2 0-0.8 10 ^3/uL Basophils # (Auto) 0 0-0.2 10 ^3/uL Nucleated Red Blood Cells 0.1 % Sodium Level 138 136-145 mmol/L Potassium Level 4.0 3.5-5.1 mmol/L Chloride Level 107 98-107 mmol/L Carbon Dioxide Level 21 20-31 mmol/L Anion Gap 10 5-15 Blood Urea Nitrogen 8 L 9-23 mg/dL Creatinine 0.68 L 0.700-1.30 mg/dL Glomerular Filtration Rate Calc 112 >90 mL/min BUN/Creatinine Ratio 11.8 10.0-20.0 Serum Glucose 152 H 74-106 mg/dL Calcium Level 9.6 8.7-10.4 mg/dL B-Type Natriuretic Peptide 6.96 0-100 pg/mL [place] [address] Ph: [phone] DIAGNOSTIC IMAGING Diagnostic Imaging Report : [id number] Signed PATIENT: CHRISTIAN COWAN ACCT: [id number] UNIT: [id number] : 1970 LOC: ER ROOM / BED: / AGE / SEX: 54 / M ADM STATUS: REG ER SERVICE 1416 ORDERING PHYSICIAN: JOCELYN ROMERO MD PROCEDURE(s): CXRP - CHEST PORTABLE REASON: sob ORDER NUMBER(s): [id number], ACCESSION NUMBER(s): [id number] XY CHEST PORTABLE, HISTORY: sob COMPARISON: XY CHEST PORTABLE on DOS: 06/15/24, XY CHEST PORTABLE on DOS: 04/21/24, XY CHEST XRAY 1 VIEW on DOS: 03/01/24 XY CHEST PORTABLE on DOS: 06/15/24, XY CHEST PORTABLE on DOS: 04/21/24, XY CHEST XRAY 1 VIEW on DOS: 03/01/24 TECHNICAL DATA: 1 view of the chest was obtained. FINDINGS: Lines and tubes: None Cardiomediastinal silhouette: normal Pulmonary vasculature: normal Lung expansion: low Lung airspace: normal Lung interstitium: normal Pleura: normal Pneumothorax: no Bones: Unremarkable Other: no IMPRESSION: No acute intrathoracic abnormality. ATED BY: TONI HAMMOND MD DICTATED DATE/TIME: 06/24/24 1430 SIGNED BY: TONI HAMMOND MD SIGNED DATE/TIME: 06/24/24 1430 CC: [place] [id number] [place] [address] Ph: [phone] DIAGNOSTIC IMAGING Diagnostic Imaging Report : [id number] Signed PATIENT: CHRISTIAN COWAN ACCT: [id number] UNIT: [id number] : 1970 LOC: ER ROOM / BED: / AGE / SEX: 54 / M ADM STATUS: REG ER SERVICE 1416 ORDERING PHYSICIAN: JOCELYN ROMERO MD PROCEDURE(s): HWOCT - HEAD WITHOUT CONTRAST REASON: cva ORDER NUMBER(s): [id number], ACCESSION NUMBER(s): [id number] EXAM: CT HEAD WITHOUT CONTRAST INDICATION: cva TECHNIQUE: CT of the head without intravenous contrast. Radiation Dose Information: CT Dose: CTDI volume is 60.78 mGy. Dose-length product is 1095.76 mGy*cm The dose indicators for CT are the volume Computed Tomography (CT) Dose Index (CTDIvol) and the Dose Length Product (DLP), and are measured in units of mGy and mGy-cm, respectively. These indicators are not patient dose, but values generated from the CT scanner acquisition factors. The report includes radiation exposure data for exposures received during this examination. COMPARISON: CT HEAD WITHOUT CONTRAST on DOS: 07/29/23 FINDINGS: There is no evidence of acute intracranial hemorrhage, extra-axial collection, mass effect, midline shift, herniation or hydrocephalus. The ventricles, sulci and cisterns are age appropriate. The griffith-white differentiation is intact. Patchy periventricular and subcortical white matter hypoattenuation is nonspecific but may be related to small vessel ischemic disease. The visualized paranasal sinuses and mastoid air cells are clear. The surrounding soft tissues and osseous structures are unremarkable. IMPRESSION: 1. No CT evidence of acute intracranial abnormality. If there is clinical concern for acute ischemia, MRI is recommended for further evaluation. HS:Y ATED BY: KOKI DIAZ DO DICTATED DATE/TIME: 06/24/24 1440 SIGNED BY: KOKI DIAZ DO SIGNED DATE/TIME: 06/24/24 1440 CC: Patient alert. Complaining of right upper lower extremity weakness. Vitals stable. Answering all questions. On examination he does have weakness on the right side. Blood sugar elevated. Blood pressure elevated. Was given clonidine. CT of the head reviewed does not show any acute changes. Explained to the patient that he will possibly need MRI. Reviewed his previous visit. Explained to the patient. Continue cardiac monitoring. Time of 1ST Reevaluation: 15:00 Reevaluation 1ST: Unchanged Patient Education/Counseling: Diagnosis, Treatment Family Education/Counseling: No Family Present Departure 1 Departure Time of Disposition: 16:14 Impression: Primary Impression: TIA (transient ischemic attack) Additional Impressions: Uncontrolled diabetes mellitus Qualified Codes: E13.65 - Other specified diabetes mellitus with hyperglycemia Hypertension Qualified Codes: I10 - Essential (primary) hypertension Disposition: ADMITTED INPATIENT Admit to: Med Surg Condition: Guarded Critical Care Note Critical Care Time?: No Stability Stability form required: No Heart Score Heart Score: Heart Score Response (Comments) Value History N/A 0 EKG N/A 0 Age N/A 0 Risk Factors N/A 0 Troponin N/A 0 Total 0 I personally scribed for JOCELYN ROMERO MD ([email or web address]) on 06/24/24 at 15:17. Electronically submitted by Tess Sky ([email or web address]). I personally scribed for JOCELYN ROMERO MD ([email or web address]) on 06/24/24 at 15:37. Electronically submitted by Tess Sky ([email or web address]). I personally scribed for JOCELYN ROMERO MD ([email or web address]) on 06/24/24 at 15:38. Electronically submitted by Tess Sky ([email or web address]). I personally scribed for JOCELYN ROMERO MD ([email or web address]) on 06/24/24 at 15:41. Electronically submitted by Tess Sky ([email or web address]). JOCELYN ROMERO MD Jun 24, 2024 15:17
[2024-06-24 15:29] LABS: Sodium 138 mmol/L (136-145)
[2024-06-24 15:30] LABS: Anion Gap 10 (5-15); Calcium 9.6 mg/dL (8.7-10.4); Carbon Dioxide 21 mmol/L (20-31)
[2024-06-24 15:35] LABS: BUN/Creatinine Ratio 11.8 (10.0-20.0); Chloride 107 mmol/L (98-107)
[2024-06-24 15:49] LABS: Blood Urea Nitrogen 8 mg/dL (9-23); Glucose 152 mg/dL (74-106)
[2024-06-24] MEDS ORDERED: TEMAZEPAM 15 MG CAP PO PRN (19:45)
[2024-06-24] MEDS ORDERED: DEXTROSE (50%) 50ML SYRG IV PRN (19:45)
--- NOTE | 2024-06-25 04:08 | DVHHP2 ---
History of Present Illness Reason for Visit: Right-sided weakness History of Present Illness 54-year-old male presents for evaluation of right-sided weakness. Patient reports a one day history of right-sided weakness of upper and lower extremity. He also noticed mild right-sided drooping. Denies headache. He also reports right-sided blurred vision. Denies chest pain or shortness for breath. No other acute complaints reported. Past Medical History COPD, asthma, CVA, diabetes mellitus, dyslipidemia, hypertension, P, seizures Past Surgical History Denies Family History Hypertension, heart disease Smoke: Quit ALCOHOL: occassional Drugs: None Lives: with Family Review of Systems Review of Systems Review of systems are currently negative otherwise addressed in HPI. Allergies: Coded Allergies: Azithromycin (Verified Allergy, Severe, 05/22/23) RASHES AND SWELLING Iodine (Verified Allergy, Severe, 08/17/21) Shellfish Allergy (Verified Allergy, Severe, 08/17/21) Theophylline (Verified Allergy, Severe, 08/17/21) Codeine (Verified Allergy, Mild, 10/04/21) patient had [place] no reaction Pineapple (Verified Allergy, Mild, 02/29/24) Medications Current Medications Medications Dose Ordered Sig/[place] Route Start Time Stop Time Status Last Admin Dose Admin Lisinopril 10 mg DAILY PO 06/25/24 10:00 Atorvastatin Calcium 40 mg HS PO 06/24/24 22:00 Gabapentin 300 mg BID PO 06/24/24 22:00 Aspirin 162 mg DAILY PO 06/25/24 10:00 Diagnostic Test (Pha) 1 strip ACHS 06/24/24 22:00 Insulin Human Regular ACHS SC 06/24/24 22:00 Dextrose 50 ml UD PRN IV 06/24/24 19:45 Temazepam 15 mg QHSP PRN PO 06/24/24 19:45 Ondansetron HCl 4 mg Q4HP PRN IV 06/24/24 19:45 Enoxaparin Sodium 40 mg DAILY SC 06/25/24 10:00 Acetaminophen 650 mg Q6HP PRN PO 06/24/24 19:45 Exam Vital Signs Vital Signs Date Time Temp Pulse Resp B/P (MAP) Pulse Ox O2 Delivery O2 Flow Rate FiO2 06/24/24 14:20 98.0 90 20 152/102 (119) 98 Exam Gen: 54-year-old male in mild distress Skin: Warm, dry, normal color and texture, no rash. HEENT: Normocephalic atraumatic, mucous membranes moist and pink. Neck: Cervical and supraclavicular nodes normal without enlargement, trachea is midline, thyroid gland is normal without masses. Pulmonary: Clear to auscultation and percussion bilaterally. Cardiac: Regular rate and rhythm. No murmur Abdomen: Soft, nontender, nondistended, bowel sounds present all 4 quadrants, no guarding, no rigidity, no organomegaly. Extremities: No cyanosis, clubbing, no edema Neuro: Mild right facial droop, RUE2/5, RLE 2/5, LUE5/5,LLE 5/5 Labs/Xrays ORDERING PHYSICIAN: JOCELYN ROMERO MD PROCEDURE(s): CXRP - CHEST PORTABLE REASON: sob ORDER NUMBER(s): [id number], ACCESSION NUMBER(s): [id number] XY CHEST PORTABLE, HISTORY: sob COMPARISON: XY CHEST PORTABLE on DOS: 06/15/24, XY CHEST PORTABLE on DOS: 04/21/24, XY CHEST XRAY 1 VIEW on DOS: 03/01/24 XY CHEST PORTABLE on DOS: 06/15/24, XY CHEST PORTABLE on DOS: 04/21/24, XY CHEST XRAY 1 VIEW on DOS: 03/01/24 TECHNICAL DATA: 1 view of the chest was obtained. FINDINGS: Lines and tubes: None Cardiomediastinal silhouette: normal Pulmonary vasculature: normal Lung expansion: low Lung airspace: normal Lung interstitium: normal Pleura: normal Pneumothorax: no Bones: Unremarkable Other: no IMPRESSION: No acute intrathoracic abnormality. RING PHYSICIAN: JOCELYN ROMERO MD PROCEDURE(s): HWOCT - HEAD WITHOUT CONTRAST REASON: cva ORDER NUMBER(s): [id number], ACCESSION NUMBER(s): [id number] EXAM: CT HEAD WITHOUT CONTRAST INDICATION: cva TECHNIQUE: CT of the head without intravenous contrast. Radiation Dose Information: CT Dose: CTDI volume is 60.78 mGy. Dose-length product is 1095.76 mGy*cm The dose indicators for CT are the volume Computed Tomography (CT) Dose Index (CTDIvol) and the Dose Length Product (DLP), and are measured in units of mGy and mGy-cm, respectively. These indicators are not patient dose, but values generated from the CT scanner acquisition factors. The report includes radiation exposure data for exposures received during this examination. COMPARISON: CT HEAD WITHOUT CONTRAST on DOS: 07/29/23 FINDINGS: There is no evidence of acute intracranial hemorrhage, extra-axial collection, mass effect, midline shift, herniation or hydrocephalus. The ventricles, sulci and cisterns are age appropriate. The griffith-white differentiation is intact. Patchy periventricular and subcortical white matter hypoattenuation is nonspecific but may be related to small vessel ischemic disease. The visualized paranasal sinuses and mastoid air cells are clear. The surrounding soft tissues and osseous structures are unremarkable. IMPRESSION: 1. No CT evidence of acute intracranial abnormality. If there is clinical concern for acute ischemia, MRI is recommended for further evaluation. HS:Y Labs Test 06/24/24 14:37 Range/Units White Blood Count 9.7 4.4-10.8 10^3/uL Red Blood Count 5.14 4.5-5.90 10^6/uL Hemoglobin 14.5 13.5-17.5 g/dL Hematocrit 43.9 41.0-53.0 % Mean Corpuscular Volume 85.4 80.0-100.0 fL Mean Corpuscular Hemoglobin 28.3 28.0-32.0 pg Mean Corpuscular Hemoglobin Concent 33.2 32.0-36.0 g/dL Red Cell Distribution Width 15.4 H 11.8-14.3 % Platelet Count 225 140-450 10^3/uL Mean Platelet Volume 9.3 6.9-10.8 fL Neutrophils (%) (Auto) 63.6 37.0-80.0 % Lymphocytes (%) (Auto) 27.0 10.0-50.0 % Monocytes (%) (Auto) 6.4 0.0-12.0 % Eosinophils (%) (Auto) 2.5 0.0-7.0 % Basophils (%) (Auto) 0.5 0.0-2.0 % Neutrophils # (Auto) 6.2 1.6-8.6 10 ^3/uL Lymphocytes # (Auto) 2.6 0.4-5.4 10 ^3/uL Monocytes # (Auto) 0.6 0-1.3 10 ^3/uL Eosinophils # (Auto) 0.2 0-0.8 10 ^3/uL Basophils # (Auto) 0 0-0.2 10 ^3/uL Nucleated Red Blood Cells 0.1 % Sodium Level 138 136-145 mmol/L Potassium Level 4.0 3.5-5.1 mmol/L Chloride Level 107 98-107 mmol/L Carbon Dioxide Level 21 20-31 mmol/L Anion Gap 10 5-15 Blood Urea Nitrogen 8 L 9-23 mg/dL Creatinine 0.68 L 0.700-1.30 mg/dL Glomerular Filtration Rate Calc 112 >90 mL/min BUN/Creatinine Ratio 11.8 10.0-20.0 Serum Glucose 152 H 74-106 mg/dL Calcium Level 9.6 8.7-10.4 mg/dL B-Type Natriuretic Peptide 6.96 0-100 pg/mL Assessment/Plan Assessment/Plan Assessment Right-sided weakness rule out CVA Diabetes mellitus Hypertension COPD Morbid obesity Plan Admit the patient to [facility] to the hospitalist Neurology consultation MRI of the brain pending Continue treatment per orders. Plan discussed with: Patient My Orders Orders - MIGUEL WILSON Procedure Category Date Status Time Lisinopril Tablet PHA 06/25/24 In Process (Zestril Tablet) 10:00 Atorvastatin (Lipitor) PHA 06/24/24 In Process 22:00 Gabapentin Capsule PHA 06/24/24 In Process (Neurontin Capsule) 22:00 * Neurology Consult CONS 06/24/24 Transmitted 19:44 Aspirin Tablet PHA 06/25/24 In Process 10:00 Basic Metabolic Panel LAB 06/25/24 Logged 04:00 Brain Head Wo Contrast MRI 06/24/24 Logged 19:44 Glucose Blood PHA 06/24/24 In Process (Accu-Chek Comfort 22:00 Insulin R (Human) PHA 06/24/24 In Process (Insulin R) 22:00 Dextrose 50% Syringe PHA 06/24/24 In Process 19:45 Admit ADMIT 06/24/24 Transmitted 19:44 Temazepam (Restoril) PHA 06/24/24 In Process 19:45 Ondansetron Hcl PHA 06/24/24 In Process (Zofran) 19:45 Enoxaparin Sodium PHA 06/25/24 In Process (Lovenox) 10:00 Cardiac DIET 06/25/24 Transmitted Diet-2gna,Lofat,Lochol Breakfast Condition: Stable RASHAAD 06/24/24 In Process 19:44 Acetaminophen Tablet PHA 06/24/24 In Process (Tylenol Tablet) 19:45 Bedrest With Bathroom RASHAAD 06/24/24 In Process Privileg 19:44 Date of Service: Jun 24, 2024 Billing Provider: MIGUEL WILSON Common Visit Codes: [id number] INP/OBS CARE (HIGH) MIGUEL WILSON Jun 25, 2024 04:08
[2024-06-25] MEDS: ACCU-CHEK COMFORT CURVE STRIP VI SCH (04:38)
[2024-06-25] MEDS: InsuLIN REG 1unit/0.01ml Soln (100units/ml) SC SCH (04:39)
[2024-06-25 04:42] VITALS: PULSE 81; RESP 19; O2SAT 90
[2024-06-25] MEDS: cloNIDine HCL 0.1 MG TAB PO ONE (04:50)
[2024-06-25] MEDS: ATORVASTATIN 20 MG TAB PO SCH (05:07)
[2024-06-25] MEDS: GABAPENTIN 300 MG CAP PO SCH (05:08)
[2024-06-25 07:11] LABS: Anion Gap 8 (5-15); Carbon Dioxide 24 mmol/L (20-31); Chloride 107 mmol/L (98-107); Potassium 4.3 mmol/L (3.5-5.1); Sodium 139 mmol/L (136-145)
[2024-06-25 07:12] LABS: Calcium 10.1 mg/dL (8.7-10.4)
[2024-06-25 07:17] LABS: BUN/Creatinine Ratio 16.9 (10.0-20.0); Blood Urea Nitrogen 11 mg/dL (9-23); Glucose 102 mg/dL (74-106)
--- NOTE | 2024-06-25 07:17 | ECG ---
[facility] Test Date: 2024-06-24 Test Time: 14:17:52 Pat Name: CHRISTIAN COWAN Department: ER Room: [address] [place] [address] A Gender: M Senior Customer Service Representative: BRYANNA : 1970 Requested By: JOCELYN ROMERO Order Number: [id number] Reading MD: Shadi Lau Measurements Intervals [place] Rate: 89 P: 0 MD: 0 QRS: 15 QRSD: 99 T: 61 QT: 372 QTc: 453 Interpretive Statements Atrial flutter with predominant 3:1 AV block Electronically Signed On 06-25-2024 18:26:02 PST by Shadi Lau Please click the below link to view image of tracing.
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
--- NOTE | 2024-06-25 09:56 | DVH ---
PROCEDURE: MRI BRAIN HEAD WO CONTRAST INDICATION: R/O CVA rt side weakness EXAM DATE: 06/25/2024 09:29 AM COMPARISON: None TECHNIQUE: MRI of the brain without intravenous contrast. FINDINGS: Diffusion weighted images of the brain demonstrate no evidence of acute infarction. There is no evidence of acute intracranial hemorrhage, extra-axial collection, mass effect, midline s hift, herniation or hydrocephalus. The ventricles, sulci and cisterns appear age appropriate. The signal intensities of the brain parenchyma are within normal limits. There are no signal abnormalities on the susceptibility weighted sequences. The major vascular flow voids are present. The visualized paranasal sinuses and mastoid air cells are clear. The surrounding soft tissues and o sseous structures are unremarkable. IMPRESSION: 1. No evidence of acute infarction, intracranial hemorrhage, mass effect or hydrocephalus. HS:Y
[2024-06-25] MEDS: ASPirin 81 mg TAB PO SCH ×2 (11:34→12:48)
[2024-06-25] MEDS: LISINOPRIL 5 MG TAB PO SCH (11:35)
[2024-06-25] MEDS: ACETAMINOPHEN 325 MG TAB PO PRN (11:35)
[2024-06-25] MEDS: ENOXAPARIN SOD 40 MG/0.4 ML SYRINGE SC SCH (11:36)
[2024-06-25] MEDS: CLOPIDOGREL BISULFATE 75 MG TAB PO SCH (11:36)
[2024-06-25 12:11] LABS: HDL Cholesterol 51 mg/dL (40-59); LDL Cholesterol 173 mg/dL (< 100); Triglycerides 164 mg/dL (< 150)
[2024-06-25 12:13] LABS: Cholesterol 224 mg/dL (< 200)
--- NOTE | 2024-06-25 12:14 | DVH ---
Carotid Duplex Date: 06/25/2024 11:43 AM Clinical History: cva Comparison: None Technique: Duplex Doppler evaluation of the extracranial carotid and vertebral arteries including color Doppler and spectral/pulsed waveform analysis was performed. Findings: RIGHT SIDE: The peak systolic velocities are 101 cm/s in the distal CCA and 72 cm/s in the proximal ICA.The ICA/C CA ratio is less than 1. The external carotid artery is patent with peak systolic velocity of 95 cm/s proximally. There is appropriate antegrade flow in the right vertebral artery. LEFT SIDE: The peak systolic velocities are 68 cm/s in the distal CCA and 64 cm/s in the proximal ICA.. The ICA /CCA ratio is less than 1. The external carotid artery is patent with peak systolic velocity of 75 cm/s proximally. There is appropriate antegrade flow in the left vertebral artery. IMPRESSION: 1. No hemodynamically significant stenosis noted in the right carotid system. 2. No hemodynamically significant stenosis noted in the left carotid system. 3. Reference: Radiology 2003; 229:340-346 HS:Y
[2024-06-25] MEDS: diphenhdrAMINE HCL 25 MG CAP PO ONE (12:15)
--- NOTE | 2024-06-25 13:21 | DVHPN2 ---
Subjective 54-year-old male with a history of old CVA with right-sided weakness comes here with increased weakness of the right side of his body including his face and arm and leg since yesterday He says normally he can ambulate and move his arm but now he can not Changes from previous H/P or p: Changes Objective Vitals Vital Signs Date Time Temp Pulse Resp B/P (MAP) Pulse Ox O2 Delivery O2 Flow Rate FiO2 06/25/24 11:35 134/74 06/25/24 11:24 98.2 85 20 90 98.2 06/25/24 04:42 Room Air* 0 21 General Appearance: Alert, Oriented X3, Cooperative, No acute distress Lungs: Clear to auscultation, Normal air movement Cardiovascular: Regular rate, Normal S1, Normal S2 Abdomen: Normal bowel sounds, Soft, No tenderness Extremities: No edema Neuro: Other (Right-sided weakness) Medications Current Medications Medications Dose Ordered Sig/[place] Route Start Time Stop Time Status Last Admin Dose Admin Lisinopril 10 mg DAILY PO 06/25/24 10:00 06/25/24 11:35 10 MG Atorvastatin Calcium 40 mg HS PO 06/24/24 22:00 06/25/24 05:07 40 MG Gabapentin 300 mg BID PO 06/24/24 22:00 06/25/24 11:35 300 MG Diagnostic Test (Pha) 1 strip ACHS 06/24/24 22:00 06/25/24 11:36 1 STRIP Insulin Human Regular ACHS SC 06/24/24 22:00 Dextrose 50 ml UD PRN IV 06/24/24 19:45 Temazepam 15 mg QHSP PRN PO 06/24/24 19:45 Ondansetron HCl 4 mg Q4HP PRN IV 06/24/24 19:45 Enoxaparin Sodium 40 mg DAILY SC 06/25/24 10:00 06/25/24 11:36 40 MG Acetaminophen 650 mg Q6HP PRN PO 06/24/24 19:45 06/25/24 11:35 650 MG Clopidogrel Bisulfate 75 mg DAILY PO 06/25/24 10:00 06/25/24 11:36 75 MG Aspirin 81 mg DAILY PO 06/25/24 11:45 Laboratory Results Laboratory Tests 06/24/24 14:37 06/25/24 05:58 Chemistry Test 06/24/24 14:37 06/25/24 05:58 Calcium Level 9.6 mg/dL (8.7-10.4) 10.1 mg/dL (8.7-10.4) Lipid panel Test 06/25/24 05:58 Cholesterol Level 224 mg/dL (< 200) H HDL Cholesterol 51 mg/dL (40-59) Triglycerides Level 164 mg/dL (< 150) H Cardiac Markers Test 06/24/24 14:37 B-Type Natriuretic Peptide 6.96 pg/mL (0-100) Assessment/Plan Assessment/Plan Right-sided weakness, no acute CVA Old CVA with right-sided weakness Type 2 diabetes Morbid obesity COPD Hypertension Mixed hyperlipidemia Plan Continue aspirin and Plavix Lipitor Physical therapy Resume home medications Lisinopril 10 mg daily Neurology consult Monitor closely The rest of the management will depend on the hospital course Plan discussed with: Patient Date of Service: Jun 25, 2024 Billing Provider: NEETU MCDONALD MD Common Visit Codes: [id number] INP/OBS CARE(HIGH) Secondary Visit Codes: [id number] CARE PLAN 30 MINUTES NEETU MCDONALD MD Jun 25, 2024 13:21
[2024-06-25 17:00] VITALS: BP 121/58; PULSE 78; RESP 18; TEMP 97.6; O2SAT 98
[2024-06-25 20:39] VITALS: RESP 18; O2SAT 95
[2024-06-25 21:00] VITALS: BP 84/51; PULSE 72; RESP 17; TEMP 97.7; O2SAT 94
[2024-06-26] VITALS (11 sets, daily range): BP systolic 79–133; BP diastolic 35–73; PULSE 65–83; RESP 18–20; TEMP 97.6–98.6; O2SAT 94–99
[2024-06-26] MEDS: SODIUM CHLORIDE 0.9% 500 ML IV ONE (01:09)
[2024-06-26] MEDS: ONDANSETRON HCL 4 MG/2 ML VIAL IV PRN (09:57)
--- NOTE | 2024-06-26 11:56 | DVHPN2 ---
Subjective He is complaining of itching all over and today He says his right-sided weakness is better now as he is able to move his leg and arm somewhat better Changes from previous H/P or p: Changes Objective Vitals Vital Signs Date Time Temp Pulse Resp B/P (MAP) Pulse Ox O2 Delivery O2 Flow Rate FiO2 06/26/24 09:56 112/67 06/26/24 08:47 97.8 74 18 94 97.8 06/26/24 05:53 Nasal Cannula* 2 28 Intake/Output Intake and Output 06/26/24 07:00 Intake Total 900 ml Output Total 0 ml Balance 900 ml Intake Oral 400 ml IV Total 500 ml Output Urine Total 0 ml General Appearance: Alert, Oriented X3, Cooperative, No acute distress Lungs: Clear to auscultation, Normal air movement Cardiovascular: Regular rate, Normal S1, Normal S2 Abdomen: Normal bowel sounds, Soft, No tenderness Extremities: No edema Neuro: Other (Right-sided weakness) Medications Current Medications Medications Dose Ordered Sig/[place] Route Start Time Stop Time Status Last Admin Dose Admin Lisinopril 10 mg DAILY PO 06/25/24 10:00 06/25/24 11:35 10 MG Atorvastatin Calcium 40 mg HS PO 06/24/24 22:00 06/25/24 22:04 40 MG Gabapentin 300 mg BID PO 06/24/24 22:00 06/26/24 09:53 300 MG Diagnostic Test (Pha) 1 strip ACHS 06/24/24 22:00 06/26/24 06:31 1 STRIP Insulin Human Regular ACHS SC 06/24/24 22:00 06/25/24 22:07 2 UNITS Dextrose 50 ml UD PRN IV 06/24/24 19:45 Temazepam 15 mg QHSP PRN PO 06/24/24 19:45 Ondansetron HCl 4 mg Q4HP PRN IV 06/24/24 19:45 06/26/24 09:57 4 MG Enoxaparin Sodium 40 mg DAILY SC 06/25/24 10:00 06/26/24 09:57 40 MG Acetaminophen 650 mg Q6HP PRN PO 06/24/24 19:45 06/26/24 09:52 650 MG Clopidogrel Bisulfate 75 mg DAILY PO 06/25/24 10:00 06/26/24 09:56 75 MG Aspirin 81 mg DAILY PO 06/25/24 11:45 06/26/24 09:54 81 MG Laboratory Results Laboratory Tests 06/24/24 14:37 06/25/24 05:58 Assessment/Plan Assessment/Plan Right-sided weakness, no acute CVA 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 Physical therapy Echocardiogram is pending Continue aspirin Lipitor Plavix Neurology consult Full code The rest of the management will depend on the hospital course Plan discussed with: Patient My Orders Orders - NEETU MCDONALD MD Procedure Category Date Status Time Mrsa Screen PRIYA 06/26/24 In Process 04:23 Date of Service: Jun 26, 2024 Billing Provider: NEETU MCDONALD MD Common Visit Codes: [id number] INP/OBS CARE(HIGH) NEETU MCDONALD MD Jun 26, 2024 11:56
[2024-06-26] MEDS ORDERED: diphenhdrAMINE-ZINC ACETATE 1 APPLIC APPL TOP PRN (12:00)
--- NOTE | 2024-06-26 23:29 | DVHPN2 ---
Progress Note - Dictate Date Seen: Jun 26, 2024 Medical Necessity Reason Pt with a Central, PICC or Fol: No Subjective Ms. Queen is a 54 years old right-handed male with a history of hypertension, diabetes, dyslipidemia, asthma, COPD, recurrent pulmonary emboli, morbid obesity, sleep apnea not on CPAP, seizure disorder, peripheral arterial disease, polyneuropathy, bilateral carpal tunnel syndrome, he came to the hospital on 06/24/24 with a chief complaint of right-sided weakness. His name in my office chart is Valery Queen I saw her (was she than) on 10/05/2021 for seizure I HAVE SEEN AND EXAMINED THE PATIENT with his nurse, he is doing fine, no new complaints He reports CPAP helped him His blood pressure fluctuates CBC, 06/24/2024: Unremarkable BMP, 06/24/24: Unremarkable HGB A1c, 04/21/2024: 6.1 TG/CHO L/LDL/HDL, 09/2021: 77/189/123/48, 05/20/2023: 125/165/118/42, 06/25/2024: 164/224/173/51 Vitamin B12, 04/2024: 481 TSH, 04/21/2024: 1.09 Carotid Doppler, 06/25/2024: 1. No hemodynamically significant stenosis noted in the right carotid system. 2. No hemodynamically significant stenosis noted in the left carotid system. CT head, 10/04/2021: No intracranial hemorrhage. MRI is recommended if clinical symptoms persist CT head, 06/24/2024: No CT evidence of acute intracranial abnormality. If there is clinical concern for acute ischemia, MRI is recommended for further evaluation MRI head, 06/24/2024: No evidence of acute infarction, intracranial hemorrhage, mass effect or hydrocephalus vital signs Vital Sign Date Time Temp Pulse Resp B/P (MAP) Pulse Ox O2 Delivery O2 Flow Rate FiO2 06/26/24 20:28 97.6 83 18 133/58 (83) 99 97.6 06/26/24 20:00 Nasal Cannula* 2 N/A Bi-Pap+ Total Intake and Output 06/25/24 06/25/24 06/26/24 15:00 23:00 07:00 Intake Total 900 ml Output Total 0 ml Balance 900 ml medications Current Medications Medications Dose Ordered Sig/[place] Route Start Time Stop Time Status Last Admin Dose Admin Lisinopril 10 mg DAILY PO 06/25/24 10:00 06/25/24 11:35 10 MG Atorvastatin Calcium 40 mg HS PO 06/24/24 22:00 06/26/24 22:46 40 MG Gabapentin 300 mg BID PO 06/24/24 22:00 06/26/24 22:46 300 MG Diagnostic Test (Pha) 1 strip ACHS 06/24/24 22:00 06/26/24 22:45 1 STRIP Insulin Human Regular ACHS SC 06/24/24 22:00 06/25/24 22:07 2 UNITS Dextrose 50 ml UD PRN IV 06/24/24 19:45 Temazepam 15 mg QHSP PRN PO 06/24/24 19:45 Ondansetron HCl 4 mg Q4HP PRN IV 06/24/24 19:45 06/26/24 09:57 4 MG Enoxaparin Sodium 40 mg DAILY SC 06/25/24 10:00 06/26/24 09:57 40 MG Acetaminophen 650 mg Q6HP PRN PO 06/24/24 19:45 06/26/24 22:52 650 MG Clopidogrel Bisulfate 75 mg DAILY PO 06/25/24 10:00 06/26/24 09:56 75 MG Aspirin 81 mg DAILY PO 06/25/24 11:45 06/26/24 09:54 81 MG Zinc Acetate/ Diphenhydramine 1 applic Q6HP PRN TOP 06/26/24 12:00 objective General: the patient is well developed and nourished. No acute distress. MENTAL STATUS: Awake and alert. Oriented to person, place, time and general circumstances. Able to give personal history SPEECH, LANGUAGE, HIGHER CORTICAL FUNCTION: no aphasia or dysathria. CRANIAL NERVES: Pupils are equal, round and reactive. EOMs full and conjugate. No nystagmus.Diminished to pinprick and light touch in the right face. Mandibular strength intact. Facial muscles symmetrical and strength intact. SENSATION: Diminished pinprick and light in the right arm than leg, no definite diminished pinprick and light distally in the lower extremities. MOTOR: Normal tone in the upper and lower extremity. Normal muscle bulk. No fasciculations. No abnormal movements or posturing. Muscle strength of the major groups in the left extremities is 5/5. Muscle strength of the major groups in the right extremities is 3/5. REFLEXES: Deep tendon reflexes normal and symmetrical. No pathological reflexes. CEREBELLAR/COORDINATION: Finger to nose is normal bilaterally. GAIT/STATION: deferred laboratory and microbiology Laboratory Tests 06/25/24 05:58 06/24/24 14:37 Test 06/25/24 05:58 Range/Units Serum Glucose 102 74-106 mg/dL Problem List Acute right-sided paresthesia and weakness, rule out acute stroke (MRI head 06/25/24: Negative) Reported chronic stroke with residual right-sided weakness Recurrent pulmonary emboli Obesity Sleep apnea Polyneuropathy Reports seizure disorder with atypical features Assessment/Plan Monitoring Supportive treatment Telemetry Echocardiogram Lipitor 40 mg daily Aspirin 81 mg daily Lipitor 75 mg daily No medication for seizure disorder is recommended APAP in the hospital Up to chair Physical therapy Foot care, daily foot inspection discussed with him Weight control Further address his sleep-related breathing disorder as outpatient This medical document was created using an electronic medical record system with [employer] dictation system. Although this document has been carefully reviewed, there may still be some phonetic and typographical errors. These areas are purely typographical due to imperfections of the software programs, and do not reflect any compromise in the patient's medical care. Prognosis poor Plan discussed with: Patient, Other LEANA ARMANDO MD Jun 26, 2024 23:29
[2024-06-27] VITALS (9 sets, daily range): BP systolic 102–161; BP diastolic 66–83; PULSE 66–81; RESP 18–21; TEMP 36.7; O2SAT 93–97
--- NOTE | 2024-06-27 08:46 | DVHSR ---
APPROVED REPORT EXAM: Two-dimensional and M-mode echocardiogram with Doppler and color Doppler. Blood Pressure: 112/67 mmHg INDICATION CVA/TIA: RISK FACTORS Obesity: Height: 5'7", Weight: 297 DIMENSIONS LVDd5.1 (3.8-5.7cm)LA (2D)4.0 (1.9-4.0cm)Aortic Root3.3 (2.0-3.7cm) LVDs3.1 (2.5-4.0cm)LA (MM) (1.9-4.0cm)Aortic Cusp Exc1.9 (1.5-2.0cm) EF (%) 68.0 (55-70%)Rt. Atrium4.0 (1.9-4.0cm)Asc. Aorta cm IVSd1.1 (0.7-1.1cm)RV (D)3.8 (1.8-2.4cm) PWd1.1 (0.7-1.1cm) Mitral Valve MitralMitral Stenosis E wave0.68m/sMV Mean GR.mmHg A wave0.66m/sMV Peak GR.mmHg E/A ratio1.02D MVAcm2 DECEL [id number] 1/2 Tim[place] Aortic Valve Aortic ValveAortic Stenosis V11.47m/Saranya Mean GR.6mmHg V21.66m/Saranya Peak GR.11mmHg LVOT Diameter2.4 (1.8-2.4cm)Doppler AVA4.00cm2 Pulmonic Valve V21.16m/s Tricuspid Valve TR Velocity2.48m/s [id number] LEFT VENTRICLE Normal left ventricular size. Wall thickness is normal. Ejection fraction is normal is estimated at 60-65% based on visual estimate. No regional wall motion abnormalities. Diastolic function is pres erved. RIGHT VENTRICLE Normal right ventricular size and systolic function. ATRIA Both atria are of normal size. Not well visualized. MITRAL VALVE Normal structure and function. No significant mitral regurgitation. PULMONIC VALVE Likely normal. TRICUSPID VALVE Normal structure and function. There is trace tricuspid regurgitation. PA systolic pressure is bekah mated at 30-35 mm Hg. AORTIC VALVE Normal structure and function. GREAT VESSELS Normal aortic root. PERICARDIAL EFFUSION No pericardial effusion. IVC is not well visualized. Other Information Quality : Technically LimitedRhythm : Technically limited study due to body habitus. Conclusion The study is technically limited because of body habitus. Normal left ventricular size and systolic function. Ejection fraction is estimated at 60-65%. Normal right ventricular size and systolic function. No hemodynamically significant valvular disease. PA systolic pressure is estimated at 30-35 mm Hg. Intra-atrial septum is not well visualized.
--- NOTE | 2024-06-27 09:53 | DVHDS2 ---
Discharge Summary Date of Admission Jun 24, 2024 at 19:44 Date of Discharge: Jun 27, 2024 Labs/Diagnostic Data: Laboratory Results Test 06/26/24 22:49 06/25/24 05:58 06/24/24 14:37 POC Glucose 115 mg/dl (70-106) Sodium Level 139 mmol/L (136-145) Potassium Level 4.3 mmol/L (3.5-5.1) Chloride Level 107 mmol/L (98-107) Carbon Dioxide Level 24 mmol/L (20-31) Anion Gap 8 (5-15) Blood Urea Nitrogen 11 mg/dL (9-23) Creatinine 0.65 mg/dL (0.700-1.30) Glomerular Filtration Rate Calc 113 mL/min (>90) BUN/Creatinine Ratio 16.9 (10.0-20.0) Serum Glucose 102 mg/dL (74-106) Calcium Level 10.1 mg/dL (8.7-10.4) Triglycerides Level 164 mg/dL (< 150) Cholesterol Level 224 mg/dL (< 200) LDL Cholesterol 173 mg/dL (< 100) HDL Cholesterol 51 mg/dL (40-59) White Blood Count 9.7 10^3/uL (4.4-10.8) Red Blood Count 5.14 10^6/uL (4.5-5.90) Hemoglobin 14.5 g/dL (13.5-17.5) Hematocrit 43.9 % (41.0-53.0) Mean Corpuscular Volume 85.4 fL (80.0-100.0) Mean Corpuscular Hemoglobin 28.3 pg (28.0-32.0) Mean Corpuscular Hemoglobin Concent 33.2 g/dL (32.0-36.0) Red Cell Distribution Width 15.4 % (11.8-14.3) Platelet Count 225 10^3/uL (140-450) Mean Platelet Volume 9.3 fL (6.9-10.8) Neutrophils (%) (Auto) 63.6 % (37.0-80.0) Lymphocytes (%) (Auto) 27.0 % (10.0-50.0) Monocytes (%) (Auto) 6.4 % (0.0-12.0) Eosinophils (%) (Auto) 2.5 % (0.0-7.0) Basophils (%) (Auto) 0.5 % (0.0-2.0) Neutrophils # (Auto) 6.2 10 ^3/uL (1.6-8.6) Lymphocytes # (Auto) 2.6 10 ^3/uL (0.4-5.4) Monocytes # (Auto) 0.6 10 ^3/uL (0-1.3) Eosinophils # (Auto) 0.2 10 ^3/uL (0-0.8) Basophils # (Auto) 0 10 ^3/uL (0-0.2) Nucleated Red Blood Cells 0.1 % B-Type Natriuretic Peptide 6.96 pg/mL (0-100) Other Laboratory Tests 06/25/24 05:58 06/24/24 14:37 Brief Hx & Hospital Course: Final diagnoses: Right-sided weakness, no acute CVA 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 Evaluation with a CT scan of the head and then with the MRI of the brain were negative for a stroke He was seen by Physical therapy and he started be able to move his right arm and right leg more He did okay now He was feeling dizzy but overall he was improving. 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 Patient was counseled about treatment plan, medications, possible side effects, patientverbalized understanding. All questions were answered to the best of my ability. This discharge took greater then 30 minutes in planning, reviewing documentation, counseling the patient, and discussing with other team members." ASSESSMENT ASSESSMENT Assessment Date of Service: Jun 27, 2024 Billing Provider: NEETU MCDONALD MD Common Visit Codes: [id number]/[id number] DISCH DAY >30min NEETU MCDONALD MD Jun 27, 2024 09:53
== END 2024-06-27 14:36 | disposition home or self-care (01) | DRG 58 ==
LOC: ER 14:04 → OVERFLOW 19:44 → WEST WING 19:50 → OVERFLOW 19:50 → WEST WING 06-25 23:23
PROVIDERS: ADMIT Internal Medicine Geriatric Medicine; ATTEND Internal Medicine Geriatric Medicine
PROC: 5A09357 Assistance with Respiratory Ventilation, Less than 24 Consecutive Hours, Continuous Positive Airway Pressure (ICD-10-PCS; principal; 2024-06-26)
PROC: 5A09357 Assistance with Respiratory Ventilation, Less than 24 Consecutive Hours, Continuous Positive Airway Pressure (ICD-10-PCS; 2024-06-27)
DX: I69.351 Hemiplegia and hemiparesis following cerebral infarction affecting right dominant side (principal); I48.92 Unspecified atrial flutter; E11.40 Type 2 diabetes mellitus with diabetic neuropathy, unspecified; E11.51 Type 2 diabetes mellitus with diabetic peripheral angiopathy without gangrene; I50.9 Heart failure, unspecified; I11.0 Hypertensive heart disease with heart failure; G40.909 Epilepsy, unspecified, not intractable, without status epilepticus; E66.01 Morbid (severe) obesity due to excess calories; E78.2 Mixed hyperlipidemia; J44.89 Other specified chronic obstructive pulmonary disease; E11.65 Type 2 diabetes mellitus with hyperglycemia; G47.30 Sleep apnea, unspecified; F17.200 Nicotine dependence, unspecified, uncomplicated; Z82.49 Family history of ischemic heart disease and other diseases of the circulatory system; Z83.3 Family history of diabetes mellitus; Z88.1 Allergy status to other antibiotic agents; Z91.013 Allergy to seafood; Z88.5 Allergy status to narcotic agent; Z82.5 Family history of asthma and other chronic lower respiratory diseases; Z82.3 Family history of stroke; Z80.0 Family history of malignant neoplasm of digestive organs; Z79.899 Other long term (current) drug therapy; Z79.82 Long term (current) use of aspirin; Z86.711 Personal history of pulmonary embolism
CPT/HCPCS: 36415; 70450; 70551; 71045; 80048; 80061; 82962; 83880; 85025; 87081; 93005; 93306; 93886; 94660; 97163; G0378; J1815; J2405

== ENCOUNTER 2024-09-16 18:20 | Inpatient (IN) | payer MEDICAID ==
[~2024-09-16] VITALS: Ht 170.2 cm; Wt 135.0 kg
[2024-09-16] MEDS: ASPirin-EC 325mg tab PO ONE (18:45)
--- NOTE | 2024-09-16 18:51 | ED.PDOC ---
HPI Comments 54 y.o female presents to the ED for a chief complaint of left sided chest pain associated with left upper extremity numbness, SOB, and nausea that started 2 days ago. Patient reports pain is worse now, intermittent, and non radiating with no alleviating or worsening factors. Patient denies any fever, chills, vomiting, diarrhea, abdominal pain. Patient is female assigned at and not on any hormonal therapy at this time. Patient denies any tobacco use . Vitals: BP: 124/87 HR: 94 Temp: 99 F SPO2: 96% RA RR: 20 Past medical history: HTN, hyperlipidemia, CVA, VA, CAD, DM Past surgical history: x3, tibia/fibula fracture. Allergies: Theophylline, iodine, codeine, azithromycin HPI: Poor Historian. REVIEW OF SYSTEMS: CONSTITUTIONAL: Denies acute: fever, diaphoresis, chills, generalized weakness. HEAD: Denies acute: headache, photophobia Eyes: Denies acute: Double vision, vision loss, eye pain, eye discharge. EARS: Denies acute: tinnitus, hearing loss, ear discharge, ear pain, THROAT: Denies acute: sore throat, swelling, difficulty swallowing , pain with swallowin g, change in voice. NECK: Denies acute: neck pain, neck swelling, stiff neck. HEART: Denies acute : palpitations, LUNGS: Denies acute: wheezing, cough, hemoptysis ABDOMEN: Denies acute: abdominal pain, Vomiting, diarrhea, melena , hematemesis, h ematochezia SKIN: Denies acute: rash, redness, lesions, itchiness. EXTREMITIES: Denies acute: calf pain, weakness, denies pain in extremity. Denies acute: Low back pain. Neuro: Denies acute: focal neurological deficit, motor or sensory focal neurological deficit, tremors, seizure like activity, confusion, dizziness, change in mental status, loss of bowel or bladder function, cauda equina like symptoms. : Denies acute: dysuria, hematuria, flank pain, increase in urinary frequency. PSYCH: Denies acute: hallucination, suicidal ideation, homicidal ideation. FEMALE: Denies acute: abnormal vaginal bleeding, foul odor, unusual discharge. PHYSICAL EXAM: General: --[id number]------acute distress, awake and alert. Head: normocephalic, atraumatic. Neck: supple, trachea is midline, no swelling. Throat: Normal phonation. Eyes:, no erythema, no purulent discharge, no proptosis, no icterus. Heart: regular rate, regular rhythm, no significant murmur appreciated. Lungs: no apparent respiratory distress, Able to speak in full sentences. No wheezing, no rhonchi, no crackles. No stridors Clear to auscultation bilaterally. Abdomen: non tender to palpation, non distended, soft, no guarding, no rebound, + bowel sounds. Obese Neuro: Awake, Alert, oriented to name, self, situation, follows commands GCS=15. Speech is normal. Skin: no petechia, no purpura, no cyanosis, non-pale, not jaundice. Lower extremities: --trace bilateral - Pitting edema no deformity, no focal swelling, no calf TTP. Makes eye contact. moves all four extremities. Face: no apparent facial droop. Ambulating in the ED independently. ED COURSE: Chief Complaint: Chest Pain Time Seen by MD: 18:37 Primary Care Provider: none Reviewed Notes: Nurses Notes, Allergies Allergies: Coded Allergies: Azithromycin (Verified Allergy, Severe, 05/22/23) RASHES AND SWELLING Iodine (Verified Allergy, Severe, 08/17/21) Shellfish Allergy (Verified Allergy, Severe, 08/17/21) Theophylline (Verified Allergy, Severe, 08/17/21) Codeine (Verified Allergy, Mild, 10/04/21) patient had [place] no reaction Pineapple (Verified Allergy, Mild, 02/29/24) Home Meds Active Scripts Gabapentin (Gabapentin) 300 Mg Cap, 1 TAB PO BID for 30 Days, #60 CAP 1 Refill Prov:JENNIFER ALCANTARA GRANITE POLISHER 06/15/24 Acetaminophen (Acetaminophen Er) 650 Mg Tab, 650 MG PO Q4HPRN PRN for 10 Days, #50 TAB Prov:BRANDY FISHER RESIDENT 04/23/24 Budesonide (Inhalation) (Budesonide) 0.25 Mg/2 Ml Nicole, 0.25 MG IN BID for 30 Days, #10 ML Prov:JUAREZ POWER RESIDENT 03/01/24 Lisinopril (Lisinopril) 5 Mg Tab, 5 MG PO DAILY, #30 TAB 5 Refills Prov:IFTIKHAR GUIDO MD 02/06/23 Reported Medications Semaglutide (Ozempic) 2 Mg/3 Ml Inj, 2 MG SC QWEEKLY, INJ 11/30/23 Albuterol Sulfate (VENTOLIN MDI) 90 Mcg Ih, 90 MCG IN PRN for SHORTNESS OF BREATH, INH 11/30/23 Albuterol Sulfate (Albuterol Sulfate) 0.083 % Neb, 1 VIAL NEB Q4HPRN PRN for SHORTNESS OF BREATH, #50 VIAL 11/30/23 Atorvastatin Calcium (ATORVASTATIN CALCIUM) 40 Mg Tab, 40 MG PO DAILY 11/30/23 Information Source: Patient Mode of Arrival: Ambulatory Past Medical History PAST MEDICAL HISTORY: Angina, Asthma, CHF, COPD, CVA, DM, High Lipids, HTN, PE, Seizures, TIA Surgical History: Appendectomy, , Tonsillectomy Family History Family History: Family hx of DM, Family hx of heart myron, Family hx of HTN, Family hx of Kidney myron Family History (Other): Thyroid Social History Smoker: Quit Greater Than 1 Year Alcohol: Occasionally Drugs: Denies Drug Use Lives In: Home Was a procedure done? Was a procedure done?: No CP Differential Dx Differential Diagnosis: N/A Differential Diagnosis: Angina, Chest Wall Pain, Costochondritis, Esophageal reflux/spasm, Gastritis, Pericarditis, Other (Ddx include but not limitied to gastritis, musculoskeletal pain, radiculopathy, atypical chest pain, dissection, aneurysm, ACS, unstable angina, hiatal hernia, GERD, anxiety, costochondritis, PE, pneumothroax, neoplasm, cardiac ischemia, drug abuse, anemia.) X-Ray, Labs, Meds, VS Vital Signs Date Time Temp Pulse Resp B/P (MAP) Pulse Ox O2 Delivery O2 Flow Rate FiO2 09/16/24 21:03 134/75 09/16/24 21:00 98.2 78 18 134/75 (94) 95 98.2 09/16/24 19:25 90 09/16/24 18:27 91 09/16/24 18:25 99.0 94 20 124/87 (99) 96 99.0 Lab Test 09/16/24 20:03 09/16/24 19:58 09/16/24 19:38 09/16/24 18:29 Range/Units Lactic Acid Level 1.7 0.4-2.0 mmol/L Blood Gas Specimen Type Arterial Blood Gas Sample Site Left radial Blood Gas Patient Temperature 37.0 Arterial Blood Date Drawn [id number] Arterial Blood pH 7.424 7.350-7.450 Arterial Blood Partial Pressure CO2 43.0 35.0-48.0 mmHg Arterial Blood Partial Pressure O2 61.2 L 83.0-108.0 mmHg Arterial Blood HCO3 27.5 21.0-28.0 mmol/L Arterial Blood Oxygen Saturation 92.2 L 94.0-98.0 % Arterial Blood Base Excess 2.7 -2.0-3.0 mmol/L Arterial Blood Oxyhemoglobin 91.1 L 94.0-98.0 % Arterial Blood Carboxyhemoglobin 0.9 0.5-1.5 % Arterial Blood Methemoglobin 0.3 0.0-1.5 % Phil Test Modified Blood Gas Total Hemoglobin 14.50 13.5-17.5 g/dL Blood Gas Modality Room air FiO2 % 21.0 Troponin I High Sensitivity 3 L 3 L </=54 ng/L White Blood Count 12.1 H 4.4-10.8 10^3/uL Red Blood Count 5.22 4.5-5.90 10^6/uL Hemoglobin 14.8 13.5-17.5 g/dL Hematocrit 46.5 41.0-53.0 % Mean Corpuscular Volume 89.0 80.0-100.0 fL Mean Corpuscular Hemoglobin 28.4 28.0-32.0 pg Mean Corpuscular Hemoglobin Concent 31.9 L 32.0-36.0 g/dL Red Cell Distribution Width 15.2 H 11.8-14.3 % Platelet Count 225 140-450 10^3/uL Mean Platelet Volume 9.6 6.9-10.8 fL Neutrophils (%) (Auto) 59.4 37.0-80.0 % Lymphocytes (%) (Auto) 31.2 10.0-50.0 % Monocytes (%) (Auto) 6.5 0.0-12.0 % Eosinophils (%) (Auto) 2.3 0.0-7.0 % Basophils (%) (Auto) 0.6 0.0-2.0 % Neutrophils # (Auto) 7.2 1.6-8.6 10 ^3/uL Lymphocytes # (Auto) 3.8 0.4-5.4 10 ^3/uL Monocytes # (Auto) 0.8 0-1.3 10 ^3/uL Eosinophils # (Auto) 0.3 0-0.8 10 ^3/uL Basophils # (Auto) 0.1 0-0.2 10 ^3/uL Nucleated Red Blood Cells 0.1 % Prothrombin Time 9.8 9.3-11.8 sec Prothrombin Time INR 0.92 0.9-1.15 Activated Partial Thromboplast Time 26.8 24.5-34.5 SEC D-Dimer, Quantitative 0.45 0.0-0.49 mg/L FEU Sodium Level 140 136-145 mmol/L Potassium Level 4.5 3.5-5.1 mmol/L Chloride Level 106 98-107 mmol/L Carbon Dioxide Level 24 20-31 mmol/L Anion Gap 10 5-15 Blood Urea Nitrogen 15 9-23 mg/dL Creatinine 0.75 0.700-1.30 mg/dL Glomerular Filtration Rate Calc 109 >90 mL/min BUN/Creatinine Ratio 20.0 10.0-20.0 Serum Glucose 98 74-106 mg/dL Calcium Level 10.1 8.7-10.4 mg/dL Magnesium Level 1.9 1.6-2.6 mg/dL Total Bilirubin 0.3 0.2-1.0 mg/dL Aspartate Amino Transferase (AST) 29 13-40 U/L Alanine Aminotransferase (ALT) 28 7-40 U/L Alkaline Phosphatase 117 H 46-116 U/L B-Type Natriuretic Peptide 12.00 0-100 pg/mL Total Protein 7.7 5.7-8.2 g/dL Albumin 4.6 3.2-4.8 g/dL Current Medications Medications (Trade) Dose Ordered Sig/[place] Route Start Time Stop Time Status Last Admin Nitroglycerin (Ntrostat Sublingual) 0.4 mg ONCE ONCE SL 09/16/24 18:45 09/16/24 18:46 DC 09/16/24 21:[address] [address] Ph: [phone] DIAGNOSTIC IMAGING Diagnostic Imaging Report : [id number] Signed PATIENT: CHRISTIAN COWAN ACCT: [id number] UNIT: [id number] : 1970 LOC: ER ROOM / BED: / AGE / SEX: 54 / M ADM STATUS: REG ER SERVICE 26 ORDERING PHYSICIAN: VENECIA INIGUEZ MD PROCEDURE(s): CXRP - CHEST PORTABLE REASON: CP ORDER NUMBER(s): [id number], ACCESSION NUMBER(s): [id number] CHEST RADIOGRAPH Indication: CP Technique: Single frontal view of the chest was obtained Comparison: XY CHEST PORTABLE on DOS: 06/24/24, XY CHEST PORTABLE on DOS: 06/15/24, XY CHEST PORTABLE on DOS: 04/21/24 FINDINGS: Lines and Tubes: None Lungs: No focal consolidation. Linear densities of the left lung base. Pleura: No effusion. No pneumothorax. Cardiomediastinal contours: Unremarkable Bones: No acute osseous abnormality. IMPRESSION: Left basilar atelectasis. Otherwise, no evidence for acute cardiopulmonary disease. ATED BY: KAROLINA ROQUE DO DICTATED DATE/TIME: 09/16/241910 SIGNED BY: KAROLINA ROQUE DO SIGNED DATE/TIME: 09/16/241910 CC: Time of 1ST Reevaluation: 18:46 Reevaluation 1ST: Unchanged Patient Education/Counseling: Diagnosis, Treatment Family Education/Counseling: No Family Present Comments Patient presented with the above HPI.--chest pain/dyspnea----workup was initiated. patient was found with the above mentioned diagnosis. the following medications were ordered: please refer to order lists of meds and tests obtained by myself Dr. Osorio. Patient ED course and VS have been stabilized. Patient has been reassessed in the ED and remained in a stable condition. Pertinent incidental findings were discussed with the patient and/or family. Patient/family voices understanding and is agreeable with plan. Patient has been observed in the ED adequate length of time to insure improvement/stability. Escalation of care considered: Consideration of escalation to observation or admission Patient was given nitroglycerin and aspirin. Patient was given supplemental oxygen. Patient was ADMITTED to the medicine team for further evaluation and treatment of their presentation. All the reports of any imaging studies that were ordered by myself were reviewed by myself. Departure 1 Departure Time of Disposition: 19:47 Impression: Primary Impression: Chest pain Additional Impression: Hypoxemia Disposition: ADMITTED INPATIENT Admit to: Tele Condition: Guarded Discharged With: Self Critical Care Note Critical Care Time?: Yes (45 min-critical care time only) Heart Score Heart Score: Heart Score Response (Comments) Value History Highly Suspicious 2 EKG Normal 0 Age 45-64 1 Risk Factors >3 or Hx ASHD 2 Troponin Normal limit 0 Total 5 I personally scribed for ARIAN OSORIO DO ([email or web address]) on 09/16/24 at 18:51. Electronically submitted by Eli Antunez ([employer]). I personally scribed for ARIAN OSORIO DO ([email or web address]) on 09/16/24 at 19:44. Electronically submitted by Eli Antunez ([employer]). ARIAN OSORIO DO Sep 16, 2024 18:51
--- NOTE | 2024-09-16 19:13 | DVH ---
CHEST RADIOGRAPH Indication: CP Technique: Single frontal view of the chest was obtained Comparison: XY CHEST PORTABLE on DOS: 06/24/24, XY CHEST PORTABLE on DOS: 06/15/24, XY CHEST PORTABLE o n DOS: 04/21/24 FINDINGS: Lines and Tubes: None Lungs: No focal consolidation. Linear densities of the left lung base. Pleura: No effusion. No pneumothorax. Cardiomediastinal contours: Unremarkable Bones: No acute osseous abnormality. IMPRESSION: Left basilar atelectasis. Otherwise, no evidence for acute cardiopulmonary disease.
[2024-09-16 19:22] LABS: Basophils # (auto) 0.1 10 ^3/uL (0-0.2); Basophils % (auto) 0.6 % (0.0-2.0); Eosinophils # (auto) 0.3 10 ^3/uL (0-0.8); Eosinophils % (auto) 2.3 % (0.0-7.0); Hematocrit 46.5 % (41.0-53.0); Hemoglobin 14.8 g/dL (13.5-17.5); Lymphocytes # (auto) 3.8 10 ^3/uL (0.4-5.4); Lymphocytes % (auto) 31.2 % (10.0-50.0); Mean Corpuscular Hemoglobin 28.4 pg (28.0-32.0); Mean Corpuscular Hgb Conc. 31.9 g/dL (32.0-36.0); Monocytes # (auto) 0.8 10 ^3/uL (0-1.3); Monocytes % (auto) 6.5 % (0.0-12.0); Neutrophils # (auto) 7.2 10 ^3/uL (1.6-8.6); Neutrophils % (auto) 59.4 % (37.0-80.0); Nucleated Red Blood Cells % 0.1 %; Platelet Count (auto) 225 10^3/uL (140-450); Red Blood Cells 5.22 10^6/uL (4.5-5.90); Red Cell Distribution Width 15.2 % (11.8-14.3); White Blood Cell 12.1 10^3/uL (4.4-10.8)
[2024-09-16 19:36] LABS: INR 0.92 (0.9-1.15); Partial Thromboplastin Time 26.8 SEC (24.5-34.5); Prothrombin Time 9.8 sec (9.3-11.8)
[2024-09-16 19:47] LABS: Alanine Aminotransferase 28 U/L (7-40); Albumin 4.6 g/dL (3.2-4.8); Anion Gap 10 (5-15); Aspartate Aminotransferase 29 U/L (13-40); Bilirubin, Total 0.3 mg/dL (0.2-1.0); Blood Urea Nitrogen 15 mg/dL (9-23); Calcium 10.1 mg/dL (8.7-10.4); Carbon Dioxide 24 mmol/L (20-31); Chloride 106 mmol/L (98-107); Glucose 98 mg/dL (74-106); Magnesium 1.9 mg/dL (1.6-2.6); Potassium 4.5 mmol/L (3.5-5.1); Sodium 140 mmol/L (136-145); Total Protein 7.7 g/dL (5.7-8.2)
[2024-09-16 19:48] LABS: Alkaline Phosphatase 117 U/L (46-116)
[2024-09-16 20:05] LABS: Base Excess 2.7 mmol/L (-2.0-3.0)
[2024-09-16] MEDS: NITROGLYCERIN 0.4 MG SL TAB SL ONE (21:03)
[2024-09-16] MEDS: cefTRIAXone 1GM/50ML D5W 50 ML IV ONE (23:20)
[2024-09-16] MEDS ORDERED: NITROGLYCERIN 0.4 MG SL TAB SL PRN (23:30)
[2024-09-16] MEDS ORDERED: ONDANSETRON HCL 4 MG/2 ML VIAL IV PRN (23:30)
[2024-09-16] MEDS: GABAPENTIN 300 MG CAP PO ONE (23:30)
--- NOTE | 2024-09-16 23:34 | DVHHPRES ---
History of Present Illness Resident Creating Document: CINTHIA MENDOZA RESDIENT History of Present Illness 53-year-old morbidly obese born female transitioned to male, with medical history of hypertension, right-sided CVA (with no residual deficits), asthma, high lipids, pulmonary embolisms x3 , ?COPD (on 2 L of oxygen at home p.r.n.), DM type 2 (on Ozempic), and ? Sleep apnea (planned for sleep study) to the hospital due to chest pain. Pain is localized on left-sided, radiating to the left arm, 7/10, constant but worsened with physical activity. He also reports nausea, shortness of breaths, and generalized weakness. He denies fever, cough, abdominal pain, or any recent bowel and bladder habit changes. PMHx: hypertension, right-sided CVA (with no residual deficits), asthma, high lipids, pulmonary embolisms x3 , ?COPD (on 2 L of oxygen at home p.r.n.), DM type 2 (on Ozempic), and?Sleep apnea (planned for sleep study) PSHx: Not contributory Family history: Has family history of diabetes in his mother Social history: Ex-smoker, quit smoking 6 years back, has 2 pack year history, use alcohol occasionally, denies any other the fax usage. 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 Cardiovascular: Reports chest pain Respiratory: Reports shortness of breaths Gastrointestinal: Reports nausea Genitourinary: No dysuria, hematuria, discharge, frequency, urgency, nocturia, incontinence, and urinary retention. Endocrine: No heat or cold intolerance, polydipsia, polyuria, and polyphagia. Neurological: Reports left arm numbness Psychiatric: Denies depression, anxiety,or insomnia. Musculoskeletal: Denies neck pain, stiffness and swelling, back pain, muscle weakness, joint pain, stiffness, swelling, or limited range of motion. Skin: No rashes, itching, skin lesion, changes in hair, nail, skin texture and breast. Hematologic/Lymphatic: Denies easy bruising, bleeding tendencies, or lymph node enlargement. Allergies: Coded Allergies: Azithromycin (Verified Allergy, Severe, 05/22/23) RASHES AND SWELLING Iodine (Verified Allergy, Severe, 08/17/21) Shellfish Allergy (Verified Allergy, Severe, 08/17/21) Theophylline (Verified Allergy, Severe, 08/17/21) Codeine (Verified Allergy, Mild, 10/04/21) patient had [place] no reaction Pineapple (Verified Allergy, Mild, 02/29/24) Exam Vital Signs Vital Signs Date Time Temp Pulse Resp B/P (MAP) Pulse Ox O2 Delivery O2 Flow Rate FiO2 09/16/24 21:03 134/75 09/16/24 21:00 98.2 78 18 95 98.2 Exam General Appearance: Alert, Oriented X3, Cooperative, No acute distress HEENT: Atraumatic, PERRLA, EOMI, Mucous membrane moist/pink Respiratory: Clear to auscultation, Normal air movement Cardiovascular: Regular rate, Normal S1, Normal S2, No murmurs, no chest wall tenderness Abdominal: Normal bowel sounds, Soft, No tenderness, No hepatospenomegaly, No masses Extremities: No clubbing, No cyanosis, No edema, Normal pulses, No tenderness/swelling Skin: No rashes, No breakdown, No significant lesion Neuro: Normal gait, Normal speech, Strength at 5/5 X4 ext, Normal tone, Sensation intact, Cranial nerves 3-12 NL, Reflexes 2+ Psych/Mental Status: Mental status NL, Mood NL Labs/Xrays Labs Test 09/16/24 20:03 09/16/24 19:58 09/16/24 19:38 09/16/24 18:29 Range/Units Lactic Acid Level 1.7 0.4-2.0 mmol/L Blood Gas Specimen Type Arterial Blood Gas Sample Site Left radial Blood Gas Patient Temperature 37.0 Arterial Blood Date Drawn [id number] Arterial Blood pH 7.424 7.350-7.450 Arterial Blood Partial Pressure CO2 43.0 35.0-48.0 mmHg Arterial Blood Partial Pressure O2 61.2 L 83.0-108.0 mmHg Arterial Blood HCO3 27.5 21.0-28.0 mmol/L Arterial Blood Oxygen Saturation 92.2 L 94.0-98.0 % Arterial Blood Base Excess 2.7 -2.0-3.0 mmol/L Arterial Blood Oxyhemoglobin 91.1 L 94.0-98.0 % Arterial Blood Carboxyhemoglobin 0.9 0.5-1.5 % Arterial Blood Methemoglobin 0.3 0.0-1.5 % Phil Test Modified Blood Gas Total Hemoglobin 14.50 13.5-17.5 g/dL Blood Gas Modality Room air FiO2 % 21.0 Troponin I High Sensitivity 3 L </=54 ng/L White Blood Count 12.1 H 4.4-10.8 10^3/uL Red Blood Count 5.22 4.5-5.90 10^6/uL Hemoglobin 14.8 13.5-17.5 g/dL Hematocrit 46.5 41.0-53.0 % Mean Corpuscular Volume 89.0 80.0-100.0 fL Mean Corpuscular Hemoglobin 28.4 28.0-32.0 pg Mean Corpuscular Hemoglobin Concent 31.9 L 32.0-36.0 g/dL Red Cell Distribution Width 15.2 H 11.8-14.3 % Platelet Count 225 140-450 10^3/uL Mean Platelet Volume 9.6 6.9-10.8 fL Neutrophils (%) (Auto) 59.4 37.0-80.0 % Lymphocytes (%) (Auto) 31.2 10.0-50.0 % Monocytes (%) (Auto) 6.5 0.0-12.0 % Eosinophils (%) (Auto) 2.3 0.0-7.0 % Basophils (%) (Auto) 0.6 0.0-2.0 % Neutrophils # (Auto) 7.2 1.6-8.6 10 ^3/uL Lymphocytes # (Auto) 3.8 0.4-5.4 10 ^3/uL Monocytes # (Auto) 0.8 0-1.3 10 ^3/uL Eosinophils # (Auto) 0.3 0-0.8 10 ^3/uL Basophils # (Auto) 0.1 0-0.2 10 ^3/uL Nucleated Red Blood Cells 0.1 % Prothrombin Time 9.8 9.3-11.8 sec Prothrombin Time INR 0.92 0.9-1.15 Activated Partial Thromboplast Time 26.8 24.5-34.5 SEC D-Dimer, Quantitative 0.45 0.0-0.49 mg/L FEU Sodium Level 140 136-145 mmol/L Potassium Level 4.5 3.5-5.1 mmol/L Chloride Level 106 98-107 mmol/L Carbon Dioxide Level 24 20-31 mmol/L Anion Gap 10 5-15 Blood Urea Nitrogen 15 9-23 mg/dL Creatinine 0.75 0.700-1.30 mg/dL Glomerular Filtration Rate Calc 109 >90 mL/min BUN/Creatinine Ratio 20.0 10.0-20.0 Serum Glucose 98 74-106 mg/dL Calcium Level 10.1 8.7-10.4 mg/dL Magnesium Level 1.9 1.6-2.6 mg/dL Total Bilirubin 0.3 0.2-1.0 mg/dL Aspartate Amino Transferase (AST) 29 13-40 U/L Alanine Aminotransferase (ALT) 28 7-40 U/L Alkaline Phosphatase 117 H 46-116 U/L B-Type Natriuretic Peptide 12.00 0-100 pg/mL Total Protein 7.7 5.7-8.2 g/dL Albumin 4.6 3.2-4.8 g/dL Assessment/Plan Assessment/Plan Chest pain,? ACS History of coronary artery disease Previous CVA right-sided (no residual deficits) Dyslipidemia Hypertension EKGs shows normal sinus rhythm with no acute T-wave or ST segment changes Echo from 06/26/2024 shows normal systolic function with EF 60-65% Serial trop I is within normal limits Aspirin Atorvastatin Lisinopril Diabetes type 2 Insulin according to mild sliding scale Obstructive sleep apnea Morbid obesity BiPAP during night COPD, stable Breathing treatment p.r.n. DIET: Cardiac DVT PROPHYLAXIS: Lovenox GI PROPHYLAXIS:: Protonix CODE STATUS: Goal of care discussed for more than 18 minutes, full code DISPOSITION: Telemetry Patient's status and plan discussed with the patient. Case discussed with Dr. Bach. Plan discussed with: Patient, Other (RN) Date of Service: Sep 16, 2024 Billing Provider: FABIOLA BACH MD Common Visit Codes: [id number] INP/OBS CARE (HIGH) CINTHIA MENDOZA RESDIENT Sep 16, 2024 23:34 FABIOLA BACH MD Sep 17, 2024 11:05
[2024-09-16] MEDS: PANTOPRAZOLE 40 MG/10 ML VIAL INJ IV ONE (23:50)
[2024-09-16] MEDS: LISINOPRIL 5 MG TAB PO ONE (23:51)
[2024-09-16] MEDS: ATORVASTATIN 20 MG TAB PO ONE (23:51)
[2024-09-17] VITALS (15 sets, daily range): BP systolic 91–136; BP diastolic 45–79; PULSE 66–80; RESP 16–21; TEMP 97.7–98.3; O2SAT 92–100
[2024-09-17] MEDS: HYDROcodone-ACET 5/325MG TAB PO PRN (00:29)
[2024-09-17] MEDS: MORPHINE SULFATE INJ 2 MG/ml SYRG IV PRN (02:19)
[2024-09-17] MEDS ORDERED: DEXTROSE (50%) 50ML SYRG IV PRN (03:00)
[2024-09-17 05:26] LABS: Basophils # (auto) 0 10 ^3/uL (0-0.2); Basophils % (auto) 0.6 % (0.0-2.0); Eosinophils # (auto) 0.3 10 ^3/uL (0-0.8); Eosinophils % (auto) 3.5 % (0.0-7.0); Hematocrit 41.5 % (41.0-53.0); Hemoglobin 13.7 g/dL (13.5-17.5); Lymphocytes # (auto) 2.9 10 ^3/uL (0.4-5.4); Lymphocytes % (auto) 33.3 % (10.0-50.0); Mean Corpuscular Hemoglobin 28.5 pg (28.0-32.0); Mean Corpuscular Hgb Conc. 32.9 g/dL (32.0-36.0); Mean Corpuscular Volume 86.6 fL (80.0-100.0); Monocytes # (auto) 0.6 10 ^3/uL (0-1.3); Monocytes % (auto) 7.1 % (0.0-12.0); Neutrophils # (auto) 4.9 10 ^3/uL (1.6-8.6); Neutrophils % (auto) 55.5 % (37.0-80.0); Nucleated Red Blood Cells % 0.1 %; Platelet Count (auto) 193 10^3/uL (140-450); White Blood Cell 8.8 10^3/uL (4.4-10.8)
[2024-09-17 05:35] LABS: Alanine Aminotransferase 21 U/L (7-40); Albumin 4.2 g/dL (3.2-4.8); Alkaline Phosphatase 104 U/L (46-116); Anion Gap 7 (5-15); Aspartate Aminotransferase 18 U/L (13-40); BUN/Creatinine Ratio 18.9 (10.0-20.0); Blood Urea Nitrogen 14 mg/dL (9-23); Calcium 9.5 mg/dL (8.7-10.4); Carbon Dioxide 28 mmol/L (20-31); Chloride 105 mmol/L (98-107); Potassium 3.6 mmol/L (3.5-5.1); Sodium 140 mmol/L (136-145); Total Protein 7.2 g/dL (5.7-8.2)
[2024-09-17 05:36] LABS: Bilirubin, Total 0.3 mg/dL (0.2-1.0)
[2024-09-17 05:43] LABS: Glucose 111 mg/dL (74-106)
[2024-09-17 05:49] LABS: INR 0.93 (0.9-1.15); Partial Thromboplastin Time 27.6 SEC (24.5-34.5); Prothrombin Time 9.9 sec (9.3-11.8)
[2024-09-17] MEDS: InsuLIN REG 1unit/0.01ml Soln (100units/ml) SC SCH (06:37)
[2024-09-17] MEDS: ACCU-CHEK COMFORT CURVE STRIP VI SCH (06:37)
--- NOTE | 2024-09-17 06:59 | ECG ---
[facility] Test Date: 2024-09-16 Test Time: 19:25:20 Pat Name: CHRISTIAN COWAN Department: ED Room: 0212T Gender: M Action Installer: : 1970 Requested By: VENECIA INIGUEZ Order Number: [id number] Reading MD: Shadi Lau Measurements Intervals [place] Rate: 90 P: 73 MO: 163 QRS: 51 QRSD: 99 T: 56 QT: 339 QTc: 415 Interpretive Statements Sinus rhythm Electronically Signed On 09-18-2024 22:10:54 PDT by Shadi Lau Please click the below link to view image of tracing.
[2024-09-17] MEDS: ALBUTEROL SULF 2.5 MG/0.5ML(0.5%) NEB SOLN NEB SCH (07:18)
[2024-09-17] MEDS: PANTOPRAZOLE 40 MG/10 ML VIAL INJ IV SCH (10:13)
[2024-09-17] MEDS: GABAPENTIN 300 MG CAP PO SCH (10:14)
[2024-09-17] MEDS: LISINOPRIL 5 MG TAB PO SCH (10:14)
[2024-09-17] MEDS: ASPirin 81 mg TAB PO SCH (10:14)
[2024-09-17] MEDS: ENOXAPARIN SOD 40 MG/0.4 ML SYRINGE SC SCH (10:15)
--- NOTE | 2024-09-17 15:46 | DVHPN2 ---
Progress Note - Dictate Date Seen: Sep 17, 2024 Medical Necessity Reason Pt with a Central, PICC or Fol: No Subjective PT SEEN BY ME IN CLINIC ONCE IN 2023 ECHO NL EF CARDIOLITE NL PERFUSION PT NEVER RETURNED FOR FOLLOWUP PMH OBESITY METABOLIC SYNDROME HX OF CVA ALTHOUGH NO OBJECTIVE FINDING HX OF PE NO EVIDENCE FOR PAH OF RADIOLOGICAL DOCUMENTATION FOR PE NOW WITH CP TROPONIN NEGATIVE ECG NEGATIVE CARDIOLITE NL PERFUSIOMN ECHO NL EF vital signs Vital Sign Date Time Temp Pulse Resp B/P (MAP) Pulse Ox O2 Delivery O2 Flow Rate FiO2 09/17/24 15:23 79 18 103/56 09/17/24 13:00 98.2 95 98.2 09/17/24 11:43 Room Air 0.0 09/17/24 11:43 21 Total Intake and Output 09/16/24 09/16/24 09/17/24 15:00 23:00 07:00 Intake Total 450 ml Output Total 400 ml Balance 50 ml medications Current Medications Medications Dose Ordered Sig/[place] Route Start Time Stop Time Status Last Admin Dose Admin Acetaminophen 650 mg Q6HP PRN PO 09/16/24 23:30 Acetaminophen/ Hydrocodone Bitart 1 tab Q4HP PRN PO 09/16/24 23:30 09/17/24 00:29 1 TAB Ondansetron HCl 4 mg Q4HP PRN IV 09/16/24 23:30 Morphine Sulfate 2 mg Q4HPRN PRN IV 09/16/24 23:30 09/17/24 15:23 2 MG Enoxaparin Sodium 40 mg DAILY SC 09/17/24 10:00 09/17/24 10:15 40 MG Nitroglycerin 0.4 mg Q5MINP PRN SL 09/16/24 23:30 Aspirin 81 mg DAILY PO 09/17/24 10:00 09/17/24 10:14 81 MG Atorvastatin Calcium 40 mg HS PO 09/17/24 22:00 Albuterol 2.5 mg Q6HWA NEB 09/17/24 06:00 09/17/24 11:43 2.5 MG Gabapentin 300 mg DAILY PO 09/17/24 10:00 09/17/24 10:14 300 MG Lisinopril 5 mg DAILY PO 09/17/24 10:00 09/17/24 10:14 5 MG Pantoprazole Sodium 40 mg DAILY IV 09/17/24 10:00 09/17/24 10:13 40 MG Diagnostic Test (Pha) 1 strip ACHS 09/17/24 07:00 09/17/24 11:29 1 STRIP Insulin Human Regular ACHS SC 09/17/24 07:00 Dextrose 50 ml UD PRN IV 09/17/24 03:00 laboratory and microbiology Laboratory Tests 09/17/24 04:40 Test 09/17/24 04:40 Range/Units Serum Glucose 111 H 74-106 mg/dL Problem List SEEN BY ME IN CLINIC ONCE IN 2023 ECHO NL EF CARDIOLITE NL PERFUSION PT NEVER RETURNED FOR FOLLOWUP PMH OBESITY METABOLIC SYNDROME HX OF CVA ALTHOUGH NO OBJECTIVE FINDING HX OF PE NO EVIDENCE FOR PAH OF RADIOLOGICAL DOCUMENTATION FOR PE NOW WITH CP TROPONIN NEGATIVE ECG NEGATIVE CARDIOLITE NL PERFUSIOMN ECHO NL EF Assessment/Plan NON CARDIAC CP INCREASE RISK OF PE ESPECIALLY IF PT TRANSITIONING WITH HORMONAL REPLACEMENT CONSIDER V/Q SCAN Plan discussed with: Patient ALEJANDRINA OLIVER MD Sep 17, 2024 15:46
--- NOTE | 2024-09-17 18:38 | DVHPNRES ---
Progress Note Date Seen: Sep 17, 2024 Resident Creating Document: RASHAD LAMA RESIDENT Medical Necessity Reason Pt with a Central, PICC or Fol: No Subjective Review of Systems 53-year-old female patient with past medical history of hypertension, TIA, asthma, hyperlipidemia, pulmonary embolism 2 times, COPD on 2 L of oxygen at home, type 2 diabetes currently on Ozempic, female transitioning to male with a hormone testosterone therapy, she stopped using need couple of years ago. Patient presented to the emergency department with a chief complaint of chest pain, described as sharp like, localized in the left side that radiates to the left arm and rated as 7/10 intensity that worsens on physical activity. EKG, troponin levels, recent echocardiogram taken on June and recent stress test were unremarkable for which this patient is unlikely to be acute coronary syndrome related. Patient reports his niece has a recent viral infection (RSV) for which this pain based on history and characteristic of the pain is most likely related to with the upper viral respiratory infection. Patient was seen by Dr. Garcia on 2023 and he never returned for follow-up, based on history this patient is at increased risk for pulmonary embolism, V/Q scan was ordered. ROS: Constitutional: No: Fever, Chills, Sweats, Weakness, Malaise, Other Eyes: No: Pain, Vision change, Conjunctivae inflammation, Eyelid inflammation, Other, Redness ENT: No: Ear pain, Ear discharge, Nose pain, Nose discharge, Nose congestion, Mouth pain, Mouth swelling, Throat pain, Throat swelling, Other Respiratory: Cough present, Shortness of breath, improving No Wheezing, Hemoptysis, Pleuritic Pain, Sputum, Wheezing, Other Cardiovascular: Chest pain, described as sharp No: Palpitations, Orthopnea, Paroxysmal Noc. Dyspnea, Edema, Lt Headedness, Other Gastrointestinal: No: Nausea, Vomiting, Abdominal Pain, Diarrhea, Constipation, Melena, Hematochezia, Other Musculoskeletal: No: other, neck pain, shoulder pain, arm pain, back pain, hand pain, leg pain, foot pain Neurological:; No: Weakness, Numbness, Incoordination, Change in speech, Confusion, Seizures Patient reports: No new complaints Changes from previous H/P or p: No Changes Objective vital signs Vital Sign Date Time Temp Pulse Resp B/P (MAP) Pulse Ox O2 Delivery O2 Flow Rate FiO2 09/17/24 18:12 77 18 94/45 09/17/24 17:00 97.9 93 97.9 09/17/24 11:43 Room Air 0.0 09/17/24 11:43 21 Total Intake and Output 09/16/24 09/16/24 09/17/24 15:00 23:00 07:00 Intake Total 450 ml Output Total 400 ml Balance 50 ml medications Current Medications Medications Dose Ordered Sig/[place] Route Start Time Stop Time Status Last Admin Dose Admin Acetaminophen 650 mg Q6HP PRN PO 09/16/24 23:30 Acetaminophen/ Hydrocodone Bitart 1 tab Q4HP PRN PO 09/16/24 23:30 09/17/24 00:29 1 TAB Ondansetron HCl 4 mg Q4HP PRN IV 09/16/24 23:30 Morphine Sulfate 2 mg Q4HPRN PRN IV 09/16/24 23:30 09/17/24 15:23 2 MG Enoxaparin Sodium 40 mg DAILY SC 09/17/24 10:00 09/17/24 10:15 40 MG Nitroglycerin 0.4 mg Q5MINP PRN SL 09/16/24 23:30 Aspirin 81 mg DAILY PO 09/17/24 10:00 09/17/24 10:14 81 MG Atorvastatin Calcium 40 mg HS PO 09/17/24 22:00 Albuterol 2.5 mg Q6HWA NEB 09/17/24 06:00 09/17/24 18:28 2.5 MG Gabapentin 300 mg DAILY PO 09/17/24 10:00 09/17/24 10:14 300 MG Lisinopril 5 mg DAILY PO 09/17/24 10:00 09/17/24 10:14 5 MG Pantoprazole Sodium 40 mg DAILY IV 09/17/24 10:00 09/17/24 10:13 40 MG Diagnostic Test (Pha) 1 strip ACHS 09/17/24 07:00 09/17/24 17:00 1 STRIP Insulin Human Regular ACHS SC 09/17/24 07:00 Dextrose 50 ml UD PRN IV 09/17/24 03:00 Examination Examination General Appearance: Morbidly obese patient, Alert, Oriented X3, Cooperative, No acute distress Respiratory: Clear to auscultation, Normal air movement Cardiovascular: Regular rate, Normal S1, Normal S2 Abdominal: Normal bowel sounds Extremities: No cyanosis, No edema, Normal pulses, No tenderness/swelling Skin: No rashes, No breakdown Neuro: Normal gait, Normal speech, Strength at 5/5 X4 ext, Normal tone, Sensation intact, Cranial nerves 3-12 NL, Reflexes 2+ Psych/Mental Status: Mental status NL, Mood NL laboratory and microbiology Laboratory Tests 09/17/24 04:40 Test 09/17/24 04:40 Range/Units Serum Glucose 111 H 74-106 mg/dL Problem List/Assessment/Plan Problem List/Assessment/Plan #Noncardiac chest pain likely due to upper respiratory infection likely viral #Acute coronary syndrome , unlikely #Rule out PE -admit to telemetry -cardiology consult -V/Q scan - Lisinopril 5 mg daily p.o. - Aspirin 81 mg daily p.o. - Enoxaparin 40 mg daily subcutaneously #History of transient ischemic attack -monitor -follow-up with primary care doctor in the outpatient #Primary hypertension -resume home meds #Dyslipidemia -resume home meds #Type 2 diabetes , controlled -sliding scale insulin #Obstructive sleep apnea #Morbid obesity -BiPAP during night -Lifestyle modification counseling and dietary habits counseling #COPD, not on exacerbation #History of asthma -monitor #Female transition to men -stopped using testosterone couple of years ago Discussed with Dr. Foster Goals of care discussed with the patient for 25 minutes Code status: Full code Plan discussed with: Patient My Orders My Orders Orders - RASHAD LAMA Procedure Category Date Status Time Nm Vq Scan NM 09/17/24 Logged 15:58 RASHAD LAMA RESIDENT Sep 17, 2024 18:38
[2024-09-17] MEDS: ATORVASTATIN 20 MG TAB PO SCH (21:27)
[2024-09-18] VITALS (15 sets, daily range): BP systolic 94–124; BP diastolic 50–60; PULSE 74–83; RESP 16–22; TEMP 97.7–98.4; O2SAT 92–99
[2024-09-18] MEDS: ACETAMINOPHEN 325 MG TAB PO PRN (05:27)
[2024-09-18 06:44] LABS: Chloride 104 mmol/L (98-107); Potassium 4.1 mmol/L (3.5-5.1); Sodium 138 mmol/L (136-145)
[2024-09-18 06:45] LABS: Anion Gap 8 (5-15); Basophils # (auto) 0 10 ^3/uL (0-0.2); Basophils % (auto) 0.6 % (0.0-2.0); Calcium 9.4 mg/dL (8.7-10.4); Carbon Dioxide 26 mmol/L (20-31); Eosinophils # (auto) 0.3 10 ^3/uL (0-0.8); Eosinophils % (auto) 3.3 % (0.0-7.0); Hematocrit 38.9 % (41.0-53.0); Hemoglobin 12.8 g/dL (13.5-17.5); Mean Corpuscular Hemoglobin 29.1 pg (28.0-32.0); Mean Corpuscular Volume 88.3 fL (80.0-100.0); Monocytes # (auto) 0.5 10 ^3/uL (0-1.3); Monocytes % (auto) 6.5 % (0.0-12.0); Neutrophils # (auto) 5.3 10 ^3/uL (1.6-8.6); Neutrophils % (auto) 64.6 % (37.0-80.0); Nucleated Red Blood Cells % 0.1 %; Platelet Count (auto) 179 10^3/uL (140-450); Red Blood Cells 4.41 10^6/uL (4.5-5.90); Red Cell Distribution Width 14.9 % (11.8-14.3); White Blood Cell 8.2 10^3/uL (4.4-10.8)
[2024-09-18 06:50] LABS: BUN/Creatinine Ratio 12.9 (10.0-20.0); Blood Urea Nitrogen 15 mg/dL (9-23)
[2024-09-18 06:53] LABS: Glucose 126 mg/dL (74-106)
--- NOTE | 2024-09-18 08:34 | DVHPN2 ---
Progress Note - Dictate Medical Necessity Reason Pt with a Central, PICC or Fol: No Subjective PT SEEN BY ME IN CLINIC ONCE IN 2023 ECHO NL EF CARDIOLITE NL PERFUSION PT NEVER RETURNED FOR FOLLOWUP PMH OBESITY METABOLIC SYNDROME HX OF CVA ALTHOUGH NO OBJECTIVE FINDING HX OF PE NO EVIDENCE FOR PAH OF RADIOLOGICAL DOCUMENTATION FOR PE NOW WITH CP TROPONIN NEGATIVE ECG NEGATIVE CARDIOLITE NL PERFUSIOMN ECHO NL EF vital signs Vital Sign Date Time Temp Pulse Resp B/P (MAP) Pulse Ox O2 Delivery O2 Flow Rate FiO2 09/18/24 06:22 81 18 99 09/18/24 06:16 Nasal Cannula 2.0 09/18/24 06:16 28 09/18/24 05:00 97.7 95/50 (65) 97.7 Total Intake and Output 09/17/24 09/17/24 09/18/24 15:00 23:00 07:00 Intake Total 240 ml 360 ml 1240 ml Balance 240 ml 360 ml 1240 ml medications Current Medications Medications Dose Ordered Sig/[place] Route Start Time Stop Time Status Last Admin Dose Admin Acetaminophen 650 mg Q6HP PRN PO 09/16/24 23:30 09/18/24 05:27 650 MG Acetaminophen/ Hydrocodone Bitart 1 tab Q4HP PRN PO 09/16/24 23:30 09/17/24 00:29 1 TAB Ondansetron HCl 4 mg Q4HP PRN IV 09/16/24 23:30 Morphine Sulfate 2 mg Q4HPRN PRN IV 09/16/24 23:30 09/17/24 15:23 2 MG Enoxaparin Sodium 40 mg DAILY SC 09/17/24 10:00 09/17/24 10:15 40 MG Nitroglycerin 0.4 mg Q5MINP PRN SL 09/16/24 23:30 Aspirin 81 mg DAILY PO 09/17/24 10:00 09/17/24 10:14 81 MG Atorvastatin Calcium 40 mg HS PO 09/17/24 22:00 09/17/24 21:27 40 MG Albuterol 2.5 mg Q6HWA NEB 09/17/24 06:00 09/18/24 06:14 2.5 MG Gabapentin 300 mg DAILY PO 09/17/24 10:00 09/17/24 10:14 300 MG Lisinopril 5 mg DAILY PO 09/17/24 10:00 09/17/24 10:14 5 MG Pantoprazole Sodium 40 mg DAILY IV 09/17/24 10:00 09/17/24 10:13 40 MG Diagnostic Test (Pha) 1 strip ACHS 09/17/24 07:00 09/18/24 05:55 1 STRIP Insulin Human Regular ACHS SC 09/17/24 07:00 Dextrose 50 ml UD PRN IV 09/17/24 03:00 laboratory and microbiology Laboratory Tests 09/18/24 04:50 Test 09/18/24 04:50 Range/Units Serum Glucose 126 H 74-106 mg/dL Problem List SEEN BY ME IN CLINIC ONCE IN 2023 ECHO NL EF CARDIOLITE NL PERFUSION PT NEVER RETURNED FOR FOLLOWUP PMH OBESITY METABOLIC SYNDROME HX OF CVA ALTHOUGH NO OBJECTIVE FINDING HX OF PE NO EVIDENCE FOR PAH OF RADIOLOGICAL DOCUMENTATION FOR PE NOW WITH CP TROPONIN NEGATIVE ECG NEGATIVE CARDIOLITE NL PERFUSIOMN ECHO NL EF Assessment/Plan NON CARDIAC CP INCREASE RISK OF PE ESPECIALLY IF PT TRANSITIONING WITH HORMONAL REPLACEMENT CONSIDER V/Q SCAN MAY DC HOME V/Q CAN BE DONE OUTPATIENT SINCE PTs HX OF PE IS NOT CONSISTENT WITH CLINICAL FINDINGS Plan discussed with: Patient ALEJANDRINA OLIVER MD Sep 18, 2024 08:34
--- NOTE | 2024-09-18 12:32 | ECG ---
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
[2024-09-18 13:02] LABS: Urine Bacteria FEW /hpf (None Seen); Urine Blood Negative /uL (Negative); Urine Clarity Clear (Clear); Urine Color Light-Yellow (Yellow); Urine Protein, UAD Negative (Negative); Urine Specific Gravity 1.014 (1.001-1.035); Urine Squamous Epithelial Cell FEW /hpf (<5); Urine Urobilinogen Normal (Negative); Urine WBC 1 /HPF (0-3); Urine pH 5.5 (5.0-9.0)
[2024-09-18 13:13] LABS: Opiate Scree,Urine Neg (NEGATIVE)
[2024-09-18 13:16] LABS: Amphetamine Screen, Urine Neg (NEGATIVE); Barbiturate Scree,Urine Neg (NEGATIVE); Benzodiazephine Screen, Urine Neg (NEGATIVE); Cannabinoid Screen, Urine Neg (NEGATIVE); Cocaine Screen, Urine Neg (NEGATIVE); Phencyclidine Screen, Urine Neg (NEGATIVE)
--- NOTE | 2024-09-18 14:43 | DVH ---
NUCLEAR MEDICINE VENTILATION/PERFUSION LUNG SCAN. INDICATION: PULMONARY EMBOLISM TECHNIQUE: Following intravenous demonstration of 6 millicuries of technetium 99m MAA, and inhalati on of 40 mCi of Tc 99m DTPA scintigrams were obtained in multiple projections of the lungs. FINDINGS: There is normal uptake of radionuclide on both the ventilation and perfusion portions of the examinat ion. No mismatched perfusion defects are demonstrated. Uptake is normally homogeneous. IMPRESSION: Low probability for PE.
--- NOTE | 2024-09-18 23:35 | DVHDSRES ---
Discharge Summary Date of Admission Resident Creating Document: RASHAD LAMA RESIDENT Sep 16, 2024 at 23:27 Date of Discharge: Sep 18, 2024 Admitting Diagnosis chest pain rule out acs Labs/Diagnostic Data: Laboratory Results Test 09/18/24 16:32 09/18/24 12:30 09/18/24 04:50 09/17/24 04:40 POC Glucose 118 mg/dl (70-106) Urine Color Light-yellow (Yellow) Urine Clarity Clear (Clear) Urine pH 5.5 (5.0-9.0) Urine Specific [place] 1.014 (1.001-1.035) Urine Protein Negative (Negative) Urine Ketones Negative (Negative) Urine Blood Negative /uL (Negative) Urine Nitrite Negative (Negative) Urine Bilirubin Negative (Negative) Urine Urobilinogen Normal mg/dL (Negative) Urine Leukocyte Esterase Negative /uL (Negative) Urine RBC None seen /hpf (0 - 3) Urine Microscopic WBC 1 /HPF (0-3) Urine Squamous Epithelial Cells Few /hpf (<5) Urine Bacteria Few /hpf (None Seen) Urine Glucose 1+ mg/dL (Normal) Urine Opiates Screen Neg (NEGATIVE) Urine Fentanyl Screen Neg (NEGATIVE) Urine Barbiturates Screen Neg (NEGATIVE) Urine Phencyclidine Screen Neg (NEGATIVE) Urine Amphetamines Screen Neg (NEGATIVE) Urine Benzodiazepines Screen Neg (NEGATIVE) Urine Cocaine Screen Neg (NEGATIVE) Urine Cannabinoids Screen Neg (NEGATIVE) White Blood Count 8.2 10^3/uL (4.4-10.8) Red Blood Count 4.41 10^6/uL (4.5-5.90) Hemoglobin 12.8 g/dL (13.5-17.5) Hematocrit 38.9 % (41.0-53.0) Mean Corpuscular Volume 88.3 fL (80.0-100.0) Mean Corpuscular Hemoglobin 29.1 pg (28.0-32.0) Mean Corpuscular Hemoglobin Concent 33.0 g/dL (32.0-36.0) Red Cell Distribution Width 14.9 % (11.8-14.3) Platelet Count 179 10^3/uL (140-450) Mean Platelet Volume 9.5 fL (6.9-10.8) Neutrophils (%) (Auto) 64.6 % (37.0-80.0) Lymphocytes (%) (Auto) 25.0 % (10.0-50.0) Monocytes (%) (Auto) 6.5 % (0.0-12.0) Eosinophils (%) (Auto) 3.3 % (0.0-7.0) Basophils (%) (Auto) 0.6 % (0.0-2.0) Neutrophils # (Auto) 5.3 10 ^3/uL (1.6-8.6) Lymphocytes # (Auto) 2.0 10 ^3/uL (0.4-5.4) Monocytes # (Auto) 0.5 10 ^3/uL (0-1.3) Eosinophils # (Auto) 0.3 10 ^3/uL (0-0.8) Basophils # (Auto) 0 10 ^3/uL (0-0.2) Nucleated Red Blood Cells 0.1 % Sodium Level 138 mmol/L (136-145) Potassium Level 4.1 mmol/L (3.5-5.1) Chloride Level 104 mmol/L (98-107) Carbon Dioxide Level 26 mmol/L (20-31) Anion Gap 8 (5-15) Blood Urea Nitrogen 15 mg/dL (9-23) Creatinine 1.16 mg/dL (0.700-1.30) Glomerular Filtration Rate Calc 76 mL/min (>90) BUN/Creatinine Ratio 12.9 (10.0-20.0) Serum Glucose 126 mg/dL (74-106) Calcium Level 9.4 mg/dL (8.7-10.4) Prothrombin Time 9.9 sec (9.3-11.8) Prothrombin Time INR 0.93 (0.9-1.15) Activated Partial Thromboplast Time 27.6 SEC (24.5-34.5) Total Bilirubin 0.3 mg/dL (0.2-1.0) Aspartate Amino Transferase (AST) 18 U/L (13-40) Alanine Aminotransferase (ALT) 21 U/L (7-40) Alkaline Phosphatase 104 U/L (46-116) C-Reactive Protein High Sensitivity 0.28 mg/dL (<1.0) Total Protein 7.2 g/dL (5.7-8.2) Albumin 4.2 g/dL (3.2-4.8) Test 09/16/24 23:55 09/16/24 20:03 09/16/24 19:58 09/16/24 18:29 D-Dimer, Quantitative 0.38 mg/L FEU (0.0-0.49) Hemoglobin A1c 6.1 % A1C (<5.7) Troponin I High Sensitivity 3 ng/L (</=54) Lactic Acid Level 1.7 mmol/L (0.4-2.0) Blood Gas Specimen Type Arterial Blood Gas Sample Site Left radial Blood Gas Patient Temperature 37.0 Arterial Blood Date Drawn [id number] Arterial Blood pH 7.424 (7.350-7.450) Arterial Blood Partial Pressure CO2 43.0 mmHg (35.0-48.0) Arterial Blood Partial Pressure O2 61.2 mmHg (83.0-108.0) Arterial Blood HCO3 27.5 mmol/L (21.0-28.0) Arterial Blood Oxygen Saturation 92.2 % (94.0-98.0) Arterial Blood Base Excess 2.7 mmol/L (-2.0-3.0) Arterial Blood Oxyhemoglobin 91.1 % (94.0-98.0) Arterial Blood Carboxyhemoglobin 0.9 % (0.5-1.5) Arterial Blood Methemoglobin 0.3 % (0.0-1.5) Phil Test Modified Blood Gas Total Hemoglobin 14.50 g/dL (13.5-17.5) Blood Gas Modality Room air FiO2 % 21.0 Magnesium Level 1.9 mg/dL (1.6-2.6) B-Type Natriuretic Peptide 12.00 pg/mL (0-100) Other Laboratory Tests 09/18/24 04:50 Brief Hx & Hospital Course: HPI: 53-year-old female patient with past medical history of hypertension, TIA, asthma, hyperlipidemia, pulmonary embolism 2 times, COPD on 2 L of oxygen at home, type 2 diabetes currently on Ozempic, female transitioning to male with a hormone testosterone therapy, she stopped using need couple of years ago. Patient presented to the emergency department with a chief complaint of chest pain, described as sharp like, localized in the left side that radiates to the left arm and rated as 7/10 intensity that worsens on physical activity. Hospital course: During hospitalization the EKG, troponin levels, recent echocardiogram taken on June and recent stress test were unremarkable for which this patient is unlikely to be acute coronary syndrome related. Patient reports his niece has a recent viral infection (RSV) for which this pain based on history and characteristic of the pain is most likely related to with the upper viral respiratory infection. Patient was seen by Dr. Garcia on 2023 and he never returned for follow-up, based on history this patient is at increased risk for pulmonary embolism, V/Q scan was taken and showed Low probability for PE. Disposition: discharge to home Operations or Procedures [place] [address] Ph: [phone] DIAGNOSTIC IMAGING Diagnostic Imaging Report : [id number] Signed PATIENT: CHRISTIAN COWAN ACCT: [id number] UNIT: [id number] : 1970 LOC: TELE-CENTR ROOM / BED: 0212T / A AGE / SEX: 54 / M ADM STATUS: ADM IN SERVICE 1558 ORDERING PHYSICIAN: RASHAD LAMA RESIDENT PROCEDURE(s): VQ - NM VQ SCAN REASON: PULMONARY EMBOLISM ORDER NUMBER(s): [id number], ACCESSION NUMBER(s): [id number] NUCLEAR MEDICINE VENTILATION/PERFUSION LUNG SCAN. INDICATION: PULMONARY EMBOLISM TECHNIQUE: Following intravenous demonstration of 6 millicuries of technetium 99m MAA, and inhalation of 40 mCi of Tc 99m DTPA scintigrams were obtained in multiple projections of the lungs. FINDINGS: There is normal uptake of radionuclide on both the ventilation and perfusion portions of the examination. No mismatched perfusion defects are demonstrated. Uptake is normally homogeneous. IMPRESSION: Low probability for PE. ATED BY: PHILIP MCKINLEY MD DICTATED DATE/TIME: 09/18/24 144 SIGNED BY: PHILIP MCKINLEY MD SIGNED DATE/TIME: 09/18/24 144 CC: [address] [address] Ph: [phone] DIAGNOSTIC IMAGING Diagnostic Imaging Report : [id number] Signed PATIENT: CHRISTIAN COWAN ACCT: [id number] UNIT: [id number] : 1970 LOC: ER ROOM / BED: / AGE / SEX: 54 / M ADM STATUS: REG ER SERVICE 26 ORDERING PHYSICIAN: VENECIA INIGUEZ MD PROCEDURE(s): CXRP - CHEST PORTABLE REASON: CP ORDER NUMBER(s): [id number], ACCESSION NUMBER(s): [id number] CHEST RADIOGRAPH Indication: CP Technique: Single frontal view of the chest was obtained Comparison: XY CHEST PORTABLE on DOS: 06/24/24, XY CHEST PORTABLE on DOS: 06/15/24, XY CHEST PORTABLE on DOS: 04/21/24 FINDINGS: Lines and Tubes: None Lungs: No focal consolidation. Linear densities of the left lung base. Pleura: No effusion. No pneumothorax. Cardiomediastinal contours: Unremarkable Bones: No acute osseous abnormality. IMPRESSION: Left basilar atelectasis. Otherwise, no evidence for acute cardiopulmonary disease. ATED BY: KAROLINA ROQUE DO DICTATED DATE/TIME: 09/16/241910 SIGNED BY: KAROLINA ROQUE DO SIGNED DATE/TIME: 09/16/241910 CC: Condition at Discharge: Fair Final Diagnosis/Problems List #Noncardiac chest pain likely due to upper respiratory infection likely viral #Acute coronary syndrome , unlikely #Rule out PE #History of transient ischemic attack #Primary hypertension #Dyslipidemia #Type 2 diabetes , controlled #Obstructive sleep apnea #Morbid obesity #COPD, not on exacerbation #History of asthma #Female transition to men Discharge Disposition: Home SNF Discharge Will this Physician continue t: No Discharge Instruct/Medications Diet: Cardiac 2g Na,low cholest Activity: No Restrictions, As Tolerated Follow Up/Referral: follow up with pcp within 2 weeks follow up with cardiology within 2 weeks Medications: no meds Discharge Statement: "Patient was advised to return to the ER or call 911 if any headaches, dizziness, shortness of breath, chest pain, abdominal pain, bleeding, fevers, or worsening of medical condition. Patient was counseled about treatment plan, medications, possible side effects, patientverbalized understanding. All questions were answered to the best of my ability. This discharge took greater then 30 minutes in planning, reviewing documentation, counseling the patient, and discussing with other team members." ASSESSMENT ASSESSMENT Assessment chest pain non cardiac RASHAD LAMA RESIDENT Sep 18, 2024 23:35
== END 2024-09-18 18:58 | disposition home or self-care (01) | DRG 113 ==
LOC: ER 18:20 → OVERFLOW 23:27 → TELE-CENTR 09-17 12:39
PROVIDERS: ADMIT Student in an Organized Health Care Education/Training Program; ATTEND Student in an Organized Health Care Education/Training Program
PROC: 5A09357 Assistance with Respiratory Ventilation, Less than 24 Consecutive Hours, Continuous Positive Airway Pressure (ICD-10-PCS; principal; 2024-09-17)
DX: J06.9 Acute upper respiratory infection, unspecified (principal); I11.0 Hypertensive heart disease with heart failure; I50.9 Heart failure, unspecified; I69.951 Hemiplegia and hemiparesis following unspecified cerebrovascular disease affecting right dominant side; Z68.42 Body mass index [BMI] 45.0-49.9, adult; E11.9 Type 2 diabetes mellitus without complications; E78.5 Hyperlipidemia, unspecified; J44.89 Other specified chronic obstructive pulmonary disease; E66.01 Morbid (severe) obesity due to excess calories; J98.11 Atelectasis; I25.10 Atherosclerotic heart disease of native coronary artery without angina pectoris; R09.02 Hypoxemia; Z82.49 Family history of ischemic heart disease and other diseases of the circulatory system; Z87.891 Personal history of nicotine dependence; Z86.711 Personal history of pulmonary embolism; Z83.3 Family history of diabetes mellitus; I25.2 Old myocardial infarction; Z88.1 Allergy status to other antibiotic agents; Z88.5 Allergy status to narcotic agent; Z91.013 Allergy to seafood; Z91.018 Allergy to other foods; Z88.8 Allergy status to other drugs, medicaments and biological substances
CPT/HCPCS: 36415; 36600; 71045; 78582; 80048; 80053; 80307; 81001; 82805; 82962; 83036; 83605; 83735; 83880; 84484; 85025; 85379; 85610; 85730; 86141; 93005; 94640; 94660; 96365; 99291; G0378; J2470

== ENCOUNTER 2024-09-29 06:22 | Emergency (ER) | payer MEDICAID ==
[~2024-09-29] VITALS: Ht 170.2 cm; Wt 132.2 kg
--- NOTE | 2024-09-29 08:12 | ED.PDOC ---
History of Present Illness HPI Comments This is a 54-year-old gentleman that comes in with feeling sick after getting his shingles vaccine approximately 4 days ago. He feels like he was slightly getting sick before but after the vaccine he feels like his throat is closing he feels tight and he has been wheezing. He is coughing up a lot of fluid it has all been clear. Low-grade fever of 99.1. He does have COPD he uses oxygen at home usually 2 L lately it has been 3.. Chief Complaint: Cough Time Seen by MD: 08:09 Primary Care Provider: none Reviewed Notes: Nurses Notes, Medications, Allergies Allergies: Coded Allergies: Azithromycin (Verified Allergy, Severe, 05/22/23) RASHES AND SWELLING Iodine (Verified Allergy, Severe, 08/17/21) Shellfish Allergy (Verified Allergy, Severe, 08/17/21) Theophylline (Verified Allergy, Severe, 08/17/21) Codeine (Verified Allergy, Mild, 10/04/21) patient had [place] no reaction Pineapple (Verified Allergy, Mild, 02/29/24) Home Meds Active Scripts Gabapentin (Gabapentin) 300 Mg Cap, 1 TAB PO BID for 30 Days, #60 CAP 1 Refill Prov:JENNIFER ALCANTARA CLEANING SPECIALIST 06/15/24 Acetaminophen (Acetaminophen Er) 650 Mg Tab, 650 MG PO Q4HPRN PRN for 10 Days, #50 TAB Prov:BRANDY FISHER RESIDENT 04/23/24 Budesonide (Inhalation) (Budesonide) 0.25 Mg/2 Ml Nicole, 0.25 MG IN BID for 30 Days, #10 ML Prov:JUAREZ POWER RESIDENT 03/01/24 Lisinopril (Lisinopril) 5 Mg Tab, 5 MG PO DAILY, #30 TAB 5 Refills Prov:IFTIKHAR GUIDO MD 02/06/23 Reported Medications Semaglutide (Ozempic) 2 Mg/3 Ml Inj, 2 MG SC QWEEKLY, INJ 11/30/23 Albuterol Sulfate (VENTOLIN MDI) 90 Mcg Ih, 90 MCG IN PRN for SHORTNESS OF BREATH, INH 11/30/23 Albuterol Sulfate (Albuterol Sulfate) 0.083 % Neb, 1 VIAL NEB Q4HPRN PRN for SHORTNESS OF BREATH, #50 VIAL 11/30/23 Atorvastatin Calcium (ATORVASTATIN CALCIUM) 40 Mg Tab, 40 MG PO DAILY 11/30/23 Mode of Arrival: Ambulatory Past Medical History PAST MEDICAL HISTORY: Angina, Asthma, CHF, COPD, CVA, DM, High Lipids, HTN, PE, Seizures, TIA Surgical History: Appendectomy, , Tonsillectomy Family History Family History: Family hx of DM, Family hx of heart myron, Family hx of HTN, Family hx of Kidney myron Family History (Other): Thyroid Social History Smoker: Quit Greater Than 1 Year Alcohol: Occasionally Drugs: Denies Drug Use Lives In: Home Constitutional: reports: chills, malaise EENTM: reports: nasal discharge, throat swelling Respiratory: reports: cough, wheezing Physical Exam General Appearance: Obese HEENT: Normal ENT Inspection, PERRL/EOMI, Pharynx Normal, TMs Normal Neck: Full Range of Motion, Non-Tender, Normal Inspection Respiratory: No Respiratory Distress, Wheezing Cardiovascular: Regular Rate/Rhythm Breast Exam: Deferred Gastrointestinal: Non Tender, Normal Bowel Sounds, Soft Genitalia: Deferred Pelvic: Deferred Rectal: Deferred Extremities: Normal inspection, Normal range of motion Neurologic: Alert, No Motor Deficits, Normal Mood Cerebellar Function: NOT DONE Reflexes: NOT DONE Skin: Dry, Normal Color, Warm Lymphatic: No Adenopathy Was a procedure done? Was a procedure done?: No Differential Dx Considerations may include: Your PD versus asthma exacerbation X-Ray, Labs, Meds, VS Vital Signs Date Time Temp Pulse Resp B/P (MAP) Pulse Ox O2 Delivery O2 Flow Rate FiO2 09/29/24 08:45 89 18 98 Room Air 09/29/24 08:45 99.1 89 18 122/89 (100) 98 99.1 09/29/24 06:48 18 95 Room Air* 0 21 09/29/24 06:48 99.1 89 18 126/89 (101) 98 99.1 Current Medications Medications (Trade) Dose Ordered Sig/[place] Route Start Time Stop Time Status Last Admin Dexamethasone Sodium Phosphate (Decadron Injection) 10 mg ONCE ONCE IM 09/29/24 08:15 09/29/24 08:18 DC 09/29/24 08:29 X-Ray, Labs, Meds, VS Comment Patient seen and examined by me. Patient did have a shingles vaccine in after started to have some respiratory wheezing. He is not sure if he was sick before in the shingles vaccine made it worse but in the last couple of days has progressively gotten worse he usually uses oxygen 2 L at home for COPD he has increased it to 3. He feels like his throat is closing. I will give him a Decadron shot here and sent him home with prednisone. Patient felt better with less tightness in his chest and LEs sensation of throat closing after the Decadron.. Time of 1ST Reevaluation: 08:50 Reevaluation 1ST: Improved Patient Education/Counseling: Diagnosis, Treatment, Prognosis, Need For Follow Up Family Education/Counseling: No Family Present Departure 1 Departure Time of Disposition: 08:51 Impression: Primary Impression: Acute exacerbation of chronic obstructive pulmonary disease (COPD) Additional Impression: Allergic reaction caused by a drug Disposition: 01 HOME / SELF CARE / HOMELESS Condition: Good Additional Instructions: Continue your current medications Use the oxygen at home as you need Start the prednisone tomorrow, finish all the doses even though you feel better If you have worsening shortness of breath come back to the ER Let your doctor know that you had a slight reaction after the injections. e-Prescriptions Promethazine-Dm (Promethazine Dm 6.25-15 mg/5Ml) 1 Deirdre Deirdre 1 DEIRDRE PO TIDPRN PRN for 7 Days, #10 ML Prov: JENNIFER DEGROOT 09/29/24 Prednisone (Prednisone) 20 Mg Tab 40 MG PO DAILY@BREAKFAST for 4 Days, #5 MG Prov: JENNIFER DEGROOT 09/29/24 Discharged With: Self Critical Care Note Critical Care Time?: No Stability Stability form required: No JENNIFER DEGROOT Sep 29, 2024 08:12
[2024-09-29] MEDS: DexAMETHasone SOD PHOS 10MG/1ML VIAL INJ IM ONE (08:29)
[2024-09-29 08:45] VITALS: BP 122/89; PULSE 89; RESP 18; TEMP 99.1; O2SAT 98
[2024-09-29] MEDS ORDERED: PRED20TA2 PO (08:53)
[2024-09-29] MEDS ORDERED: PROM1SOL4 PO (08:54)
== END 2024-09-29 09:21 | disposition home or self-care (01) ==
LOC: ER 06:22
DX: J44.1 Chronic obstructive pulmonary disease with (acute) exacerbation (principal); T50.905A Adverse effect of unspecified drugs, medicaments and biological substances, initial encounter; I11.0 Hypertensive heart disease with heart failure; I50.9 Heart failure, unspecified; E11.9 Type 2 diabetes mellitus without complications; E78.5 Hyperlipidemia, unspecified; Z86.73 Personal history of transient ischemic attack (TIA), and cerebral infarction without residual deficits; Z86.711 Personal history of pulmonary embolism; Z86.69 Personal history of other diseases of the nervous system and sense organs; Z90.89 Acquired absence of other organs; Z90.49 Acquired absence of other specified parts of digestive tract; Z79.85 Long-term (current) use of injectable non-insulin antidiabetic drugs; Z79.899 Other long term (current) drug therapy; Z88.1 Allergy status to other antibiotic agents; Z88.5 Allergy status to narcotic agent; Z88.8 Allergy status to other drugs, medicaments and biological substances; Z98.890 Other specified postprocedural states; Z91.041 Radiographic dye allergy status; Y92.89 Other specified places as the place of occurrence of the external cause
CPT/HCPCS: 96372; 99283; J1100

== ENCOUNTER 2024-10-11 18:41 | Emergency (ER) | payer MEDICAID ==
[~2024-10-11] VITALS: Ht 170.2 cm; Wt 127.2 kg
[~2024-10-11 18:41] MED LIST changes: +PRED20TA2 PO; +PROM1SOL4 PO
[2024-10-11 19:23] LABS: Basophils # (auto) 0.1 10 ^3/uL (0-0.2); Basophils % (auto) 1.1 % (0.0-2.0); Eosinophils # (auto) 0.2 10 ^3/uL (0-0.8); Eosinophils % (auto) 3.1 % (0.0-7.0); Hematocrit 45.3 % (41.0-53.0); Hemoglobin 14.6 g/dL (13.5-17.5); Lymphocytes % (auto) 37.3 % (10.0-50.0); Mean Corpuscular Hemoglobin 28.1 pg (28.0-32.0); Mean Corpuscular Hgb Conc. 32.2 g/dL (32.0-36.0); Mean Corpuscular Volume 87.5 fL (80.0-100.0); Monocytes # (auto) 0.4 10 ^3/uL (0-1.3); Monocytes % (auto) 5.2 % (0.0-12.0); Neutrophils # (auto) 4.3 10 ^3/uL (1.6-8.6); Neutrophils % (auto) 53.3 % (37.0-80.0); Nucleated Red Blood Cells % 0.2 %; Platelet Count (auto) 200 10^3/uL (140-450); Red Blood Cells 5.18 10^6/uL (4.5-5.90); White Blood Cell 8.1 10^3/uL (4.4-10.8)
--- NOTE | 2024-10-11 19:26 | ED.PDOC ---
General HPI Comments Patient reports onset of flank pain, that radiates to her left-abdomen, yesterday and hematuria and fever, today. Says he measured a fever of 101.4F at home and taking Tylenol prior to ED arriv al to no relief or improvement of symptoms. Past medical history: asthma, HLD, DM, Dlodyu-cq-ovty transgender Past surgical history: appendectomy, tonsillectomy, 2 C-sections Bret HPI: Poor Historian. 54-year-old female presents to emergency department for evaluation of two day history of left flank pain radiating to the left mid abdomen constant with the associated nausea but no vomiting. Denies any history of kidney stones. Patient states having a fever today of 101.0. Patient took some Tylenol for it. Patient noted some blood in the urine. REVIEW OF SYSTEMS: CONSTITUTIONAL: Denies acute: diaphoresis, chills, generalized weakness. HEAD: Denies acute: headache, photophobia Eyes: Denies acute: Double vision, vision loss, eye pain, eye discharge. EARS: Denies acute: tinnitus, hearing loss, ear discharge, ear pain, THROAT: Denies acute: sore throat, swelling, difficulty swallowing , pain with swallowing, change in voice. NECK: Denies acute: neck pain, neck swelling, stiff neck. HEART: Denies acute : chest pain, palpitations, LUNGS: Denies acute: , wheezing, cough, hemoptysis ABDOMEN: Denies acute: , Vomiting, diarrhea, melena , hematemesis, hematochezia SKIN: Denies acute: rash, redness, lesions, itchiness. EXTREMITIES: Denies acute: calf pain, numbness, tingling, weakness, denies pain in extremity. Denies acute: Low back pain. Neuro: Denies acute: focal neurological deficit, motor or sensory focal neurological deficit, tremors, seizure like activity, confusion, dizziness, change in mental status, loss of bowel or bladder function, cauda equina like symptoms. : Denies acute: dysuria, , increase in urinary frequency. PSYCH: Denies acute: hallucination, suicidal ideation, homicidal ideation. FEMALE: Denies acute: abnormal vaginal bleeding, foul odor, unusual discharge. PHYSICAL EXAM: General: ----npfq-dx-lmwcwels----acute distress, awake and alert. Head: normocephalic, atraumatic. Neck: supple, trachea is midline, no swelling. Throat: Normal phonation. Eyes:, no erythema, no purulent discharge, no proptosis, no icterus. Heart: regular rate, regular rhythm, no significant murmur appreciated. Lungs: no apparent respiratory distress, Able to speak in full sentences. No wheezing, no rhonchi, no crackles. No stridors Clear to auscultation bilaterally. Abdomen: non tender to palpation, non distended, soft, no guarding, no rebound, + bowel sounds. Neuro: Awake, Alert, oriented to name, self, situation, follows commands GCS=15. Speech is normal. Skin: no petechia, no purpura, no cyanosis, non-pale, not jaundice. Lower extremities: --no - Pitting edema no deformity, no focal swelling, no calf TTP. Makes eye contact. moves all four extremities. Face: no apparent facial droop. No CVA tenderness to percussion bilaterally. Ambulating in the ED independently. Ears: Normal appearing TM b/l, Stroke: finger to nose cerebellar testing is intact. No pronator drift. Symmetrical faculty dean muscle strength b/l PERRLA, EOM-I CN 2-12 are grossly intact, Pedal pulses are palpable. No nystagmus. No nuchal rigidity, Kernig's sign, Brudzinski's sign, no meningeal signs. ED COURSE: Time Seen by MD: 21:10 Primary Care Provider: none Reviewed notes: Nurses Notes, Medications, Allergies Allergies: Coded Allergies: Azithromycin (Verified Allergy, Severe, 05/22/23) RASHES AND SWELLING Iodine (Verified Allergy, Severe, 08/17/21) Shellfish Allergy (Verified Allergy, Severe, 08/17/21) Theophylline (Verified Allergy, Severe, 08/17/21) Codeine (Verified Allergy, Mild, 10/04/21) patient had [place] no reaction Pineapple (Verified Allergy, Mild, 02/29/24) Home Meds Active Scripts Ondansetron Odt 4MG Tab (ZOFRAN PO) 4 Mg Tb, 4 MG PO Q8HPRN PRN for 3 Days, #9 TAB ODT TAB-DISSOLVE IN MOUTH, THEN SWALLOW Prov:JOPHYLICIAE Prashanth CRUZ 10/11/24 Cephalexin Monohydrate (Cephalexin) 500 Mg Tab, 1 TAB PO TID for 7 Days, #21 TAB Prov:ARIAN OSORIO Prashanth CRUZ 10/11/24 Promethazine-Dm (Promethazine Dm 6.25-15 mg/5Ml) 1 Keira Keira, 1 KEIRA PO TIDPRN PRN for 7 Days, #10 ML Prov:JENNIFER DEGROOTP 09/29/24 Prednisone (Prednisone) 20 Mg Tab, 40 MG PO DAILY@BREAKFAST for 4 Days, #5 MG Prov:JENNIFER DEGROOTP 09/29/24 Gabapentin (Gabapentin) 300 Mg Cap, 1 TAB PO BID for 30 Days, #60 CAP 1 Refill Prov:JENNIFER ALCANTARA FIBRE TECHNOLOGIST 06/15/24 Acetaminophen (Acetaminophen Er) 650 Mg Tab, 650 MG PO Q4HPRN PRN for 10 Days, #50 TAB Prov:BRANDY FISHER RESIDENT 04/23/24 Budesonide (Inhalation) (Budesonide) 0.25 Mg/2 Ml Nicole, 0.25 MG IN BID for 30 Da ys, #10 ML Prov:JUAREZ POWER RESIDENT 03/01/24 Lisinopril (Lisinopril) 5 Mg Tab, 5 MG PO DAILY, #30 TAB 5 Refills Prov:IFTIKHAR GUIDO MD 02/06/23 Reported Medications Semaglutide (Ozempic) 2 Mg/3 Ml Inj, 2 MG SC QWEEKLY, INJ 11/30/23 Albuterol Sulfate (VENTOLIN MDI) 90 Mcg Ih, 90 MCG IN PRN for SHORTNESS OF BR EATH, INH 11/30/23 Albuterol Sulfate (Albuterol Sulfate) 0.083 % Neb, 1 VIAL NEB Q4HPRN PRN for SHORTNESS OF BREATH, #50 VIAL 11/30/23 Atorvastatin Calcium (ATORVASTATIN CALCIUM) 40 Mg Tab, 40 MG PO DAILY 11/30/23 Information Source: Patient Past Medical History PAST MEDICAL HISTORY: Angina, Asthma, CHF, COPD, CVA, DM, High Lipids, HTN, PE, Seizures, TIA Surgical History: Appendectomy, , Tonsillectomy Family History Family History: Family hx of DM, Family hx of heart myron, Family hx of HTN, Family hx of Kidney myron Family History (Other): Thyroid Social History Smoker: Quit Greater Than 1 Year Alcohol: Occasionally Drugs: Denies Drug Use Lives In: Home Was a procedure done? Was a procedure done?: No Differential Diagnosis Kidney stone (Female): Other (Flank Pain;DDX include Nephrolethiasis, obstructive uropathy, kidney cancer, renal infarct, intraabdominal neoplasm, lower lobe pneumonia, retroperitoneal hemorrhage, pancreatitis, aneurysm, dissection, musculoskeletal, rib contusion/trauma, hematoma, PYLONEPHRITIS, muscle strain, spinal disease. IN A FEMALE) X-Ray, Labs, Meds, VS Vital Signs Date Time Temp Pulse Resp B/P (MAP) Pulse Ox O2 Delivery O2 Flow Rate FiO2 10/11/24 22:39 98.3 79 17 133/90 (104) 95 98.3 10/11/24 22:10 87 20 95 Room Air* 0 21 10/11/24 22:00 129/84 10/11/24 21:48 87 20 95 Room Air 10/11/24 21:48 98.0 87 20 129/84 (99) 95 98.0 10/11/24 19:34 98.8 80 16 159/94 (115) 95 98.8 Lab Test 10/11/24 21:57 10/11/24 19:07 Range/Units Urine Color Yellow Yellow Urine Clarity Turbid H Clear Urine pH 6.0 5.0-9.0 Urine Specific [place] 1.033 1.001-1.035 Urine Protein 3+ H Negative Urine Ketones Trace Negative Urine Blood Negative Negative /uL Urine Nitrite Negative Negative Urine Bilirubin Negative Negative Urine Urobilinogen 3 H Negative mg/dL Urine Leukocyte Esterase Negative Negative /uL Urine RBC 9 0 - 3 /hpf Urine Microscopic WBC 2 0-3 /HPF Urine Squamous Epithelial Cells Few <5 /hpf Urine Bacteria Few H None Seen /hpf Urine Hyaline Casts Few 0 - 2 /lpf Urine Mucus Few None Seen Urine Glucose Trace Normal mg/dL Urine Test Negative White Blood Count 8.1 4.4-10.8 10^3/uL Red Blood Count 5.18 4.5-5.90 10^6/uL Hemoglobin 14.6 13.5-17.5 g/dL Hematocrit 45.3 41.0-53.0 % Mean Corpuscular Volume 87.5 80.0-100.0 fL Mean Corpuscular Hemoglobin 28.1 28.0-32.0 pg Mean Corpuscular Hemoglobin Concent 32.2 32.0-36.0 g/dL Red Cell Distribution Width 15.0 H 11.8-14.3 % Platelet Count 200 140-450 10^3/uL Mean Platelet Volume 9.2 6.9-10.8 fL Neutrophils (%) (Auto) 53.3 37.0-80.0 % Lymphocytes (%) (Auto) 37.3 10.0-50.0 % Monocytes (%) (Auto) 5.2 0.0-12.0 % Eosinophils (%) (Auto) 3.1 0.0-7.0 % Basophils (%) (Auto) 1.1 0.0-2.0 % Neutrophils # (Auto) 4.3 1.6-8.6 10 ^3/uL Lymphocytes # (Auto) 3.0 0.4-5.4 10 ^3/uL Monocytes # (Auto) 0.4 0-1.3 10 ^3/uL Eosinophils # (Auto) 0.2 0-0.8 10 ^3/uL Basophils # (Auto) 0.1 0-0.2 10 ^3/uL Nucleated Red Blood Cells 0.2 % Sodium Level 138 136-145 mmol/L Potassium Level 4.0 3.5-5.1 mmol/L Chloride Level 107 98-107 mmol/L Carbon Dioxide Level 22 20-31 mmol/L Anion Gap 9 5-15 Blood Urea Nitrogen 7 L 9-23 mg/dL Creatinine 0.66 L 0.700-1.30 mg/dL Glomerular Filtration Rate Calc 113 >90 mL/min BUN/Creatinine Ratio 10.6 10.0-20.0 Serum Glucose 120 H 74-106 mg/dL Lactic Acid Level 1.4 0.4-2.0 mmol/L Calcium Level 9.3 8.7-10.4 mg/dL Total Bilirubin 0.4 0.2-1.0 mg/dL Aspartate Amino Transferase (AST) 25 13-40 U/L Alanine Aminotransferase (ALT) 32 7-40 U/L Alkaline Phosphatase 98 46-116 U/L Troponin I High Sensitivity 3 L </=54 ng/L B-Type Natriuretic Peptide 18.72 0-100 pg/mL Total Protein 7.5 5.7-8.2 g/dL Albumin 4.2 3.2-4.8 g/dL Lipase 57 H 12-53 U/L Microbiology Date/Time Source Procedure Growth Status 10/11/24 19:30 Blood Blood Culture - Preliminary NO GROWTH AFTER 24 HOURS OF INCUBATION. Resulted 10/11/24 19:15 Blood Blood Culture - Preliminary NO GROWTH AFTER 24 HOURS OF INCUBATION. Resulted [facility] [id number] [place] [address] Ph: [phone] DIAGNOSTIC IMAGING Diagnostic Imaging Report : [id number] Signed PATIENT: CHRISTIAN COWAN ACCT: [id number] UNIT: [id number] : 1970 LOC: ER ROOM / BED: / AGE / SEX: 54 / M ADM STATUS: REG ER SERVICE [id number] ORDERING PHYSICIAN: ARIAN OSORIO DO PROCEDURE(s): ABPL - CT AB PEL WO CON-NO ORAL OR IV REASON: abd pain ORDER NUMBER(s): [id number], ACCESSION NUMBER(s): [id number] Exam: CT AB PEL WO CON-NO ORAL OR IV History: abd pain Comparison Study: CT CT AB PEL WO CON-NO ORAL OR IV on DOS: 11/29/23, CT CT AB PEL WO CON-NO ORAL OR IV on DOS: 02/19/23, [facility] on DOS: 07/18/22 Contrast: None CTDI = 27.1 mGy and DLP = 1423.15 mGy cm there may be a tiny infiltrate involving the left lingula and also the left azygesophageal recess. Heart size is normal there is no evidence for coronary artery calcifications. Though the coronary arteries are not fully seen The pancreas is normal. Gallbladder is unremarkable Adrenals and kidneys are unremarkable. Pancreas is normal ascending colon, transverse colon descending colon are generally unremarkable there are few diverticuli of the sigmoid. Uterus is anteverted and contains a IUD in the normal position. Adnexa are unremarkable there are few diverticuli in the sigmoid disc disease involving L5-S1 and there is a dextrocurvature involving the lumbosacral spine of 16.6 degrees. Liver is enlarged measuring 20.8 cm spleen is borderline 11.8 cm No evidence for fluid collections in the abdomen or pelvis appendix is not identified. IMPRESSION: 1. There is hepatomegaly and significant dextrocurvature involving the lumbar spine. And there is diverticulosis involving the sigmoid. No acute findings ATED BY: JAELYN ROSADO MD DICTATED DATE/TIME: 10/11/242004 SIGNED BY: JAELYN ROSADO MD SIGNED DATE/TIME: 10/11/242004 CC: Time of 1ST Reevaluation: 21:10 Reevaluation 1ST: Unchanged Time of 2ND Reevaluation: 00:00 Reevaluation 2ND: Improved Patient Education/Counseling: Diagnosis, Treatment Family Education/Counseling: No Family Present Comments Patient presented with the above HPI.--flank pain----workup was initiated. patient was found with the above mentioned diagnosis. the following medications were ordered: please refer to order lists of meds and tests obtained by myself Dr. Osorio. Patient ED course and VS have been stabilized. Patient has been reassessed in the ED and remained in a stable condition. Pertinent incidental findings were discussed with the patient and/or family. Patient/family voices understanding and is agreeable with plan. Patient has been observed in the ED adequate length of time to insure improvement/stability. Escalation of care considered: Consideration of escalation to observation or admission Patient was DISCHARGED home in a stable condition. All the reports of any imaging studies that were ordered by myself were reviewed by myself. Departure 1 Departure Time of Disposition: 21:52 Impression: Primary Impression: Left flank pain Additional Impressions: Abdominal pain UTI (urinary tract infection) Disposition: 01 HOME / SELF CARE / HOMELESS Condition: Stable Additional Instructions: Additional instructions: You MUST follow-up with your primary care/family doctor in 1 to 2 days. If you are unable to see your primary care/family doctor, please return to our emergency room for re-assessment and re-evaluation in 1 to 2 days. Return to the emergency room here in our facility or to the nearest ER [facility] if your symptoms change or worsen. CONSULTATIONS: you MUST Follow-up for consultation as soon as possible with: -urology and gastroenterology in 1-2 days. Please call for appointment. You MUST call the consultants office yourself to make an appointment. You may need to arrange that through your insurance and/or your primary/family doctor. If you are unable to see the risk assessment consultant in 1 to 2 days, you must return to our emergency room (or any other ER of your choice) for re-assessment and re- evaluation. Adequate fluid hydration. Below is a copy of your radiological report for follow up: [facility] [id number] [facility] [address] Ph: [phone] DIAGNOSTIC IMAGING Diagnostic Imaging Report : [id number] Signed PATIENT: CHRISTIAN COWAN ACCT: [id number] UNIT: [id number] : 1970 LOC: ER ROOM / BED: / AGE / SEX: 54 / M ADM STATUS: REG ER SERVICE [id number] ORDERING PHYSICIAN: ARIAN OSORIO DO PROCEDURE(s): ABPL - CT AB PEL WO CON-NO ORAL OR IV REASON: abd pain ORDER NUMBER(s): [id number], ACCESSION NUMBER(s): [id number] Exam: CT AB PEL WO CON-NO ORAL OR IV History: abd pain Comparison Study: CT CT AB PEL WO CON-NO ORAL OR IV on DOS: 11/29/23, CT CT AB PEL WO CON-NO ORAL OR IV on DOS: 02/19/23, [facility] on DOS: 07/18/22 Contrast: None CTDI = 27.1 mGy and DLP = 1423.15 mGy cm there may be a tiny infiltrate involving the left lingula and also the left azygesophageal recess. Heart size is normal there is no evidence for coronary artery calcifications. Though the coronary arteries are not fully seen The pancreas is normal. Gallbladder is unremarkable Adrenals and kidneys are unremarkable. Pancreas is normal ascending colon, transverse colon descending colon are generally unremarkable there are few diverticuli of the sigmoid. Uterus is anteverted and contains a IUD in the normal position. Adnexa are unremarkable there are few diverticuli in the sigmoid disc disease involving L5-S1 and there is a dextrocurvature involving the lumbosacral spine of 16.6 degrees. Liver is enlarged measuring 20.8 cm spleen is borderline 11.8 cm No evidence for fluid collections in the abdomen or pelvis appendix is not identified. IMPRESSION: 1. There is hepatomegaly and significant dextrocurvature involving the lumbar spine. And there is diverticulosis involving the sigmoid. No acute findings ATED BY: JAELYN ROSADO MD DICTATED DATE/TIME: 10/11/242004 SIGNED BY: JAELYN ROSADO MD SIGNED DATE/TIME: 10/11/242004 CC: e-Prescriptions Ondansetron Odt 4MG Tab (ZOFRAN PO) 4 Mg Tb 4 MG PO Q8HPRN PRN for 3 Days, #9 TAB ODT TAB-DISSOLVE IN MOUTH, THEN SWALLOW Prov: ARIAN OSORIO DO 10/11/24 Cephalexin Monohydrate (Cephalexin) 500 Mg Tab 1 TAB PO TID for 7 Days, #21 TAB Prov: ARIAN OSORIO DO 10/11/24 Discharged With: Self Critical Care Note Critical Care Time?: No I personally scribed for ARIAN OSORIO DO ([email or web address]) on 10/11/24 at 19:26. Electronically submitted by Gianluca Dong ([email or web address]). I personally scribed for ARIAN OSORIO DO ([email or web address]) on 10/11/24 at 20:58. Electronically submitted by Gianluca Dong ([email or web address]). I personally scribed for ARIAN OSORIO DO ([email or web address]) on 10/11/24 at 22:22. Electronically submitted by Gianluca Dong ([email or web address]). ARIAN OSORIO DO Oct 11, 2024 19:26
[2024-10-11 19:41] LABS: Alanine Aminotransferase 32 U/L (7-40); Albumin 4.2 g/dL (3.2-4.8); Alkaline Phosphatase 98 U/L (46-116); Anion Gap 9 (5-15); Aspartate Aminotransferase 25 U/L (13-40); BUN/Creatinine Ratio 10.6 (10.0-20.0); Calcium 9.3 mg/dL (8.7-10.4); Carbon Dioxide 22 mmol/L (20-31); Chloride 107 mmol/L (98-107); Sodium 138 mmol/L (136-145); Total Protein 7.5 g/dL (5.7-8.2)
[2024-10-11 19:42] LABS: Bilirubin, Total 0.4 mg/dL (0.2-1.0)
[2024-10-11 19:49] LABS: Blood Urea Nitrogen 7 mg/dL (9-23); Glucose 120 mg/dL (74-106); Lipase 57 U/L (12-53)
--- NOTE | 2024-10-11 20:08 | DVH ---
Exam: CT AB PEL WO CON-NO ORAL OR IV History: abd pain Comparison Study: CT CT AB PEL WO CON-NO ORAL OR IV on DOS: 11/29/23, CT CT AB PEL WO CON-NO ORAL OR I V on DOS: 02/19/23, [facility] on DOS: 07/18/22 Contrast: None CTDI = 27.1 mGy and DLP = 1423.15 mGy cm there may be a tiny infiltrate involving the left lingula an d also the left azygesophageal recess. Heart size is normal there is no evidence for coronary artery calcifications. Though the coronary art eries are not fully seen The pancreas is normal. Gallbladder is unremarkable Adrenals and kidneys are unremarkable. Pancreas is normal ascending colon, transverse colon descendi ng colon are generally unremarkable there are few diverticuli of the sigmoid. Uterus is anteverted an d contains a IUD in the normal position. Adnexa are unremarkable there are few diverticuli in the sig moid disc disease involving L5-S1 and there is a dextrocurvature involving the lumbosacral spine of 1 6.6 degrees. Liver is enlarged measuring 20.8 cm spleen is borderline 11.8 cm No evidence for fluid collections in the abdomen or pelvis appendix is not identified. IMPRESSION: 1. There is hepatomegaly and significant dextrocurvature involving the lumbar spine. And there is div erticulosis involving the sigmoid. No acute findings
[2024-10-11] MEDS: SODIUM CHLORIDE 0.9% 1,000 ML IV ONE (21:57)
[2024-10-11] MEDS: ONDANSETRON HCL 4 MG/2 ML VIAL IV ONE (21:59)
[2024-10-11] MEDS: cefTRIAXone 1GM/50ML D5W 50 ML IV ONE (22:00)
[2024-10-11] MEDS: fentaNYL CITRATE 100 MCG/2 ML VL IV ONE (22:00)
[2024-10-11 22:08] LABS: Urine Bacteria FEW /hpf (None Seen); Urine Blood Negative /uL (Negative); Urine Clarity Turbid (Clear); Urine Color Yellow (Yellow); Urine Hyaline Cast FEW /lpf (0 - 2); Urine Mucus FEW (None Seen); Urine Protein, UAD 3+ (Negative); Urine Specific Gravity 1.033 (1.001-1.035); Urine Squamous Epithelial Cell FEW /hpf (<5); Urine Urobilinogen 3 mg/dL (Negative); Urine WBC 2 /HPF (0-3)
[2024-10-11 22:10] VITALS: PULSE 87; RESP 20; O2SAT 95
[2024-10-11] MEDS ORDERED: CEPH500T PO (22:35)
[2024-10-11] MEDS ORDERED: ZOFR4T PO (22:35)
[2024-10-11 22:39] VITALS: BP 133/90; PULSE 79; RESP 17; TEMP 98.3; O2SAT 95
== END 2024-10-11 23:00 | disposition home or self-care (01) ==
LOC: ER 18:41
DX: R10.84 Generalized abdominal pain (principal); N39.0 Urinary tract infection, site not specified; E78.5 Hyperlipidemia, unspecified; E11.9 Type 2 diabetes mellitus without complications; I11.0 Hypertensive heart disease with heart failure; I50.9 Heart failure, unspecified; J45.909 Unspecified asthma, uncomplicated; Z90.49 Acquired absence of other specified parts of digestive tract; Z90.89 Acquired absence of other organs; Z88.1 Allergy status to other antibiotic agents; Z88.5 Allergy status to narcotic agent; Z79.899 Other long term (current) drug therapy; Z91.013 Allergy to seafood; Z88.8 Allergy status to other drugs, medicaments and biological substances; Z79.52 Long term (current) use of systemic steroids
CPT/HCPCS: 36415; 74176; 80053; 81001; 81025; 83605; 83690; 83880; 84484; 85025; 87040; 96365; 96375; 99285; J0696; J2405; J3010

== ENCOUNTER 2024-11-27 06:01 | Emergency (ER) | payer MEDICAID ==
[~2024-11-27] VITALS: Ht 170.2 cm; Wt 133.1 kg
[~2024-11-27 06:01] MED LIST changes: +CEPH500C PO; +CEPH500T PO; +CYCL-611 PO; +ZOFR4T PO
[2024-11-27 07:18] VITALS: BP 152/81; PULSE 83; RESP 20; TEMP 98.5; O2SAT 95
--- NOTE | 2024-11-27 07:25 | ED.PDOC ---
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 Patient states for the past week he has been experiencing shortness of breath, nonproductive cough, body aches, headache. He has used home O2, 2L, with no improvement of symptoms. About 2 weeks ago, he was sick with flu-like symptoms. No other symptoms or modifying factors present at this time. Denies fevers chills night sweats unintentional weight loss Denies persistent chest pain, leg swelling Denies history of pneumonia Denies recent international travel Denies nausea vomiting diarrhea Denies dizziness blurry vision Chief Complaint: Flu like Time Seen by MD: 07:00 Primary Care Provider: none Reviewed notes: Nurses Notes, Medications, Allergies Information Source: Patient Mode of Arrival: Ambulatory Severity: Moderate Timing: Weeks Duration: Since onset Context: At Rest PE Risk Factors: None History of: Asthma, COPD, CHF, DVT/PE Prehospital treatment: Oxygen (2L) Modifying Factors: Nothing Associated Signs and Symptoms: Cough, Nasal Congestion If cough with SOB: Non-Productive Past Medical History PAST MEDICAL HISTORY: Angina, Asthma, CHF, COPD, CVA, DM, High Lipids, HTN, PE, Seizures, TIA Surgical History: Appendectomy, , Tonsillectomy 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 History Family History Family History: Family hx of DM, Family hx of heart myron, Family hx of HTN, Family hx of Kidney myron Family History (Other): Thyroid Social History Smoker: Quit Greater Than 1 Year Alcohol: Occasionally Drugs: Denies Drug Use Lives In: Home All Other Systems: Reviewed and Negative (as per HPI) Physical Exam General Appearance: No Apparent Distress, Normal HEENT: Normal ENT Inspection, Pharynx Normal, TMs Normal Neck: Full Range of Motion, Non-Tender, Normal, Normal Inspection Respiratory: Chest Non-Tender, Lungs Clear, No Accessory Muscle Use, No Respiratory Distress, Normal Breath Sounds Cardiovascular: No Edema, No JVD, No Murmur, No Gallop, Normal Peripheral Pulses, Regular Rate/Rhythm Breast Exam: Deferred Gastrointestinal: No Organomegaly, Non Tender, No Pulsatile Mass, Normal Bowel Sounds, Soft Genitalia: Deferred Pelvic: Deferred Rectal: Deferred Extremities: No calf tenderness, Normal capillary refill, Normal inspection, Normal range of motion, Non-tender, No pedal edema Musculoskeletal : Apperance: Normal Neurologic: Alert, contract attorney II-XII nml as Tested, No Motor Deficits, Normal Affect, Normal Mood, No Sensory Deficits Cerebellar Function: Normal Reflexes: Normal Skin: Dry, Normal Color, Warm Lymphatic: No Adenopathy Was a procedure done? Was a procedure done?: No X-Ray, Labs, Meds, VS Vital Signs Date Time Temp Pulse Resp B/P (MAP) Pulse Ox O2 Delivery O2 Flow Rate FiO2 11/27/24 07:18 83 20 95 Room Air 11/27/24 07:18 98.5 83 20 152/81 (104) 95 98.5 11/27/24 06:23 98.5 83 20 152/81 (104) 95 98.5 Lab Test 11/27/24 07:37 Range/Units White Blood Count 6.3 4.4-10.8 10^3/uL Red Blood Count 4.91 4.0-5.20 10^6/uL Hemoglobin 14.0 12.2-16.2 g/dL Hematocrit 42.3 36.0-46.0 % Mean Corpuscular Volume 86.2 80.0-100.0 fL Mean Corpuscular Hemoglobin 28.5 28.0-32.0 pg Mean Corpuscular Hemoglobin Concent 33.0 32.0-36.0 g/dL Red Cell Distribution Width 15.0 H 11.8-14.3 % Platelet Count 180 140-450 10^3/uL Mean Platelet Volume 9.8 6.9-10.8 fL Neutrophils (%) (Auto) 57.3 37.0-80.0 % Lymphocytes (%) (Auto) 32.1 10.0-50.0 % Monocytes (%) (Auto) 6.5 0.0-12.0 % Eosinophils (%) (Auto) 3.4 0.0-7.0 % Basophils (%) (Auto) 0.7 0.0-2.0 % Neutrophils # (Auto) 3.6 1.6-8.6 10 ^3/uL Lymphocytes # (Auto) 2.0 0.4-5.4 10 ^3/uL Monocytes # (Auto) 0.4 0-1.3 10 ^3/uL Eosinophils # (Auto) 0.2 0-0.8 10 ^3/uL Basophils # (Auto) 0 0-0.2 10 ^3/uL Nucleated Red Blood Cells 0.2 % Sodium Level 144 136-145 mmol/L Potassium Level 4.3 3.5-5.1 mmol/L Chloride Level 110 H 98-107 mmol/L Carbon Dioxide Level 25 20-31 mmol/L Anion Gap 9 5-15 Blood Urea Nitrogen 11 9-23 mg/dL Creatinine 0.63 0.550-1.02 mg/dL Glomerular Filtration Rate Calc 107 >90 mL/min BUN/Creatinine Ratio 17.5 10.0-20.0 Serum Glucose 103 74-106 mg/dL Lactic Acid Level 1.2 0.4-2.0 mmol/L Calcium Level 9.5 8.7-10.4 mg/dL Troponin I High Sensitivity < 3 L </=34 ng/L DIAGNOSTIC IMAGING Diagnostic Imaging Report : [id number] Signed PATIENT: CHRISTIAN COWAN ACCT: [id number] UNIT: [id number] : 1970 LOC: ER ROOM / BED: / AGE / SEX: 54 / F ADM STATUS: REG ER SERVICE 0709 ORDERING PHYSICIAN: NORIS PANG NP PROCEDURE(s): CXR2 - CHEST TWO VIEWS ROUTINE REASON: SOB. R/o pna ORDER NUMBER(s): [id number], ACCESSION NUMBER(s): [id number] CLINICAL INFORMATION: Shortness of breath. Rule out pneumonia. TECHNIQUE: Frontal and lateral chest radiographs were obtained. COMPARISON: XY CHEST TWO VIEWS ROUTINE on DOS: 06/13/24, XY CHEST TWO VIEWS ROUTINE on DOS: 02/28/24, XY CHEST TWO VIEWS ROUTINE on DOS: 11/01/23 FINDINGS: Lungs: Mild atelectasis in the lung bases. No focal consolidation. No pneumothorax or pleural effusion. Cardiac: Heart size is within normal limits. Pulmonary vasculature: Unremarkable Mediastinum/cristopher: Within normal limits. Bones: No evidence of acute osseous abnormality. Other: No other significant finding. IMPRESSION: No evidence of acute disease in the chest. 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 Patient arrives alert and oriented, ABC's intact, afebrile, vital signs stable, saturating well in room air Peripheral IV insertion+ labs were ordered. CBC was ordered to exclude anemia, blood loss, or infection. BMP was ordered to exclude electrolyte abnormalities, renal failure, dehydration, hyperglycemia. Troponin was ordered to rule out myocardial infarction, or congestive heart failure. Diagnostic imaging ordered by me and results interpreted by radiology : XY Chest 2 views: Labs in the ED showed (pertinent+ and then pertinent-) Patient was given:_. Tolerated medications with no adverse reaction. Additional MDM Review of External, Non-ED records: External records reviewed. Discussion with independent historian (EMS, family) history obtained from the patient/parents (if applicable) at bedside Chronic conditions affecting care: asthma, angina, CHF, COPD, CVA, DM, HLD, HTN, PE, TIA, seizure Social determinants of health affecting care: ETOH occasionally Consideration of admission (observation or admission): I considered escalation of care to admission for this patient, however given the reassuring workup, the patient is safe for outpatient management. Time of Reevaluation: 07:30 Reevaluation 1ST: Improved Patient Education/Counseling: Diagnosis, Treatment Family Education/Counseling: No Family Present Sepsis Sepsis Reasesment Focused Exam Orders: Laboratory Tests 11/27/24 07:37: Lactic Acid Level 1.2 Departure 1 Departure Time of Disposition: 08:17 Impression: Primary Impression: Viral syndrome Disposition: 01 HOME / SELF CARE / HOMELESS Condition: Stable Critical Care Note Critical Care Time?: No Stability Stability form required: No Heart Score Heart Score: Heart Score Response (Comments) Value History N/A 0 EKG N/A 0 Age N/A 0 Risk Factors N/A 0 Troponin N/A 0 Total 0 I personally scribed for NORIS PANG NP ([employer]) on 11/27/24 at 07:25. Electronically submitted by Chioma Valle ([email or web address]). I personally scribed for NORIS PANG NP ([employer]) on 11/27/24 at 07:28. Electronically submitted by Chioma Valle ([email or web address]). I personally scribed for NORIS PANG NP ([employer]) on 11/27/24 at 07:54. Electronically submitted by Chioma Valle ([email or web address]). NORIS PANG NP Nov 27, 2024 07:25
--- NOTE | 2024-11-27 07:41 | DVH ---
CLINICAL INFORMATION: Shortness of breath. Rule out pneumonia. TECHNIQUE: Frontal and lateral chest radiographs were obtained. COMPARISON: XY CHEST TWO VIEWS ROUTINE on DOS: 06/13/24, XY CHEST TWO VIEWS ROUTINE on DOS: 02/28/24, XY CHEST TWO VIEWS ROUTINE on DOS: 11/01/23 FINDINGS: Lungs: Mild atelectasis in the lung bases. No focal consolidation. No pneumothorax or pleural effusio n. Cardiac: Heart size is within normal limits. Pulmonary vasculature: Unremarkable Mediastinum/cristopher: Within normal limits. Bones: No evidence of acute osseous abnormality. Other: No other significant finding. IMPRESSION: No evidence of acute disease in the chest.
[2024-11-27 08:02] LABS: Potassium 4.3 mmol/L (3.5-5.1); Sodium 144 mmol/L (136-145)
[2024-11-27 08:03] LABS: Anion Gap 9 (5-15); Carbon Dioxide 25 mmol/L (20-31)
[2024-11-27 08:04] LABS: Calcium 9.5 mg/dL (8.7-10.4); Chloride 110 mmol/L (98-107)
[2024-11-27 08:06] LABS: Basophils # (auto) 0 10 ^3/uL (0-0.2); Basophils % (auto) 0.7 % (0.0-2.0); Eosinophils # (auto) 0.2 10 ^3/uL (0-0.8); Eosinophils % (auto) 3.4 % (0.0-7.0); Hematocrit 42.3 % (36.0-46.0); Lymphocytes % (auto) 32.1 % (10.0-50.0); Mean Corpuscular Hemoglobin 28.5 pg (28.0-32.0); Mean Corpuscular Volume 86.2 fL (80.0-100.0); Monocytes # (auto) 0.4 10 ^3/uL (0-1.3); Monocytes % (auto) 6.5 % (0.0-12.0); Neutrophils # (auto) 3.6 10 ^3/uL (1.6-8.6); Neutrophils % (auto) 57.3 % (37.0-80.0); Nucleated Red Blood Cells % 0.2 %; Platelet Count (auto) 180 10^3/uL (140-450); Red Blood Cells 4.91 10^6/uL (4.0-5.20); White Blood Cell 6.3 10^3/uL (4.4-10.8)
[2024-11-27 08:08] LABS: Glucose 103 mg/dL (74-106)
[2024-11-27 08:09] LABS: BUN/Creatinine Ratio 17.5 (10.0-20.0); Blood Urea Nitrogen 11 mg/dL (9-23)
== END 2024-11-27 08:24 | disposition home or self-care (01) ==
LOC: ER 06:01
DX: B34.9 Viral infection, unspecified (principal); F10.90 Alcohol use, unspecified, uncomplicated; G40.909 Epilepsy, unspecified, not intractable, without status epilepticus; E78.5 Hyperlipidemia, unspecified; I11.0 Hypertensive heart disease with heart failure; E11.9 Type 2 diabetes mellitus without complications; I25.119 Atherosclerotic heart disease of native coronary artery with unspecified angina pectoris; I50.32 Chronic diastolic (congestive) heart failure; I69.351 Hemiplegia and hemiparesis following cerebral infarction affecting right dominant side; J44.89 Other specified chronic obstructive pulmonary disease; Z86.718 Personal history of other venous thrombosis and embolism; Z90.49 Acquired absence of other specified parts of digestive tract; Z87.891 Personal history of nicotine dependence; Z90.89 Acquired absence of other organs; Y90.9 Presence of alcohol in blood, level not specified
CPT/HCPCS: 36415; 71046; 80048; 83605; 84484; 85025

== ENCOUNTER 2024-12-12 13:25 | Emergency (ER) | payer MEDICAID ==
[~2024-12-12] VITALS: Ht 170.2 cm; Wt 130.8 kg
--- NOTE | 2024-12-12 13:40 | ED.PDOC ---
History of Present Illness HPI Comments This is a 54 year old female presenting to the ED with chief complaint of sleep apnea. Patient reports that she has been experiencing sleep apnea for some time, having a sleep study done recently, but pending results on 12/30/24. Patient relays that she called her doctor and has not been able to get her sleep apnea machine early. Patient states she has been experiencing gasping for air multiple times over the past few nights, not being able to get good sleep due to being too scared not being able to breath in the night. Patient only requests a sleep apnea machine at this time. Patient denies any chest pain, SOB, dizziness, N/V, or any further symptoms at this time. Time Seen by MD: 13:37 Primary Care Provider: none Reviewed Notes: Nurses Notes, Medications, Allergies Allergies: Coded Allergies: Azithromycin (Verified Allergy, Severe, 05/22/23) RASHES AND SWELLING Iodine (Verified Allergy, Severe, 08/17/21) Shellfish Allergy (Verified Allergy, Severe, 08/17/21) Theophylline (Verified Allergy, Severe, 08/17/21) Codeine (Verified Allergy, Mild, 10/04/21) patient had Delaplane no reaction Pineapple (Verified Allergy, Mild, 02/29/24) Home Meds Active Scripts Cyclobenzaprine HCl (Cyclobenzaprine Hydrochlo) 10 Mg Tab, 10 MG PO HS for 5 Days, #5 TAB Prov:CINTHIA MENDOZA RESDIENT 10/18/24 Cephalexin Monohydrate (Cephalexin) 500 Mg Cap, 500 MG PO BID for 5 Days, #10 CAP Prov:CINTHIA MENDOZA RESDIENT 10/18/24 Ondansetron Odt 4MG Tab (ZOFRAN PO) 4 Mg Tb, 4 MG PO Q8HPRN PRN for 3 Days, #9 TAB ODT TAB-DISSOLVE IN MOUTH, THEN SWALLOW Prov:ARIAN OSORIO DO 10/11/24 Cephalexin Monohydrate (Cephalexin) 500 Mg Tab, 1 TAB PO TID for 7 Days, #21 TAB Prov:ARIAN OSORIO DO 10/11/24 Promethazine-Dm (Promethazine Dm 6.25-15 mg/5Ml) 1 Deirdre Deirdre, 1 DEIRDRE PO TIDPRN PRN for 7 Days, #10 ML Prov:JENNIFER DEGROOT WATER POLLUTION CONTROL INSPECTOR 09/29/24 Prednisone (Prednisone) 20 Mg Tab, 40 MG PO DAILY@BREAKFAST for 4 Days, #5 MG Prov:JENNIFER DEGROOT WATER POLLUTION CONTROL INSPECTOR 09/29/24 Gabapentin (Gabapentin) 300 Mg Cap, 1 TAB PO BID for 30 Days, #60 CAP 1 Refill Prov:JENNIFER ALCANTARA CROP PULLER 06/15/24 Acetaminophen (Acetaminophen Er) 650 Mg Tab, 650 MG PO Q4HPRN PRN for 10 Days, #50 TAB Prov:BRANDY FISHER RESIDENT 04/23/24 Budesonide (Inhalation) (Budesonide) 0.25 Mg/2 Ml Nicole, 0.25 MG IN BID for 30 Days, #10 ML Prov:JUAREZ POWER RESIDENT 03/01/24 Lisinopril (Lisinopril) 5 Mg Tab, 5 MG PO DAILY, #30 TAB 5 Refills Prov:IFTIKHAR GUIDO MD 02/06/23 Reported Medications Semaglutide (Ozempic) 2 Mg/3 Ml Inj, 2 MG SC QWEEKLY, INJ 11/30/23 Albuterol Sulfate (VENTOLIN MDI) 90 Mcg Ih, 90 MCG IN PRN for SHORTNESS OF BREATH, INH 11/30/23 Albuterol Sulfate (Albuterol Sulfate) 0.083 % Neb, 1 VIAL NEB Q4HPRN PRN for SHORTNESS OF BREATH, #50 VIAL 11/30/23 Atorvastatin Calcium (ATORVASTATIN CALCIUM) 40 Mg Tab, 40 MG PO DAILY 11/30/23 Information Source: Patient Mode of Arrival: Ambulatory Severity: Moderate Timing: Days Duration: Since onset Prehospital treatment: None Past Medical History PAST MEDICAL HISTORY: Angina, Asthma, CHF, COPD, CVA, DM, High Lipids, HTN, CO, PE, Seizures, TIA Past Medical History (Other): Sleep apnea Surgical History: Appendectomy, , Tonsillectomy 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 History Family History Family History: Reviewed,noncontributory to illness, Family hx of DM, Family hx of heart myron, Family hx of HTN, Family hx of Kidney myron Family History (Other): Thyroid Social History Smoker: Quit Greater Than 1 Year Alcohol: Occasionally Drugs: Denies Drug Use Lives In: Home Constitutional: denies: chills, diaphoresis, fatigue, fever, malaise, sweats, weakness, others EENTM: denies: blurred vision, double vision, ear bleeding, ear discharge, ear drainage, ear pain, ear ringing, eye pain, eye redness, hearing loss, mouth pain, mouth swelling, nasal discharge, nose bleeding, nose congestion, nose pain, photophobia, tearing, throat pain, throat swelling, voice changes, others Respiratory: reports: others (SOB during sleep); denies: cough, hemoptysis, orthopnea, SOB at rest, shortness of breath, SOB with excertion, stridor, wheezing Cardiovascular: denies: chest pain, dizzy spells, diaphoresis, Dyspnea on exertion, edema, irregular heart beat, left arm pain, lightheadedness, palpitations, PND, syncope, others Gastrointestinal: denies: abdomen distended, abdominal pain, blood streaked bowels, constipated, diarrhea, dysphagia, difficulty swallowing, hematemesis, melena, nausea, poor appetite, poor fluid intake, rectal bleeding, rectal pain, vomiting, others Genitourinary: denies: abnormal vagina bleeding, burning, dyspareunia, dysuria, flank pain, frequency, hematuria, incontinence, pain, , vagina discharge, urgency, others Neurological: denies: dizziness, fainting, headache, left sided numbness, left sided weakness, numbness, paresthesia, pre-existing deficit, right sided numbness, right sided weakness, seizure, speech problems, tingling, tremors, weakness, others Musculoskeletal: denies: back pain, gout, joint pain, joint swelling, muscle pain, muscle stiffness, neck pain, others Integumetry: denies: bruises, change in color, change in hair/nails, dryness, laceration, lesions, lumps, rash, wounds, others Allergic/Immunocompromised: denies: Difficulty Healing, Frequent Infections, Hives, Itching, others Hematologic/Lymphatic: denies: anemia, blood clots, easy bleeding, easy bruising, swollen glands, others Endocrine: denies: excessive hunger, excessive sweating, excessive thirst, excessive urination, flushing, intolerance to cold, intolerance to heat, unexplained weight gain, unexplained weight loss, others Psychiatric: denies: anxiety, bipolar disorder, depression, hopeless, panic disorder, schizophrenia, sleepless, suicidal, others All Other Systems: Reviewed and Negative Physical Exam General Appearance: No Apparent Distress, Obese HEENT: Normal ENT Inspection, Pharynx Normal, TMs Normal Neck: Full Range of Motion, Non-Tender, Normal, Normal Inspection Respiratory: Chest Non-Tender, Lungs Clear, No Accessory Muscle Use, No Respiratory Distress, Normal Breath Sounds Cardiovascular: No Edema, No JVD, No Murmur, No Gallop, Normal Peripheral Pulses, Regular Rate/Rhythm Breast Exam: Deferred Gastrointestinal: No Organomegaly, Non Tender, No Pulsatile Mass, Normal Bowel Sounds, Soft Genitalia: Deferred Pelvic: Deferred Rectal: Deferred Extremities: No calf tenderness, Normal capillary refill, Normal inspection, Normal range of motion, Non-tender, No pedal edema Musculoskeletal : Apperance: Normal Neurologic: Alert, filler picker II-XII nml as Tested, No Motor Deficits, Normal Affect, Normal Mood, No Sensory Deficits Cerebellar Function: Normal Reflexes: Normal Skin: Dry, Normal Color, Warm Lymphatic: No Adenopathy Was a procedure done? Was a procedure done?: No Differential Dx Considerations may include: Sleep apnea, pneumonia, anxiety X-Ray, Labs, Meds, VS Vital Signs Date Time Temp Pulse Resp B/P (MAP) Pulse Ox O2 Delivery O2 Flow Rate FiO2 12/12/24 13:41 99.0 100 20 142/99 (113) 100 99.0 12/12/24 13:41 20 100 Room Air 0 At this time the patient feels asymptomatic We did explain to the patient that she is going to have to some how resolve this with her primary care doctor for the sleep apnea machine The patient understands and agrees with the management The patient is being discharged at this time Time of 1ST Reevaluation: 14:18 Reevaluation 1ST: Unchanged Patient Education/Counseling: Diagnosis, Treatment, Prognosis, Need For Follow Up Family Education/Counseling: No Family Present SEPSIS Sepsis Screen Vital Signs Date Time Temp Pulse Resp B/P (MAP) Pulse Ox O2 Delivery O2 Flow Rate FiO2 12/12/24 13:41 99.0 100 20 142/99 (113) 100 99.0 12/12/24 13:41 20 100 Room Air 0 Departure 1 Departure Time of Disposition: 13:54 Impression: Primary Impression: Sleep apnea Qualified Codes: G47.30 - Sleep apnea, unspecified Disposition: HOME / SELF CARE / HOMELESS Condition: Fair Discharged With: Self Critical Care Note Critical Care Time?: No Stability Stability form required: No Heart Score Heart Score: Heart Score Response (Comments) Value History N/A 0 EKG N/A 0 Age N/A 0 Risk Factors N/A 0 Troponin N/A 0 Total 0 I personally scribed for YENNY VENEGAS MD ([email or web address]) on 12/12/24 at 13:40. Electronically submitted by Saleem Brothers ([email or web address]). YENNY VENEGAS MD Dec 12, 2024 13:40
[2024-12-12 13:41] VITALS: BP 142/99; PULSE 100; RESP 20; TEMP 99; O2SAT 100
== END 2024-12-12 16:10 | disposition left against medical advice (07) ==
LOC: ER 13:25
DX: G47.30 Sleep apnea, unspecified (principal); F10.90 Alcohol use, unspecified, uncomplicated; I11.0 Hypertensive heart disease with heart failure; I50.9 Heart failure, unspecified; E11.9 Type 2 diabetes mellitus without complications; E78.5 Hyperlipidemia, unspecified; Z86.73 Personal history of transient ischemic attack (TIA), and cerebral infarction without residual deficits; Z88.1 Allergy status to other antibiotic agents; Z88.5 Allergy status to narcotic agent; Z88.8 Allergy status to other drugs, medicaments and biological substances; Z90.49 Acquired absence of other specified parts of digestive tract; Z90.89 Acquired absence of other organs; Z87.891 Personal history of nicotine dependence; Z79.899 Other long term (current) drug therapy; Z79.85 Long-term (current) use of injectable non-insulin antidiabetic drugs; Z79.52 Long term (current) use of systemic steroids; Y90.9 Presence of alcohol in blood, level not specified

== ENCOUNTER 2024-12-24 14:52 | Inpatient (IN) | payer MEDICAID ==
[~2024-12-24] VITALS: Ht 170.2 cm; Wt 136.5 kg
[2024-12-24 15:31] VITALS: PULSE 90; RESP 90; O2SAT 92
[2024-12-24] MEDS: SODIUM CHLORIDE 0.9% 1,000 ML IV ONE (15:34)
[2024-12-24 15:37] LABS: Hematocrit 44.0 % (36.0-46.0); Hemoglobin 14.5 g/dL (12.2-16.2); Mean Corpuscular Hemoglobin 28.8 pg (28.0-32.0); Mean Corpuscular Volume 87.3 fL (80.0-100.0); Nucleated Red Blood Cells % 0.1 %
[2024-12-24 15:48] LABS: Chloride 107 mmol/L (98-107); Potassium 4.1 mmol/L (3.5-5.1); Sodium 142 mmol/L (136-145)
[2024-12-24 15:49] LABS: Anion Gap 8 (5-15); Calcium 9.4 mg/dL (8.7-10.4); Carbon Dioxide 27 mmol/L (20-31)
[2024-12-24 15:54] LABS: BUN/Creatinine Ratio 15.5 (10.0-20.0); Blood Urea Nitrogen 13 mg/dL (9-23); Glucose 156 mg/dL (74-106)
--- NOTE | 2024-12-24 15:58 | DVH ---
EXAM: CT HEAD WITHOUT CONTRAST INDICATION: ams TECHNIQUE: CT of the head without intravenous contrast. Radiation Dose Information: CT Dose: CTDI volume is 65.11 mGy. Dose-length product is 1152.67 mGy*cm The dose indicators for CT are the volume Computed Tomography (CT) Dose Index (CTDIvol) and the Dose Length Product (DLP), and are measured in units of mGy and mGy-cm, respectively. These indicators are not patient dose, but values generated from the CT scanner acquisition factors. The report includes radiation exposure data for exposures received during this examination. COMPARISON: CT HEAD WITHOUT CONTRAST on DOS: 06/24/24, CT HEAD WITHOUT CONTRAST on DOS: 07/29/23, CT STR YOLIE CTH on DOS: 06/13/23 FINDINGS: There is no evidence of acute intracranial hemorrhage, extra-axial collection, mass effect, midline s hift, herniation or hydrocephalus. The ventricles, sulci and cisterns are age appropriate. The griffith-white differentiation is intact. Patchy periventricular and subcortical white matter hypoattenuation is nonspecific but may be related to small vessel ischemic disease. The visualized paranasal sinuses and mastoid air cells are clear. The surrounding soft tissues and osseous structures are unremarkable. IMPRESSION: 1. No acute intracranial abnormality.
--- NOTE | 2024-12-24 16:00 | ECG ---
[facility] Test Date: 2024-12-24 Test Time: 15:02:28 Pat Name: CHRISTIAN COWAN Department: ER Room: 0207 Gender: F Bolting Machine Operator: KEVEN : 1970 Requested By: JOHNY SANTIAGO Order Number: [id number] Reading MD: Shadi Lau Measurements Intervals [place] Rate: 86 P: 63 CT: 148 QRS: 56 QRSD: 85 T: 58 QT: 371 QTc: 444 Interpretive Statements Sinus rhythm Electronically Signed On 12-26-2024 19:03:35 PDT by Shadi Lau Please click the below link to view image of tracing.
--- NOTE | 2024-12-24 16:09 | DVH ---
CHEST RADIOGRAPH Indication: ams Technique: Single frontal view of the chest was obtained Comparison: XY CHEST PORTABLE on DOS: 09/16/24, XY CHEST PORTABLE on DOS: 06/24/24, XY CHEST PORTABLE on DOS: 06/15/24 FINDINGS: Lines and Tubes: None Lungs: No focal consolidation. Mild interstitial prominence. Pleura: No effusion. No pneumothorax. Cardiomediastinal contours: Unremarkable Bones: No acute osseous abnormality. IMPRESSION: Mild pulmonary vascular congestion.
[2024-12-24 16:45] LABS: INR 0.92 (0.9-1.15); Partial Thromboplastin Time 26.3 SEC (24.5-34.5); Prothrombin Time 9.8 sec (9.3-11.8)
--- NOTE | 2024-12-24 17:43 | ED.PDOC ---
History of Present Illness HPI Comments 54F to M presents with a history of cva and residual right-sided weakness presents with one day of worsening confusion, slurred speech, and generalized weakness. Chief Complaint: Right Sided Weakness Time Seen by MD: 15:03 Primary Care Provider: none Allergies: Coded Allergies: Azithromycin (Verified Allergy, Severe, 05/22/23) RASHES AND SWELLING Iodine (Verified Allergy, Severe, 08/17/21) Shellfish Allergy (Verified Allergy, Severe, 08/17/21) Theophylline (Verified Allergy, Severe, 08/17/21) Codeine (Verified Allergy, Mild, 10/04/21) patient had [place] no reaction Pineapple (Verified Allergy, Mild, 02/29/24) Home Meds Active Scripts Cyclobenzaprine HCl (Cyclobenzaprine Hydrochlo) 10 Mg Tab, 10 MG PO HS for 5 Days, #5 TAB Prov:CINTHIA MENDOZA RESDIENT 10/18/24 Cephalexin Monohydrate (Cephalexin) 500 Mg Cap, 500 MG PO BID for 5 Days, #10 CAP Prov:CINTHIA MENDOZA RESDIENT 10/18/24 Ondansetron Odt 4MG Tab (ZOFRAN PO) 4 Mg Tb, 4 MG PO Q8HPRN PRN for 3 Days, #9 TAB ODT TAB-DISSOLVE IN MOUTH, THEN SWALLOW Prov:ARIAN OSORIO DO 10/11/24 Cephalexin Monohydrate (Cephalexin) 500 Mg Tab, 1 TAB PO TID for 7 Days, #21 TAB Prov:ARIAN OSORIO DO 10/11/24 Promethazine-Dm (Promethazine Dm 6.25-15 mg/5Ml) 1 Deirdre Deirdre, 1 DEIRDRE PO TIDPRN PRN for 7 Days, #10 ML Prov:JENNIFER DEGROOT EQUAL OPPORTUNITY SPECIALIST 09/29/24 Prednisone (Prednisone) 20 Mg Tab, 40 MG PO DAILY@BREAKFAST for 4 Days, #5 MG Prov:JENNIFER DEGROOT EQUAL OPPORTUNITY SPECIALIST 09/29/24 Gabapentin (Gabapentin) 300 Mg Cap, 1 TAB PO BID for 30 Days, #60 CAP 1 Refill Prov:JENNIFER ALCANTARA CURRICULUM AND ASSESSMENT DIRECTOR 06/15/24 Acetaminophen (Acetaminophen Er) 650 Mg Tab, 650 MG PO Q4HPRN PRN for 10 Days, #50 TAB Prov:BRANDY FISHER RESIDENT 04/23/24 Budesonide (Inhalation) (Budesonide) 0.25 Mg/2 Ml Nicole, 0.25 MG IN BID for 30 Days, #10 ML Prov:JUAREZ POWER RESIDENT 03/01/24 Lisinopril (Lisinopril) 5 Mg Tab, 5 MG PO DAILY, #30 TAB 5 Refills Prov:IFTIKHAR GUIDO MD 02/06/23 Reported Medications Semaglutide (Ozempic) 2 Mg/3 Ml Inj, 2 MG SC QWEEKLY, INJ 11/30/23 Albuterol Sulfate (VENTOLIN MDI) 90 Mcg Ih, 90 MCG IN PRN for SHORTNESS OF BREATH, INH 11/30/23 Albuterol Sulfate (Albuterol Sulfate) 0.083 % Neb, 1 VIAL NEB Q4HPRN PRN for SHORTNESS OF BREATH, #50 VIAL 11/30/23 Atorvastatin Calcium (ATORVASTATIN CALCIUM) 40 Mg Tab, 40 MG PO DAILY 11/30/23 Mode of Arrival: Ambulatory Past Medical History PAST MEDICAL HISTORY: Angina, Asthma, CHF, COPD, CVA, DM, High Lipids, HTN, IA, PE, Seizures, TIA Surgical History: Appendectomy, , Tonsillectomy STATE WILDLIFE OFFICER History: No Pertinent STATE WILDLIFE OFFICER History Family History Family History: Reviewed,noncontributory to illness, Family hx of DM, Family hx of heart myron, Family hx of HTN, Family hx of Kidney myron Family History (Other): Thyroid Social History Smoker: Quit Greater Than 1 Year Alcohol: Occasionally Drugs: Denies Drug Use Lives In: Home All Other Systems: Deferred Physical Exam General Appearance: Other (Speaking gibberish) HEENT: Pharynx Normal Neck: Normal Inspection Respiratory: No Respiratory Distress Cardiovascular: Other (Lower extremity edema) Breast Exam: Deferred Gastrointestinal: Non Tender Genitalia: Deferred Pelvic: Deferred Rectal: Deferred Extremities: Normal inspection Neurologic: Other (Right-sided weakness, confused speech,) Cerebellar Function: NOT DONE Reflexes: NOT DONE Skin: Normal Color Lymphatic: NOT DONE Was a procedure done? Was a procedure done?: No Differential Dx Considerations may include: ACS, CVA, infectious etiology, electrolyte abnormality X-Ray, Labs, Meds, VS Vital Signs Date Time Temp Pulse Resp B/P (MAP) Pulse Ox O2 Delivery O2 Flow Rate FiO2 12/24/24 15:31 98.6 90 20 130/78 (95) 92 98.6 12/24/24 15:31 90 90 92 Room Air* 0 21 12/24/24 15:15 98.6 82 16 162/100 (120) 96 98.6 12/24/24 15:02 86 Lab Test 12/24/24 16:40 12/24/24 15:24 12/24/24 15:19 Range/Units Troponin I High Sensitivity < 3 L < 3 L </=34 ng/L POC Glucose 77 70-106 mg/dl White Blood Count 7.3 4.4-10.8 10^3/uL Red Blood Count 5.04 4.0-5.20 10^6/uL Hemoglobin 14.5 12.2-16.2 g/dL Hematocrit 44.0 36.0-46.0 % Mean Corpuscular Volume 87.3 80.0-100.0 fL Mean Corpuscular Hemoglobin 28.8 28.0-32.0 pg Mean Corpuscular Hemoglobin Concent 33.0 32.0-36.0 g/dL Red Cell Distribution Width 15.0 H 11.8-14.3 % Platelet Count 188 140-450 10^3/uL Mean Platelet Volume 9.8 6.9-10.8 fL Neutrophils (%) (Auto) 58.5 37.0-80.0 % Lymphocytes (%) (Auto) 32.0 10.0-50.0 % Monocytes (%) (Auto) 5.7 0.0-12.0 % Eosinophils (%) (Auto) 3.0 0.0-7.0 % Basophils (%) (Auto) 0.8 0.0-2.0 % Neutrophils # (Auto) 4.3 1.6-8.6 10 ^3/uL Lymphocytes # (Auto) 2.3 0.4-5.4 10 ^3/uL Monocytes # (Auto) 0.4 0-1.3 10 ^3/uL Eosinophils # (Auto) 0.2 0-0.8 10 ^3/uL Basophils # (Auto) 0.1 0-0.2 10 ^3/uL Nucleated Red Blood Cells 0.1 % Prothrombin Time 9.8 9.3-11.8 sec Prothrombin Time INR 0.92 0.9-1.15 Activated Partial Thromboplast Time 26.3 24.5-34.5 SEC Sodium Level 142 136-145 mmol/L Potassium Level 4.1 3.5-5.1 mmol/L Chloride Level 107 98-107 mmol/L Carbon Dioxide Level 27 20-31 mmol/L Anion Gap 8 5-15 Blood Urea Nitrogen 13 9-23 mg/dL Creatinine 0.84 0.550-1.02 mg/dL Glomerular Filtration Rate Calc 84 >90 mL/min BUN/Creatinine Ratio 15.5 10.0-20.0 Serum Glucose 156 H 74-106 mg/dL Lactic Acid Level 1.6 0.4-2.0 mmol/L Calcium Level 9.4 8.7-10.4 mg/dL Current Medications Medications (Trade) Dose Ordered Sig/[place] Route Start Time Stop Time Status Last Admin Sodium Chloride 1,000 ml @ 1,000 mls/hr Q1H ONCE IV 12/24/24 15:15 12/24/24 16:14 DC 12/24/24 15:34 Time of 1ST Reevaluation: 17:42 Reevaluation 1ST: Improved Patient Education/Counseling: Diagnosis, Treatment Family Education/Counseling: Diagnosis, Treatment SEPSIS Sepsis Screen Date sepsis recognized/suspect: Dec 24, 2024 Time Sepsis recognized/suspect: 1609 Recent Procedure: No On Antibiotic Therapy: No Respiratory Rate >20: No Heart Rate >90: No Temp<36 C (96.8 F) or >38.3 C: No SBP <90 or MAP <65 mmHG: No New Acute Mental Status Change: No Is the patient on CPAP, BIPAP,: No Physician Orders Urinalysis (12/24/24 15:06) Chest Portable (12/24/24 15:06) Head Without Contrast (12/24/24 15:06) Troponin-I Hs (12/24/24 18:06) Vital Signs Date Time Temp Pulse Resp B/P (MAP) Pulse Ox O2 Delivery O2 Flow Rate FiO2 12/24/24 15:31 98.6 90 20 130/78 (95) 92 98.6 12/24/24 15:31 90 90 92 Room Air* 0 21 12/24/24 15:15 98.6 82 16 162/100 (120) 96 98.6 12/24/24 15:02 86 Laboratory Tests Test 12/24/24 15:19 Lactic Acid Level 1.6 mmol/L (0.4-2.0) White Blood Count 7.3 10^3/uL (4.4-10.8) Medications Medications Dose Ordered Sig/[place] Route Start Time Stop Time Status Last Admin Dose Admin Sodium Chloride 1,000 ml @ 1,000 mls/hr Q1H ONCE IV 12/24/24 15:15 12/24/24 16:14 DC 12/24/24 15:34 Departure 1 Departure Time of Disposition: 17:42 (Patient has a worsening confusion altered mental status. Patient is out of the window for any acute CT brain and labs are benign. We will admit patient for further workup and expert consultation) Impression: Primary Impression: Acute metabolic encephalopathy Additional Impressions: Generalized weakness History of CVA (cerebrovascular accident) Right sided weakness Disposition: ADMITTED INPATIENT Admit to: Med Surg Condition: Guarded Critical Care Note Critical Care Time?: Yes Critical care comment: Concern for CVA Authorized and Performed by: Johny Carmona MD Total critical care time: Approximately 43 minutes Due to a high probability of clinically significant, life threatening deterioration, the patient required my highest level of preparedness to intervene emergently and I personally spent this critical care time directly and personally managing the patient. This critical care time included obtaining a history; examining the patient; pulse oximetry; ordering and review of studies; arranging urgent treatment with development of a management plan; evaluation of patient's response to treatment; frequent reassessment; and, discussions with other providers. This critical care time was performed to assess and manage the high probability of imminent, life-threatening deterioration that could result in multi-organ failure. It was exclusive of separately billable procedures and treating other patients and teaching time. Please see my other sections and the rest of the note for further information on patient assessment and treatment. Stability Stability form required: JOHNY Mccormick MD Dec 24, 2024 17:43
[2024-12-24 18:04] LABS: Urine Protein, UAD 2+ (Negative)
[2024-12-24 19:25] VITALS: PULSE 69; RESP 18; O2SAT 98
[2024-12-24] MEDS ORDERED: DEXTROSE (50%) 50ML SYRG IV PRN (19:30)
[2024-12-24] MEDS ORDERED: ONDANSETRON HCL 4 MG/2 ML VIAL IV PRN (19:30)
[2024-12-24] MEDS: ACETAMINOPHEN 325 MG TAB PO PRN (20:18)
[2024-12-24 20:28] VITALS: PULSE 78; RESP 16; O2SAT 98
[2024-12-24] MEDS: ATORVASTATIN 20 MG TAB PO SCH (20:54)
[2024-12-24] MEDS: GABAPENTIN 300 MG CAP PO SCH (20:54)
[2024-12-24] MEDS: InsuLIN REG 1unit/0.01ml Soln (100units/ml) SC SCH (20:54)
[2024-12-24] MEDS: ACCU-CHEK COMFORT CURVE STRIP VI SCH (20:55)
[2024-12-24] MEDS ORDERED: HYDROcodone-ACET 5/325MG TAB PO PRN (22:00)
[2024-12-24] MEDS: HYDROcodone-ACET 5/325MG TAB PO PRN (22:11)
[2024-12-25] VITALS (10 sets, daily range): BP systolic 96–129; BP diastolic 60–89; PULSE 60–97; RESP 14–20; TEMP 97.8–98.6; O2SAT 95–98
[2024-12-25] MEDS: TEMAZEPAM 15 MG CAP PO ONE (00:45)
--- NOTE | 2024-12-25 00:49 | DVHHP2 ---
History of Present Illness Reason for Visit: Generalized weakness History of Present Illness 54-year-old male with a history of previous CVA with right-sided deficits presents for evaluation of generalized weakness. Patient reports a two day history of having an intermittent headache and today he became extremely l ethargic. He states that while in the emergency department he developed blurred vision as well. Denies cardiac or respiratory symptoms. Past Medical History COPD, CVA, hypertension, mi, seizures, CHF, asthma Past Surgical History , tonsillectomy and appendectomy Family History Noncontributory Smoke: No ALCOHOL: none Drugs: None Lives: with Family Review of Systems Review of Systems Review of systems are currently negative otherwise addressed in HPI. Allergies: Coded Allergies: Azithromycin (Verified Allergy, Severe, 05/22/23) RASHES AND SWELLING Iodine (Verified Allergy, Severe, 08/17/21) Shellfish Allergy (Verified Allergy, Severe, 08/17/21) Theophylline (Verified Allergy, Severe, 08/17/21) Codeine (Verified Allergy, Mild, 10/04/21) patient had [place] no reaction Pineapple (Verified Allergy, Mild, 02/29/24) Medications Current Medications Medications Dose Ordered Sig/[place] Route Start Time Stop Time Status Last Admin Dose Admin Albuterol 2.5 mg Q6HPRN PRN NEB 12/24/24 19:30 Atorvastatin Calcium 40 mg HS PO 12/24/24 22:00 12/24/24 20:54 40 MG Gabapentin 300 mg TID PO 12/24/24 22:00 12/24/24 20:54 300 MG Lisinopril 5 mg DAILY PO 12/25/24 10:00 Diagnostic Test (Pha) 1 strip ACHS 12/24/24 22:00 12/24/24 20:55 1 STRIP Insulin Human Regular ACHS SC 12/24/24 22:00 Dextrose 50 ml UD PRN IV 12/24/24 19:30 Ondansetron HCl 4 mg Q4HP PRN IV 12/24/24 19:30 Acetaminophen 650 mg Q6HP PRN PO 12/24/24 19:30 12/24/24 20:18 650 MG Acetaminophen/ Hydrocodone Bitart 1 tab Q8HPRN PRN PO 12/24/24 21:30 12/24/24 22:11 1 TAB Exam Vital Signs Vital Signs Date Time Temp Pulse Resp B/P (MAP) Pulse Ox O2 Delivery O2 Flow Rate FiO2 12/24/24 20:28 78 16 98 0.0 21 12/24/24 19:25 Room Air* 12/24/24 19:25 98.1 121/62 (81) 98.1 Exam Gen: 54-year-old male in mild distress, morbidly obese Skin: Warm, dry, normal color and texture, no rash. HEENT: Normocephalic atraumatic, mucous membranes moist and pink. Neck: Cervical and supraclavicular nodes normal without enlargement, trachea is midline, thyroid gland is normal without masses. Pulmonary: Clear to auscultation and percussion bilaterally. Cardiac: Regular rate and rhythm. No murmur Abdomen: Soft, nontender, nondistended, bowel sounds present all 4 quadrants, no guarding, no rigidity, no organomegaly. Extremities: No cyanosis, clubbing, no edema Neuro: Cranial nerves II through XII grossly intact, right-sided deficits from previous CVA Labs/Xrays ORDERING PHYSICIAN: JOHNY SANTIAGO MD PROCEDURE(s): CXRP - CHEST PORTABLE REASON: [facility] ORDER NUMBER(s): [id number], ACCESSION NUMBER(s): [id number] CHEST RADIOGRAPH Indication: ams Technique: Single frontal view of the chest was obtained Comparison: XY CHEST PORTABLE on DOS: 09/16/24, XY CHEST PORTABLE on DOS: 06/24/24, XY CHEST PORTABLE on DOS: 06/15/24 FINDINGS: Lines and Tubes: None Lungs: No focal consolidation. Mild interstitial prominence. Pleura: No effusion. No pneumothorax. Cardiomediastinal contours: Unremarkable Bones: No acute osseous abnormality. IMPRESSION: Mild pulmonary vascular congestion. RING PHYSICIAN: JOHNY SANTIAGO MD PROCEDURE(s): HWOCT - HEAD WITHOUT CONTRAST REASON: [facility] ORDER NUMBER(s): [id number], ACCESSION NUMBER(s): [id number] EXAM: CT HEAD WITHOUT CONTRAST INDICATION: ams TECHNIQUE: CT of the head without intravenous contrast. Radiation Dose Information: CT Dose: CTDI volume is 65.11 mGy. Dose-length product is 1152.67 mGy*cm The dose indicators for CT are the volume Computed Tomography (CT) Dose Index (CTDIvol) and the Dose Length Product (DLP), and are measured in units of mGy and mGy-cm, respectively. These indicators are not patient dose, but values generated from the CT scanner acquisition factors. The report includes radiation exposure data for exposures received during this examination. COMPARISON: CT HEAD WITHOUT CONTRAST on DOS: 06/24/24, CT HEAD WITHOUT CONTRAST on DOS: 07/29/23, CT STROKE CTH on DOS: 06/13/23 FINDINGS: There is no evidence of acute intracranial hemorrhage, extra-axial collection, mass effect, midline shift, herniation or hydrocephalus. The ventricles, sulci and cisterns are age appropriate. The griffith-white differentiation is intact. Patchy periventricular and subcortical white matter hypoattenuation is nonspecific but may be related to small vessel ischemic disease. The visualized paranasal sinuses and mastoid air cells are clear. The surrounding soft tissues and osseous structures are unremarkable. IMPRESSION: 1. No acute intracranial abnormality. RING PHYSICIAN: JOHNY SANTIAGO MD PROCEDURE(s): CXRP - CHEST PORTABLE REASON: [facility] ORDER NUMBER(s): [id number], ACCESSION NUMBER(s): [id number] CHEST RADIOGRAPH Indication: ams Technique: Single frontal view of the chest was obtained Comparison: XY CHEST PORTABLE on DOS: 09/16/24, XY CHEST PORTABLE on DOS: 06/24/24, XY CHEST PORTABLE on DOS: 06/15/24 FINDINGS: Lines and Tubes: None Lungs: No focal consolidation. Mild interstitial prominence. Pleura: No effusion. No pneumothorax. Cardiomediastinal contours: Unremarkable Bones: No acute osseous abnormality. IMPRESSION: Mild pulmonary vascular congestion. RING PHYSICIAN: JOHNY SANTIAGO MD PROCEDURE(s): HWOCT - HEAD WITHOUT CONTRAST REASON: [facility] ORDER NUMBER(s): [id number], ACCESSION NUMBER(s): [id number] EXAM: CT HEAD WITHOUT CONTRAST INDICATION: ams TECHNIQUE: CT of the head without intravenous contrast. Radiation Dose Information: CT Dose: CTDI volume is 65.11 mGy. Dose-length product is 1152.67 mGy*cm The dose indicators for CT are the volume Computed Tomography (CT) Dose Index (C TDIvol) and the Dose Length Product (DLP), and are measured in units of mGy and mGy-cm, respectively. These indicators are not patient dose, but values generated from the CT scanner acquisition factors. The report includes radiation exposure data for exposures received during this examination. COMPARISON: CT HEAD WITHOUT CONTRAST on DOS: 06/24/24, CT HEAD WITHOUT CONTRAST on DOS: 07/29/23, CT STROKE CTH on DOS: 06/13/23 FINDINGS: There is no evidence of acute intracranial hemorrhage, extra-axial collection, mass effect, midline shift, herniation or hydrocephalus. The ventricles, sulci and cisterns are age appropriate. The griffith-white differentiation is intact. Patchy periventricular and subcortical white matter hypoattenuation is nonspecific but may be related to small vessel ischemic disease. The visualized paranasal sinuses and mastoid air cells are clear. The surrounding soft tissues and osseous structures are unremarkable. IMPRESSION: 1. No acute intracranial abnormality. ATED BY: TIFFANIE PINTO Jr. DO Labs Test 12/24/24 20:42 12/24/24 18:40 12/24/24 15:50 12/24/24 15:19 Range/Units POC Glucose 121 H 70-106 mg/dl Troponin I High Sensitivity < 3 L </=34 ng/L Urine Color Light-yellow Yellow Urine Clarity Turbid H Clear Urine pH 6.0 5.0-9.0 Urine Specific [place] 1.025 1.001-1.035 Urine Protein 2+ H Negative Urine Ketones Negative Negative Urine Blood Negative Negative /uL Urine Nitrite Negative Negative Urine Bilirubin Negative Negative Urine Urobilinogen Normal Negative mg/dL Urine Leukocyte Esterase Trace Negative /uL Urine RBC 3 0 - 4 /hpf Urine Microscopic WBC 13 H 0-5 /HPF Urine Squamous Epithelial Cells Few <5 /hpf Urine Bacteria Few H None Seen /hpf Urine Mucus Few None Seen Urine Glucose 3+ H Normal mg/dL White Blood Count 7.3 4.4-10.8 10^3/uL Red Blood Count 5.04 4.0-5.20 10^6/uL Hemoglobin 14.5 12.2-16.2 g/dL Hematocrit 44.0 36.0-46.0 % Mean Corpuscular Volume 87.3 80.0-100.0 fL Mean Corpuscular Hemoglobin 28.8 28.0-32.0 pg Mean Corpuscular Hemoglobin Concent 33.0 32.0-36.0 g/dL Red Cell Distribution Width 15.0 H 11.8-14.3 % Platelet Count 188 140-450 10^3/uL Mean Platelet Volume 9.8 6.9-10.8 fL Neutrophils (%) (Auto) 58.5 37.0-80.0 % Lymphocytes (%) (Auto) 32.0 10.0-50.0 % Monocytes (%) (Auto) 5.7 0.0-12.0 % Eosinophils (%) (Auto) 3.0 0.0-7.0 % Basophils (%) (Auto) 0.8 0.0-2.0 % Neutrophils # (Auto) 4.3 1.6-8.6 10 ^3/uL Lymphocytes # (Auto) 2.3 0.4-5.4 10 ^3/uL Monocytes # (Auto) 0.4 0-1.3 10 ^3/uL Eosinophils # (Auto) 0.2 0-0.8 10 ^3/uL Basophils # (Auto) 0.1 0-0.2 10 ^3/uL Nucleated Red Blood Cells 0.1 % Prothrombin Time 9.8 9.3-11.8 sec Prothrombin Time INR 0.92 0.9-1.15 Activated Partial Thromboplast Time 26.3 24.5-34.5 SEC Sodium Level 142 136-145 mmol/L Potassium Level 4.1 3.5-5.1 mmol/L Chloride Level 107 98-107 mmol/L Carbon Dioxide Level 27 20-31 mmol/L Anion Gap 8 5-15 Blood Urea Nitrogen 13 9-23 mg/dL Creatinine 0.84 0.550-1.02 mg/dL Glomerular Filtration Rate Calc 84 >90 mL/min BUN/Creatinine Ratio 15.5 10.0-20.0 Serum Glucose 156 H 74-106 mg/dL Lactic Acid Level 1.6 0.4-2.0 mmol/L Calcium Level 9.4 8.7-10.4 mg/dL Assessment/Plan Assessment/Plan Assessment Acute encephalopathy History of CVA with right-sided deficits Hypertension Diabetes mellitus Obstructive sleep apnea Plan Admit the patient to Med surge to the hospitalist MRI of the brain pending Resume home medications Continue treatment per orders. Plan discussed with: Patient My Orders Orders - MIGUEL WILSON Procedure Category Date Status Time Admit ADMIT 12/24/24 Transmitted 19:21 Albuterol Medneb PHA 12/24/24 In Process (Ventolin Medneb) 19:30 Atorvastatin (Lipitor) PHA 12/24/24 In Process 22:00 Gabapentin Capsule PHA 12/24/24 In Process (Neurontin Capsule) 22:00 Lisinopril Tablet PHA 12/25/24 In Process (Zestril Tablet) 10:00 Basic Metabolic Panel LAB 12/25/24 Logged 04:00 Glucose Blood PHA 12/24/24 In Process (Accu-Chek Comfort 22:00 Insulin R (Human) PHA 12/24/24 In Process (Insulin R) 22:00 Dextrose 50% Syringe PHA 12/24/24 In Process 19:30 Ondansetron Hcl PHA 12/24/24 In Process (Zofran) 19:30 Complete Blood Count LAB 12/25/24 Logged 04:00 Cardiac DIET 12/25/24 Transmitted Diet-2gna,Lofat,Lochol Breakfast Condition: Stable RASHAAD 12/24/24 In Process 19:25 Acetaminophen Tablet PHA 12/24/24 In Process (Tylenol Tablet) 19:30 Bedrest With Bathroom RASHAAD 12/24/24 In Process Privileg 19:25 Hydrocodone-Acet PHA 12/24/24 In Process 5/325mg Tab ([place] 21:30 Date of Service: Dec 24, 2024 Billing Provider: MIGUEL WILSON Common Visit Codes: [id number] INP/OBS CARE (MOD) MIGUEL WILSON Dec 25, 2024 00:49
[2024-12-25 06:21] LABS: Hematocrit 43.0 % (36.0-46.0); Hemoglobin 13.9 g/dL (12.2-16.2); Mean Corpuscular Hemoglobin 28.4 pg (28.0-32.0); Mean Corpuscular Volume 87.5 fL (80.0-100.0); Nucleated Red Blood Cells % 0.2 %
[2024-12-25 06:34] LABS: Potassium 4.1 mmol/L (3.5-5.1); Sodium 143 mmol/L (136-145)
[2024-12-25 06:35] LABS: Anion Gap 9 (5-15); Carbon Dioxide 26 mmol/L (20-31)
[2024-12-25 06:40] LABS: BUN/Creatinine Ratio 16.0 (10.0-20.0); Blood Urea Nitrogen 12 mg/dL (9-23); Glucose 100 mg/dL (74-106)
[2024-12-25 06:41] LABS: Calcium 8.7 mg/dL (8.7-10.4); Chloride 108 mmol/L (98-107)
--- NOTE | 2024-12-25 08:32 | DVH ---
CLINICAL INDICATION: Blurred vision rule out stroke COMPARISON: MRI BRAIN HEAD WO CONTRAST on DOS: 06/25/24 TECHNIQUE: Multisequence multiplanar MRI images of the brain were obtained without contrast. FINDINGS: No acute infarct or hemorrhage. No mass or midline shift. Ventricles and sulci are within normal limits. Basal cisterns are patent. Cerebellum, brainstem, and midline structures are within no rmal limits. Mild mucosal thickening of the paranasal sinuses. Orbits are grossly unremarkable. IMPRESSION: No evidence of acute intracranial abnormality. No acute infarct.
[2024-12-25] MEDS: LISINOPRIL 5 MG TAB PO SCH (10:05)
[2024-12-25] MEDS: ALBUTEROL SULF 2.5 MG/0.5ML(0.5%) NEB SOLN NEB PRN (10:57)
--- NOTE | 2024-12-25 17:03 | DVHPN2 ---
Subjective feeling better. still has some ongoing initial presenting symptoms lingering but improved. Reviewed: Care Plan Changes from previous H/P or p: No Changes General: Per HPI Objective Vitals Vital Signs Date Time Temp Pulse Resp B/P (MAP) Pulse Ox O2 Delivery O2 Flow Rate FiO2 12/25/24 15:14 75 18 98 Nasal Cannula* 2 28 12/25/24 15:14 98.6 96/60 (72) 98.6 Exam GEN: Healthy appearing, well-developed, NAD. HEENT: NC/AT; MMM. CV: RRR, no m/r/g. LUNGS: CTAB, no w/r/c. ABD: Soft, NT/ND, NBS, no masses or organomegaly. EXT: skin Warm, well perfused. no rashes. No clubbing, cyanosis, or edema. NEURO: Ambulating with no limitations. No focal deficits. Medications Current Medications Medications Dose Ordered Sig/[place] Route Start Time Stop Time Status Last Admin Dose Admin Albuterol 2.5 mg Q6HPRN PRN NEB 12/24/24 19:30 12/25/24 10:57 2.5 MG Atorvastatin Calcium 40 mg HS PO 12/24/24 22:00 12/24/24 20:54 40 MG Gabapentin 300 mg TID PO 12/24/24 22:00 12/25/24 13:40 300 MG Lisinopril 5 mg DAILY PO 12/25/24 10:00 12/25/24 10:05 5 MG Diagnostic Test (Pha) 1 strip ACHS 12/24/24 22:00 12/25/24 11:33 1 STRIP Insulin Human Regular ACHS SC 12/24/24 22:00 Dextrose 50 ml UD PRN IV 12/24/24 19:30 Ondansetron HCl 4 mg Q4HP PRN IV 12/24/24 19:30 Acetaminophen 650 mg Q6HP PRN PO 12/24/24 19:30 12/24/24 20:18 650 MG Acetaminophen/ Hydrocodone Bitart 1 tab Q8HPRN PRN PO 12/24/24 21:30 12/25/24 10:05 1 TAB Trazodone HCl 50 mg HS PO 12/25/24 22:00 Laboratory Results Laboratory Tests 12/25/24 04:51 Chemistry Test 12/25/24 04:51 Calcium Level 8.7 mg/dL (8.7-10.4) Cardiac Markers Test 12/25/24 04:51 B-Type Natriuretic Peptide 13.99 pg/mL (0-100) Urinalysis Test 12/24/24 15:50 Urine Color Light-yellow (Yellow) Urine Clarity Turbid (Clear) H Urine pH 6.0 (5.0-9.0) Urine Specific [place] 1.025 (1.001-1.035) Urine Protein 2+ (Negative) H Urine Ketones Negative (Negative) Urine Blood Negative /uL (Negative) Urine Nitrite Negative (Negative) Urine Bilirubin Negative (Negative) Urine Urobilinogen Normal mg/dL (Negative) Urine Leukocyte Esterase Trace /uL (Negative) Urine RBC 3 /hpf (0 - 4) Urine Microscopic WBC 13 /HPF (0-5) H Urine Squamous Epithelial Cells Few /hpf (<5) Urine Bacteria Few /hpf (None Seen) H Urine Mucus Few (None Seen) Urine Glucose 3+ mg/dL (Normal) H Labs and/or images reviewed: Labs reviewed by me, Image(s) reviewed by me Assessment/Plan Assessment/Plan 12/25- patient has identified as a male. Here with the weakness lethargy. Patient recently got a BiPAP for [place] NENA. 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 Does not know his pressure settings for BiPAP. patient has been feeling weak. Patient has headache, normocephalic atraumatic, no history of migraines, we will give p.r.n. medications for possible tension headache. We will check COVID/flu. Patient had CT head negative, MRI brain also negative. Chest x-ray unconcerning. Start BiPAP 12/8 q.h.s.. Check ABG. TSH, ammonia. 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 PRN for headache, Pain control for other pain unrelated to headache can use Richardson Tylenol morphine Diabetic diet sliding scale insulin Diabetic diet DVT prophylaxis-Lovenox GI prophylaxis tolerating diet Med surge Full code Plan discussed with: Patient My Orders Orders - DWAIN HOFFMAN MD Procedure Category Date Status Time Urine Bacterial PRIYA 12/25/24 Logged Culture 14:37 Trazodone Hcl PHA 12/25/24 In Process (Desyrel) 22:00 Date of Service: Dec 25, 2024 Billing Provider: DWAIN HOFFMAN MD Common Visit Codes: [id number] INP/OBS CARE(HIGH) DWAIN HOFFMAN MD Dec 25, 2024 17:03
[2024-12-25] MEDS ORDERED: TIRZ2.5I SC (17:06)
[2024-12-25] MEDS ORDERED: ATOR-47 PO (17:06)
[2024-12-25] MEDS ORDERED: GABA100C PO (17:06)
[2024-12-25] MEDS: IBUPROFEN 600 MG TAB PO ONE (17:25)
[2024-12-25] MEDS: PROCHLORPERAZINE MALEATE 10 MG TAB PO ONE (17:50)
[2024-12-25] MEDS: ENOXAPARIN SOD 40 MG/0.4 ML SYRINGE SC ONE (18:15)
[2024-12-25 18:44] LABS: Base Excess -0.7 mmol/L (-2.0-3.0)
[2024-12-25] MEDS: diphenhdrAMINE HCL 50 MG/1 ML VL IV ONE (18:53)
[2024-12-26] VITALS (14 sets, daily range): BP systolic 100–143; BP diastolic 54–87; PULSE 58–86; RESP 16–20; TEMP 97.7–98.5; O2SAT 93–99
[2024-12-26 06:51] LABS: Alanine Aminotransferase 23 U/L (7-40); Albumin 4.0 g/dL (3.2-4.8); Alkaline Phosphatase 80 U/L (46-116); Anion Gap 9 (5-15); BUN/Creatinine Ratio 16.8 (10.0-20.0); Bilirubin, Total 0.5 mg/dL (0.2-1.0); Blood Urea Nitrogen 17 mg/dL (9-23); Calcium 9.8 mg/dL (8.7-10.4); Carbon Dioxide 29 mmol/L (20-31); Chloride 106 mmol/L (98-107); Glucose 100 mg/dL (74-106); Potassium 4.3 mmol/L (3.5-5.1); Sodium 144 mmol/L (136-145); Total Protein 6.7 g/dL (5.7-8.2)
[2024-12-26 09:08] LABS: Hematocrit 42.9 % (36.0-46.0); Hemoglobin 13.7 g/dL (12.2-16.2); Mean Corpuscular Hemoglobin 28.3 pg (28.0-32.0); Mean Corpuscular Volume 88.6 fL (80.0-100.0); Nucleated Red Blood Cells % 0.3 %
[2024-12-26] MEDS: ENOXAPARIN SOD 40 MG/0.4 ML SYRINGE SC SCH (11:04)
[2024-12-26 12:17] LABS: COVID19 ANTIGEN SOFIA FIA NEGATIVE (NEGATIVE)
--- NOTE | 2024-12-26 14:05 | DVHPN2 ---
Subjective feeling better. still has some ongoing initial presenting symptoms lingering but improved. Reviewed: Care Plan Changes from previous H/P or p: No Changes General: Per HPI Objective Vitals Vital Signs Date Time Temp Pulse Resp B/P (MAP) Pulse Ox O2 Delivery O2 Flow Rate FiO2 12/26/24 13:00 98.5 75 20 126/84 (98) 97 98.5 12/26/24 12:15 Nasal Cannula 2.0 12/26/24 12:15 28 Intake/Output Intake and Output 12/26/24 07:00 Intake Total 150 ml Balance 150 ml Intake Oral 150 ml Tube Feeding 0 ml # Voids 2 Exam GEN: Healthy appearing, well-developed, NAD. HEENT: NC/AT; MMM. CV: RRR, no m/r/g. LUNGS: CTAB, no w/r/c. ABD: Soft, NT/ND, NBS, no masses or organomegaly. EXT: skin Warm, well perfused. no rashes. No clubbing, cyanosis, or edema. NEURO: Ambulating with no limitations. No focal deficits. Medications Current Medications Medications Dose Ordered Sig/[place] Route Start Time Stop Time Status Last Admin Dose Admin Albuterol 2.5 mg Q6HPRN PRN NEB 12/24/24 19:30 12/26/24 12:14 2.5 MG Atorvastatin Calcium 40 mg HS PO 12/24/24 22:00 12/25/24 21:45 40 MG Gabapentin 300 mg TID PO 12/24/24 22:00 12/26/24 05:33 300 MG Lisinopril 5 mg DAILY PO 12/25/24 10:00 12/26/24 11:03 5 MG Diagnostic Test (Pha) 1 strip ACHS 12/24/24 22:00 12/26/24 12:13 1 STRIP Insulin Human Regular ACHS SC 12/24/24 22:00 12/25/24 17:31 2 UNITS Dextrose 50 ml UD PRN IV 12/24/24 19:30 Ondansetron HCl 4 mg Q4HP PRN IV 12/24/24 19:30 Acetaminophen 650 mg Q6HP PRN PO 12/24/24 19:30 12/25/24 17:25 650 MG Acetaminophen/ Hydrocodone Bitart 1 tab Q8HPRN PRN PO 12/24/24 21:30 12/25/24 10:05 1 TAB Trazodone HCl 50 mg HS PO 12/25/24 22:00 Enoxaparin Sodium 40 mg DAILY SC 12/26/24 10:00 12/26/24 11:04 40 MG Laboratory Results Laboratory Tests 12/26/24 05:09 Chemistry Test 12/26/24 05:09 Albumin 4.0 g/dL (3.2-4.8) Calcium Level 9.8 mg/dL (8.7-10.4) Total Protein 6.7 g/dL (5.7-8.2) LFT Test 12/26/24 05:09 Alanine Aminotransferase (ALT) 23 U/L (7-40) Alkaline Phosphatase 80 U/L (46-116) Aspartate Amino Transferase (AST) 24 U/L (13-40) Total Bilirubin 0.5 mg/dL (0.2-1.0) HgA1c, TSH Test 12/26/24 05:09 Thyroid Stimulating Hormone (TSH) 0.97 uIU/mL (0.55-4.78) Urinalysis Test 12/24/24 15:50 Urine Color Light-yellow (Yellow) Urine Clarity Turbid (Clear) H Urine pH 6.0 (5.0-9.0) Urine Specific [place] 1.025 (1.001-1.035) Urine Protein 2+ (Negative) H Urine Ketones Negative (Negative) Urine Blood Negative /uL (Negative) Urine Nitrite Negative (Negative) Urine Bilirubin Negative (Negative) Urine Urobilinogen Normal mg/dL (Negative) Urine Leukocyte Esterase Trace /uL (Negative) Urine RBC 3 /hpf (0 - 4) Urine Microscopic WBC 13 /HPF (0-5) H Urine Squamous Epithelial Cells Few /hpf (<5) Urine Bacteria Few /hpf (None Seen) H Urine Mucus Few (None Seen) Urine Glucose 3+ mg/dL (Normal) H Blood Gas Results Test 12/25/24 18:35 Arterial Blood pH 7.339 (7.350-7.450) FiO2 % 28.0 Labs and/or images reviewed: Labs reviewed by me, Image(s) reviewed by me Assessment/Plan Assessment/Plan 12/25- patient has identified as a male. Here with the weakness lethargy. Patient recently got a BiPAP for LA NENA. 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 Does not know his pressure settings for BiPAP. patient has been feeling weak. Patient has headache, normocephalic atraumatic, no history of migraines, we will give p.r.n. medications for possible tension headache. We will check COVID/flu. Patient had CT head negative, MRI brain also negative. Chest x-ray unconcerning. Start BiPAP 12/8 q.h.s.. Check ABG. TSH, ammonia. 12/26 - most workup is coming back unremarkable. Patient does have elevated pCO2 but mildly. This could be with a combination of OHS and?COPD. Patient remains on home oxygen level. Patient was on BiPAP overnight 05/26. Trazodone was given at night S sleep aid. Bret patient feels significantly better. This visit and altered mentation was likely due to a combination of poorly control ohs LA NENA with UTI. Today we continue IV antibiotics and wait for urine culture. If urine culture is available tomorrow we can likely DC home and provide patient pressure levels of trouble worried for his home BiPAP machine. Reminder patient prefers to be identified as a male. A urine culture was supposed to be sent yesterday but was not sent. So they will be delay in getting the urine bag. We will try to send urine culture today RN notified. 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 PRN for headache, Pain control for other pain unrelated to headache can use Vega Tylenol morphine Diabetic diet sliding scale insulin Diabetic diet DVT prophylaxis-Lovenox GI prophylaxis tolerating diet Med surge Full code Plan discussed with: Patient My Orders Orders - DWAIN HOFFMAN MD Procedure Category Date Status Time Urine Bacterial PRIYA 12/25/24 Logged Culture 14:37 Trazodone Hcl PHA 12/25/24 In Process (Desyrel) 22:00 Abg W/ Co-Ox RT 12/25/24 Logged 18:09 Enoxaparin Sodium PHA 12/26/24 In Process (Lovenox) 10:00 Date of Service: Dec 26, 2024 Billing Provider: DWAIN HOFFMAN MD Common Visit Codes: [id number] INP/OBS CARE(HIGH) DWAIN HOFFMAN MD Dec 26, 2024 14:05
[2024-12-27] VITALS (11 sets, daily range): BP systolic 93–122; BP diastolic 50–72; PULSE 64–80; RESP 16–20; TEMP 97–98; O2SAT 95–99
[2024-12-27 06:21] LABS: Hematocrit 41.8 % (36.0-46.0); Hemoglobin 13.6 g/dL (12.2-16.2); Mean Corpuscular Hemoglobin 28.3 pg (28.0-32.0); Mean Corpuscular Volume 86.7 fL (80.0-100.0); Nucleated Red Blood Cells % 0.3 %
[2024-12-27] MEDS ORDERED: CIPR-173 PO (14:57)
--- NOTE | 2024-12-27 15:06 | DVHDS2 ---
Discharge Summary Date of Admission Dec 24, 2024 at 19:21 Date of Discharge: Dec 27, 2024 Labs/Diagnostic Data: Laboratory Results Test 12/27/24 11:29 12/27/24 05:04 12/26/24 11:40 12/26/24 05:09 POC Glucose 107 mg/dl (70-106) White Blood Count 6.5 10^3/uL (4.4-10.8) Red Blood Count 4.82 10^6/uL (4.0-5.20) Hemoglobin 13.6 g/dL (12.2-16.2) Hematocrit 41.8 % (36.0-46.0) Mean Corpuscular Volume 86.7 fL (80.0-100.0) Mean Corpuscular Hemoglobin 28.3 pg (28.0-32.0) Mean Corpuscular Hemoglobin Concent 32.6 g/dL (32.0-36.0) Red Cell Distribution Width 14.6 % (11.8-14.3) Platelet Count 167 10^3/uL (140-450) Mean Platelet Volume 10.0 fL (6.9-10.8) Neutrophils (%) (Auto) 54.6 % (37.0-80.0) Lymphocytes (%) (Auto) 32.9 % (10.0-50.0) Monocytes (%) (Auto) 8.4 % (0.0-12.0) Eosinophils (%) (Auto) 3.7 % (0.0-7.0) Basophils (%) (Auto) 0.4 % (0.0-2.0) Neutrophils # (Auto) 3.6 10 ^3/uL (1.6-8.6) Lymphocytes # (Auto) 2.2 10 ^3/uL (0.4-5.4) Monocytes # (Auto) 0.6 10 ^3/uL (0-1.3) Eosinophils # (Auto) 0.2 10 ^3/uL (0-0.8) Basophils # (Auto) 0 10 ^3/uL (0-0.2) Nucleated Red Blood Cells 0.3 % Influenza Type A Antigen Negative (Negative) Influenza Type B Antigen Negative (Negative) SARS-CoV-2 Antigen (Rapid) Negative (NEGATIVE) Sodium Level 144 mmol/L (136-145) Potassium Level 4.3 mmol/L (3.5-5.1) Chloride Level 106 mmol/L (98-107) Carbon Dioxide Level 29 mmol/L (20-31) Anion Gap 9 (5-15) Blood Urea Nitrogen 17 mg/dL (9-23) Creatinine 1.01 mg/dL (0.550-1.02) Glomerular Filtration Rate Calc 67 mL/min (>90) BUN/Creatinine Ratio 16.8 (10.0-20.0) Serum Glucose 100 mg/dL (74-106) Calcium Level 9.8 mg/dL (8.7-10.4) Total Bilirubin 0.5 mg/dL (0.2-1.0) Aspartate Amino Transferase (AST) 24 U/L (13-40) Alanine Aminotransferase (ALT) 23 U/L (7-40) Alkaline Phosphatase 80 U/L (46-116) Ammonia 17 umol/L (11-32) Total Protein 6.7 g/dL (5.7-8.2) Albumin 4.0 g/dL (3.2-4.8) Thyroid Stimulating Hormone (TSH) 0.97 uIU/mL (0.55-4.78) Test 12/25/24 18:35 12/25/24 04:51 12/24/24 18:40 12/24/24 15:50 Blood Gas Specimen Type Arterial Blood Gas Sample Site Left radial Blood Gas Patient Temperature 37.0 Arterial Blood Date Drawn [id number] Arterial Blood pH 7.339 (7.350-7.450) Arterial Blood Partial Pressure CO2 48.8 mmHg (32.0-45.0) Arterial Blood Partial Pressure O2 76.1 mmHg (83.0-108.0) Arterial Blood HCO3 25.7 mmol/L (21.0-28.0) Arterial Blood Oxygen Saturation 94.3 % (94.0-98.0) Arterial Blood Base Excess -0.7 mmol/L (-2.0-3.0) Arterial Blood Oxyhemoglobin 93.1 % (94.0-98.0) Arterial Blood Carboxyhemoglobin 0.9 % (0.5-1.5) Arterial Blood Methemoglobin 0.4 % (0.0-1.5) Phil Test Modified Blood Gas Total Hemoglobin 14.10 g/dL (12.0-16.0) Blood Gas Liter Flow 2.00 Blood Gas Modality Nasal cannula Blood Gas Spontaneous Rate 20 FiO2 % 28.0 B-Type Natriuretic Peptide 13.99 pg/mL (0-100) Troponin I High Sensitivity < 3 ng/L (</=34) Urine Color Light-yellow (Yellow) Urine Clarity Turbid (Clear) Urine pH 6.0 (5.0-9.0) Urine Specific [place] 1.025 (1.001-1.035) Urine Protein 2+ (Negative) Urine Ketones Negative (Negative) Urine Blood Negative /uL (Negative) Urine Nitrite Negative (Negative) Urine Bilirubin Negative (Negative) Urine Urobilinogen Normal mg/dL (Negative) Urine Leukocyte Esterase Trace /uL (Negative) Urine RBC 3 /hpf (0 - 4) Urine Microscopic WBC 13 /HPF (0-5) Urine Squamous Epithelial Cells Few /hpf (<5) Urine Bacteria Few /hpf (None Seen) Urine Mucus Few (None Seen) Urine Glucose 3+ mg/dL (Normal) Test 12/24/24 15:19 Prothrombin Time 9.8 sec (9.3-11.8) Prothrombin Time INR 0.92 (0.9-1.15) Activated Partial Thromboplast Time 26.3 SEC (24.5-34.5) Lactic Acid Level 1.6 mmol/L (0.4-2.0) Other Laboratory Tests 12/27/24 05:04 12/26/24 05:09 Brief Hx & Hospital Course: History of Present Illness 54-year-old male With past medical history COPD, CVA, hypertension, mi, seizures, CHF, asthma with a history of previous CVA with right-sided deficits presents for evaluation of generalized weakness. Patient reports a two day history of having an intermittent headache and today he became extremely lethargic. He states that while in the emergency department he developed blurred vision as well. Denies cardiac or respiratory symptoms. Summary: 12/25- patient has identified as a male. Here with the weakness lethargy. Patient recently got a BiPAP for LA NENA. 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 Does not know his pressure settings for BiPAP. patient has been feeling weak. Patient has headache, normocephalic atraumatic, no history of migraines, we will give p.r.n. medications for possible tension headache. We will check COVID/flu. Patient had CT head negative, MRI brain also negative. Chest x-ray unconcerning. Start BiPAP 05/26 q.h.s.. Check ABG. TSH, ammonia. 12/26 - most workup is coming back unremarkable. Patient does have elevated pCO2 but mildly. This could be with a combination of OHS and?COPD. Patient remains on home oxygen level. Patient was on BiPAP overnight 05/26. Trazodone was given at night S sleep aid. Bret patient feels significantly better. This visit and altered mentation was likely due to a combination of poorly control ohs LA NENA with UTI. Today we continue IV antibiotics and wait for urine culture. If urine culture is available tomorrow we can likely DC home and provide patient pressure levels of trouble worried for his home BiPAP machine. Reminder patient prefers to be identified as a male. A urine culture was supposed to be sent yesterday but was not sent. So they will be delay in getting the urine bag. We will try to send urine culture today RN notified. 12/27 patient is feeling improved. Most improvement was with BiPAP settings 05/26. Patient is informed. Urine is growing young colonies. Patient urinary symptoms have resolved. no neurological symptoms, remains FND. No neuro symptoms on RN evaluations. Patient vital signs are stable. Stable for discharge as per plan below. 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 Can also stop prednisone -Continue taking other home medications not mentioned above ( Tylenol, albuterol, Lipitor 80, budesonide inhalation, Flexeril, gabapentin 300 b.i.., lisinopril 5, Zofran, promethazine syrup, Mounjaro -Take biPAP settings of 05/26. Contact equipment company if having troubles adjusting pressure is -Follow up with PCP to review discharge. PCP to review urine culture. 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 Hypertension Diabetes mellitus Primary insomnia Discharge Disposition: Home Discharge Instruct/Medications Diet: Consistent carbohydrate Activity: No Restrictions, As Tolerated Follow Up/Referral: See below Medications: See below Scheduled Atorvastatin Calcium (Atorvastatin Calcium), 1 TAB PO QPM, (Reported) Budesonide (Inhalation) (Budesonide), 0.25 MG IN BID Cephalexin Monohydrate (Cephalexin), 1 TAB PO TID Cephalexin Monohydrate (Cephalexin), 500 MG PO BID Ciprofloxacin Hcl (Cipro), 1 TAB PO BID Cyclobenzaprine HCl (Cyclobenzaprine Hydrochlo), 10 MG PO HS Gabapentin (Gabapentin), 1 TAB PO BID Gabapentin (Neurontin), 50 MG PO BID, (Reported) Lisinopril (Lisinopril), 5 MG PO DAILY Prednisone (Prednisone), 40 MG PO DAILY@BREAKFAST Tirzepatide (Mounjaro), 2.5 MG SC QWEEKLY, (Reported) Scheduled PRN Acetaminophen (Acetaminophen Er), 650 MG PO Q4HPRN PRN Albuterol Sulfate (Albuterol Sulfate), 1 VIAL NEB Q4HPRN PRN for SHORTNESS OF BREATH, (Reported) Albuterol Sulfate (Ventolin Mdi), 90 MCG IN for SHORTNESS OF BREATH, (Reported) Ondansetron Odt 4MG Tab (Zofran Po), 4 MG PO Q8HPRN PRN Promethazine-Dm (Promethazine Dm 6.25-15 mg/5Ml), 1 DEIRDRE PO TIDPRN PRN Discontinued Medications Atorvastatin Calcium (Atorvastatin Calcium), 40 MG PO DAILY, (Reported) Semaglutide (Ozempic), 2 MG SC QWEEKLY, (Reported) Discharge Statement: "Patient was advised to return to the ER or call 911 if any headaches, dizziness, shortness of breath, chest pain, abdominal pain, bleeding, fevers, or worsening of medical condition. Patient was counseled about treatment plan, medications, possible side effects, patientverbalized understanding. All questions were answered to the best of my ability. This discharge took greater then 30 minutes in planning, reviewing documentation, counseling the patient, and discussing with other team members." Date of Service: Dec 27, 2024 Billing Provider: DWAIN HOFFMAN MD Common Visit Codes: 17075-QUN/OBS DISCH DAY >30min WDAIN HOFFMAN MD Dec 27, 2024 15:06
== END 2024-12-27 17:45 | disposition home or self-care (01) | DRG 52 ==
LOC: ER 14:52 → OVERFLOW 19:21 → CENTRAL 12-25 15:20
PROVIDERS: ADMIT Student in an Organized Health Care Education/Training Program; ATTEND Student in an Organized Health Care Education/Training Program
PROC: 5A09357 Assistance with Respiratory Ventilation, Less than 24 Consecutive Hours, Continuous Positive Airway Pressure (ICD-10-PCS; principal; 2024-12-25)
PROC: 5A09357 Assistance with Respiratory Ventilation, Less than 24 Consecutive Hours, Continuous Positive Airway Pressure (ICD-10-PCS; 2024-12-26)
DX: G92.8 Other toxic encephalopathy (principal); J96.21 Acute and chronic respiratory failure with hypoxia; I50.9 Heart failure, unspecified; I11.0 Hypertensive heart disease with heart failure; N30.00 Acute cystitis without hematuria; Z20.822 Contact with and (suspected) exposure to COVID-19; I69.351 Hemiplegia and hemiparesis following cerebral infarction affecting right dominant side; E11.9 Type 2 diabetes mellitus without complications; G47.33 Obstructive sleep apnea (adult) (pediatric); J44.89 Other specified chronic obstructive pulmonary disease; F51.01 Primary insomnia; J96.22 Acute and chronic respiratory failure with hypercapnia; Z88.1 Allergy status to other antibiotic agents; I25.2 Old myocardial infarction; Z88.5 Allergy status to narcotic agent; Z90.49 Acquired absence of other specified parts of digestive tract; Z91.013 Allergy to seafood; Z87.891 Personal history of nicotine dependence; Z99.81 Dependence on supplemental oxygen
CPT/HCPCS: 36415; 36600; 70450; 70551; 71045; 80048; 80053; 81001; 82140; 82805; 82962; 83605; 83880; 84443; 84484; 85025; 85610; 85730; 87086; 87426; 87804; 93005; 94640; 94660; 99291; G0378; J1815; Q0164

== ENCOUNTER 2025-02-08 21:02 | Emergency (ER) | payer MEDICAID ==
[~2025-02-08] VITALS: Ht 170.2 cm; Wt 131.0 kg
[~2025-02-08 21:02] MED LIST changes: +ATOR-47 PO; -ATOR40TA52 PO; -CEPH500C PO; -CEPH500T PO; +CIPR-173 PO; -PRED20TA2 PO; -SEMA2INJ3 SC; +TIRZ2.5I SC
[2025-02-08 21:04] VITALS: BP 135/73; PULSE 108; RESP 20; TEMP 100; O2SAT 95
--- NOTE | 2025-02-08 21:28 | ED.PDOC ---
SOB-HPI HPI Comments 54-year-old female who came to ER for shortness of breath. Patient does have history of hypertension, diabetes and COPD, on home oxygen at 2 L/min. Recently exposed to her grandson tested with COVID-19, for the past few hours, patient has been experiencing muscle and joint pains, fever, chills, diaphoresis, cough congestion, chest pains and shortness a breath. Patient is saturating 95% on room air Chief Complaint: Shortness of Breath Time Seen by MD: 21:28 Primary Care Provider: none Reviewed notes: Nurses Notes Information Source: Patient Mode of Arrival: Ambulatory Severity: Moderate Timing: Hours Duration: Intermittent Context: At Rest, With Light Exertion History of: COPD Associated Signs and Symptoms: Fever, Cough, Nasal Congestion, Chest Pain Past Medical History PAST MEDICAL HISTORY: Angina, Asthma, CHF, COPD, DM, High Lipids, HTN, [place], PE, Seizures, TIA Surgical History: Appendectomy, , Tonsillectomy INFORMATION SECURITY ANALYST History: No Pertinent INFORMATION SECURITY ANALYST History Family History Family History: Reviewed,noncontributory to illness, Family hx of DM, Family hx of heart myron, Family hx of HTN, Family hx of Kidney myron Family History (Other): Thyroid Social History Smoker: Quit Greater Than 1 Year Alcohol: Occasionally Drugs: Denies Drug Use Lives In: Home Constitutional: reports: diaphoresis, fever, malaise, weakness; denies: chills, fatigue, sweats, others EENTM: reports: nose congestion; denies: blurred vision, double vision, ear bleeding, ear discharge, ear drainage, ear pain, ear ringing, eye pain, eye redness, hearing loss, mouth pain, mouth swelling, nasal discharge, nose bleeding, nose pain, photophobia, tearing, throat pain, throat swelling, voice changes, others Respiratory: reports: cough; denies: hemoptysis, orthopnea, SOB at rest, shortness of breath, SOB with excertion, stridor, wheezing, others Cardiovascular: reports: chest pain; denies: dizzy spells, diaphoresis, Dyspnea on exertion, edema, irregular heart beat, left arm pain, lightheadedness, palpitations, PND, syncope, others Gastrointestinal: denies: abdomen distended, abdominal pain, blood streaked bowels, constipated, diarrhea, dysphagia, difficulty swallowing, hematemesis, melena, nausea, poor appetite, poor fluid intake, rectal bleeding, rectal pain, vomiting, others Genitourinary: denies: abnormal vagina bleeding, burning, dyspareunia, dysuria, flank pain, frequency, hematuria, incontinence, pain, , vagina discharge, urgency, others Neurological: denies: dizziness, fainting, headache, left sided numbness, left sided weakness, numbness, paresthesia, pre-existing deficit, right sided numbness, right sided weakness, seizure, speech problems, tingling, tremors, weakness, others Musculoskeletal: denies: back pain, gout, joint pain, joint swelling, muscle pain, muscle stiffness, neck pain, others Integumetry: denies: bruises, change in color, change in hair/nails, dryness, laceration, lesions, lumps, rash, wounds, others Allergic/Immunocompromised: denies: Difficulty Healing, Frequent Infections, Hives, Itching, others Hematologic/Lymphatic: denies: anemia, blood clots, easy bleeding, easy bruising, swollen glands, others Endocrine: denies: excessive hunger, excessive sweating, excessive thirst, excessive urination, flushing, intolerance to cold, intolerance to heat, unexplained weight gain, unexplained weight loss, others Psychiatric: denies: anxiety, bipolar disorder, depression, hopeless, panic disorder, schizophrenia, sleepless, suicidal, others Physical Exam General Appearance: No Apparent Distress, Normal HEENT: Normal ENT Inspection, Pharynx Normal, TMs Normal Neck: Full Range of Motion, Non-Tender, Normal, Normal Inspection Respiratory: Chest Non-Tender, Lungs Clear, No Accessory Muscle Use, No Respiratory Distress, Normal Breath Sounds Cardiovascular: No Edema, No JVD, No Murmur, No Gallop, Normal Peripheral Pulses, Regular Rate/Rhythm Breast Exam: Deferred Gastrointestinal: No Organomegaly, Non Tender, No Pulsatile Mass, Normal Bowel Sounds, Soft Genitalia: Deferred Pelvic: Deferred Rectal: Deferred Extremities: No calf tenderness, Normal capillary refill, Normal inspection, Normal range of motion, Non-tender, No pedal edema Musculoskeletal : Apperance: Normal Neurologic: Alert, trim operator II-XII nml as Tested, No Motor Deficits, Normal Affect, Normal Mood, No Sensory Deficits Cerebellar Function: Normal Reflexes: Normal Skin: Dry, Normal Color, Warm Lymphatic: No Adenopathy Was a procedure done? Was a procedure done?: No Differential Dx Differential Diagnosis: Anxiety, Asthma, Bronchitis, CHF, COPD, Panic Attack, Pneumonia, Pneumothorax, Respiratory Distress, URI, Other (COVID-19) X-Ray, Labs, Meds, VS Vital Signs Date Time Temp Pulse Resp B/P (MAP) Pulse Ox O2 Delivery O2 Flow Rate FiO2 02/08/25 21:04 100.0 108 20 135/73 95 100.0 Lab Test 02/08/25 22:09 02/08/25 20:58 Range/Units Influenza Type A Antigen Negative Negative Influenza Type B Antigen Negative Negative SARS-CoV-2 Antigen (Rapid) Positive NEGATIVE White Blood Count 10.1 4.4-10.8 10^3/uL Red Blood Count 5.08 4.0-5.20 10^6/uL Hemoglobin 14.4 12.2-16.2 g/dL Hematocrit 43.7 36.0-46.0 % Mean Corpuscular Volume 86.0 80.0-100.0 fL Mean Corpuscular Hemoglobin 28.3 28.0-32.0 pg Mean Corpuscular Hemoglobin Concent 33.0 32.0-36.0 g/dL Red Cell Distribution Width 14.3 11.8-14.3 % Platelet Count 192 140-450 10^3/uL Mean Platelet Volume 9.7 6.9-10.8 fL Neutrophils (%) (Auto) 79.6 37.0-80.0 % Lymphocytes (%) (Auto) 10.2 10.0-50.0 % Monocytes (%) (Auto) 7.8 0.0-12.0 % Eosinophils (%) (Auto) 1.9 0.0-7.0 % Basophils (%) (Auto) 0.5 0.0-2.0 % Neutrophils # (Auto) 8.0 1.6-8.6 10 ^3/uL Lymphocytes # (Auto) 1.0 0.4-5.4 10 ^3/uL Monocytes # (Auto) 0.8 0-1.3 10 ^3/uL Eosinophils # (Auto) 0.2 0-0.8 10 ^3/uL Basophils # (Auto) 0.1 0-0.2 10 ^3/uL Nucleated Red Blood Cells 0.1 % Sodium Level 137 136-145 mmol/L Potassium Level 4.1 3.5-5.1 mmol/L Chloride Level 103 98-107 mmol/L Carbon Dioxide Level 24 20-31 mmol/L Anion Gap 10 5-15 Blood Urea Nitrogen 7 L 9-23 mg/dL Creatinine 0.84 0.550-1.02 mg/dL Glomerular Filtration Rate Calc 84 >90 mL/min BUN/Creatinine Ratio 8.3 L 10.0-20.0 Serum Glucose 172 H 74-106 mg/dL Calcium Level 9.0 8.7-10.4 mg/dL Time of 1ST Reevaluation: 21:25 Reevaluation 1ST: Unchanged Time of 2ND Reevaluation: 22:41 Reevaluation 2ND: Improved Patient Education/Counseling: Diagnosis, Treatment, Prognosis, Need For Follow Up Family Education/Counseling: No Family Present Comments Patient has a history of COPD is oxygen dependent and he has contracted COVID. Patient does not want to be admitted he wants to go home. I will start him on Paxlovid. He is stable. Vital signs are good he is resting comfortably and not in any distress. Chest x-ray is clear SEPSIS Sepsis Screen Date sepsis recognized/suspect: Feb 08, 2025 Time Sepsis recognized/suspect: 2103 Recent Procedure: No On Antibiotic Therapy: No Respiratory Rate >20: No Heart Rate >90: No Temp<36 C (96.8 F) or >38.3 C: No SBP <90 or MAP <65 mmHG: No New Acute Mental Status Change: No Is the patient on CPAP, BIPAP,: No Physician Orders Chest Xray 1 View (02/08/25 21:24) Electrocardigram (02/08/25 21:24) Electrocardigram (02/08/25 22:24) Electrocardigram (02/09/25 00:24) Vital Signs Date Time Temp Pulse Resp B/P (MAP) Pulse Ox O2 Delivery O2 Flow Rate FiO2 02/08/25 21:04 100.0 108 20 135/73 95 100.0 Laboratory Tests Test 02/08/25 20:58 White Blood Count 10.1 10^3/uL (4.4-10.8) Departure 1 Departure Time of Disposition: 22:42 Impression: Primary Impression: COVID Disposition: 01 HOME / SELF CARE / HOMELESS Condition: Stable Additional Instructions: Please practice isolation recommended shins as discussed. If you have any worsening of symptoms please return to the emergency room. Otherwise, follow up with the primary doctor. e-Prescriptions Loratadine (Claritin) 10 Mg Cap 10 MG PO DAILY for 10 Days, #10 CAP Prov: VENECIA INIGUEZ MD 02/08/25 Nirmatrelvir/Ritonavir (PAXLOVID 20 x 150 MG & 10 x 100MG) 1 Tab Tab 1 TAB PO DAILY for 5 Days, #5 TAB Prov: VENECIA INIGUEZ MD 02/08/25 Discharged With: Self Critical Care Note Critical Care Time?: No Stability Stability form required: No Heart Score Heart Score: Heart Score Response (Comments) Value History N/A 0 EKG N/A 0 Age N/A 0 Risk Factors N/A 0 Troponin N/A 0 Total 0 I personally scribed for VENECIA INIGUEZ MD ([email or web address]) on 02/08/25 at 21:28. Electronically submitted by Roger Wiley ([email or web address]). VENECIA INIGUEZ MD Feb 08, 2025 21:28
[2025-02-08 21:55] LABS: Hematocrit 43.7 % (36.0-46.0); Hemoglobin 14.4 g/dL (12.2-16.2); Mean Corpuscular Hemoglobin 28.3 pg (28.0-32.0); Mean Corpuscular Volume 86.0 fL (80.0-100.0); Nucleated Red Blood Cells % 0.1 %
[2025-02-08 22:06] LABS: Chloride 103 mmol/L (98-107); Potassium 4.1 mmol/L (3.5-5.1); Sodium 137 mmol/L (136-145)
[2025-02-08 22:07] LABS: Anion Gap 10 (5-15); Carbon Dioxide 24 mmol/L (20-31)
[2025-02-08 22:08] LABS: Calcium 9.0 mg/dL (8.7-10.4)
[2025-02-08 22:12] LABS: BUN/Creatinine Ratio 8.3 (10.0-20.0)
--- NOTE | 2025-02-08 22:15 | DVH ---
CHEST RADIOGRAPH Indication: SOB Technique: Single frontal view of the chest was obtained Comparison: XY CHEST PORTABLE on DOS: 12/24/24, XY CHEST TWO VIEWS ROUTINE on DOS: 11/27/24, XY CHEST PO RTABLE on DOS: 09/16/24 FINDINGS: Lines and Tubes: None Lungs: No focal consolidation. Pleura: No effusion. No pneumothorax. Cardiomediastinal contours: Unremarkable Bones: No acute osseous abnormality. IMPRESSION: 1. No acute cardiopulmonary disease.
[2025-02-08 22:17] LABS: Blood Urea Nitrogen 7 mg/dL (9-23); Glucose 172 mg/dL (74-106)
[2025-02-08 22:32] LABS: COVID19 ANTIGEN SOFIA FIA POSITIVE (NEGATIVE)
[2025-02-08] MEDS ORDERED: LORA10CA PO (22:43)
[2025-02-08] MEDS ORDERED: NIRM1TAB8 PO (22:43)
--- NOTE | 2025-02-10 09:15 | ECG ---
[facility] Test Date: 2025-02-08 Test Time: 20:57:13 Pat Name: CHRISTIAN COWAN Department: ED Room: Gender: F Yarn Carrier: SHAZIA : 1970 Requested By: VENECIA INIGUEZ Order Number: [id number] Reading MD: Shadi Lau Measurements Intervals [place] Rate: 117 P: 60 PA: 137 QRS: 46 QRSD: 85 T: 44 QT: 348 QTc: 486 Interpretive Statements Sinus tachycardia Atrial premature complex Borderline T wave abnormalities Borderline prolonged QT interval Baseline wander in lead(s) V2 Electronically Signed On 02-12-2025 18:35:40 PDT by Shadi Lau Please click the below link to view image of tracing.
== END 2025-02-09 00:16 | disposition home or self-care (01) ==
LOC: ER 21:02
DX: U07.1 COVID-19 (principal); I11.0 Hypertensive heart disease with heart failure; I50.9 Heart failure, unspecified; E11.9 Type 2 diabetes mellitus without complications; J44.89 Other specified chronic obstructive pulmonary disease; Z79.899 Other long term (current) drug therapy; Z20.822 Contact with and (suspected) exposure to COVID-19
CPT/HCPCS: 36415; 71045; 80048; 85025; 87426; 87804; 93005

== ENCOUNTER → 2025-02-10 | Emergency (ER) | payer MEDICAID ==
[~2025-02-10] MED LIST changes: +IOHEXOL 350 MG/ML 100ML IJ ONE; +LORA10CA PO; +NIRM1TAB8 PO
== END | disposition left against medical advice (07) ==
LOC: EDSEX → ER 15:27
DX: R56.9 Unspecified convulsions (principal); Z53.21 Procedure and treatment not carried out due to patient leaving prior to being seen by health care provider

== ENCOUNTER 2025-02-17 05:03 | Inpatient (IN) | payer MEDICAID ==
[~2025-02-17] VITALS: Ht 170.2 cm; Wt 130.1 kg
[~2025-02-17 05:03] MED LIST changes: -IOHEXOL 350 MG/ML 100ML IJ ONE
[2025-02-17] MEDS: ALBUTEROL SULF 2.5 MG/0.5ML(0.5%) NEB SOLN NEB ONE (06:20)
[2025-02-17] MEDS: IPRATROPIUM BROM 0.5 MG/2.5ML INH SOL NEB ONE (06:20)
--- NOTE | 2025-02-17 06:27 | ED.PDOC ---
History of Present Illness HPI Comments 54 year old biological male to female, with PMHx of asthma, HTN, DM, HLD, PE, CVA, TIA, NH and COPD presents to the ED for CC of dizziness. Patient states, he has been experiencing symptoms of dizziness with associated shortness of breath and a productive cough x2days. Patient reports, he was recently diagnosed with COVID-19 on (02/10/25) and symptoms have not ceased rather, have now intensified with symptoms of fever, body-aches, and diarrhea. Patient describes phlegm to be thick and green in appearance. At this time patient is on 3L via [place] for comfort. Patient denies chest pain, nausea, or vomiting. No other symptoms or modifying factors are present at this time. Chief Complaint: Dizziness Time Seen by MD: 06:30 Primary Care Provider: none Reviewed Notes: Nurses Notes, Medications, Allergies Allergies: Coded Allergies: Azithromycin (Verified Allergy, Severe, 05/22/23) RASHES AND SWELLING Iodine (Verified Allergy, Severe, 08/17/21) Shellfish Allergy (Verified Allergy, Severe, 08/17/21) Theophylline (Verified Allergy, Severe, 08/17/21) Prochlorperazine (Verified Allergy, Intermediate, 12/25/24) Codeine (Verified Allergy, Mild, 10/04/21) patient had Buda no reaction Latex (Verified Allergy, Mild, itching, 12/25/24) Pineapple (Verified Allergy, Mild, 02/29/24) Home Meds Active Scripts Loratadine (Claritin) 10 Mg Cap, 10 MG PO DAILY for 10 Days, #10 CAP Prov:VENECIA INIGUEZ MD 02/08/25 Nirmatrelvir/Ritonavir (PAXLOVID 20 x 150 MG & 10 x 100MG) 1 Tab Tab, 1 TAB PO DAILY for 5 Days, #5 TAB Prov:VENECIA INIGUEZ MD 02/08/25 Ciprofloxacin Hcl (Cipro) 500 Mg Tab, 1 TAB PO BID for 7 Days, #14 TAB 0 Refills Prov:DWAIN HOFFMAN MD 12/27/24 Cyclobenzaprine HCl (Cyclobenzaprine Hydrochlo) 10 Mg Tab, 10 MG PO HS for 5 D ays, #5 TAB Prov:CINTHIA MENDOZA RESDIENT 10/18/24 Ondansetron Odt 4MG Tab (ZOFRAN PO) 4 Mg Tb, 4 MG PO Q8HPRN PRN for 3 Days, #9 TAB ODT TAB-DISSOLVE IN MOUTH, THEN SWALLOW Prov:ARIAN OSORIO DO 10/11/24 Promethazine-Dm (Promethazine Dm 6.25-15 mg/5Ml) 1 Deirdre Deirdre, 1 DEIRDRE PO TIDPRN PRN for 7 Days, #10 ML Prov:JENNIFER DEGROOT POOL ATTENDANT 09/29/24 Gabapentin (Gabapentin) 300 Mg Cap, 1 TAB PO BID for 30 Days, #60 CAP 1 Refill Prov:JENNIFER ALCANTARA TERMITE EXTERMINATOR 06/15/24 Acetaminophen (Acetaminophen Er) 650 Mg Tab, 650 MG PO Q4HPRN PRN for 10 Days, #50 TAB Prov:BRANDY FISHER RESIDENT 04/23/24 Budesonide (Inhalation) (Budesonide) 0.25 Mg/2 Ml Nicole, 0.25 MG IN BID for 30 Da ys, #10 ML Prov:JUAREZ POWER RESIDENT 03/01/24 Lisinopril (Lisinopril) 5 Mg Tab, 5 MG PO DAILY, #30 TAB 5 Refills Prov:IFTIKHAR GUIDO MD 02/06/23 Reported Medications Atorvastatin Calcium (ATORVASTATIN CALCIUM) 80 Mg Tab, 1 TAB PO QPM, #30 TAB 5 Refills 12/25/24 Tirzepatide (Mounjaro) 2.5 Mg/0.5 Ml Inj, 2.5 MG SC QWEEKLY, INJ 12/25/24 Albuterol Sulfate (VENTOLIN I) 90 Mcg Ih, 90 MCG IN PRN for SHORTNESS OF BREATH, INH 11/30/23 Albuterol Sulfate (Albuterol Sulfate) 0.083 % Neb, 1 VIAL NEB Q4HPRN PRN for SHORTNESS OF BREATH, #50 VIAL 11/30/23 Information Source: Patient Mode of Arrival: Ambulatory Severity: Moderate Timing: Days Duration: Since onset Prehospital treatment: None Past Medical History PAST MEDICAL HISTORY: Angina, Asthma, CHF, COPD, DM, High Lipids, HTN, NH, PE, Seizures, TIA Surgical History: Appendectomy, , Tonsillectomy Family History Family History: Reviewed,noncontributory to illness, Family hx of DM, Family hx of heart myron, Family hx of HTN, Family hx of Kidney myron Family History (Other): Thyroid Social History Smoker: Quit Greater Than 1 Year Alcohol: Occasionally Drugs: Denies Drug Use Lives In: Home Constitutional: denies: chills, diaphoresis, fatigue, fever, malaise, sweats, weakness, others EENTM: denies: blurred vision, double vision, ear bleeding, ear discharge, ear drainage, ear pain, ear ringing, eye pain, eye redness, hearing loss, mouth pain, mouth swelling, nasal discharge, nose bleeding, nose congestion, nose pain, photophobia, tearing, throat pain, throat swelling, voice changes, others Respiratory: reports: cough, shortness of breath; denies: hemoptysis, orthopnea, SOB at rest, SOB with excertion, stridor, wheezing, others Cardiovascular: denies: chest pain, dizzy spells, diaphoresis, Dyspnea on exertion, edema, irregular heart beat, left arm pain, lightheadedness, pal pitations, PND, syncope, others Gastrointestinal: denies: abdomen distended, abdominal pain, blood streaked bowels, constipated, diarrhea, dysphagia, difficulty swallowing, hematemesis, melena, nausea, poor appetite, poor fluid intake, rectal bleeding, rectal pain, vomiting, others Genitourinary: denies: burning, dysuria, flank pain, frequency, hematuria, incontinence, penile discharge, penile sore, pain, testicle pain, testicle swelling, urgency, others Neurological: denies: dizziness, fainting, headache, left sided numbness, left sided weakness, numbness, paresthesia, pre-existing deficit, right sided numbness, right sided weakness, seizure, speech problems, tingling, tremors, weakness, others Musculoskeletal: denies: back pain, gout, joint pain, joint swelling, muscle pain, muscle stiffness, neck pain, others Integumetry: denies: bruises, change in color, change in hair/nails, dryness, laceration, lesions, lumps, rash, wounds, others Allergic/Immunocompromised: denies: Difficulty Healing, Frequent Infections, Hives, Itching, others Hematologic/Lymphatic: denies: anemia, blood clots, easy bleeding, easy bru ising, swollen glands, others Endocrine: denies: excessive hunger, excessive sweating, excessive thirst, e xcessive urination, flushing, intolerance to cold, intolerance to heat, unexplained weight gain, unexplained weight loss, others Psychiatric: denies: anxiety, bipolar disorder, depression, hopeless, panic disorder, schizophrenia, sleepless, suicidal, others All Other Systems: Reviewed and Negative Physical Exam General Appearance: Moderate Distress, Obese HEENT: Normal ENT Inspection, Pharynx Normal, TMs Normal Neck: Full Range of Motion, Non-Tender, Normal, Normal Inspection Respiratory: Chest Non-Tender, Lungs Clear, No Accessory Muscle Use, Respiratory Distress, Wheezing Cardiovascular: No Edema, No JVD, No Murmur, No Gallop, Normal Peripheral Pulses, Regular Rate/Rhythm Breast Exam: Deferred Gastrointestinal: No Organomegaly, Non Tender, No Pulsatile Mass, Normal Bowel Sounds, Soft Genitalia: Deferred Pelvic: Deferred Rectal: Deferred Extremities: No calf tenderness, Normal capillary refill, Normal inspection, Normal range of motion, Non-tender, No pedal edema Musculoskeletal : Apperance: Normal Neurologic: Alert, helmet hat puncher II-XII nml as Tested, Motor Weakness, Normal Affect, Normal Mood, No Sensory Deficits Cerebellar Function: Normal Reflexes: Normal Skin: Dry, Normal Color, Warm Lymphatic: No Adenopathy Was a procedure done? Was a procedure done?: No Differential Dx Considerations may include: COVID-19, VIRAL SYNDROME, SINUITIS, X-Ray, Labs, Meds, VS Vital Signs Date Time Temp Pulse Resp B/P (MAP) Pulse Ox O2 Delivery O2 Flow Rate FiO2 02/17/25 06:21 20 98 Nasal Cannula* 2 28 02/17/25 05:07 99.3 91 18 116/86 95 99.3 Lab Test 02/17/25 05:41 Range/Units White Blood Count 6.3 4.4-10.8 10^3/uL Red Blood Count 5.13 4.5-5.90 10^6/uL Hemoglobin 14.9 13.5-17.5 g/dL Hematocrit 43.9 41.0-53.0 % Mean Corpuscular Volume 85.5 80.0-100.0 fL Mean Corpuscular Hemoglobin 29.0 28.0-32.0 pg Mean Corpuscular Hemoglobin Concent 33.9 32.0-36.0 g/dL Red Cell Distribution Width 14.2 11.8-14.3 % Platelet Count 236 140-450 10^3/uL Mean Platelet Volume 9.7 6.9-10.8 fL Neutrophils (%) (Auto) 56.9 37.0-80.0 % Lymphocytes (%) (Auto) 33.8 10.0-50.0 % Monocytes (%) (Auto) 5.4 0.0-12.0 % Eosinophils (%) (Auto) 3.5 0.0-7.0 % Basophils (%) (Auto) 0.4 0.0-2.0 % Neutrophils # (Auto) 3.6 1.6-8.6 10 ^3/uL Lymphocytes # (Auto) 2.1 0.4-5.4 10 ^3/uL Monocytes # (Auto) 0.3 0-1.3 10 ^3/uL Eosinophils # (Auto) 0.2 0-0.8 10 ^3/uL Basophils # (Auto) 0 0-0.2 10 ^3/uL Nucleated Red Blood Cells 0.1 % Sodium Level 140 136-145 mmol/L Potassium Level 3.9 3.5-5.1 mmol/L Chloride Level 107 98-107 mmol/L Carbon Dioxide Level 24 20-31 mmol/L Anion Gap 9 5-15 Blood Urea Nitrogen 9 9-23 mg/dL Creatinine 0.73 0.700-1.30 mg/dL Glomerular Filtration Rate Calc 109 >90 mL/min BUN/Creatinine Ratio 12.3 10.0-20.0 Serum Glucose 112 H 74-106 mg/dL Calcium Level 9.0 8.7-10.4 mg/dL Magnesium Level 1.8 1.6-2.6 mg/dL Total Bilirubin 0.6 0.2-1.0 mg/dL Aspartate Amino Transferase (AST) 38 13-40 U/L Alanine Aminotransferase (ALT) 34 7-40 U/L Alkaline Phosphatase 88 46-116 U/L Total Protein 7.9 5.7-8.2 g/dL Albumin 4.5 3.2-4.8 g/dL Current Medications Medications (Trade) Dose Ordered Sig/[place] Route Start Time Stop Time Status Last Admin Albuterol (Ventolin Medneb) 5 mg ONCE ONCE NEB 02/17/25 06:00 02/17/25 06:01 DC 02/17/25 06:20 Ipratropium [place] (Atrovent Medneb) 0.5 mg ONCE ONCE NEB 02/17/25 06:00 02/17/25 06:01 DC 02/17/25 06:20 IV Hep-Lock established The patient was given a breathing treatment of albuterol and Atrovent. The patient is having a repeat breathing treatment of albuterol and Atrovent The patient's CBC and chemistry panel are within normal limits. At this time, the chest x-ray is within normal limits The patient is being swabbed again for COVID. Because of the patient's decrease oxygen saturation we are going to admit the patient to the hospitalist. The patient is 98% on the 2 L of oxygen The patient is having persistent cough. The patient is admitted The patient was given Solu-Medrol 125 mg IV push The patient has had a course of Paxlovid which did not improve the symptoms. Images Reviewed?: Images reviewed and evaluated by me Time of 1ST Reevaluation: 07:00 Reevaluation 1ST: Unchanged Patient Education/Counseling: Diagnosis, Treatment, Prognosis Family Education/Counseling: No Family Present SEPSIS Sepsis Screen Date sepsis recognized/suspect: Feb 17, 2025 Time Sepsis recognized/suspect: 0510 Recent Procedure: No On Antibiotic Therapy: No Respiratory Rate >20: No Heart Rate >90: No Temp<36 C (96.8 F) or >38.3 C: No SBP <90 or MAP <65 mmHG: No New Acute Mental Status Change: No Is the patient on CPAP, BIPAP,: No Physician Orders Covid19 Antigen Sandy (02/17/25 ) Chest Xray 1 View (02/17/25 05:26) Electrocardigram (02/17/25 05:26) Med Neb Initial Treatment (02/17/25 05:51) B-Type Natriuretic Peptide (02/17/25 06:18) Heplock Iv (02/17/25 06:18) Pulse Oximetry (02/17/25 06:18) Gear Tooth Lapping Machine Operator (02/17/25 06:18) Blood Pressure (02/17/25 06:18) Vital Signs Date Time Temp Pulse Resp B/P (MAP) Pulse Ox O2 Delivery O2 Flow Rate FiO2 02/17/25 06:21 20 98 Nasal Cannula* 2 28 02/17/25 05:07 99.3 91 18 116/86 95 99.3 Laboratory Tests Test 02/17/25 05:41 White Blood Count 6.3 10^3/uL (4.4-10.8) Medications Medications Dose Ordered Sig/[place] Route Start Time Stop Time Status Last Admin Dose Admin Albuterol 5 mg ONCE ONCE NEB 02/17/25 06:00 02/17/25 06:01 DC 02/17/25 06:20 Ipratropium [place] 0.5 mg ONCE ONCE NEB 02/17/25 06:00 02/17/25 06:01 DC 02/17/25 06:20 Departure 1 Departure Time of Disposition: 06:53 Impression: Primary Impression: Acute hypoxic respiratory failure Additional Impression: COVID Disposition: ADMITTED INPATIENT Admit to: Tele Condition: Fair Critical Care Note Critical Care Time?: No Stability Stability form required: Yes Unstable for transfer: Telemetry monitoring (Telemetry monitoring required), ED Physician Assesment (Clinical assesment) Heart Score Heart Score: Heart Score Response (Comments) Value History N/A 0 EKG N/A 0 Age N/A 0 Risk Factors N/A 0 Troponin N/A 0 Total 0 I personally scribed for YENNY VENEGAS MD ([email or web address]) on 02/17/25 at 06:27. Electronically submitted by Tess Sky ([email or web address]). I personally scribed for YENNY VENEGAS MD ([email or web address]) on 02/17/25 at 06:38. Electronically submitted by Tess Sky ([email or web address]). YENNY VENEGAS MD Feb 17, 2025 06:27
[2025-02-17 06:29] LABS: Alanine Aminotransferase 34 U/L (7-40); Albumin 4.5 g/dL (3.2-4.8); Alkaline Phosphatase 88 U/L (46-116); Anion Gap 9 (5-15); BUN/Creatinine Ratio 12.3 (10.0-20.0); Bilirubin, Total 0.6 mg/dL (0.2-1.0); Calcium 9.0 mg/dL (8.7-10.4); Carbon Dioxide 24 mmol/L (20-31); Chloride 107 mmol/L (98-107); Magnesium 1.8 mg/dL (1.6-2.6); Potassium 3.9 mmol/L (3.5-5.1); Sodium 140 mmol/L (136-145); Total Protein 7.9 g/dL (5.7-8.2)
[2025-02-17 06:35] LABS: Blood Urea Nitrogen 9 mg/dL (9-23); Glucose 112 mg/dL (74-106)
[2025-02-17 06:37] LABS: Hematocrit 43.9 % (41.0-53.0); Hemoglobin 14.9 g/dL (13.5-17.5); Mean Corpuscular Hemoglobin 29.0 pg (28.0-32.0); Mean Corpuscular Volume 85.5 fL (80.0-100.0); Nucleated Red Blood Cells % 0.1 %
--- NOTE | 2025-02-17 06:39 | DVH ---
CHEST RADIOGRAPH Indication: SOB, covid positive Technique: Single frontal view of the chest was obtained COMPARISON: XY CHEST XRAY 1 VIEW on DOS: 02/08/25, XY CHEST PORTABLE on DOS: 12/24/24, XY CHEST TWO VIEW S ROUTINE on DOS: 11/27/24, XY CHEST PORTABLE on DOS: 09/16/24, XY CHEST PORTABLE on DOS: 06/24/24 FINDINGS: Lines and Tubes: None Lungs: Clear Pleura: No effusion. No pneumothorax. Cardiomediastinal contours: Unremarkable Bones: Unremarkable IMPRESSION: 1. No acute disease.
[2025-02-17 07:21] VITALS: PULSE 68; RESP 22; O2SAT 95
[2025-02-17] MEDS: methylPREDNISolone SOD SUCC 125 MG/2 ML VL IV ONE (08:16)
[2025-02-17 10:00] LABS: COVID19 ANTIGEN SOFIA FIA NEGATIVE (NEGATIVE)
[2025-02-17 11:00] VITALS: BP 129/91; PULSE 80; RESP 18; TEMP 98.5; O2SAT 98
[2025-02-17] MEDS ORDERED: HYDROcodone-ACET 5/325MG TAB PO PRN (11:00)
[2025-02-17] MEDS ORDERED: MORPHINE SULFATE INJ 2 MG/ml SYRG IV PRN (11:00)
[2025-02-17] MEDS ORDERED: NITROGLYCERIN 0.4 MG SL TAB SL PRN (11:00)
[2025-02-17] MEDS ORDERED: DEXTROSE (50%) 50ML SYRG IV PRN (11:00)
[2025-02-17] MEDS: DOXYCYCLINE 100MG/100ML 100 ML IV SCH (11:55)
--- NOTE | 2025-02-17 12:02 | DVHHP2 ---
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 Patient reports that his symptoms did not get better after he completed the Paxlovid and he still was very short of breath. Patient is on 2 L nasal cannula, he does not use oxygen at home. Patient states he does not remember being officially diagnosed with COPD/asthma or CHF, does say that 1 of his doctors had mentioned CHF risk in the past. Patient reports his diabetes very well managed at home with fasting sugars between 90 and 110. Patient de nies any chest pain/nausea/vomiting/diarrhea, no other symptoms or modifying factors are present at this time. COVID swab during this visit was negative. Patient currently has slight wheezing with diminished breath sounds, we will admit to telemetry for treatment and further management of care. Past Medical History See HPI Past Surgical History Appendectomy, , Tonsillectomy Family History Family hx of DM, Family hx of heart myron, Family hx of HTN, Family hx of Kidney myron Smoke: Quit (Six years ago, smoked times 20 years half pack per day) ALCOHOL: none Drugs: None Lives: with Family Domestic Violence: Neg Review of Systems Constitutional: No: Fever, Chills, Sweats, Weakness, Malaise, Other Eyes: No: Pain, Vision change, Conjunctivae inflammation, Eyelid inflammation, Other, Redness ENT: No: Ear pain, Ear discharge, Nose pain, Nose discharge, Nose congestion, Mouth pain, Mouth swelling, Throat pain, Throat swelling, Other Respiratory: Cough, Shortness of breath, Wheezing, Wheezing; No: Dry, SOB with excertion, Hemoptysis, Pleuritic Pain, Sputum, Other Cardiovascular: No: Chest Pain, Palpitations, Orthopnea, Paroxysmal Noc. Dyspnea, Edema, Lt Headedness, Other Gastrointestinal: No: Nausea, Vomiting, Abdominal Pain, Diarrhea, Constipation, Melena, Hematochezia, Other Genitourinary: No Dysuria, No Frequency, No Incontinence, No Hematuria, No Retention, No Other Musculoskeletal: No: other, neck pain, shoulder pain, arm pain, back pain, hand pain, leg pain, foot pain Skin: No: Rash, Lesions, Jaundice, Bruising, Other Neurological: No: Weakness, Numbness, Incoordination, Change in speech, Confusion, Seizures, Other Allergies: Coded Allergies: Azithromycin (Verified Allergy, Severe, 05/22/23) RASHES AND SWELLING Iodine (Verified Allergy, Severe, 08/17/21) Shellfish Allergy (Verified Allergy, Severe, 08/17/21) Theophylline (Verified Allergy, Severe, 08/17/21) Prochlorperazine (Verified Allergy, Intermediate, 12/25/24) Codeine (Verified Allergy, Mild, 10/04/21) patient had [facility] no reaction Latex (Verified Allergy, Mild, itching, 12/25/24) Pineapple (Verified Allergy, Mild, 02/29/24) Medications Current Medications Medications Dose Ordered Sig/[place] Route Start Time Stop Time Status Last Admin Dose Admin Gabapentin 300 mg BID PO 02/17/25 22:00 Lisinopril 5 mg DAILY PO 02/18/25 10:00 Atorvastatin Calcium 80 mg HS PO 02/17/25 22:00 Acetaminophen 325 mg Q4HP PRN PO 02/17/25 11:00 Acetaminophen/ Hydrocodone Bitart 1 tab Q4HP PRN PO 02/17/25 11:00 Hold Ondansetron HCl 4 mg Q4HP PRN IV 02/17/25 11:00 Docusate Sodium 100 mg BIDPRN PRN PO 02/17/25 11:00 Nitroglycerin 0.4 mg Q5MINP PRN SL 02/17/25 11:00 Morphine Sulfate 2 mg Q30M PRN IV 02/17/25 11:00 Hold Budesonide 0.5 mg BID NEB 02/17/25 22:00 Ipratropium [place] 0.5 mg Q4HPRN PRN NEB 02/17/25 11:00 Albuterol 2.5 mg Q4HR NEB 02/17/25 14:00 Methylprednisolone Sodium Succinate 40 mg BID IV 02/17/25 22:00 Doxycycline Hyclate 100 ml @ 50 mls/hr Q12H IV 02/17/25 11:00 Diagnostic Test (Pha) 1 strip ACHS 02/17/25 11:30 Insulin Human Regular ACHS SC 02/17/25 11:30 Dextrose 50 ml UD PRN IV 02/17/25 11:00 Guaifenesin 200 mg Q4HP PRN PO 02/17/25 11:00 Enoxaparin Sodium 40 mg DAILY SC 02/18/25 10:00 Exam Vital Signs Vital Signs Date Time Temp Pulse Resp B/P (MAP) Pulse Ox O2 Delivery O2 Flow Rate FiO2 02/17/25 11:00 98.5 80 18 129/91 98 2.0 28 98.5 02/17/25 07:21 Nasal Cannula* General Appearance: Alert, Oriented X3, Cooperative, No acute distress HEENT: Atraumatic, PERRLA, Mucous membr. moist/pink Respiratory: Clear to auscultation, Normal air movement Cardiovascular: Regular rate, Normal S1, Normal S2, No murmurs Abdominal: Normal bowel sounds, Soft, No tenderness, No hepatospenomegaly, No masses Extremities: No clubbing, No cyanosis, No edema, Normal pulses, No tenderness/swelling Skin: No rashes Neuro: Normal gait, Normal speech, Strength at 5/5 X4 ext, Normal tone, Sensation intact, Cranial nerves 3-12 NL, Reflexes 2+ Psych/Mental Status: Mental status NL Labs/Xrays Reviewed with patient Labs Test 02/17/25 07:23 02/17/25 05:41 Range/Units SARS-CoV-2 Antigen (Rapid) Negative NEGATIVE White Blood Count 6.3 4.4-10.8 10^3/uL Red Blood Count 5.13 4.5-5.90 10^6/uL Hemoglobin 14.9 13.5-17.5 g/dL Hematocrit 43.9 41.0-53.0 % Mean Corpuscular Volume 85.5 80.0-100.0 fL Mean Corpuscular Hemoglobin 29.0 28.0-32.0 pg Mean Corpuscular Hemoglobin Concent 33.9 32.0-36.0 g/dL Red Cell Distribution Width 14.2 11.8-14.3 % Platelet Count 236 140-450 10^3/uL Mean Platelet Volume 9.7 6.9-10.8 fL Neutrophils (%) (Auto) 56.9 37.0-80.0 % Lymphocytes (%) (Auto) 33.8 10.0-50.0 % Monocytes (%) (Auto) 5.4 0.0-12.0 % Eosinophils (%) (Auto) 3.5 0.0-7.0 % Basophils (%) (Auto) 0.4 0.0-2.0 % Neutrophils # (Auto) 3.6 1.6-8.6 10 ^3/uL Lymphocytes # (Auto) 2.1 0.4-5.4 10 ^3/uL Monocytes # (Auto) 0.3 0-1.3 10 ^3/uL Eosinophils # (Auto) 0.2 0-0.8 10 ^3/uL Basophils # (Auto) 0 0-0.2 10 ^3/uL Nucleated Red Blood Cells 0.1 % Sodium Level 140 136-145 mmol/L Potassium Level 3.9 3.5-5.1 mmol/L Chloride Level 107 98-107 mmol/L Carbon Dioxide Level 24 20-31 mmol/L Anion Gap 9 5-15 Blood Urea Nitrogen 9 9-23 mg/dL Creatinine 0.73 0.700-1.30 mg/dL Glomerular Filtration Rate Calc 109 >90 mL/min BUN/Creatinine Ratio 12.3 10.0-20.0 Serum Glucose 112 H 74-106 mg/dL Calcium Level 9.0 8.7-10.4 mg/dL Magnesium Level 1.8 1.6-2.6 mg/dL Total Bilirubin 0.6 0.2-1.0 mg/dL Aspartate Amino Transferase (AST) 38 13-40 U/L Alanine Aminotransferase (ALT) 34 7-40 U/L Alkaline Phosphatase 88 46-116 U/L B-Type Natriuretic Peptide 7.68 0-100 pg/mL Total Protein 7.9 5.7-8.2 g/dL Albumin 4.5 3.2-4.8 g/dL SEPSIS Sepsis Screen Date sepsis recognized/suspect: Feb 17, 2025 Time Sepsis recognized/suspect: 722 Recent Procedure: No On Antibiotic Therapy: No Respiratory Rate >20: Yes Heart Rate >90: No Temp<36 C (96.8 F) or >38.3 C: No SBP <90 or MAP <65 mmHG: No New Acute Mental Status Change: No Is the patient on CPAP, BIPAP,: No Physician Orders Chest Xray 1 View (02/17/25 05:26) Electrocardigram (02/17/25 05:26) Med Neb Initial Treatment (02/17/25 05:51) Heplock Iv (02/17/25 06:18) Pulse Oximetry (02/17/25 06:18) Vegetable Washing Machine Operator (02/17/25 06:18) Blood Pressure (02/17/25 06:18) Gabapentin Capsule (Neurontin Capsule) (02/17/25 22:00) Lisinopril Tablet (Zestril Tablet) (02/18/25 10:00) Atorvastatin (Lipitor) (02/17/25 22:00) Admit (02/17/25 10:49) Allergies (02/17/25 10:49) Code Status (02/17/25 10:49) Acetaminophen Tablet (Tylenol Tablet) (02/17/25 11:00) Hydrocodone-Acet 5/325mg Tab ([facility] 5/32 (02/17/25 11:00) Ondansetron Hcl (Zofran) (02/17/25 11:00) Docusate Sodium Capsule (Colace Capsule) (02/17/25 11:00) Fall Risk Precautions In Place QSHIFT (02/17/25 10:49) Complete Blood Count (02/18/25 04:00) Comprehensive Metabolic Panel (02/18/25 04:00) Condition: Serious (02/17/25 10:49) Nitroglycerin Sublingual (Ntrostat Subli (02/17/25 11:00) Morphine Sulfate Injection (02/17/25 11:00) Stat Ekg For Chest Pain (02/17/25 10:49) Notify Md Of Changes From Base (02/17/25 10:49) Maintenance Painter For 24 Hours (02/17/25 10:49) Emergency Dysrhythmia Protocol (02/17/25 10:49) Rhythm Strips Once Every Shift (02/17/25 10:49) Oxygen By Nasal Cannula (02/17/25 10:49) Budesonide (Inhalation) (Pulmicort) (02/17/25 22:00) Ipratropium Medneb (Atrovent Medneb) (02/17/25 11:00) Cont Med Neb Intial Tx (02/17/25 10:49) Albuterol Medneb (Ventolin Medneb) (02/17/25 14:00) Methylprednisolone Sod Succ (Solu Medrol (02/17/25 22:00) Doxycycline 100mg/100ml (Vibramycin) (02/17/25 11:00) Glucose Blood (Accu-Chek Comfort Curve T (02/17/25 11:30) Insulin R (Human) (Insulin R) (02/17/25 11:30) Dextrose 50% Syringe (02/17/25 11:00) Guaifenesin Plain Liquid (Robitussin Jose Rafael (02/17/25 11:00) Consistent Carb(Ccho)Diabetes (02/17/25 Lunch) Enoxaparin Sodium (Lovenox) (02/18/25 10:00) Vital Signs Date Time Temp Pulse Resp B/P (MAP) Pulse Ox O2 Delivery O2 Flow Rate FiO2 02/17/25 11:00 98.5 80 18 129/91 98 2.0 28 98.5 02/17/25 08:00 80 02/17/25 08:00 98.5 79 17 129/91 (104) 95 98.5 02/17/25 07:21 68 22 95 Nasal Cannula* 2 28 02/17/25 07:21 98.6 68 22 120/69 (86) 95 98.6 02/17/25 06:21 20 98 Nasal Cannula* 2 28 02/17/25 05:07 99.3 91 18 116/86 95 99.3 Laboratory Tests Test 02/17/25 05:41 White Blood Count 6.3 10^3/uL (4.4-10.8) Medications Medications Dose Ordered Sig/[place] Route Start Time Stop Time Status Last Admin Dose Admin Albuterol 5 mg ONCE ONCE NEB 02/17/25 06:00 02/17/25 06:01 DC 02/17/25 06:20 5 MG Ipratropium [place] 0.5 mg ONCE ONCE NEB 02/17/25 06:00 02/17/25 06:01 DC 02/17/25 06:20 0.5 MG Methylprednisolone Sodium Succinate 125 mg ONCE ONCE IV 02/17/25 06:30 02/17/25 06:31 DC 02/17/25 08:16 125 MG Assessment/Plan Assessment/Plan Possible COVID pneumonia/viral syndrome Admit to telemetry Empiric antibiotics- doxycycline COVID test was now negative Ipratropium/albuterol/budesonide Solu-Medrol Supplemental oxygen p.r.n. to keep SpO2 greater than 92% Possible CHF by history BNP negative Hospitalist can Consider cardiology consult/echocardiogram-patient last echo shows in our records June 2024. EF 60-65% Chronic diabetes mellitus type 2 Insulin sliding scale, mild Accu-Cheks Chronic hypertension Continue home medications PPX/diet Diabetic diet Lovenox GI prophylaxis not needed no history of GI bleeding Plan discussed with: Patient My Orders Orders - SHANNAN CAAL CANDY VENDOR Procedure Category Date Status Time Gabapentin Capsule PHA 02/17/25 In Process (Neurontin Capsule) 22:00 Lisinopril Tablet PHA 02/18/25 In Process (Zestril Tablet) 10:00 Atorvastatin (Lipitor) PHA 02/17/25 In Process 22:00 Admit ADMIT 02/17/25 Transmitted 10:49 Allergies RASHAAD 02/17/25 In Process 10:49 Code Status CODE 02/17/25 Transmitted 10:49 Acetaminophen Tablet PHA 02/17/25 In Process (Tylenol Tablet) 11:00 Hydrocodone-Acet PHA 02/17/25 In Process 5/325mg Tab ([facility] 11:00 Ondansetron Hcl PHA 02/17/25 In Process (Zofran) 11:00 Docusate Sodium PHA 02/17/25 In Process Capsule (Colace 11:00 Fall Risk Precautions RASHAAD 02/17/[address] 10:49 Complete Blood Count LAB 02/18/25 Verified 04:00 Comprehensive LAB 02/18/25 Verified Metabolic Panel 04:00 Condition: Serious RASHAAD 02/17/25 In Process 10:49 Nitroglycerin PHA 02/17/25 In Process Sublingual (Ntrostat 11:00 Morphine Sulfate PHA 02/17/25 In Process Injection 11:00 Stat Ekg For Chest RASHAAD 02/17/25 In Process Pain 10:49 Notify Of Changes RASHAAD 02/17/25 In Process From Base 10:49 Maintenance Painter For RASHAAD 02/17/25 In Process 24 Hours 10:49 Emergency Dysrhythmia RASHAAD 02/17/25 In Process Protocol 10:49 Rhythm Strips Once RASHAAD 02/17/25 In Process Every Shift 10:49 Oxygen By Nasal RT 02/17/25 Transmitted Cannula 10:49 Budesonide PHA 02/17/25 In Process (Inhalation) 22:00 Ipratropium Medneb PHA 02/17/25 In Process (Atrovent Medneb) 11:00 Cont Med Neb Intial Tx RT 02/17/25 Logged 10:49 Albuterol Medneb PHA 02/17/25 In Process (Ventolin Medneb) 14:00 Methylprednisolone PHA 02/17/25 In Process Sod Succ (Solu Medrol 22:00 Doxycycline PHA 02/17/25 In Process 100mg/100ml 11:00 Glucose Blood PHA 02/17/25 In Process (Accu-Chek Comfort 11:30 Insulin R (Human) PHA 02/17/25 In Process (Insulin R) 11:30 Dextrose 50% Syringe PHA 02/17/25 In Process 11:00 Guaifenesin Plain PHA 02/17/25 In Process Liquid (Robitussin [place] 11:00 Consistent DIET 02/17/25 Transmitted Carb(Ccho)Diabetes Lunch Enoxaparin Sodium PHA 02/18/25 In Process (Lovenox) 10:00 Date of Service: Feb 17, 2025 Billing Provider: SHANNAN CAAL Common Visit Codes: [id number] INP/OBS CARE (HIGH) SHANNAN CAAL Feb 17, 2025 12:02
[2025-02-17] MEDS: ACCU-CHEK COMFORT CURVE STRIP VI SCH (12:09)
[2025-02-17] MEDS: InsuLIN REG 1unit/0.01ml Soln (100units/ml) SC SCH (12:16)
[2025-02-17] MEDS: ALBUTEROL SULF 2.5 MG/0.5ML(0.5%) NEB SOLN NEB SCH (14:00)
[2025-02-17 16:16] VITALS: PULSE 98; RESP 22; O2SAT 96
[2025-02-17] MEDS: IPRATROPIUM BROM 0.5 MG/2.5ML INH SOL NEB PRN (16:16)
[2025-02-17 16:22] VITALS: PULSE 78; RESP 20; O2SAT 98
[2025-02-17] MEDS: ACETAMINOPHEN 325 MG TAB PO PRN (17:49)
[2025-02-17 18:19] VITALS: O2SAT 97
[2025-02-17 19:41] VITALS: PULSE 88; RESP 19; O2SAT 92
[2025-02-17] MEDS: GABAPENTIN 300 MG CAP PO SCH (21:41)
[2025-02-17] MEDS: methylPREDNISolone SOD SUCC 40 MG/ML VL IV SCH (21:41)
[2025-02-17] MEDS: ATORVASTATIN 20 MG TAB PO SCH (21:42)
[2025-02-17] MEDS: BUDESONIDE (INHALATION) 0.5 MG/2 ML NEB NEB SCH (22:15)
[2025-02-18] VITALS (10 sets, daily range): PULSE 74–91; RESP 14–20; O2SAT 93–99
--- NOTE | 2025-02-18 06:30 | ECG ---
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
[2025-02-18 07:07] LABS: Hematocrit 42.4 % (41.0-53.0); Hemoglobin 13.8 g/dL (13.5-17.5); Mean Corpuscular Hemoglobin 28.1 pg (28.0-32.0); Mean Corpuscular Volume 86.3 fL (80.0-100.0); Nucleated Red Blood Cells % 0.0 %
[2025-02-18 07:23] LABS: Alanine Aminotransferase 26 U/L (7-40); Albumin 4.3 g/dL (3.2-4.8); Alkaline Phosphatase 71 U/L (46-116); Anion Gap 11 (5-15); BUN/Creatinine Ratio 17.1 (10.0-20.0); Bilirubin, Total 0.4 mg/dL (0.2-1.0); Blood Urea Nitrogen 12 mg/dL (9-23); Calcium 9.3 mg/dL (8.7-10.4); Carbon Dioxide 24 mmol/L (20-31); Chloride 105 mmol/L (98-107); Glucose 154 mg/dL (74-106); Potassium 4.3 mmol/L (3.5-5.1); Sodium 140 mmol/L (136-145); Total Protein 7.5 g/dL (5.7-8.2)
[2025-02-18] MEDS: LISINOPRIL 5 MG TAB PO SCH (10:00)
[2025-02-18] MEDS ORDERED: ENOXAPARIN SOD 30 MG/0.3 ML SYRINGE SC SCH (10:00)
[2025-02-18] MEDS: ENOXAPARIN SOD 40 MG/0.4 ML SYRINGE SC SCH (10:08)
--- NOTE | 2025-02-18 15:20 | DVHPN2 ---
Subjective Patient continues to report has been cough Reviewed: Care Plan, H&P, Labs, Medications, Previous Orders Changes from previous H/P or p: No Changes General: Per HPI Eyes: No Pain, No Vision change, No Conjunctivae inflammation, No Eyelid inflammation, No Other, No Redness ENT: No Ear pain, No Ear discharge, No Nose pain, No Nose discharge, No Nose congestion, No Mouth pain, No Mouth swelling, No Throat pain, No Throat swelling, No Other Cardiovascular: No Chest Pain, No Palpitations, No Orthopnea, No Paroxysmal Noc. Dyspnea, No Edema, No Lt Headedness, No Other Respiratory: Cough; No Dry; Shortness of breath; No SOB with excertion; W heezing; No Hemoptysis, No Pleuritic Pain, No Sputum, No Other Gastrointestinal: No Nausea, No Vomiting, No Abdominal Pain, No Diarrhea, No Constipation, No Melena, No Hematochezia, No Other Genitourinary: No Dysuria, No Frequency, No Incontinence, No Hematuria, No Retention, No Other Musculoskeletal: No other, No neck pain, No shoulder pain, No arm pain, No back pain, No hand pain, No leg pain, No foot pain Skin: No Rash, No Lesions, No Jaundice, No Bruising, No Other Objective Vitals Vital Signs Date Time Temp Pulse Resp B/P (MAP) Pulse Ox O2 Delivery O2 Flow Rate FiO2 02/18/25 15:04 84 20 98 02/18/25 14:57 Nasal Cannula 2.0 02/18/25 14:57 28 02/18/25 12:00 123/74 (90) 02/18/25 07:15 98.2 98.2 Intake/Output Intake and Output 02/18/25 07:00 Intake Total 100 ml Balance 100 ml Intake IV Total 100 ml General Appearance: Alert, Oriented X3, Cooperative, No acute distress HEENT: Atraumatic, PERRLA Cardiovascular: Normal S1, Normal S2 Abdomen: Normal bowel sounds, Soft, No tenderness, No hepatospenomegaly Musculoskeletal: Normal sensory function, Normal motor function Extremities: No clubbing, No cyanosis Neuro: Normal speech Skin: Dry, Intact Psych/Mental Status: Mental status NL, Mood NL Medications Current Medications Medications Dose Ordered Sig/[place] Route Start Time Stop Time Status Last Admin Dose Admin Gabapentin 300 mg BID PO 02/17/25 22:00 02/18/25 10:08 300 MG Lisinopril 5 mg DAILY PO 02/18/25 10:00 Atorvastatin Calcium 80 mg HS PO 02/17/25 22:00 02/17/25 21:42 80 MG Acetaminophen 325 mg Q4HP PRN PO 02/17/25 11:00 02/17/25 17:49 325 MG Acetaminophen/ Hydrocodone Bitart 1 tab Q4HP PRN PO 02/17/25 11:00 Hold Ondansetron HCl 4 mg Q4HP PRN IV 02/17/25 11:00 Docusate Sodium 100 mg BIDPRN PRN PO 02/17/25 11:00 Nitroglycerin 0.4 mg Q5MINP PRN SL 02/17/25 11:00 Morphine Sulfate 2 mg Q30M PRN IV 02/17/25 11:00 Hold Budesonide 0.5 mg BID NEB 02/17/25 22:00 02/18/25 07:17 0.5 MG Ipratropium [place] 0.5 mg Q4HPRN PRN NEB 02/17/25 11:00 02/18/25 14:57 0.5 MG Albuterol 2.5 mg Q4HR NEB 02/17/25 14:00 02/18/25 14:57 2.5 MG Methylprednisolone Sodium Succinate 40 mg BID IV 02/17/25 22:00 02/18/25 10:08 40 MG Doxycycline Hyclate 100 ml @ 50 mls/hr Q12H IV 02/17/25 11:00 02/18/25 11:05 50 MLS/HR Diagnostic Test (Pha) 1 strip ACHS 02/17/25 11:30 02/18/25 11:31 1 STRIP Insulin Human Regular ACHS SC 02/17/25 11:30 02/18/25 11:36 3 UNITS Dextrose 50 ml UD PRN IV 02/17/25 11:00 Guaifenesin 200 mg Q4HP PRN PO 02/17/25 11:00 02/17/25 18:51 200 MG Enoxaparin Sodium 40 mg DAILY SC 02/18/25 10:00 02/18/25 10:08 40 MG Laboratory Results Laboratory Tests 02/18/25 06:40 Chemistry Test 02/18/25 06:40 Albumin 4.3 g/dL (3.2-4.8) Calcium Level 9.3 mg/dL (8.7-10.4) Total Protein 7.5 g/dL (5.7-8.2) LFT Test 02/18/25 06:40 Alanine Aminotransferase (ALT) 26 U/L (7-40) Alkaline Phosphatase 71 U/L (46-116) Aspartate Amino Transferase (AST) 22 U/L (13-40) Total Bilirubin 0.4 mg/dL (0.2-1.0) Labs and/or images reviewed: Labs reviewed by me, Image(s) reviewed by me Assessment/Plan Assessment/Plan Impression: -acute hypoxic respiratory failure -recent COVID-19 infection -probable community-acquired pneumonia post COVID -obesity -history of pulmonary embolism -leukocytosis, rule out sepsis -primary hypertension -diabetes mellitus Plan: -CT angiogram of the chest. Premedicate with Benadryl and Pepcid. Patient already on Solu-Medrol -continue antibiotic therapy with doxycycline. Add Rocephin -continue bronchodilators -regular insulin sliding scale -repeat labs in a.m. -transfer to Medical/Surgical unit Total time spent with patient discussing and formulating plan of care: 35 minutes. This medical document was created using an electronic medical record system with [employer] dictation system. Although this document has been carefully reviewed, there may still be some phonetic and typographical errors. These areas are purely typographical due to imperfections of the software programs, and do not reflect any compromise in the patient's medical care. Plan discussed with: Patient, Other (RN) My Orders Orders - JENNIFER ALCANTARA NP Procedure Category Date Status Time Ceftriaxone Ivpb PHA 02/19/25 Verified Rocephin 09:00 Diphenhdramine PHA 02/18/25 Verified Injection (Benadryl 15:[address] 02/18/25 Verified Contrast 15:14 Date of Service: Feb 18, 2025 Billing Provider: JENNIFER ALCANTARA NP Common Visit Codes: [id number] INP/OBS CARE(HIGH) JENNIFER ALCANTARA NP Feb 18, 2025 15:20
[2025-02-18] MEDS: FAMOTIDINE INJECTION 40 MG in SODIUM CHL 0.9% 100 ML IV ONE (16:17)
[2025-02-18] MEDS: diphenhdrAMINE HCL 50 MG/1 ML VL IV ONE ×2 (16:18→20:45)
--- NOTE | 2025-02-18 20:30 | DVH ---
Procedure: CT CT ANGIO CHEST CONTRAST Study Date and Requested Time: 07/2024 07:37 PM History: rule out PE. pna Comparison: XY CHEST XRAY 1 VIEW on DOS: 02/17/25, XY CHEST XRAY 1 VIEW on DOS: 02/08/25, XY CHEST BRENT BLE on DOS: 12/24/24 Dose: CTDI: 29.2 mGy DLP: 2.54 mGycm Technique: Multiplanar images of the chest are obtained with contrast. 3-D image postprocessing was p erformed and images were used for interpretation and reporting. Findings: Inadequate contrast bolus timing within the pulmonary arteries to evaluate for pulmonary embolism. Pu lmonary embolism noted centrally. Can not exclude pulmonary embolism within the distal segmental and subsegmental pulmonary arteries. No evidence of aortic aneurysm or dissection. Elevated right hemidiaphragm. Scattered bilateral lung atelectasis . No pneumothorax, pleural effus ion or focal airspace consolidation. Biapical Posterior pleural thickening. Mild cardiomegaly. No significant mediastinal or hilar adenopathy. Musculoskeletal structures grossly unremarkable with no evidence of acute abnormality. Mild hepatomegaly. Moderate amount of fecal material within the visualized colon. Otherwise, Partial view of the upper abdomen is unremarkable. Partial view of the upper abdomen grossly unremarkable. Impression: Inadequate contrast bolus timing within the pulmonary arteries to evaluate for pulmonary embolism wit h no pulmonary embolism noted centrally. Can not exclude pulmonary embolism within the distal segmen emma and subsegmental pulmonary arteries. Scattered bilateral lung atelectasis with biapical posterior pleural thickening.
[2025-02-18] MEDS: ONDANSETRON HCL 4 MG/2 ML VIAL IV PRN (20:34)
[2025-02-19] VITALS (20 sets, daily range): BP systolic 100–198; BP diastolic 52–102; PULSE 61–92; RESP 16–25; TEMP 97.8–98.3; O2SAT 91–99
[2025-02-19] MEDS: ALPRAZolam 0.25 MG TAB PO ONE (08:18)
--- NOTE | 2025-02-19 10:28 | DVHPN2 ---
Subjective Patient continues to report has been cough Reviewed: Care Plan, H&P, Labs, Medications, Previous Orders Changes from previous H/P or p: No Changes General: Per HPI Eyes: No Pain, No Vision change, No Conjunctivae inflammation, No Eyelid inflammation, No Other, No Redness ENT: No Ear pain, No Ear discharge, No Nose pain, No Nose discharge, No Nose congestion, No Mouth pain, No Mouth swelling, No Throat pain, No Throat swelling, No Other Cardiovascular: No Chest Pain, No Palpitations, No Orthopnea, No Paroxysmal Noc. Dyspnea, No Edema, No Lt Headedness, No Other Respiratory: Cough; No Dry; Shortness of breath; No SOB with excertion; W heezing; No Hemoptysis, No Pleuritic Pain, No Sputum, No Other Gastrointestinal: No Nausea, No Vomiting, No Abdominal Pain, No Diarrhea, No Constipation, No Melena, No Hematochezia, No Other Genitourinary: No Dysuria, No Frequency, No Incontinence, No Hematuria, No Retention, No Other Musculoskeletal: No other, No neck pain, No shoulder pain, No arm pain, No back pain, No hand pain, No leg pain, No foot pain Skin: No Rash, No Lesions, No Jaundice, No Bruising, No Other Objective Vitals Vital Signs Date Time Temp Pulse Resp B/P (MAP) Pulse Ox O2 Delivery O2 Flow Rate FiO2 02/19/25 09:46 61 16 98 02/19/25 09:39 Nasal Cannula* 2 28 02/19/25 08:39 98.0 112/64 (80) 98.0 Intake/Output Intake and Output 02/19/25 07:00 Intake Total 554 ml Output Total 200 ml Balance 354 ml Intake Oral 200 ml IV Total 354 ml Output Urine Total 200 ml General Appearance: Alert, Oriented X3, Cooperative, No acute distress HEENT: Atraumatic, PERRLA Cardiovascular: Normal S1, Normal S2 Abdomen: Normal bowel sounds, Soft, No tenderness, No hepatospenomegaly Musculoskeletal: Normal sensory function, Normal motor function Extremities: No clubbing, No cyanosis Neuro: Normal speech Skin: Dry, Intact Psych/Mental Status: Mental status NL, Mood NL Medications Current Medications Medications Dose Ordered Sig/[place] Route Start Time Stop Time Status Last Admin Dose Admin Gabapentin 300 mg BID PO 02/17/25 22:00 02/19/25 09:26 300 MG Lisinopril 5 mg DAILY PO 02/18/25 10:00 02/19/25 08:02 5 MG Atorvastatin Calcium 80 mg HS PO 02/17/25 22:00 02/18/25 22:00 80 MG Acetaminophen 325 mg Q4HP PRN PO 02/17/25 11:00 02/17/25 17:49 325 MG Acetaminophen/ Hydrocodone Bitart 1 tab Q4HP PRN PO 02/17/25 11:00 Hold Ondansetron HCl 4 mg Q4HP PRN IV 02/17/25 11:00 02/18/25 20:34 4 MG Docusate Sodium 100 mg BIDPRN PRN PO 02/17/25 11:00 Nitroglycerin 0.4 mg Q5MINP PRN SL 02/17/25 11:00 Morphine Sulfate 2 mg Q30M PRN IV 02/17/25 11:00 Hold Budesonide 0.5 mg BID NEB 02/17/25 22:00 02/19/25 06:22 0.5 MG Ipratropium [place] 0.5 mg Q4HPRN PRN NEB 02/17/25 11:00 02/19/25 09:39 0.5 MG Albuterol 2.5 mg Q4HR NEB 02/17/25 14:00 02/19/25 09:39 2.5 MG Methylprednisolone Sodium Succinate 40 mg BID IV 02/17/25 22:00 02/19/25 08:02 40 MG Doxycycline Hyclate 100 ml @ 50 mls/hr Q12H IV 02/17/25 11:00 02/19/25 00:18 50 MLS/HR Diagnostic Test (Pha) 1 strip ACHS 02/17/25 11:30 02/19/25 06:07 1 STRIP Insulin Human Regular ACHS SC 02/17/25 11:30 02/19/25 06:08 3 UNITS Dextrose 50 ml UD PRN IV 02/17/25 11:00 Guaifenesin 200 mg Q4HP PRN PO 02/17/25 11:00 02/19/25 09:32 200 MG Enoxaparin Sodium 40 mg DAILY SC 02/18/25 10:00 02/19/25 09:26 40 MG Ceftriaxone Sodium 50 ml @ 100 mls/hr DAILY@09 IV 02/18/25 15:52 9/3/25 08:02 100 MLS/HR Laboratory Results Laboratory Tests 02/18/25 06:40 Labs and/or images reviewed: Labs reviewed by me, Image(s) reviewed by me Assessment/Plan Assessment/Plan Impression: -acute hypoxic respiratory failure -recent COVID-19 infection -probable community-acquired pneumonia post COVID -obesity -history of pulmonary embolism, acute PE ruled out -leukocytosis, rule out sepsis -primary hypertension -diabetes mellitus -obstructive sleep apnea -pleurisy Plan: -change steroids from Solu-Medrol to Decadron 4 mg p.o. b.i.d. -CT angiogram of the chest. Unremarkable for pulmonary embolism -continue doxycycline and Rocephin -change antitussive to guaifenesin DM -start BiPAP 12/5 as needed during the day and at nighttime -continue bronchodilators -regular insulin sliding scale -repeat labs in a.m. Total time spent with patient discussing and formulating plan of care: 35 minutes. This medical document was created using an electronic medical record system with [employer] dictation system. Although this document has been carefully reviewed, there may still be some phonetic and typographical errors. These areas are purely typographical due to imperfections of the software programs, and do not reflect any compromise in the patient's medical care. Plan discussed with: Patient, Other (RN) My Orders Orders - JENNIFER ALCANTARA NP Procedure Category Date Status Time Ct Angio Chest CT 02/18/25 Resulted Contrast 15:14 Transfer Orders XFER 02/18/25 Transmitted 15:20 Ceftriaxone 1gm/50ml PHA 02/18/25 In Process D5w (Rocephin) 15:52 Dexamethasone Tablet PHA 02/19/25 Logged (Decadron Tablet) 22:00 Alprazolam Tablet PHA 02/19/25 Logged (Xanax Tablet) 10:30 Hydralazine Injection PHA 02/19/25 Logged (Apresoline Inject 10:30 Bipap/Cpap For Sleep RT 02/19/25 Verified Apnea 10:24 Date of Service: Feb 19, 2025 Billing Provider: JENNIFER ALCANTARA NP Common Visit Codes: [id number] INP/OBS CARE(HIGH) JENNIFER ALCANTARA NP Feb 19, 2025 10:28
[2025-02-19] MEDS ORDERED: hydrALAZINE HCL 20 MG/ML VL IV PRN (10:30)
[2025-02-19] MEDS: guaiFENesin-DM 100/10mg/5ml SYR PO PRN (17:27)
[2025-02-19] MEDS: ALPRAZolam 0.25 MG TAB PO PRN (17:46)
[2025-02-19] MEDS: MELATONIN 5 MG TAB PO ONE (22:55)
[2025-02-20] VITALS (20 sets, daily range): BP systolic 103–146; BP diastolic 66–83; PULSE 61–80; RESP 16–25; TEMP 97.4–98.3; O2SAT 92–100
--- NOTE | 2025-02-20 08:43 | DVHPN2 ---
Subjective Patient continues to report has been cough Reviewed: Care Plan, H&P, Labs, Medications, Previous Orders Changes from previous H/P or p: No Changes General: Per HPI Eyes: No Pain, No Vision change, No Conjunctivae inflammation, No Eyelid inflammation, No Other, No Redness ENT: No Ear pain, No Ear discharge, No Nose pain, No Nose discharge, No Nose congestion, No Mouth pain, No Mouth swelling, No Throat pain, No Throat swelling, No Other Cardiovascular: No Chest Pain, No Palpitations, No Orthopnea, No Paroxysmal Noc. Dyspnea, No Edema, No Lt Headedness, No Other Respiratory: Cough; No Dry; Shortness of breath; No SOB with excertion; W heezing; No Hemoptysis, No Pleuritic Pain, No Sputum, No Other Gastrointestinal: No Nausea, No Vomiting, No Abdominal Pain, No Diarrhea, No Constipation, No Melena, No Hematochezia, No Other Genitourinary: No Dysuria, No Frequency, No Incontinence, No Hematuria, No Retention, No Other Musculoskeletal: No other, No neck pain, No shoulder pain, No arm pain, No back pain, No hand pain, No leg pain, No foot pain Skin: No Rash, No Lesions, No Jaundice, No Bruising, No Other Objective Vitals Vital Signs Date Time Temp Pulse Resp B/P (MAP) Pulse Ox O2 Delivery O2 Flow Rate FiO2 02/20/25 08:00 25 96 Nasal Cannula* 3 32 02/20/25 07:51 66 02/20/25 05:00 98.1 118/75 (89) 98.1 Intake/Output Intake and Output 02/20/25 07:00 Intake Total 1970 ml Balance 1970 ml Intake Oral 1720 ml IV Total 250 ml # Voids 5 # Bowel Movements 2 General Appearance: Alert, Oriented X3, Cooperative, No acute distress HEENT: Atraumatic, PERRLA Cardiovascular: Normal S1, Normal S2 Abdomen: Normal bowel sounds, Soft, No tenderness, No hepatospenomegaly Musculoskeletal: Normal sensory function, Normal motor function Extremities: No clubbing, No cyanosis Neuro: Normal speech Skin: Dry, Intact Psych/Mental Status: Mental status NL, Mood NL Medications Current Medications Medications Dose Ordered Sig/[place] Route Start Time Stop Time Status Last Admin Dose Admin Gabapentin 300 mg BID PO 02/17/25 22:00 02/19/25 21:50 300 MG Lisinopril 5 mg DAILY PO 02/18/25 10:00 02/19/25 08:02 5 MG Atorvastatin Calcium 80 mg HS PO 02/17/25 22:00 02/19/25 21:51 80 MG Acetaminophen 325 mg Q4HP PRN PO 02/17/25 11:00 02/17/25 17:49 325 MG Acetaminophen/ Hydrocodone Bitart 1 tab Q4HP PRN PO 02/17/25 11:00 Hold Ondansetron HCl 4 mg Q4HP PRN IV 02/17/25 11:00 02/18/25 20:34 4 MG Docusate Sodium 100 mg BIDPRN PRN PO 02/17/25 11:00 Nitroglycerin 0.4 mg Q5MINP PRN SL 02/17/25 11:00 Morphine Sulfate 2 mg Q30M PRN IV 02/17/25 11:00 Hold Budesonide 0.5 mg BID NEB 02/17/25 22:00 02/20/25 07:50 0.5 MG Ipratropium [place] 0.5 mg Q4HPRN PRN NEB 02/17/25 11:00 02/20/25 07:50 0.5 MG Albuterol 2.5 mg Q4HR NEB 02/17/25 14:00 02/20/25 07:51 2.5 MG Doxycycline Hyclate 100 ml @ 50 mls/hr Q12H IV 02/17/25 11:00 02/19/25 22:44 50 MLS/HR Diagnostic Test (Pha) 1 strip ACHS 02/17/25 11:30 02/20/25 06:20 1 STRIP Insulin Human Regular ACHS SC 02/17/25 11:30 02/20/25 06:19 3 UNITS Dextrose 50 ml UD PRN IV 02/17/25 11:00 Enoxaparin Sodium 40 mg DAILY SC 02/18/25 10:00 02/19/25 09:26 40 MG Ceftriaxone Sodium 50 ml @ 100 mls/hr DAILY@09 IV 02/18/25 15:52 02/20/25 08:40 100 MLS/HR Dexamethasone 4 mg Q12HR PO 02/19/25 22:00 02/19/25 21:50 4 MG Alprazolam 0.25 mg Q8HP PRN PO 02/19/25 10:30 02/20/25 04:12 0.25 MG Hydralazine HCl 10 mg Q6HP PRN IV 02/19/25 10:30 Guaifenesin/ Dextromethorphan 10 ml Q4HP PRN PO 02/19/25 10:30 02/20/25 04:12 10 ML Laboratory Results Laboratory Tests 02/18/25 06:40 Labs and/or images reviewed: Labs reviewed by me, Image(s) reviewed by me Assessment/Plan Assessment/Plan Impression: -acute hypoxic respiratory failure -recent COVID-19 infection -probable community-acquired pneumonia post COVID -obesity -history of pulmonary embolism, acute PE ruled out -leukocytosis, rule out sepsis -primary hypertension -diabetes mellitus -obstructive sleep apnea -pleurisy Plan: Events: Patient continues to report having nonproductive, persistent cough. Or and having anxiety secondary to dyspnea. -add Cepacol lozenges to Robitussin DM -continue doxycycline and Rocephin -continue BiPAP p.r.n. -continue bronchodilators -regular insulin sliding scale -repeat labs in a.m. Total time spent with patient discussing and formulating plan of care: 35 minutes. This medical document was created using an electronic medical record system with [employer] dictation system. Although this document has been carefully reviewed, there may still be some phonetic and typographical errors. These areas are purely typographical due to imperfections of the software programs, and do not reflect any compromise in the patient's medical care. Plan discussed with: Patient, Other (RN) My Orders Orders - JENNIFER ALCANTARA NP Procedure Category Date Status Time Dexamethasone Tablet PHA 02/19/25 In Process (Decadron Tablet) 22:00 Alprazolam Tablet PHA 02/19/25 In Process (Xanax Tablet) 10:30 Hydralazine Injection PHA 02/19/25 In Process (Apresoline Inject 10:30 Bipap/Cpap For Sleep RT 02/19/25 Logged Apnea 10:24 Guaifenesin-Dextromet PHA 02/19/25 In Process Liquid (Robitussin 10:30 Date of Service: Feb 20, 2025 Billing Provider: JENNIFER ALCANTARA NP Common Visit Codes: [id number] INP/OBS CARE(HIGH) JENNIFER ALCANTARA NP Feb 20, 2025 08:43
[2025-02-20] MEDS: DOCUSATE SOD 100 MG CAP PO PRN (11:50)
[2025-02-20] MEDS: THROAT LOZENGES(CEPASTAT) MT PRN (18:13)
[2025-02-20] MEDS ORDERED: MELATONIN 5 MG TAB PO ONE (22:00)
[2025-02-21] VITALS (21 sets, daily range): BP systolic 109–117; BP diastolic 49–81; PULSE 64–84; RESP 14–25; TEMP 97.6–98.2; O2SAT 91–100
--- NOTE | 2025-02-21 05:51 | DVH ---
CHEST RADIOGRAPH Indication: pna Technique: Single frontal view of the chest was obtained COMPARISON: XY CHEST XRAY 1 VIEW on DOS: 02/17/25, XY CHEST XRAY 1 VIEW on DOS: 02/08/25, XY CHEST BRENT BLE on DOS: 12/24/24, XY CHEST TWO VIEWS ROUTINE on DOS: 11/27/24, XY CHEST PORTABLE on DOS: 09/16/24 FINDINGS: Lines and Tubes: None Lungs: Congestion Pleura: No effusion. No pneumothorax. Cardiomediastinal contours: Unremarkable Bones: Unremarkable IMPRESSION: Mild increased congestion
[2025-02-21 06:01] LABS: Hematocrit 41.3 % (41.0-53.0); Hemoglobin 13.7 g/dL (13.5-17.5); Mean Corpuscular Hemoglobin 28.4 pg (28.0-32.0); Mean Corpuscular Volume 85.8 fL (80.0-100.0); Nucleated Red Blood Cells % 0.0 %
[2025-02-21 06:04] LABS: Anion Gap 8 (5-15); Carbon Dioxide 28 mmol/L (20-31); Chloride 103 mmol/L (98-107); Potassium 4.4 mmol/L (3.5-5.1); Sodium 139 mmol/L (136-145)
[2025-02-21 06:10] LABS: BUN/Creatinine Ratio 20.5 (10.0-20.0); Blood Urea Nitrogen 16 mg/dL (9-23); Magnesium 2.2 mg/dL (1.6-2.6)
[2025-02-21 06:21] LABS: Calcium 8.7 mg/dL (8.7-10.4); Glucose 166 mg/dL (74-106)
--- NOTE | 2025-02-21 10:41 | DVHPN2 ---
Subjective Patient continues to report has been cough Reviewed: Care Plan, H&P, Labs, Medications, Previous Orders Changes from previous H/P or p: No Changes General: Per HPI Eyes: No Pain, No Vision change, No Conjunctivae inflammation, No Eyelid inflammation, No Other, No Redness ENT: No Ear pain, No Ear discharge, No Nose pain, No Nose discharge, No Nose congestion, No Mouth pain, No Mouth swelling, No Throat pain, No Throat swelling, No Other Cardiovascular: No Chest Pain, No Palpitations, No Orthopnea, No Paroxysmal Noc. Dyspnea, No Edema, No Lt Headedness, No Other Respiratory: Cough; No Dry; Shortness of breath; No SOB with excertion; W heezing; No Hemoptysis, No Pleuritic Pain, No Sputum, No Other Gastrointestinal: No Nausea, No Vomiting, No Abdominal Pain, No Diarrhea, No Constipation, No Melena, No Hematochezia, No Other Genitourinary: No Dysuria, No Frequency, No Incontinence, No Hematuria, No Retention, No Other Musculoskeletal: No other, No neck pain, No shoulder pain, No arm pain, No back pain, No hand pain, No leg pain, No foot pain Skin: No Rash, No Lesions, No Jaundice, No Bruising, No Other Objective Vitals Vital Signs Date Time Temp Pulse Resp B/P (MAP) Pulse Ox O2 Delivery O2 Flow Rate FiO2 02/21/25 10:02 111/66 02/21/25 08:41 97.9 66 22 96 97.9 02/21/25 08:30 Nasal Cannula* 3 32 Intake/Output Intake and Output 02/21/25 07:00 Intake Total 1050 ml Balance 1050 ml Intake Oral 1050 ml # Voids 3 General Appearance: Alert, Oriented X3, Cooperative, No acute distress HEENT: Atraumatic, PERRLA Cardiovascular: Normal S1, Normal S2 Abdomen: Normal bowel sounds, Soft, No tenderness, No hepatospenomegaly Musculoskeletal: Normal sensory function, Normal motor function Extremities: No clubbing, No cyanosis Neuro: Normal speech Skin: Dry, Intact Psych/Mental Status: Mental status NL, Mood NL Medications Current Medications Medications Dose Ordered Sig/[place] Route Start Time Stop Time Status Last Admin Dose Admin Gabapentin 300 mg BID PO 02/17/25 22:00 02/21/25 10:02 300 MG Lisinopril 5 mg DAILY PO 02/18/25 10:00 02/21/25 10:02 5 MG Atorvastatin Calcium 80 mg HS PO 02/17/25 22:00 02/20/25 21:55 80 MG Acetaminophen 325 mg Q4HP PRN PO 02/17/25 11:00 02/17/25 17:49 325 MG Ondansetron HCl 4 mg Q4HP PRN IV 02/17/25 11:00 02/18/25 20:34 4 MG Docusate Sodium 100 mg BIDPRN PRN PO 02/17/25 11:00 02/21/25 10:03 100 MG Nitroglycerin 0.4 mg Q5MINP PRN SL 02/17/25 11:00 Budesonide 0.5 mg BID NEB 02/17/25 22:00 02/21/25 08:27 0.5 MG Ipratropium [place] 0.5 mg Q4HPRN PRN NEB 02/17/25 11:00 02/21/25 02:06 0.5 MG Albuterol 2.5 mg Q4HR NEB 02/17/25 14:00 02/21/25 08:05 2.5 MG Doxycycline Hyclate 100 ml @ 50 mls/hr Q12H IV 02/17/25 11:00 02/20/25 23:00 50 MLS/HR Diagnostic Test (Pha) 1 strip ACHS 02/17/25 11:30 02/21/25 06:08 1 STRIP Insulin Human Regular ACHS SC 02/17/25 11:30 02/21/25 06:07 3 UNITS Dextrose 50 ml UD PRN IV 02/17/25 11:00 Enoxaparin Sodium 40 mg DAILY SC 02/18/25 10:00 02/21/25 10:01 40 MG Ceftriaxone Sodium 50 ml @ 100 mls/hr DAILY@09 IV 02/18/25 15:52 02/21/25 09:40 100 MLS/HR Dexamethasone 4 mg Q12HR PO 02/19/25 22:00 02/20/25 21:55 4 MG Alprazolam 0.25 mg Q8HP PRN PO 02/19/25 10:30 02/21/25 10:03 0.25 MG Hydralazine HCl 10 mg Q6HP PRN IV 02/19/25 10:30 Guaifenesin/ Dextromethorphan 10 ml Q4HP PRN PO 02/19/25 10:30 02/21/25 10:03 10 ML Throat Lozenges 1 harpal Q2HP PRN MT 02/20/25 08:45 02/20/25 18:13 1 HARPAL Laboratory Results Laboratory Tests 02/21/25 04:47 Chemistry Test 02/21/25 04:47 Calcium Level 8.7 mg/dL (8.7-10.4) Magnesium Level 2.2 mg/dL (1.6-2.6) Labs and/or images reviewed: Labs reviewed by me, Image(s) reviewed by me Assessment/Plan Assessment/Plan Impression: -acute hypoxic respiratory failure -recent COVID-19 infection -probable community-acquired pneumonia post COVID -obesity -history of pulmonary embolism, acute PE ruled out -leukocytosis, rule out sepsis -primary hypertension -diabetes mellitus -obstructive sleep apnea -pleurisy Plan: Events: Continues to report having dyspnea, anxiety, and non-productive cough. -Antitussives -continue doxycycline and Rocephin -continue BiPAP p.r.n. -continue bronchodilators, add Mucomyst -ABG -regular insulin sliding scale -repeat labs in a.m. Total time spent with patient discussing and formulating plan of care: 35 minutes. This medical document was created using an electronic medical record system with [employer] dictation system. Although this document has been carefully reviewed, there may still be some phonetic and typographical errors. These areas are purely typographical due to imperfections of the software programs, and do not reflect any compromise in the patient's medical care. Plan discussed with: Patient, Other (RN) My Orders Orders - JENNIFER ALCANTARA NP Procedure Category Date Status Time Chest Percussion Tx RT 02/20/25 Logged Initi 14:12 Abg W/ Co-Ox RT 02/21/25 Logged 10:27 Ambulate Every 4hours RASHAAD 02/21/25 Transmitted 10:27 Acetylcysteine PHA 02/21/25 Transmitted Inhalation 10% 14:00 Date of Service: Feb 21, 2025 Billing Provider: JENNIFER ALCANTARA NP Common Visit Codes: [id number] INP/OBS CARE(HIGH) JENNIFER ALCANTARA NP Feb 21, 2025 10:41
[2025-02-21 12:36] LABS: Base Excess 1.4 mmol/L (-2.0-3.0)
[2025-02-21] MEDS: ACETYLCYSTEINE 10 %(100MG/ML) SOL 4ML NEB SCH (13:47)
[2025-02-22] VITALS (14 sets, daily range): BP systolic 108–129; BP diastolic 63–84; PULSE 61–96; RESP 16–25; TEMP 97.3–98.2; O2SAT 93–100
--- NOTE | 2025-02-22 12:11 | DVHPN2 ---
Reviewed: Care Plan, H&P, Labs, Medications, Previous Orders Changes from previous H/P or p: No Changes General: Per HPI Eyes: No Pain, No Vision change, No Conjunctivae inflammation, No Eyelid inflammation, No Other, No Redness ENT: No Ear pain, No Ear discharge, No Nose pain, No Nose discharge, No Nose congestion, No Mouth pain, No Mouth swelling, No Throat pain, No Throat swelling, No Other Cardiovascular: No Chest Pain, No Palpitations, No Orthopnea, No Paroxysmal Noc. Dyspnea, No Edema, No Lt Headedness, No Other Respiratory: Cough; No Dry; Shortness of breath; No SOB with excertion; W heezing; No Hemoptysis, No Pleuritic Pain, No Sputum, No Other Gastrointestinal: No Nausea, No Vomiting, No Abdominal Pain, No Diarrhea, No Constipation, No Melena, No Hematochezia, No Other Genitourinary: No Dysuria, No Frequency, No Incontinence, No Hematuria, No Retention, No Other Musculoskeletal: No other, No neck pain, No shoulder pain, No arm pain, No back pain, No hand pain, No leg pain, No foot pain Skin: No Rash, No Lesions, No Jaundice, No Bruising, No Other Objective Vitals Vital Signs Date Time Temp Pulse Resp B/P (MAP) Pulse Ox O2 Delivery O2 Flow Rate FiO2 02/22/25 09:35 108/73 02/22/25 09:23 67 18 96 02/22/25 09:23 Nasal Cannula 2.0 02/22/25 09:23 28 02/22/25 09:01 97.8 97.8 Intake/Output Intake and Output 02/22/25 07:00 Intake Total 960 ml Balance 960 ml Intake Oral 960 ml # Voids 12 General Appearance: Alert, Oriented X3, Cooperative, No acute distress HEENT: Atraumatic, PERRLA Cardiovascular: Normal S1, Normal S2 Abdomen: Normal bowel sounds, Soft, No tenderness, No hepatospenomegaly Musculoskeletal: Normal sensory function, Normal motor function Extremities: No clubbing, No cyanosis Neuro: Normal speech Skin: Dry, Intact Psych/Mental Status: Mental status NL, Mood NL Medications Current Medications Medications Dose Ordered Sig/[place] Route Start Time Stop Time Status Last Admin Dose Admin Gabapentin 300 mg BID PO 02/17/25 22:00 02/22/25 09:32 300 MG Lisinopril 5 mg DAILY PO 02/18/25 10:00 02/22/25 09:35 5 MG Atorvastatin Calcium 80 mg HS PO 02/17/25 22:00 02/21/25 21:28 80 MG Acetaminophen 325 mg Q4HP PRN PO 02/17/25 11:00 02/17/25 17:49 325 MG Ondansetron HCl 4 mg Q4HP PRN IV 02/17/25 11:00 02/18/25 20:34 4 MG Docusate Sodium 100 mg BIDPRN PRN PO 02/17/25 11:00 02/21/25 10:03 100 MG Nitroglycerin 0.4 mg Q5MINP PRN SL 02/17/25 11:00 Budesonide 0.5 mg BID NEB 02/17/25 22:00 02/22/25 09:23 0.5 MG Ipratropium [place] 0.5 mg Q4HPRN PRN NEB 02/17/25 11:00 02/21/25 22:59 0.5 MG Albuterol 2.5 mg Q4HR NEB 02/17/25 14:00 02/22/25 09:23 2.5 MG Doxycycline Hyclate 100 ml @ 50 mls/hr Q12H IV 02/17/25 11:00 02/22/25 10:32 50 MLS/HR Diagnostic Test (Pha) 1 strip ACHS 02/17/25 11:30 02/22/25 11:05 1 STRIP Insulin Human Regular ACHS SC 02/17/25 11:30 02/22/25 11:06 3 UNITS Dextrose 50 ml UD PRN IV 02/17/25 11:00 Enoxaparin Sodium 40 mg DAILY SC 02/18/25 10:00 02/22/25 09:32 40 MG Ceftriaxone Sodium 50 ml @ 100 mls/hr DAILY@09 IV 02/18/25 15:52 02/22/25 09:22 100 MLS/HR Dexamethasone 4 mg Q12HR PO 02/19/25 22:00 02/22/25 09:45 4 MG Alprazolam 0.25 mg Q8HP PRN PO 02/19/25 10:30 02/21/25 21:35 0.25 MG Hydralazine HCl 10 mg Q6HP PRN IV 02/19/25 10:30 Guaifenesin/ Dextromethorphan 10 ml Q4HP PRN PO 02/19/25 10:30 02/21/25 10:03 10 ML Acetylcysteine 100 mg Q4HR NEB 02/21/25 14:00 02/22/25 09:23 100 MG Laboratory Results Laboratory Tests 02/21/25 04:47 Labs and/or images reviewed: Labs reviewed by me, Image(s) reviewed by me Assessment/Plan Assessment/Plan 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
[2025-02-23] VITALS (17 sets, daily range): BP systolic 103–126; BP diastolic 51–74; PULSE 59–83; RESP 16–30; TEMP 97.6–98.3; O2SAT 92–100
[2025-02-23 07:54] LABS: Hematocrit 42.4 % (41.0-53.0); Hemoglobin 13.9 g/dL (13.5-17.5); Mean Corpuscular Hemoglobin 28.5 pg (28.0-32.0); Mean Corpuscular Volume 86.7 fL (80.0-100.0); Nucleated Red Blood Cells % 0.0 %
[2025-02-23 08:01] LABS: Alanine Aminotransferase 38 U/L (7-40); Albumin 4.0 g/dL (3.2-4.8); Alkaline Phosphatase 90 U/L (46-116); Anion Gap 9 (5-15); BUN/Creatinine Ratio 17.1 (10.0-20.0); Bilirubin, Total 0.5 mg/dL (0.2-1.0); Blood Urea Nitrogen 12 mg/dL (9-23); Calcium 8.7 mg/dL (8.7-10.4); Carbon Dioxide 25 mmol/L (20-31); Chloride 105 mmol/L (98-107); Potassium 4.2 mmol/L (3.5-5.1); Sodium 139 mmol/L (136-145); Total Protein 7.0 g/dL (5.7-8.2)
[2025-02-23 08:04] LABS: Glucose 137 mg/dL (74-106)
--- NOTE | 2025-02-23 09:53 | DVHPN2 ---
Reviewed: Care Plan, H&P, Labs, Medications, Previous Orders Changes from previous H/P or p: No Changes General: Per HPI Eyes: No Pain, No Vision change, No Conjunctivae inflammation, No Eyelid inflammation, No Other, No Redness ENT: No Ear pain, No Ear discharge, No Nose pain, No Nose discharge, No Nose congestion, No Mouth pain, No Mouth swelling, No Throat pain, No Throat swelling, No Other Cardiovascular: No Chest Pain, No Palpitations, No Orthopnea, No Paroxysmal Noc. Dyspnea, No Edema, No Lt Headedness, No Other Respiratory: Cough; No Dry; Shortness of breath; No SOB with excertion; W heezing; No Hemoptysis, No Pleuritic Pain, No Sputum, No Other Gastrointestinal: No Nausea, No Vomiting, No Abdominal Pain, No Diarrhea, No Constipation, No Melena, No Hematochezia, No Other Genitourinary: No Dysuria, No Frequency, No Incontinence, No Hematuria, No Retention, No Other Musculoskeletal: No other, No neck pain, No shoulder pain, No arm pain, No back pain, No hand pain, No leg pain, No foot pain Skin: No Rash, No Lesions, No Jaundice, No Bruising, No Other Objective Vitals Vital Signs Date Time Temp Pulse Resp B/P (MAP) Pulse Ox O2 Delivery O2 Flow Rate FiO2 02/23/25 07:28 59 16 95 02/23/25 07:28 Nasal Cannula 2.0 02/23/25 07:28 28 02/23/25 05:00 97.9 103/51 (68) 97.9 Intake/Output Intake and Output 02/23/25 07:00 Intake Total 1658 ml Output Total 3 ml Balance 1655 ml Intake Oral 1658 ml Stool Total 3 ml # Voids 7 General Appearance: Alert, Oriented X3, Cooperative, No acute distress HEENT: Atraumatic, PERRLA Cardiovascular: Normal S1, Normal S2 Abdomen: Normal bowel sounds, Soft, No tenderness, No hepatospenomegaly Musculoskeletal: Normal sensory function, Normal motor function Extremities: No clubbing, No cyanosis Neuro: Normal speech Skin: Dry, Intact Psych/Mental Status: Mental status NL, Mood NL Medications Current Medications Medications Dose Ordered Sig/[place] Route Start Time Stop Time Status Last Admin Dose Admin Gabapentin 300 mg BID PO 02/17/25 22:00 02/22/25 21:58 300 MG Lisinopril 5 mg DAILY PO 02/18/25 10:00 02/22/25 09:35 5 MG Atorvastatin Calcium 80 mg HS PO 02/17/25 22:00 02/22/25 21:57 80 MG Acetaminophen 325 mg Q4HP PRN PO 02/17/25 11:00 02/22/25 20:19 325 MG Ondansetron HCl 4 mg Q4HP PRN IV 02/17/25 11:00 02/18/25 20:34 4 MG Docusate Sodium 100 mg BIDPRN PRN PO 02/17/25 11:00 02/21/25 10:03 100 MG Nitroglycerin 0.4 mg Q5MINP PRN SL 02/17/25 11:00 Budesonide 0.5 mg BID NEB 02/17/25 22:00 02/23/25 07:26 0.5 MG Ipratropium Shorter 0.5 mg Q4HPRN PRN NEB 02/17/25 11:00 02/21/25 22:59 0.5 MG Albuterol 2.5 mg Q4HR NEB 02/17/25 14:00 02/23/25 07:27 2.5 MG Doxycycline Hyclate 100 ml @ 50 mls/hr Q12H IV 02/17/25 11:00 02/22/25 23:20 50 MLS/HR Diagnostic Test (Pha) 1 strip ACHS 02/17/25 11:30 02/23/25 06:20 1 STRIP Insulin Human Regular ACHS SC 02/17/25 11:30 02/23/25 06:15 2 UNITS Dextrose 50 ml UD PRN IV 02/17/25 11:00 Enoxaparin Sodium 40 mg DAILY SC 02/18/25 10:00 02/22/25 09:32 40 MG Ceftriaxone Sodium 50 ml @ 100 mls/hr DAILY@09 IV 02/18/25 15:52 02/22/25 09:22 100 MLS/HR Dexamethasone 4 mg Q12HR PO 02/19/25 22:00 02/22/25 21:58 4 MG Alprazolam 0.25 mg Q8HP PRN PO 02/19/25 10:30 02/22/25 23:20 0.25 MG Hydralazine HCl 10 mg Q6HP PRN IV 02/19/25 10:30 Guaifenesin/ Dextromethorphan 10 ml Q4HP PRN PO 02/19/25 10:30 02/22/25 20:20 10 ML Acetylcysteine 100 mg Q4HR NEB 02/21/25 14:00 02/23/25 07:28 100 MG Laboratory Results Laboratory Tests 02/23/25 05:15 Chemistry Test 02/23/25 05:15 Albumin 4.0 g/dL (3.2-4.8) Calcium Level 8.7 mg/dL (8.7-10.4) Total Protein 7.0 g/dL (5.7-8.2) LFT Test 02/23/25 05:15 Alanine Aminotransferase (ALT) 38 U/L (7-40) Alkaline Phosphatase 90 U/L (46-116) Aspartate Amino Transferase (AST) 23 U/L (13-40) Total Bilirubin 0.5 mg/dL (0.2-1.0) Labs and/or images reviewed: Labs reviewed by me, Image(s) reviewed by me Assessment/Plan Assessment/Plan Covering for nurse practitioner Adria Haddad Acute hypoxic respiratory failure : Oxygen by nasal cannula Recent COVID-19 pneumonia: Albuterol Atrovent, Decadron Bilateral community-acquired pneumonia Gram-positive versus Gram-negative , continue Rocephin doxycycline History of PE Possible sepsis Hypertension Diabetes Obstructive sleep apnea Continue current management Plan discussed with: Patient Date of Service: Feb 23, 2025 Billing Provider: DEONTE TO MD Common Visit Codes: [id number] INP/OBS CARE(HIGH) DEONTE TO MD Feb 23, 2025 09:53
[2025-02-23] MEDS: LORazepam 2MG/ML-1ML VIAL IV PRN (17:17)
[2025-02-23] MEDS: LORazepam 2MG/ML-1ML VIAL IV ONE (17:28)
[2025-02-23] MEDS: LORazepam 2MG/ML-1ML VIAL ONE ×2 (17:28→18:25)
[2025-02-23] MEDS ORDERED: VALPROATE INJ 1,000 MG in SODIUM CHL 0.9% 100 ML IV ONE (18:30)
[2025-02-23] MEDS ORDERED: VALPROATE INJ 500 MG in SODIUM CHL 0.9% 100 ML IV ONE (18:30)
[2025-02-23 18:56] LABS: Alanine Aminotransferase 40 U/L (7-40); Albumin 4.0 g/dL (3.2-4.8); Alkaline Phosphatase 105 U/L (46-116); Anion Gap 10 (5-15); BUN/Creatinine Ratio 16.5 (10.0-20.0); Bilirubin, Total 0.3 mg/dL (0.2-1.0); Blood Urea Nitrogen 16 mg/dL (9-23); Carbon Dioxide 25 mmol/L (20-31); Chloride 106 mmol/L (98-107); Magnesium 2.0 mg/dL (1.6-2.6); Potassium 4.1 mmol/L (3.5-5.1); Sodium 141 mmol/L (136-145); Total Protein 7.2 g/dL (5.7-8.2)
[2025-02-23 18:59] LABS: Calcium 8.5 mg/dL (8.7-10.4); Glucose 202 mg/dL (74-106)
--- NOTE | 2025-02-23 19:24 | DVH ---
EXAM: CT HEAD WITHOUT CONTRAST INDICATION: seizure TECHNIQUE: CT of the head without intravenous contrast. Radiation Dose Information: CT Dose: CTDI volume is 48.93 mGy. Dose-length product is 970.99 mGy*cm The dose indicators for CT are the volume Computed Tomography (CT) Dose Index (CTDIvol) and the Dose Length Product (DLP), and are measured in units of mGy and mGy-cm, respectively. These indicators are not patient dose, but values generated from the CT scanner acquisition factors. The report includes radiation exposure data for exposures received during this examination. COMPARISON: MRI BRAIN HEAD WO CONTRAST on DOS: 12/25/24, CT HEAD WITHOUT CONTRAST on DOS: 12/24/24, MRI B RAIN HEAD WO CONTRAST on DOS: 06/25/24 FINDINGS: There is no evidence of acute intracranial hemorrhage, extra-axial collection, mass effect, midline s hift, herniation or hydrocephalus. The ventricles, sulci and cisterns are age appropriate. The griffith-white differentiation is intact. Patchy periventricular and subcortical white matter hypoattenuation is nonspecific but may be related to small vessel ischemic disease. The visualized paranasal sinuses and mastoid air cells are clear. The surrounding soft tissues and osseous structures are unremarkable. IMPRESSION: 1. No acute intracranial hemorrhage 2. No CT findings of territorial ischemia. 3. No intracranial mass. 4. No significant change from 12/24/2024
--- NOTE | 2025-02-23 19:38 | ECG ---
[facility] Test Date: 2025-02-23 Test Time: 19:36:22 Pat Name: CHRISTIAN COWAN Department: Respiratoy Room: 0207T Gender: M Installation Coordinator: RAFAEL : 1970 Requested By: CINTHIA MENDOZA Order Number: [id number] Reading MD: Shadi Lau Measurements Intervals Boron Rate: 77 P: 78 DC: 142 QRS: 73 QRSD: 81 T: 78 QT: 369 QTc: 418 Interpretive Statements Sinus rhythm Borderline T abnormalities, lateral leads Baseline wander in lead(s) V6 Electronically Signed On 02-24-2025 10:13:54 PDT by Shadi Lau Please click the below link to view image of tracing.
[2025-02-23] MEDS: levETIRAcetam 1000 mg/100ml 100 ML IV ONE (20:05)
[2025-02-24] VITALS (18 sets, daily range): BP systolic 107–126; BP diastolic 59–87; PULSE 62–71; RESP 15–23; TEMP 98.2–98.6; O2SAT 95–99
[2025-02-24] MEDS: PHENobarbital SODIUM INJ 600 MG in SODIUM CHL 0.9% 100 ML IV ONE ×2 (00:30→12:06)
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
--- NOTE | 2025-02-24 11:25 | DVHPN2 ---
Subjective Patient respiratory status improving. Cough resolved. Now reports having breakthrough seizure activity. Reviewed: Care Plan, H&P, Labs, Medications, Previous Orders Changes from previous H/P or p: No Changes General: Per HPI Eyes: No Pain, No Vision change, No Conjunctivae inflammation, No Eyelid inflammation, No Other, No Redness ENT: No Ear pain, No Ear discharge, No Nose pain, No Nose discharge, No Nose congestion, No Mouth pain, No Mouth swelling, No Throat pain, No Throat swelling, No Other Cardiovascular: No Chest Pain, No Palpitations, No Orthopnea, No Paroxysmal Noc. Dyspnea, No Edema, No Lt Headedness, No Other Respiratory: No Dry, No SOB with excertion, No Hemoptysis, No Pleuritic Pain, No Sputum, No Other Gastrointestinal: No Nausea, No Vomiting, No Abdominal Pain, No Diarrhea, No Constipation, No Melena, No Hematochezia, No Other Genitourinary: No Dysuria, No Frequency, No Incontinence, No Hematuria, No Retention, No Other Musculoskeletal: No other, No neck pain, No shoulder pain, No arm pain, No back pain, No hand pain, No leg pain, No foot pain Skin: No Rash, No Lesions, No Jaundice, No Bruising, No Other Objective Vitals Vital Signs Date Time Temp Pulse Resp B/P (MAP) Pulse Ox O2 Delivery O2 Flow Rate FiO2 02/24/25 09:39 98 Nasal Cannula* 5 40 02/24/25 09:39 67 18 02/24/25 09:00 98.4 108/74 (85) 98.4 Intake/Output Intake and Output 02/24/25 07:00 Intake Total 510 ml Output Total 150 ml Balance 360 ml Intake Oral 410 ml IV Total 100 ml Output Urine Total 150 ml # Voids 5 General Appearance: Alert, Oriented X3, Cooperative, No acute distress HEENT: Atraumatic, PERRLA Cardiovascular: Normal S1, Normal S2 Abdomen: Normal bowel sounds, Soft, No tenderness, No hepatospenomegaly Musculoskeletal: Normal sensory function, Normal motor function Extremities: No clubbing, No cyanosis Neuro: Normal speech Skin: Dry, Intact Psych/Mental Status: Mental status NL, Mood NL Medications Current Medications Medications Dose Ordered Sig/[place] Route Start Time Stop Time Status Last Admin Dose Admin Gabapentin 300 mg BID PO 02/17/25 22:00 02/23/25 23:46 300 MG Lisinopril 5 mg DAILY PO 02/18/25 10:00 02/22/25 09:35 5 MG Atorvastatin Calcium 80 mg HS PO 02/17/25 22:00 02/23/25 23:46 80 MG Acetaminophen 325 mg Q4HP PRN PO 02/17/25 11:00 02/22/25 20:19 325 MG Ondansetron HCl 4 mg Q4HP PRN IV 02/17/25 11:00 02/18/25 20:34 4 MG Docusate Sodium 100 mg BIDPRN PRN PO 02/17/25 11:00 02/21/25 10:03 100 MG Nitroglycerin 0.4 mg Q5MINP PRN SL 02/17/25 11:00 Budesonide 0.5 mg BID NEB 02/17/25 22:00 02/23/25 22:04 0.5 MG Ipratropium [place] 0.5 mg Q4HPRN PRN NEB 02/17/25 11:00 02/24/25 09:39 0.5 MG Albuterol 2.5 mg Q4HR NEB 02/17/25 14:00 02/24/25 09:39 2.5 MG Doxycycline Hyclate 100 ml @ 50 mls/hr Q12H IV 02/17/25 11:00 02/23/25 22:30 50 MLS/HR Diagnostic Test (Pha) 1 strip ACHS 02/17/25 11:30 02/24/25 06:22 1 STRIP Insulin Human Regular ACHS SC 02/17/25 11:30 02/24/25 06:23 2 UNITS Dextrose 50 ml UD PRN IV 02/17/25 11:00 Enoxaparin Sodium 40 mg DAILY SC 02/18/25 10:00 02/23/25 10:45 40 MG Ceftriaxone Sodium 50 ml @ 100 mls/hr DAILY@09 IV 02/18/25 15:52 02/23/25 10:45 100 MLS/HR Dexamethasone 4 mg Q12HR PO 02/19/25 22:00 02/23/25 23:43 4 MG Alprazolam 0.25 mg Q8HP PRN PO 02/19/25 10:30 02/23/25 10:45 0.25 MG Hydralazine HCl 10 mg Q6HP PRN IV 02/19/25 10:30 Guaifenesin/ Dextromethorphan 10 ml Q4HP PRN PO 02/19/25 10:30 02/22/25 20:20 10 ML Acetylcysteine 100 mg Q4HR NEB 02/21/25 14:00 02/23/25 07:28 100 MG Lorazepam 1 mg Q5MINP PRN IV 02/23/25 17:30 02/24/25 08:33 1 MG Levetiracetam 100 ml @ 400 mls/hr BID IV 02/24/25 22:00 Laboratory Results Laboratory Tests 02/23/25 05:15 02/23/25 17:55 Chemistry Test 02/23/25 17:55 Albumin 4.0 g/dL (3.2-4.8) Calcium Level 8.5 mg/dL (8.7-10.4) L Magnesium Level 2.0 mg/dL (1.6-2.6) Total Protein 7.2 g/dL (5.7-8.2) LFT Test 02/23/25 17:55 Alanine Aminotransferase (ALT) 40 U/L (7-40) Alkaline Phosphatase 105 U/L (46-116) Aspartate Amino Transferase (AST) 30 U/L (13-40) Total Bilirubin 0.3 mg/dL (0.2-1.0) Labs and/or images reviewed: Labs reviewed by me, Image(s) reviewed by me Assessment/Plan Assessment/Plan Impression: -acute hypoxic respiratory failure -recent COVID-19 infection -probable community-acquired pneumonia post COVID -obesity -history of pulmonary embolism, acute PE ruled out -leukocytosis, rule out sepsis -primary hypertension -diabetes mellitus -obstructive sleep apnea -pleurisy -breakthrough seizure activity Plan: Events: Patient had rapid response after I left the room. Apparently patient is having tonic-clonic seizure activity. When I returned to the room patient questionably postictal. Noted withdrawal to painful stimuli. Awaiting Neurology consultation. Continue Keppra and p.r.n. Ativan. We will spot check CPK and prolactin level. -Antitussives -continue doxycycline and Rocephin -continue BiPAP p.r.n. -continue bronchodilators, add Mucomyst -ABG -regular insulin sliding scale -repeat labs in a.m. Total time spent with patient discussing and formulating plan of care: 35 minutes. This medical document was created using an electronic medical record system with [employer] dictation system. Although this document has been carefully reviewed, there may still be some phonetic and typographical errors. These areas are purely typographical due to imperfections of the software programs, and do not reflect any compromise in the patient's medical care. Plan discussed with: Patient, Son, Other (RN) My Orders Orders - JENNIFER ALCANTARA NP Procedure Category Date Status Time Levetiracetam 500 PHA 02/24/25 In Process Mg/100ml (Levetiraceta 22:00 Date of Service: Feb 24, 2025 Billing Provider: JENNIFER ALCANTARA NP Common Visit Codes: [id number] INP/OBS CARE(HIGH) JENNIFER ALCANTARA NP Feb 24, 2025 11:25
[2025-02-24] MEDS: levETIRAcetam 500 mg/100ml 100 ML IV SCH (21:42)
[2025-02-25] VITALS (26 sets, daily range): BP systolic 105–153; BP diastolic 51–99; PULSE 57–86; RESP 16–23; TEMP 97.7–98.3; O2SAT 94–100
--- NOTE | 2025-02-25 09:15 | DVHPN2 ---
Progress Note - Dictate Date Seen: Feb 25, 2025 Medical Necessity Reason Pt with a Central, PICC or Fol: No Subjective Ms. Queen is a 54 years old right-handed male with a history of hypertension, diabetes, dyslipidemia, asthma, COPD, recurrent pulmonary emboli, morbid obesity, sleep apnea not on CPAP, seizure disorder, peripheral arterial disease, polyneuropathy, bilateral carpal tunnel syndrome, he came to the hospital on 06/24/24 with a chief complaint of right-sided weakness. His name in my office chart is Valery Queen I saw her (was she than) on 10/05/2021 for seizure, 06/25/2024 for right-sided weakness (MRI negative) I have seen and examined the patient, talked to his nurse and other medical staff, son in the room. Nurse reports three seizures overnight and she witnessed three herself. He is oriented, he tells me that he had a lot of seizure overnight. A witnessed one seizure today, it was sudden onset of whole-body shaking, eyes closed, body turned to the right side during the seizure, during the seizure he had infrequent big respiration, no change in skin color, no increased saliva, the seizure was about 30 seconds, the patient keeps eyes closed, nonresponsive to verbal stimuli after seizure was over His son confirmed that during one of the seizure in the hospital, the patient was able to continue conversation with him Son suspected stress caused seizure He denies history of anxiety, depression, he is not ready for psychiatric consultation yet ABG, 02/21/2025: Hypoxia CBC, 06/24/2024: Unremarkable, 02/23/2025: Unremarkable CMP, 02/23/2025:: Unremarkable HGB A1c, 04/21/2024: 6.1 TG/CHO L/LDL/HDL, 09/2021: 77/189/123/48, 05/20/2023: 125/165/118/42, 06/25/2024: 164/224/173/51 Vitamin B12, 04/2024: 481 TSH, 04/21/2024: 1.09 Echocardiogram, 06/27/2024: The study is technically limited because of body habitus. Normal left ventricular size and systolic function. Ejection fraction is estimated at 60-65%. Normal right ventricular size and systolic function. No hemodynamically significant valvular disease. PA systolic pressure is estimated at 30-35 mm Hg. Intra-atrial septum is not well visualized. Carotid Doppler, 06/25/2024: 1. No hemodynamically significant stenosis noted in the right carotid system. 2. No hemodynamically significant stenosis noted in the left carotid system. CT head, 10/04/2021: No intracranial hemorrhage. MRI is recommended if clinical symptoms persist CT head, 06/24/2024: No CT evidence of acute intracranial abnormality. If there is clinical concern for acute ischemia, MRI is recommended for further evaluation CT abdomen/pelvis, 10/17/2024: No CT evidence for acute intra-abdominal or intrapelvic process. Specifically, no evidence of renal artery or vein occlusion or high-grade stenosis. (Anteverted uterus. An IUD is in place. No adnexal lesion) MRI head, 06/24/2024: No evidence of acute infarction, intracranial hemorrhage, mass effect or hydrocephalus MRI head, 12/25/2024: No evidence of acute intracranial abnormality. No acute infarct vital signs Vital Sign Date Time Temp Pulse Resp B/P (MAP) Pulse Ox O2 Delivery O2 Flow Rate FiO2 02/25/25 05:46 60 16 98 02/25/25 05:36 Nasal Cannula 4.0 02/25/25 05:36 36 02/25/25 04:28 98.1 130/84 (99) 98.1 Total Intake and Output 02/24/25 02/24/25 02/25/25 15:00 23:00 07:00 Intake Total 450 ml 900 ml Balance 450 ml 900 ml medications Current Medications Medications Dose Ordered Sig/[place] Route Start Time Stop Time Status Last Admin Dose Admin Gabapentin 300 mg BID PO 02/17/25 22:00 02/24/25 21:41 300 MG Lisinopril 5 mg DAILY PO 02/18/25 10:00 02/22/25 09:35 5 MG Atorvastatin Calcium 80 mg HS PO 02/17/25 22:00 02/24/25 21:42 80 MG Acetaminophen 325 mg Q4HP PRN PO 02/17/25 11:00 02/24/25 20:29 325 MG Ondansetron HCl 4 mg Q4HP PRN IV 02/17/25 11:00 02/18/25 20:34 4 MG Docusate Sodium 100 mg BIDPRN PRN PO 02/17/25 11:00 02/21/25 10:03 100 MG Nitroglycerin 0.4 mg Q5MINP PRN SL 02/17/25 11:00 Budesonide 0.5 mg BID NEB 02/17/25 22:00 02/25/25 05:37 0.5 MG Ipratropium [place] 0.5 mg Q4HPRN PRN NEB 02/17/25 11:00 02/25/25 05:36 0.5 MG Albuterol 2.5 mg Q4HR NEB 02/17/25 14:00 02/25/25 05:36 2.5 MG Doxycycline Hyclate 100 ml @ 50 mls/hr Q12H IV 02/17/25 11:00 02/24/25 22:31 50 MLS/HR Diagnostic Test (Pha) 1 strip ACHS 02/17/25 11:30 02/25/25 06:24 1 STRIP Insulin Human Regular ACHS SC 02/17/25 11:30 02/25/25 06:32 2 UNITS Dextrose 50 ml UD PRN IV 02/17/25 11:00 Enoxaparin Sodium 40 mg DAILY SC 02/18/25 10:00 02/24/25 11:32 40 MG Ceftriaxone Sodium 50 ml @ 100 mls/hr DAILY@09 IV 02/18/25 15:52 02/24/25 11:31 100 MLS/HR Dexamethasone 4 mg Q12HR PO 02/19/25 22:00 02/24/25 21:41 4 MG Hydralazine HCl 10 mg Q6HP PRN IV 02/19/25 10:30 Guaifenesin/ Dextromethorphan 10 ml Q4HP PRN PO 02/19/25 10:30 02/22/25 20:20 10 ML Acetylcysteine 100 mg Q4HR NEB 02/21/25 14:00 02/25/25 05:37 100 MG Lorazepam 1 mg Q5MINP PRN IV 02/23/25 17:30 02/24/25 20:28 1 MG Alprazolam 0.5 mg Q8HP PRN PO 02/24/25 22:30 Aspirin 81 mg DAILY PO 02/25/25 10:00 objective General: the patient is well developed and nourished. No acute distress. MENTAL STATUS: Awake and alert. Oriented to person, place, time and general circumstances. Able to give personal history SPEECH, LANGUAGE, HIGHER CORTICAL FUNCTION: no aphasia or dysathria. CRANIAL NERVES:Pupils are equal, round and reactive. EOMs full and conjugate. No nystagmus.Diminished to pinprick and light touch in the right face. Mandibular strength intact. Facial muscles symmetrical and strength intact. SENSATION: Diminished pinprick and light in the right arm and leg MOTOR: Normal tone in the upper and lower extremity. Normal muscle bulk. No fasciculations. No abnormal movements or posturing. Muscle strength of the major groups in the left extremities is 5/5. Muscle strength of the major groups in the right extremities is 4/5. REFLEXES: Deep tendon reflexes normal and symmetrical. No pathological reflexes. CEREBELLAR/COORDINATION: Finger to nose and heel to lara are normal bilaterally. GAIT/STATION: deferred laboratory and microbiology Laboratory Tests 02/23/25 17:55 02/23/25 05:15 Test 02/23/25 17:55 Range/Units Serum Glucose 202 H 74-106 mg/dL Problem List Status epileptics Frequent grand mal seizure Nonepileptic seizures Rule out epileptic seizure Reported chronic stroke with residual right-sided weakness Right-sided hypoesthesia, secondary to reported chronic stroke Recurrent pulmonary emboli Obesity Sleep apnea Polyneuropathy ? Anxiety Assessment/Plan Monitoring Supportive treatment Telemetry Lipitor 80 mg daily Aspirin 81 mg daily Xanax 0.5 mg t.i.d. p.r.n. for anxiety Ativan for seizure breakthrough Keppra 500 mg b.i.d. for now, we will consider discontinue if video EEG does not confirmed epileptic seizure APAP in the hospital Foot care, daily foot inspection discussed with him Weight control Further address his sleep-related breathing disorder as outpatient Tele psychiatry evaluation for anxiety when he is ready Transfer to [facility] Re: Continuous video EEG for frequent seizure activity with atypical features This medical document was created using an electronic medical record system with [employer] dictation system. Although this document has been carefully reviewed, there may still be some phonetic and typographical errors. These areas are purely typographical due to imperfections of the software programs, and do not reflect any compromise in the patient's medical care. Prognosis poor Dietary Evaluation Review Recommendations by RD: Dietary education by RD Comments: 1) Add cardiac restriction to 60g CCHO restriction 2) Encourage optimal PO intake 3) Refer to outpatient RD/CDCES for weight management 4) Follow-u with cardiology and pulmonology 5) Continue to monitor I&O, labs, and skin integrity Expected Outcomes/Goals: 1) appetite and labs to improve 2) gradual wt loss 3) f/u in 3-5 days Plan discussed with: Patient, Son, Other Total Time (mins): 40 LEANA ARMANDO MD Feb 25, 2025 09:15
--- NOTE | 2025-02-25 10:40 | DVHDS2 ---
Discharge Summary Date of Admission Feb 17, 2025 at 10:49 Date of Discharge: Feb 25, 2025 Admitting Diagnosis Dizziness and shortness of breath Labs/Diagnostic Data: Laboratory Results Test 02/25/25 06:19 02/23/25 17:55 02/23/25 05:15 02/21/25 11:29 POC Glucose 139 mg/dl (70-106) Sodium Level 141 mmol/L (136-145) Potassium Level 4.1 mmol/L (3.5-5.1) Chloride Level 106 mmol/L (98-107) Carbon Dioxide Level 25 mmol/L (20-31) Anion Gap 10 (5-15) Blood Urea Nitrogen 16 mg/dL (9-23) Creatinine 0.97 mg/dL (0.700-1.30) Glomerular Filtration Rate Calc 94 mL/min (>90) BUN/Creatinine Ratio 16.5 (10.0-20.0) Serum Glucose 202 mg/dL (74-106) Calcium Level 8.5 mg/dL (8.7-10.4) Magnesium Level 2.0 mg/dL (1.6-2.6) Total Bilirubin 0.3 mg/dL (0.2-1.0) Aspartate Amino Transferase (AST) 30 U/L (13-40) Alanine Aminotransferase (ALT) 40 U/L (7-40) Alkaline Phosphatase 105 U/L (46-116) Total Protein 7.2 g/dL (5.7-8.2) Albumin 4.0 g/dL (3.2-4.8) Prolactin 17.09 ng/mL (2.1-17.7) White Blood Count 9.9 10^3/uL (4.4-10.8) Red Blood Count 4.89 10^6/uL (4.5-5.90) Hemoglobin 13.9 g/dL (13.5-17.5) Hematocrit 42.4 % (41.0-53.0) Mean Corpuscular Volume 86.7 fL (80.0-100.0) Mean Corpuscular Hemoglobin 28.5 pg (28.0-32.0) Mean Corpuscular Hemoglobin Concent 32.9 g/dL (32.0-36.0) Red Cell Distribution Width 14.5 % (11.8-14.3) Platelet Count 187 10^3/uL (140-450) Mean Platelet Volume 10.6 fL (6.9-10.8) Neutrophils (%) (Auto) 82.9 % (37.0-80.0) Lymphocytes (%) (Auto) 11.8 % (10.0-50.0) Monocytes (%) (Auto) 5.1 % (0.0-12.0) Eosinophils (%) (Auto) 0.1 % (0.0-7.0) Basophils (%) (Auto) 0.1 % (0.0-2.0) Neutrophils # (Auto) 8.2 10 ^3/uL (1.6-8.6) Lymphocytes # (Auto) 1.2 10 ^3/uL (0.4-5.4) Monocytes # (Auto) 0.5 10 ^3/uL (0-1.3) Eosinophils # (Auto) 0 10 ^3/uL (0-0.8) Basophils # (Auto) 0 10 ^3/uL (0-0.2) Nucleated Red Blood Cells 0.0 % Blood Gas Specimen Type Arterial Blood Gas Sample Site Left radial Blood Gas Patient Temperature 37.0 Arterial Blood Date Drawn [id number] Arterial Blood pH 7.395 (7.350-7.450) Arterial Blood Partial Pressure CO2 44.6 mmHg (35.0-48.0) Arterial Blood Partial Pressure O2 44.3 mmHg (83.0-108.0) Arterial Blood HCO3 26.7 mmol/L (21.0-28.0) Arterial Blood Oxygen Saturation 79.3 % (94.0-98.0) Arterial Blood Base Excess 1.4 mmol/L (-2.0-3.0) Arterial Blood Oxyhemoglobin 78.6 % (94.0-98.0) Arterial Blood Carboxyhemoglobin 0.6 % (0.5-1.5) Arterial Blood Methemoglobin 0.3 % (0.0-1.5) Phil Test Yes Blood Gas Total Hemoglobin 14.60 g/dL (13.5-17.5) Blood Gas Modality Room air FiO2 % 21.0 Blood Gas Critical Value Read Back Yes Blood Gas Notified Whom russ Mantilla Blood Gas Notified Time [id number] Blood Gas Notified By delicia Pitts 02/17/25 07:23 02/17/25 05:41 SARS-CoV-2 Antigen (Rapid) Negative (NEGATIVE) B-Type Natriuretic Peptide 7.68 pg/mL (0-100) Other Laboratory Tests 02/23/25 17:55 02/23/25 05:15 Brief Hx & Hospital Course: History of Present Illness 54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 Patient reports that his symptoms did not get better after he completed the Paxlovid and he still was very short of breath. Patient is on 2 L nasal cannula, he does not use oxygen at home. Patient states he does not remember being officially diagnosed with COPD/asthma or CHF, does say that 1 of his doctors had mentioned CHF risk in the past. Patient reports his diabetes very well managed at home with fasting sugars between 90 and 110. Patient denies any chest pain/nausea/vomiting/diarrhea, no other symptoms or modifying factors are present at this time. COVID swab during this visit was negative. Patient currently has slight wheezing with diminished breath sounds, we will admit to telemetry for treatment and further management of care. Course of hospitalization: Patient was started on empiric antibiotic therapy. CT angiogram of the chest ruled out PE. Patient was noted to have thickening of pleural lining. Patient had persistent cough which resolved with antitussives and Decadron. Patient's symptoms regarding his respiratory status improved over the weekend, with the patient having new onset seizure activity Monday night. Patient has had continue questionable epileptic seizures. Neurology consultation was obtained. Antiepileptics as well as benzodiazepines were implemented. Recommendations by neurologist is to be transferred to higher level of care for continuous EEG monitoring. This was discussed with the patient who is agreeable this plan of care. All questions answered. Physical examination General: Alert and Oriented x3. No acute distress. Well-nourished. Obese Eyes: EOMI. Anicteric. HENT: Moist mucous membranes. Lungs: Clear to auscultation bilaterally. No accessory muscle use. Cardiovascular: Regular rate and rhythm. No murmur. No JVD. Abdomen: Soft, non-tender and non-distended. No palpable masses. Extremities: No edema. Non-tender. Skin: No rashes or lesions. Warm. Neurologic: No focal neurological deficits. CN II-XII grossly intact, but not individually tested. Psychiatric: Cooperative. Appropriate mood and affect. Total time spent with patient discussing and formulating plan of care: 35 minutes. This medical document was created using an electronic medical record system with [employer] dictation system. Although this document has been carefully reviewed, there may still be some phonetic and typographical errors. These areas are purely typographical due to imperfections of the software programs, and do not reflect any compromise in the patient's medical care. Condition at Discharge: Guarded Final Diagnosis/Problems List Pleurisy Acute on chronic hypoxic respiratory failure Breakthrough seizures, rule out epilepsy -recent COVID-19 infection -probable community-acquired pneumonia post COVID -obesity -history of pulmonary embolism, acute PE ruled out -leukocytosis, rule out sepsis -primary hypertension -diabetes mellitus -obstructive sleep apnea -pleurisy -breakthrough seizure activity Discharge Disposition: Acute Care Facility Discharge Instruct/Medications Diet: Cardiac 2g Na,low cholest Activity: No Restrictions, As Tolerated Follow Up/Referral: Per accepting providers Medications: Refer to medication reconciliation form Scheduled Atorvastatin Calcium (Atorvastatin Calcium), 1 TAB PO QPM, (Reported) Budesonide (Inhalation) (Budesonide), 0.25 MG IN BID Ciprofloxacin Hcl (Cipro), 1 TAB PO BID Cyclobenzaprine HCl (Cyclobenzaprine Hydrochlo), 10 MG PO HS Gabapentin (Gabapentin), 1 TAB PO BID Lisinopril (Lisinopril), 5 MG PO DAILY Loratadine (Claritin), 10 MG PO DAILY Nirmatrelvir/Ritonavir (PAXLOVID 20 x 150 MG & 10 x 100MG), 1 TAB PO DAILY Tirzepatide (Mounjaro), 2.5 MG SC QWEEKLY, (Reported) Scheduled PRN Acetaminophen (Acetaminophen Er), 650 MG PO Q4HPRN PRN Albuterol Sulfate (Albuterol Sulfate), 1 VIAL NEB Q4HPRN PRN for SHORTNESS OF BREATH, (Reported) Albuterol Sulfate (Ventolin Mdi), 90 MCG IN for SHORTNESS OF BREATH, (Reported) Ondansetron Odt 4MG Tab (Zofran Po), 4 MG PO Q8HPRN PRN Promethazine-Dm (Promethazine Dm 6.25-15 mg/5Ml), 1 DEIRDRE PO TIDPRN PRN 36 Discharge Statement: "Patient was advised to return to the ER or call 911 if any headaches, dizziness, shortness of breath, chest pain, abdominal pain, bleeding, fevers, or worsening of medical condition. Patient was counseled about treatment plan, medications, possible side effects, patientverbalized understanding. All questions were answered to the best of my ability. This discharge took greater then 30 minutes in planning, reviewing documentation, counseling the patient, and discussing with other team members." ASSESSMENT ASSESSMENT Assessment Pleurisy Acute on chronic hypoxic respiratory failure Breakthrough seizures, rule out epilepsy Date of Service: Feb 25, 2025 Billing Provider: JENNIFER ALCANTARA NP Common Visit Codes: 56853-TCS/OBS DISCH DAY >30min JENNIFER ALCANTARA NP Feb 25, 2025 10:40
[2025-02-25] MEDS: ALBUTEROL SULF 2.5 MG/0.5ML(0.5%) NEB SOLN NEB SCH (18:11)
[2025-02-25] MEDS: IPRATROPIUM BROM 0.5 MG/2.5ML INH SOL NEB SCH (18:12)
[2025-02-25] MEDS: ALPRAZolam 0.25 MG TAB PO PRN (19:52)
[2025-02-25] MEDS: ETOMIDATE (2MG/ML) 20ML VIAL IV ONE ×2 (21:24→21:25)
[2025-02-25] MEDS: SUCCINYLCHOLINE CHLORIDE 20 MG/ML 10ML VIAL IV ONE ×2 (21:24→21:25)
[2025-02-25] MEDS: ROCURONIUM 10MG/ML 10ML VIAL IV ONE (21:27)
[2025-02-25] MEDS ORDERED: PHENobarbital SODIUM INJ 600 MG in SODIUM CHL 0.9% 100 ML IV ONE (21:30)
[2025-02-25] MEDS: fentaNYL Drip 2500mCg/250mlNS 250 ML IV ONE (21:32)
[2025-02-25] MEDS: MIDAZOLAM DRIP 50 mg/50mL 50 ML IV ONE (21:33)
[2025-02-25] MEDS: PROPOFOL 100 ML IV ONE (21:33)
[2025-02-25] MEDS: PROPOFOL 100 ML IV SCH (22:10)
[2025-02-25] MEDS: fentaNYL Drip 2500mCg/250mlNS 250 ML IV SCH (22:10)
--- NOTE | 2025-02-25 22:24 | RESUS ---
CODE ASSIST ASSESSSMENT Initial Information Code Assist Date: Feb 25, 2025 Code Assist Time: 21:12 Location of Arrest: [facility] Room # 207 Provider Name Balaji Crum Crash Cart Opened and Supplies: No Comment: Providers at bedside Situation Staff concerned/worried, speci: Change LOC, Seizures Situation comment: Patient found uncounscious on the floor, unwittnessed fall per primary RN. Previously having seizures, had seziures on the floor, and then had sezuire while being placed into bed. 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 Patient reports that his symptoms did not get better after he completed the Paxlovid and he still was very short of breath. Patient is on 2 L nasal cannula, he does not use oxygen at home. Patient states he does not remember being officially diagnosed with COPD/asthma or CHF, does say that 1 of his doctors had mentioned CHF risk in the past. Patient reports his diabetes very well managed at home with fasting sugars between 90 and 110. Patient denies any chest pain/nausea/vomiting/diarrhea, no other symptoms or modifying factors are present at this time. COVID swab during this visit was negative. Patient currently has slight wheezing with diminished breath sounds, we will admit to telemetry for treatment and further management of care. Assessment Blood Pressure Systolic: 154 Blood Pressure Diastolic: 87 Respiratory Rate: 17 O2 Sat by Pulse Oximetry: 98 Bedside Blood Glucose: 127 Assessment comment: (pre intubation vitals) Recommendations/Interventions Medications and Responses #1: Medication Time: 21:15 ADULT Medications Given: Ativan 1 mg IV MRx1 Route of Administration: IV Heart Rate: 80 EKG Rhythm: Sinus Rhythm Medications and Responses #2: Route of Administration: IV Medication Comment: 20mg Etomidate and 100 of rocc, given IV Heart Rate: 80 EKG Rhythm: Sinus Rhythm Blood Pressure Systolic: 154 Blood Pressure Diastolic: 87 Respiratory Rate: 17 O2 Sat by Pulse Oximetry: 96 Comment Intubated at this time by Radames FIRE ADJUSTER ETT 8, 24cm @ lip. Verified by cxray, breath sounds, color change Procedures: Accu check, Intubated Other Interventions Started on propofol and versed per emar, taken to head CT and Cxray. Transferred to ICU 266 Outcome Outcome: Transfer to ICU (started on prop, ) Team Members Team Members Balaji Crum RT Deandra ICU hydrant setter Barbara ICU resource RN Isabella MST lost charge card clerkCARLOS Alexander MST resource Mady MST Primary RN Jayce Dennison MST lost charge card clerkJAYCE NUR Feb 25, 2025 22:24
--- NOTE | 2025-02-25 22:38 | DVH ---
EXAM: CT HEAD WITHOUT CONTRAST INDICATION: SEIZURE TECHNIQUE: CT of the head without intravenous contrast. Radiation Dose : 1. Head: CT Dose: CTDI volume is 66.94 mGy. Dose-length product is 1.71 mGy*cm The dose indicators for CT are the volume Computed Tomography (CT) Dose Index (CTDIvol) and the Dose Length Product (DLP), and are measured in units of mGy and mGy-cm, respectively. These indicators are not patient dose, but values generated from the CT scanner acquisition factors. The report includes radiation exposure data for exposures received during this examination. COMPARISON: CT HEAD WITHOUT CONTRAST on DOS: 02/23/25, MRI BRAIN HEAD WO CONTRAST on DOS: 12/25/24, CT HE AD WITHOUT CONTRAST on DOS: 12/24/24, MRI BRAIN HEAD WO CONTRAST on DOS: 06/25/24, CT HEAD WITHOUT CONTRA ST on DOS: 06/24/24 FINDINGS: Evaluation is degraded by motion and streak artifact. The cerebral parenchyma appears to be normal configuration and attenuation. The ventricles, cisterns , and sulci appear age-appropriate. There is no evidence for acute territorial infarct, hemorrhage, or mass effect. The orbits are normal. There is opacification of the right posterior ethmoid air cell. There is mild mucosal thickening within the right maxillary antrum. The mastoid air cells are clear. There is hyp erostosis frontalis interna. IMPRESSION: 1. No acute territorial infarct, intracranial hemorrhage, or mass effect. 2. If clinical symptoms persist, MRI may be beneficial in further evaluation. Radiation optimization: All CT scans at this facility use at least one of these dose optimization yajaira hniques: automated exposure control mA and/or kV adjustment per patient size (includes targeted exam s where dose is matched to clinical indication) or iterative reconstruction.
--- NOTE | 2025-02-25 23:04 | DVH ---
CHEST RADIOGRAPH Indication: INTUBATION Technique: Single frontal view of the chest was obtained COMPARISON: XY CHEST PORTABLE on DOS: 02/21/25, XY CHEST XRAY 1 VIEW on DOS: 02/17/25, XY CHEST XRAY 1 EW on DOS: 02/08/25, XY CHEST PORTABLE on DOS: 12/24/24, XY CHEST TWO VIEWS ROUTINE on DOS: 11/27/24 FINDINGS: Lines and Tubes: Status post interval intubation with endotracheal tube tip projecting approximately 1.2 cm above the level of the jose manuel. Lungs: Diffuse increased prominence of the pulmonary vasculature without evidence of focal consolidat ion. Right hemidiaphragmatic elevation redemonstrated. Pleura: No effusion. No pneumothorax. Cardiomediastinal contours: Unremarkable Bones: Unremarkable IMPRESSION: 1. Status post interval intubation with endotracheal tube tip projecting approximately 1.2 cm above t he level of the jose manuel. 2. Diffuse increased prominence of the pulmonary vasculature without evidence of focal consolidation.
[2025-02-25 23:12] LABS: Benzodiazephine Screen, Urine Pos (NEGATIVE); Phencyclidine Screen, Urine Neg (NEGATIVE)
[2025-02-25] MEDS: MIDAZOLAM DRIP 50 mg/50mL 50 ML IV SCH (23:12)
[2025-02-25 23:19] LABS: Base Excess 0.7 mmol/L (-2.0-3.0)
[2025-02-25 23:24] LABS: Amphetamine Screen, Urine Neg (NEGATIVE); Barbiturate Scree,Urine Neg (NEGATIVE); Cannabinoid Screen, Urine Neg (NEGATIVE); Cocaine Screen, Urine Neg (NEGATIVE); Opiate Scree,Urine Neg (NEGATIVE)
[2025-02-26] VITALS (108 sets, daily range): BP systolic 82–119; BP diastolic 41–80; PULSE 53–81; RESP 14–20; TEMP 97.9–98.9; O2SAT 93–98
--- NOTE | 2025-02-26 00:24 | DVH ---
CHEST RADIOGRAPH Indication: NGT PLACEMENT VERIFICATION Technique: Single frontal view of the chest was obtained COMPARISON: XY CHEST PORTABLE on DOS: 02/25/25, XY CHEST PORTABLE on DOS: 02/21/25, CT CT ANGIO CHEST CON TRAST on DOS: 02/18/25, XY CHEST XRAY 1 VIEW on DOS: 02/17/25, XY CHEST XRAY 1 VIEW on DOS: 02/08/25 FINDINGS: Lines and Tubes: Slight interval advancement of endotracheal tube such that the tip now projects appr oximately 0.7 cm above the level of the jose manuel. Enteric catheter unchanged. Lungs: Clear. Mild right hemidiaphragmatic elevation. Pleura: No effusion. No pneumothorax. Cardiomediastinal contours: Cardiomegaly. Bones: Unremarkable IMPRESSION: 1. Slight interval advancement of endotracheal tube such that the tip now projects approximately 0.7 cm above the level of the jose manuel. Recommend retraction by approximately 2-3 cm. 2. Cardiomegaly.
[2025-02-26] MEDS: DOXYCYCLINE 100 MG TAB/CAP PO SCH (00:51)
[2025-02-26] MEDS: levETIRAcetam 500 MG TAB PO SCH (00:51)
[2025-02-26 05:29] LABS: Hematocrit 36.8 % (41.0-53.0); Hemoglobin 12.4 g/dL (13.5-17.5); Mean Corpuscular Hemoglobin 28.8 pg (28.0-32.0); Mean Corpuscular Volume 85.5 fL (80.0-100.0); Nucleated Red Blood Cells % 0.2 %
--- NOTE | 2025-02-26 08:07 | DVH ---
CHEST RADIOGRAPH Indication: ET TUBE VERIFICATION Technique: Single frontal view of the chest was obtained Comparison: XY CHEST PORTABLE on DOS: 02/25/25 FINDINGS: Lines and Tubes: The endotracheal tube terminates 4.6 cm above the jose manuel. The enteric tube courses b elow the left hemidiaphragm and the tip extends outside the field of view. Lungs: Bilateral airspace disease. Pleura: No effusion. No pneumothorax. Cardiomediastinal contours: Cardiomegaly. Bones: No acute osseous abnormality. IMPRESSION: 1. Endotracheal tube terminates 4.6 cm above the jose manuel. 2. Enteric tube courses below the left hemidiaphragm and the tip extends outside the field of view. 3. Bilateral airspace disease. No significant interval change. 4. Cardiomegaly.
--- NOTE | 2025-02-26 08:33 | DVHPN2 ---
Subjective Patient respiratory status improving. Cough resolved. Now reports having breakthrough seizure activity. Reviewed: Care Plan, H&P, Labs, Medications, Previous Orders Changes from previous H/P or p: No Changes General: Per HPI Eyes: No Pain, No Vision change, No Conjunctivae inflammation, No Eyelid inflammation, No Other, No Redness ENT: No Ear pain, No Ear discharge, No Nose pain, No Nose discharge, No Nose congestion, No Mouth pain, No Mouth swelling, No Throat pain, No Throat swelling, No Other Cardiovascular: No Chest Pain, No Palpitations, No Orthopnea, No Paroxysmal Noc. Dyspnea, No Edema, No Lt Headedness, No Other Respiratory: No Dry, No SOB with excertion, No Hemoptysis, No Pleuritic Pain, No Sputum, No Other Gastrointestinal: No Nausea, No Vomiting, No Abdominal Pain, No Diarrhea, No Constipation, No Melena, No Hematochezia, No Other Genitourinary: No Dysuria, No Frequency, No Incontinence, No Hematuria, No Retention, No Other Musculoskeletal: No other, No neck pain, No shoulder pain, No arm pain, No back pain, No hand pain, No leg pain, No foot pain Skin: No Rash, No Lesions, No Jaundice, No Bruising, No Other Objective Vitals Vital Signs Date Time Temp Pulse Resp B/P (MAP) Pulse Ox O2 Delivery O2 Flow Rate FiO2 02/26/25 06:52 64 18 98/55 (69) 95 45 02/26/25 06:00 Mechanical Ventilator+ 02/26/25 05:15 98.1 98.1 02/25/25 18:11 4 Intake/Output Intake and Output 02/26/25 07:00 Intake Total 774.014 ml Output Total 250 ml Balance 524.014 ml Intake Oral 550 ml IV Total 224.014 ml Output Urine Total 250 ml # Voids 2 # Bowel Movements 1 General Appearance: Alert, Oriented X3, Cooperative, No acute distress HEENT: Atraumatic, PERRLA Cardiovascular: Normal S1, Normal S2 Abdomen: Normal bowel sounds, Soft, No tenderness, No hepatospenomegaly Musculoskeletal: Normal sensory function, Normal motor function Extremities: No clubbing, No cyanosis Neuro: Normal speech Skin: Dry, Intact Psych/Mental Status: Mental status NL, Mood NL Medications Current Medications Medications Dose Ordered Sig/[place] Route Start Time Stop Time Status Last Admin Dose Admin Atorvastatin Calcium 80 mg HS PO 02/17/25 22:00 02/26/25 00:51 80 MG Acetaminophen 325 mg Q4HP PRN PO 02/17/25 11:00 02/24/25 20:29 325 MG Ondansetron HCl 4 mg Q4HP PRN IV 02/17/25 11:00 02/18/25 20:34 4 MG Docusate Sodium 100 mg BIDPRN PRN PO 02/17/25 11:00 02/21/25 10:03 100 MG Nitroglycerin 0.4 mg Q5MINP PRN SL 02/17/25 11:00 Budesonide 0.5 mg BID NEB 02/17/25 22:00 02/26/25 06:52 0.5 MG Diagnostic Test (Pha) 1 strip ACHS 02/17/25 11:30 02/26/25 05:51 1 STRIP Insulin Human Regular ACHS SC 02/17/25 11:30 02/25/25 06:32 2 UNITS Dextrose 50 ml UD PRN IV 02/17/25 11:00 Enoxaparin Sodium 40 mg DAILY SC 02/18/25 10:00 02/25/25 09:33 40 MG Hydralazine HCl 10 mg Q6HP PRN IV 02/19/25 10:30 Lorazepam 1 mg Q5MINP PRN IV 02/23/25 17:30 02/25/25 21:17 1 MG Aspirin 81 mg DAILY PO 02/25/25 10:00 Albuterol 2.5 mg Q6HWA [facility] 02/25/25 12:00 02/26/25 06:52 2.5 MG Ipratropium [place] 0.5 mg Q6HWA [facility] 02/25/25 12:00 02/25/25 18:12 0.5 MG Doxycycline Monohydrate 100 mg Q12HR PO 02/25/25 22:00 02/26/25 00:51 100 MG Propofol 100 ml @ 4.053 mls/ hr Q24H IV 02/25/25 22:45 02/26/25 07:55 16.212 MLS/HR Fentanyl Citrate 250 ml @ 2.5 mls/hr Q24H IV 02/25/25 22:45 02/25/25 22:10 2.5 MLS/HR Midazolam HCl 50 ml @ 1 mls/hr Q24H IV 02/25/25 22:45 02/25/25 23:12 1 MLS/HR Levetiracetam 100 ml @ 400 mls/hr BID IV 02/26/25 10:00 UNV Laboratory Results Laboratory Tests 02/26/25 04:42 Chemistry Test 02/26/25 04:42 Albumin Pending Calcium Level Pending Total Protein Pending LFT Test 02/26/25 04:42 Alanine Aminotransferase (ALT) Pending Alkaline Phosphatase Pending Aspartate Amino Transferase (AST) Pending Total Bilirubin Pending Blood Gas Results Test 02/25/25 23:08 Arterial Blood pH 7.442 (7.350-7.450) FiO2 % 50.0 Labs and/or images reviewed: Image(s) reviewed by me Assessment/Plan Assessment/Plan Impression: -acute hypoxic respiratory failure -recent COVID-19 infection -probable community-acquired pneumonia post COVID -obesity -history of pulmonary embolism, acute PE ruled out -leukocytosis, rule out sepsis -primary hypertension -diabetes mellitus -obstructive sleep apnea -pleurisy -breakthrough seizure activity Plan: Events: Patient was found on the ground with questionable seizure activity. Patient was placed back in bed, found to have persistent seizure activity, at which time the covering hospitalist intubated with the patient. ABG, chest x- ray reviewed. No new changes ventilator settings. Continue efforts to transfer to higher level care for continuous EEG monitoring. -continue current sedation -change Keppra to IV -continue bronchodilators -PUD, DVT prophylaxis -social service consultation for transferring to [facility] Total time spent with patient discussing and formulating plan of care: 35 minutes. This medical document was created using an electronic medical record system with [employer] dictation system. Although this document has been carefully reviewed, there may still be some phonetic and typographical errors. These areas are purely typographical due to imperfections of the software programs, and do not reflect any compromise in the patient's medical care. Plan discussed with: Patient, Other (RN) My Orders Orders - JENNIFER ALCANTARA PNEUMATIC TUBE FITTER Procedure Category Date Status Time Albuterol Medneb PHA 02/25/25 In Process (Ventolin Medneb) 12:00 Ipratropium Medneb PHA 02/25/25 In Process (Atrovent Medneb) 12:00 Doxycycline Tablet PHA 02/25/25 In Process (Vibramycin Tablet) 22:00 Discharge DISCHARGE 02/25/25 Transmitted 10:34 Mrsa Screen PRIYA 02/25/25 In Process 22:17 Levetiracetam 500 PHA 02/26/25 Logged Mg/100ml (Levetiraceta 10:00 Basic Metabolic Panel LAB 02/27/25 Verified 04:00 Chest Portable XY 02/27/25 Logged 04:00 * Cane Cutter CONS 02/26/25 Transmitted Consult Methylprednisolone PHA 02/26/25 Verified Sod Succ (Solu Medrol 10:00 Date of Service: Feb 26, 2025 Billing Provider: JENNIFER ALCANTARA NP Common Visit Codes: 36842-WCRNMPHY CARE 30-74 MIN JENNIFER ALCANTARA NP Feb 26, 2025 08:32
[2025-02-26 09:09] LABS: Base Excess -0.1 mmol/L (-2.0-3.0)
--- NOTE | 2025-02-26 10:47 | DVHPN2 ---
Progress Note - Dictate Date Seen: Feb 26, 2025 Medical Necessity Reason Pt with a Central, PICC or Fol: No Subjective Ms. Queen is a 54 years old right-handed male with a history of hypertension, diabetes, dyslipidemia, asthma, COPD, recurrent pulmonary emboli, morbid obesity, sleep apnea not on CPAP, seizure disorder, peripheral arterial disease, polyneuropathy, bilateral carpal tunnel syndrome, he came to the hospital on 06/24/24 with a chief complaint of right-sided weakness. His name in my office chart is Valery Queen I saw her (was she than) on 10/05/2021 for seizure, 06/25/2024 for right-sided weakness (MRI negative) I have seen and examined the patient, talked to his nurse and other medical staff, son in the room. He has a seizure attack last night and he fell onto the floor, he did not wake up and was intubated, transferred to ICU At this time, he is responsive to touch stimuli ABG, 02/21/2025: Hypoxia CBC, 06/24/2024: Unremarkable, 02/23/2025: Unremarkable CMP, 02/23/2025:: Unremarkable HGB A1c, 04/21/2024: 6.1 TG/CHO L/LDL/HDL, 09/2021: 77/189/123/48, 05/20/2023: 125/165/118/42, 06/25/2024: 164/224/173/51 Vitamin B12, 04/2024: 481 TSH, 04/21/2024: 1.09 Echocardiogram, 06/27/2024: The study is technically limited because of body habitus. Normal left ventricular size and systolic function. Ejection fraction is estimated at 60-65%. Normal right ventricular size and systolic function. No hemodynamically significant valvular disease. PA systolic pressure is estimated at 30-35 mm Hg. Intra-atrial septum is not well visualized. Carotid Doppler, 06/25/2024: 1. No hemodynamically significant stenosis noted in the right carotid system. 2. No hemodynamically significant stenosis noted in the left carotid system. CT head, 10/04/2021: No intracranial hemorrhage. MRI is recommended if clinical symptoms persist CT head, 06/24/2024: No CT evidence of acute intracranial abnormality. If there is clinical concern for acute ischemia, MRI is recommended for further evaluation CT head, 02/25/2025: 1. No acute territorial infarct, intracranial hemorrhage, or mass effect. 2. If clinical symptoms persist, MRI may be beneficial in further evaluation. CT abdomen/pelvis, 10/17/2024: No CT evidence for acute intra-abdominal or intrapelvic process. Specifically, no evidence of renal artery or vein occlusion or high-grade stenosis. (Anteverted uterus. An IUD is in place. No adnexal lesion) MRI head, 06/24/2024: No evidence of acute infarction, intracranial hemorrhage, mass effect or hydrocephalus MRI head, 12/25/2024: No evidence of acute intracranial abnormality. No acute infarct vital signs Vital Sign Date Time Temp Pulse Resp B/P (MAP) Pulse Ox O2 Delivery O2 Flow Rate FiO2 02/26/25 10:31 74 18 96/55 (69) 97 45 02/26/25 08:00 Mechanical Ventilator+ 02/26/25 08:00 98.2 98.2 02/25/25 18:11 4 Total Intake and Output 02/25/25 02/25/25 02/26/25 14:59 22:59 06:59 Intake Total 550 ml 224.014 ml Output Total 250 ml Balance 550 ml -25.986 ml medications Current Medications Medications Dose Ordered Sig/[place] Route Start Time Stop Time Status Last Admin Dose Admin Atorvastatin Calcium 80 mg HS PO 02/17/25 22:00 02/26/25 00:51 80 MG Acetaminophen 325 mg Q4HP PRN PO 02/17/25 11:00 02/24/25 20:29 325 MG Ondansetron HCl 4 mg Q4HP PRN IV 02/17/25 11:00 02/18/25 20:34 4 MG Docusate Sodium 100 mg BIDPRN PRN PO 02/17/25 11:00 02/21/25 10:03 100 MG Nitroglycerin 0.4 mg Q5MINP PRN SL 02/17/25 11:00 Budesonide 0.5 mg BID NEB 02/17/25 22:00 02/26/25 06:52 0.5 MG Diagnostic Test (Pha) 1 strip ACHS 02/17/25 11:30 02/26/25 05:51 1 STRIP Insulin Human Regular ACHS SC 02/17/25 11:30 02/25/25 06:32 2 UNITS Dextrose 50 ml UD PRN IV 02/17/25 11:00 Enoxaparin Sodium 40 mg DAILY SC 02/18/25 10:00 02/26/25 09:53 40 MG Hydralazine HCl 10 mg Q6HP PRN IV 02/19/25 10:30 Lorazepam 1 mg Q5MINP PRN IV 02/23/25 17:30 02/25/25 21:17 1 MG Aspirin 81 mg DAILY PO 02/25/25 10:00 02/26/25 09:53 81 MG Albuterol 2.5 mg Q6HWA [facility] 02/25/25 12:00 02/26/25 06:52 2.5 MG Ipratropium [place] 0.5 mg Q6HWA [facility] 02/25/25 12:00 02/25/25 18:12 0.5 MG Doxycycline Monohydrate 100 mg Q12HR PO 02/25/25 22:00 02/26/25 09:53 100 MG Propofol 100 ml @ 4.053 mls/ hr Q24H IV 02/25/25 22:45 02/26/25 07:55 16.212 MLS/HR Fentanyl Citrate 250 ml @ 2.5 mls/hr Q24H IV 02/25/25 22:45 02/25/25 22:10 2.5 MLS/HR Midazolam HCl 50 ml @ 1 mls/hr Q24H IV 02/25/25 22:45 02/26/25 09:14 7 MLS/HR Levetiracetam 100 ml @ 400 mls/hr BID IV 02/26/25 10:00 UNV Methylprednisolone Sodium Succinate 40 mg DAILY IV 02/26/25 10:00 UNV objective General: the patient is well developed and nourished. No acute distress. MENTAL STATUS: Subjective SPEECH, LANGUAGE, HIGHER CORTICAL FUNCTION: Subjective CRANIAL NERVES:Pupils are equal, round and reactive. This doll's eye phenomena and corneal reflex, he has good gag reflex,. Facial muscles symmetrical and strength intact. SENSATION: Diminished pinprick and light in the right arm and leg per previous physical examination MOTOR: Normal tone in the upper and lower extremity. Normal muscle bulk. No spontaneous movement REFLEXES: Deep tendon reflexes normal and symmetrical. No pathological reflexes. CEREBELLAR/COORDINATION: Deferred. GAIT/STATION: deferred laboratory and microbiology Laboratory Tests 02/26/25 04:42 Test 02/26/25 10:03 Range/Units Serum Glucose Pending Problem List Acute respiratory failure Status epileptics Frequent grand mal seizure Nonepileptic seizures Rule out epileptic seizure Reported chronic stroke with residual right-sided weakness Right-sided hypoesthesia, secondary to reported chronic stroke Recurrent pulmonary emboli Obesity Sleep apnea Polyneuropathy ? Anxiety Assessment/Plan Monitoring Supportive treatment ICU care Respiratory support/vent management Stabilize vitals Lipitor 80 mg daily Aspirin 81 mg daily Xanax 0.5 mg t.i.d. p.r.n. for anxiety Ativan for seizure breakthrough Keppra 500 mg b.i.d. for now, we will consider discontinue if video EEG does not confirmed epileptic seizure APAP in the hospital Foot care, daily foot inspection discussed with him Weight control Further address his sleep-related breathing disorder as outpatient Tele psychiatry evaluation for anxiety when he is ready Transfer to [facility] Re: Continuous video EEG for frequent seizure activity with atypical features (not accepted by [facility]) Gradual wean him off sedation and try to extubate once history ready This medical document was created using an electronic medical record system with [email or web address] computerized dictation system. Although this document has been carefully reviewed, there may still be some phonetic and typographical errors. These areas are purely typographical due to imperfections of the software programs, and do not reflect any compromise in the patient's medical care. Prognosis Guarded Dietary Evaluation Review Recommendations by RD: Dietary education by RD Comments: 1) Add cardiac restriction to 60g CCHO restriction 2) Encourage optimal PO intake 3) Refer to outpatient RD/CDCES for weight management 4) Follow-u with cardiology and pulmonology 5) Continue to monitor I&O, labs, and skin integrity Expected Outcomes/Goals: 1) appetite and labs to improve 2) gradual wt loss 3) f/u in 3-5 days Plan discussed with: Son, Other Critical Care Time(min): 40 LEANA ARMANDO MD Feb 26, 2025 10:46
[2025-02-26 12:37] LABS: Albumin 3.8 g/dL (3.2-4.8); Alkaline Phosphatase 68 U/L (46-116); Anion Gap 8 (5-15); BUN/Creatinine Ratio 25.6 (10.0-20.0); Bilirubin, Total 1.0 mg/dL (0.2-1.0); Carbon Dioxide 26 mmol/L (20-31); Chloride 105 mmol/L (98-107); Glucose 83 mg/dL (74-106); Sodium 139 mmol/L (136-145); Total Protein 6.2 g/dL (5.7-8.2)
[2025-02-26 12:38] LABS: Alanine Aminotransferase 52 U/L (7-40); Blood Urea Nitrogen 22 mg/dL (9-23); Calcium 8.5 mg/dL (8.7-10.4); Potassium 4.5 mmol/L (3.5-5.1)
[2025-02-26] MEDS: levETIRAcetam 500 mg/100ml 100 ML IV SCH (13:21)
[2025-02-26] MEDS: methylPREDNISolone SOD SUCC 40 MG/ML VL IV SCH (13:21)
--- NOTE | 2025-02-27 00:13 | DVHEEG2 ---
Neurology EEG Procedural Note Procedural Note EXAM DATE: 02/26/2025 REFERRING DOCTOR: Dr. Armando TECHNIQUE: Eighteen channels of EEG, 2 channels of EOG, and 1 channel of EKG were recorded using the International 10/20 system. CLINICAL DATA: The patient was referred for an EEG evaluation for the evidence of seizure disorder. MEDICATIONS: See the chart BACKGROUND ACTIVITY: While the patient was awake, the background activity consisted of well regulated 10 Hz rhythmic waveforms, symmetrically distributed over both posterior quadrants and was reactive to eye opening. ACTIVATION: Hyperventilation: Not done Photic Stimulation: Not done Sleep: Not seen IMPRESSION: This is a normal EEG. No focal, lateralized, or epileptiform features are noted. If clinically indicated to rule out a seizure disorder, recommend repeat EEG with sleep deprivation. The EKG channel showed a regular heart rate of 64 per minute. [place] [address] LEANA ARMANDO MD Feb 27, 2025 00:12
--- NOTE | 2025-02-27 00:15 | DVHEEG2 ---
Neurology EEG Procedural Note Procedural Note EXAM DATE: 02/26/2025 REFERRING DOCTOR: Adria TECHNIQUE: Eighteen channels of EEG, 2 channels of EOG, and 1 channel of EKG were recorded using the International 10/20 system. CLINICAL DATA: The patient was referred for an EEG evaluation for the evidence of seizure disorder. MEDICATIONS: See the chart BACKGROUND ACTIVITY: The record showed diffuse low amplitude rhythmic activity in alpha in the beta range, that was reactive to external stimuli ACTIVATION: Hyperventilation: Not done Photic Stimulation: Not done Sleep: Nonresponsiveness IMPRESSION: This is a remarkably abnormal EEG, this EEG seen in severe cerebral dysfunction due to metabolic/hypoxic encephalopathy or medication effects, please correlate clinically. The EKG channel showed a regular heart rate of 84 per minute. [place] [address] LEANA ARMANDO MD Feb 27, 2025 00:15
== END 2025-02-26 23:50 | disposition short-term general hospital (02) | DRG 720 ==
LOC: EDSEX 05:03 → ER 05:03 → OVERFLOW 10:49 → TELE-CENTR 02-18 23:57 → CENTRAL 02-19 02:57 → TELE-CENTR 02-23 23:55 → ICU CENTRL 02-25 22:00
PROVIDERS: ADMIT Nurse Practitioner Acute Care; ATTEND Nurse Practitioner Acute Care
PROC: 5A09357 Assistance with Respiratory Ventilation, Less than 24 Consecutive Hours, Continuous Positive Airway Pressure (ICD-10-PCS; 2025-02-19)
PROC: 05HD33Z Insertion of Infusion Device into Right Cephalic Vein, Percutaneous Approach (ICD-10-PCS; 2025-02-21)
PROC: B54MZZA Ultrasonography of Right Upper Extremity Veins, Guidance (ICD-10-PCS; 2025-02-21)
PROC: 5A09357 Assistance with Respiratory Ventilation, Less than 24 Consecutive Hours, Continuous Positive Airway Pressure (ICD-10-PCS; 2025-02-21)
PROC: 5A1945Z Respiratory Ventilation, 24-96 Consecutive Hours (ICD-10-PCS; principal; 2025-02-25)
PROC: 0BH17EZ Insertion of Endotracheal Airway into Trachea, Via Natural or Artificial Opening (ICD-10-PCS; 2025-02-25)
DX: A41.9 Sepsis, unspecified organism (principal); J15.69 Pneumonia due to other Gram-negative bacteria; G40.401 Other generalized epilepsy and epileptic syndromes, not intractable, with status epilepticus; J96.21 Acute and chronic respiratory failure with hypoxia; I69.351 Hemiplegia and hemiparesis following cerebral infarction affecting right dominant side; I11.0 Hypertensive heart disease with heart failure; Z20.822 Contact with and (suspected) exposure to COVID-19; J15.9 Unspecified bacterial pneumonia; J44.0 Chronic obstructive pulmonary disease with (acute) lower respiratory infection; E66.9 Obesity, unspecified; G47.33 Obstructive sleep apnea (adult) (pediatric); F41.9 Anxiety disorder, unspecified; E11.40 Type 2 diabetes mellitus with diabetic neuropathy, unspecified; E78.5 Hyperlipidemia, unspecified; I50.9 Heart failure, unspecified; Z68.44 Body mass index [BMI] 60.0-69.9, adult; I25.2 Old myocardial infarction; Z86.711 Personal history of pulmonary embolism; Z91.013 Allergy to seafood; Z88.5 Allergy status to narcotic agent; Z88.1 Allergy status to other antibiotic agents; Z91.041 Radiographic dye allergy status; Z91.040 Latex allergy status; Z83.3 Family history of diabetes mellitus; Z82.49 Family history of ischemic heart disease and other diseases of the circulatory system; Z90.49 Acquired absence of other specified parts of digestive tract; Z87.891 Personal history of nicotine dependence; Z79.899 Other long term (current) drug therapy; Z79.82 Long term (current) use of aspirin; Z82.5 Family history of asthma and other chronic lower respiratory diseases; Z82.3 Family history of stroke; Z80.0 Family history of malignant neoplasm of digestive organs; Z84.1 Family history of disorders of kidney and ureter; Z91.018 Allergy to other foods
CPT/HCPCS: 36415; 36600; 70450; 71045; 71275; 80048; 80053; 80307; 82805; 82962; 83735; 83880; 84146; 85025; 87070; 87081; 87205; 87426; 93005; 94002; 94003; 94640; 94660; 94667; 94668; 95819; 96365; 96375; G0378; J0330; J1815; J2405; J2704; J3490